=== PATIENT | male | born 1930 | race Caucasian/White ===

== ENCOUNTER 2016-06-19 15:55 | Inpatient (IN) | payer OTHER ==
[~2016-06-19] VITALS: Ht 188 cm; Wt 79.7 kg
[~2016-06-19 15:55] MED LIST: ADVIN25/60 INH; ALBUAER19 INH; AMB5 PO; ASPI81TA25 PO; CHOL100027 PO; CLOP1TAB54 PO; CRG125 PO; CRG625 PO; ELQ25 PO; FURO20TA PO; GABA1CAP5 PO; LEVO125T72 PO; LNX125 PO; NTRGSL/4 SL; OMEP20CA9 PO
[2016-06-19] MEDS ORDERED: SODIUM CHLORIDE 0.9% 1000ML 1,000 ML IV STA (16:07)
--- NOTE | 2016-06-19 16:29 | EMERGENCY ROOM VISIT NOTE ---
History Report prepared by Marija: Marcio Mata Under the Supervision of: Dr. Jayden Jimenez M.D. First contact with patient: 16:06 Chief Complaint: SHORTNESS OF BREATH Stated Complaint: SOB History of Present Illness The patient is an 85 year old male who presents to the Emergency Room via ambulance with complaints of constant fatigue beginning a few days prior to arrival. As per daughter, the patient associates shortness of breath, a persistent headache, nausea, and slurred speech with today's symptoms. She notes she checked the patient's oxygen saturation this morning and it was 92%, and then she checked it later in the day which revealed an oxygen saturation of 80. The daughter states the patient was seen in the ED last week for chest pain. She notes the patient is not on oxygen at home. The patient received a Duoneb treatment in the ambulance en route to the ED. The daughter notes the patient experienced a fall several weeks ago. She states the patient has not seen his PCP in the past week, but is scheduled to see his doctor in a few days. The patient has a history of CHF and rapid atrial fibrillation. The daughter denies the patient experiencing one sided weakness. Pt denies LOC, fevers, chills, diaphoresis, visual changes, neck pain, chest pain, breathing difficulties, vomiting, abdominal pain, back pain, melena, hematochezia, urinary symptoms, numbness, weakness, lymphadenopathy, rash, or other complaints. 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 Review of Systems See HPI for pertinent positives and negatives. A total of ten systems were reviewed and were otherwise negative. Past Medical & Surgical Medical Problems: (1) Acute systolic heart failure (2) Anemia (3) CAD (coronary artery disease) (4) CHF exacerbation (5) Chronic kidney disease (6) COPD (chronic obstructive pulmonary disease) (7) Depressive disorder (8) Diabetes mellitus (9) History of atrial fibrillation (10) History of stomach ulcers (11) HTN (hypertension) (12) Hypercholesteremia (13) Hypothyroidism (14) Sleep apnea Surgical Problems: (1) H/O total knee replacement (2) History of lumbar surgery (3) History of permanent cardiac pacemaker placement (4) Hx of CABG Family History Patient reports no known family medical history. Social History Smoking Status: Former Smoker Drug Use: none Marital Status: Housing Status: lives with family Occupation Status: retired Current/Historical Medications Scheduled Apixaban (Eliquis), 2.5 MG PO BID Aspirin (Aspir-Low), 81 MG PO QAM Carvedilol (Carvedilol), 6.25 MG PO QAM Carvedilol (Carvedilol), 12.5 MG PO HS Cholecalciferol (Vitamin D 1000 Unit), 2,000 INTER.UNIT PO QAM Clopidogrel Bisulfate (Plavix), 75 MG PO QAM Digoxin (Digoxin), 0.125 MG PO DAILY@16 Fluticasone Prop/Salmeterol (Advair Diskus 250/50 60 Dose), 1 PUFF INH Q12 Furosemide (Lasix), 1 TAB PO QAM Gabapentin (Neurontin), 400 MG PO TID Omeprazole (Prilosec), 1 CAP PO QAM Zolpidem Tartrate (Zolpidem Tartrate), 5 MG PO HS Scheduled PRN Albuterol Inhaler (Ventolin Inhaler), 2 PUFFS INH Q4H PRN Nitroglycerin (Nitrostat), 0.4 MG SL UD PRN Allergies Coded Allergies: Warfarin (Verified Allergy, Intermediate, PT CAN TAKE BRAND COUMADIN, ) GOT HIVES AND SWELLING WITH WARFARIN (GENERIC BRAND) Simvastatin (Verified Adverse Reaction, Mild, GI UPSET, 06/12/16) Physical Exam Vital Signs Date Time Temp Pulse Resp B/P Pulse Ox O2 Delivery O2 Flow Rate FiO2 06/19/16 19:05 78 94 6.0 06/19/16 18:58 88 22 143/87 94 Nasal Cannula 5.0 06/19/16 17:49 70 26 140/81 96 Nasal Cannula 4.0 06/19/16 16:43 72 28 147/87 96 Nasal Cannula 5.0 06/19/16 16:13 104 06/19/16 16:09 82 Room Air 06/19/16 16:09 95 Nasal Cannula 5.0 06/19/16 16:09 36.5 70 24 143/89 82 Room Air 06/19/16 16:09 82 Room Air Physical Exam GENERAL: Awake, lethargic, uncomfortable-appearing, in no distress HENT: Normocephalic, atraumatic. Oropharynx unremarkable. EYES: Normal conjunctiva. Sclera non-icteric. NECK: Supple. No nuchal rigidity. FROM. No JVD. RESPIRATORY: Clear to auscultation. CARDIAC: Irregularly irregular, normal rate. Extremities warm and well perfused. Pulses equal. ABDOMEN: Soft, non-distended. No tenderness to palpation. No rebound or guarding. No masses. RECTAL: Deferred. MUSCULOSKELETAL: Chest examination reveals no tenderness. No joint edema. LOWER EXTREMITIES: Calves are equal size bilaterally and non-tender. No edema. No discoloration. NEURO: Altered sensorium. Not following commands. SKIN: No rash or jaundice noted. Medical Decision & Procedures ER Provider Diagnostic Interpretation: X ray results as stated below per my interpretation and radiologist interpretation. Other radiology results as stated below per my review and radiologist interpretation CHEST ONE VIEW PORTABLE CLINICAL HISTORY: Weakness, shortness of breath COMPARISON STUDY: 06/12/2016 FINDINGS: There are postsurgical changes of a midline sternotomy. There is a left subclavian pacer defibrillator present. The heart is enlarged. There is diffuse elevation of the interstitium, likely secondary to congestive failure/pulmonary edema. While a bilateral interstitial inflammatory process could appear similar, this is felt to be statistically less likely. IMPRESSION: Persistent pulmonary edema pattern. Clinical and radiographic follow-up is recommended. Electronically signed by: Cosmo Diaz M.D. 06/19/2016 4:[address] HEAD WITHOUT CONTRAST (CT) CLINICAL HISTORY: confusion COMPARISON STUDY: No previous studies for comparison. TECHNIQUE: Axial CT of the brain is performed from the vertex to the skull base. IV contrast was not administered for this examination. CT DOSE: 786.26 mGy.cm FINDINGS: No intra or extra-axial mass lesions are visualized. There is no CT evidence of acute cortical infarction. There is no evidence of midline shift. There is no acute hemorrhage. No calvarial fractures are visualized. There are patchy white matter hypodensities likely on a small vessel basis. 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 There is mild mucosal thickening within the right maxillary sinus. There is moderate mucosal thickening within the sphenoid. There is opacified right ethmoid air cell. IMPRESSION: No acute intracranial findings Electronically signed by: Cosmo Diaz M.D. 06/19/2016 5:34 PM Laboratory Results 06/19/16 17:04 Red Blood Count 4.19, Mean Corpuscular Volume 104.1, Mean Corpuscular Hemoglobin 32.9, Mean Corpuscular Hemoglobin Concent 31.7, Mean Platelet Volume 10.6, Neutrophils (%) (Auto) 76.5, Lymphocytes (%) (Auto) 13.6, Monocytes (%) ( Auto) 9.4, Eosinophils (%) (Auto) 0.1, Basophils (%) (Auto) 0.1, Neutrophils # ( Auto) 5.69, Lymphocytes # (Auto) 1.01, Monocytes # (Auto) 0.70, Eosinophils # ( Auto) 0.01, Basophils # (Auto) 0.01 06/19/16 17:04 Test 06/19/16 17:04 06/19/16 17:09 White Blood Count 7.44 K/uL (4.8-10.8) Red Blood Count 4.19 M/uL (4.7-6.1) Hemoglobin 13.8 g/dL (14.0-18.0) Hematocrit 43.6 % (42-52) Mean Corpuscular Volume 104.1 fL (80-100) Mean Corpuscular Hemoglobin 32.9 pg (25-34) Mean Corpuscular Hemoglobin Concent 31.7 g/dl (32-36) Platelet Count 273 K/uL (130-400) Mean Platelet Volume 10.6 fL (7.4-10.4) Neutrophils (%) (Auto) 76.5 % Lymphocytes (%) (Auto) 13.6 % Monocytes (%) (Auto) 9.4 % Eosinophils (%) (Auto) 0.1 % Basophils (%) (Auto) 0.1 % Neutrophils # (Auto) 5.69 K/uL (1.4-6.5) Lymphocytes # (Auto) 1.01 K/uL (1.2-3.4) Monocytes # (Auto) 0.70 K/uL (0.11-0.59) Eosinophils # (Auto) 0.01 K/uL (0-0.5) Basophils # (Auto) 0.01 K/uL (0-0.2) RDW Standard Deviation 54.8 fL (36.4-46.3) RDW Coefficient of Variation 14.4 % (11.5-14.5) Immature Granulocyte % (Auto) 0.3 % Immature Granulocyte # (Auto) 0.02 K/uL (0.00-0.02) Prothrombin Time 12.2 SECONDS (9.0-12.0) Prothromb Time International Ratio 1.1 (0.9-1.1) Activated Partial Thromboplast Time 30.3 SECONDS (21.0-31.0) Partial Thromboplastin Ratio 1.2 Anion Gap 8.0 mmol/L (3-11) Est Creatinine Clear Calc Drug Dose 32.3 ml/min Estimated GFR () 37.0 Estimated GFR (Non- 31.9 BUN/Creatinine Ratio 18.6 (10-20) Calcium Level 8.7 mg/dl (8.5-10.1) Magnesium Level 2.4 mg/dl (1.8-2.4) Total Bilirubin 0.7 mg/dl (0.2-1) Direct Bilirubin 0.3 mg/dl (0-0.2) Aspartate Amino Transf (AST/SGOT) 13 U/L (15-37) Alanine Aminotransferase (ALT/SGPT) 28 U/L (12-78) Alkaline Phosphatase 75 U/L (45-117) Total Creatine Kinase 27 U/L (39-308) Creatine Kinase MB 1.0 ng/ml (0.5-3.6) Creatine Kinase MB Ratio 3.7 (0-3.0) Troponin I 0.038 ng/ml (0-0.045) Total Protein 6.9 gm/dl (6.4-8.2) Albumin 3.3 gm/dl (3.4-5.0) Thyroid Stimulating Hormone (TSH) 1.490 uIu/ml (0.300-4.500) Digoxin Level 1.7 ng/ml (0.8-2.0) Arterial Blood pH 7.35 (7.35-7.45) Arterial Blood Partial Pressure CO2 58 mmHg (35-46) Arterial Blood Partial Pressure O2 90 mm/Hg (80-95) Arterial Blood HCO3 31 mmol/L (19-24) Arterial Blood Oxygen Saturation 96.5 % (90-95) Arterial Blood Base Excess 4.1 mEq/L (-9-1.8) Arterial Blood Gas Delivery 5 LITERS O2 Rosas Test POS (POS) Laboratory results reviewed by me Medications Administered Medications (Trade) Dose Ordered Sig/Kojo Route Start Time Stop Time Status Last Admin Dose Admin Sodium Chloride (Nss 1000ml) 1,000 ml @ 125 mls/hr Q8H STAT IV 06/19/16 16:07 06/19/16 18:57 DC 06/19/16 17:49 125 MLS/HR Furosemide (Lasix Inj) 40 mg NOW STAT IV 06/19/16 18:55 06/19/16 18:57 DC 06/19/16 19:11 40 MG ECG Indication: SOB/dyspnea Rate (beats per minute): 125 Rhythm: atrial fibrillation Findings: T-wave inversion (Inferolateral), other (RVR) ED Course 1607: Ordered Sodium Chloride 1,000 ml @ 125 mls/hr IV. 1614: The patient was evaluated in room C1B. A complete history and physical exam was performed. 1833: Reevaluated the patient at this time, and he is stable and getting BiPAP. 1855: Ordered Lasix Inj 40 mg IV. 185: I [facility] about the patient's case, and he will follow the patient for further evaluation. Medical Decision Triage Nursing notes reviewed. The patient's presentation and history were concerning for altered mental status and breathing issues. Etiologies such as pneumonia, COPD, reactive airway disease, CHF, cardiac ischemia, pulmonary embolism, pneumothorax, musculoskeletal, infections, gastrointestinal, as well as others were entertained. The patient was evaluated. He had some confusion. He has had poor oral intake. He was started on low-dose normal saline. Patient's family notes that this is been an increasing issue since discharge. He was hypoxic prior to arrival. He is doing better with supplemental oxygen. He has a significant history of CHF. The patient's chest x-ray was concerning for congestive failure. His fluid was stopped. His ABG revealed hypercarbia. The patient's CBC, INR, chemistry, and LFTs along with his digoxin were unremarkable. Troponin was negative. The patient was started on BiPAP. He was given a dose of IV Lasix. Further evaluation and management will be necessary in the hospital. Consultation was made with internal medicine. The patient was evaluated for further treatment. The chart was completed utilizing [employer] voice recognition software. Grammatical errors, random word insertions, pronoun errors, and incomplete sentences are an occasional consequence of this system due to software limitations, ambient noise, and hardware issues. Any formal questions or concerns about the content, text, or information contained within the body of this dictation should be directly addressed to the physician for clarification. Consults Time Called: 1852 Consulting Physician: VANESSA Awan (Internal Medicine) Returned Call: 1855 I spoke to VANESSA Awan (Internal Medicine) about the patient's case, and he will follow the patient for further evaluation. Impression Primary Impression: Hypoxia Additional Impressions: Hypercarbia, CHF (congestive heart failure) Critical Care I have personally spent greater than 30 minutes of critical care time in the direct management of this patient. This includes bedside care, interpretation of diagnostic studies, and testing, discussion with consultants, patient, and family members, and other required patient management activities. This 30 minutes is in excess of all separately billable procedures. Scribe Attestation The scribe's documentation has been prepared under my direction and personally reviewed by me in its entirety. I confirm that the note above accurately reflects all work, treatment, procedures, and medical decision making performed by me. Departure Information Dispostion Being Evaluated By Hospitalist (VANESSA Awan (Internal Medicine)) Dillan Antunez M.D. (PCP)
--- NOTE | 2016-06-19 16:37 | DIAGNOSTIC IMAGING REPORT ---
CHEST ONE VIEW PORTABLE CLINICAL HISTORY: Weakness, shortness of breath COMPARISON STUDY: 06/12/2016 FINDINGS: There are postsurgical changes of a midline sternotomy. There is a left subclavian pacer defibrillator present. The heart is enlarged. There is diffuse elevation of the interstitium, likely secondary to congestive failure/pulmonary edema. While a bilateral interstitial inflammatory process could appear similar, this is felt to be statistically less likely. IMPRESSION: Persistent pulmonary edema pattern. Clinical and radiographic follow-up is recommended. Electronically signed by: Cosmo Diaz M.D. 06/19/2016 4:35 PM
[2016-06-19 17:26] LABS: BASO % 0.1 %; BASO ABS # 0.01 K/uL (0-0.2); COMPLETE YES; EOS % 0.1 %; HEMATOCRIT 43.6 % (42-52); IG% 0.3 %; LYMPH % 13.6 %; LYMPH ABS # 1.01 K/uL (1.2-3.4); MEAN CELL VOLUME 104.1 fL (80-100); MEAN CORPUSCULAR HEMOGLOBIN 32.9 pg (25-34); MEAN CORPUSCULAR HGB CONC 31.7 g/dl (32-36); MEAN PLATELET VOLUME 10.6 fL (7.4-10.4); MONO % 9.4 %; NEUT % 76.5 %; PLATELET COUNT 273 K/uL (130-400); RED BLOOD COUNT 4.19 M/uL (4.7-6.1); WHITE BLOOD COUNT 7.44 K/uL (4.8-10.8)
[2016-06-19 17:28] LABS: ALLEN TEST POS (POS); ARTERIAL BLD GAS O2 SATURATION 96.5 % (90-95); ARTERIAL BLOOD GAS BASE EXCESS 4.1 mEq/L (-9-1.8); ARTERIAL BLOOD GAS HCO3 31 mmol/L (19-24); ARTERIAL BLOOD GAS PO2 90 mm/Hg (80-95); ARTERIAL BLOOD GAS pH 7.35 (7.35-7.45); O2 ADMINISTRATION 5 LITERS O2
[2016-06-19 17:35] LABS: INR 1.1 (0.9-1.1); PARTIAL THROMBOPLASTIN RATIO 1.2; PROTHROMBIN TIME (PATIENT) 12.2 SECONDS (9.0-12.0)
--- NOTE | 2016-06-19 17:36 | DIAGNOSTIC IMAGING REPORT ---
CT HEAD WITHOUT CONTRAST (CT) CLINICAL HISTORY: confusion COMPARISON STUDY: No previous studies for comparison. TECHNIQUE: Axial CT of the brain is performed from the vertex to the skull base. IV contrast was not administered for this examination. CT DOSE: 786.26 mGy.cm FINDINGS: No intra or extra-axial mass lesions are visualized. There is no CT evidence of acute cortical infarction. There is no evidence of midline shift. There is no acute hemorrhage. No calvarial fractures are visualized. There are patchy white matter hypodensities likely on a small vessel basis. 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 There is mild mucosal thickening within the right maxillary sinus. There is moderate mucosal thickening within the sphenoid. There is opacified right ethmoid air cell. IMPRESSION: No acute intracranial findings Electronically signed by: Cosmo Diaz M.D. 06/19/2016 5:34 PM
[2016-06-19 17:44] LABS: BUN/CREATININE RATIO 18.6 (10-20); CALCIUM 8.7 mg/dl (8.5-10.1); CREATININE 1.9 mg/dl (0.60-1.40); MAGNESIUM 2.4 mg/dl (1.8-2.4); POTASSIUM 4.8 mmol/L (3.5-5.1)
[2016-06-19 17:58] LABS: CKMB/CK RATIO 3.7 (0-3.0); THYROID STIMULATING HORMONE 1.49 uIu/ml (0.300-4.500)
[2016-06-19] MEDS ORDERED: FUROSEMIDE 40 MG/4 ML VIAL IV STA (18:55)
[2016-06-19 19:05] VITALS: PULSE 78; O2SAT 94
[2016-06-19] MEDS ORDERED: MoRPHine SULFATE 2 MG/ML CARP IV PRN (19:15)
[2016-06-19] MEDS ORDERED: ALUMINUM/MAGNESIUM/SIMETH (MAALOX MAX) 30 ML UDC PO PRN (19:15)
[2016-06-19] MEDS ORDERED: NITROGLYCERIN 0.4 MG SL PER TAB CHARGE SL PRN ×2 (19:15)
[2016-06-19] MEDS ORDERED: POLYETHYLENE (MIRALAX) 17 GM PACK PO PRN (19:15)
[2016-06-19] MEDS ORDERED: MAGNESIUM HYDROXIDE SUSP 30 ML UDC PO PRN (19:15)
[2016-06-19] MEDS ORDERED: ACETAMINOPHEN 325 MG TAB PO PRN (19:15)
[2016-06-19] MEDS ORDERED: ALBUT/IPRATROP 3MG/0.5MG NEB 3 ML VIAL INH PRN (19:15)
[2016-06-19] MEDS ORDERED: ONDANSETRON INJ 2 MG/ML 2 ML VIAL IV PRN (19:15)
[2016-06-19] MEDS ORDERED: ALBUTEROL HFA 8 GM INHALER INH PRN (19:15)
[2016-06-19] MEDS ORDERED: GLUCOSE 40% GEL 15 GM TUBE PO PRN (19:45)
[2016-06-19] MEDS ORDERED: GLUCOSE 10 TABS/TUBE PO PRN (19:45)
[2016-06-19] MEDS ORDERED: DEXTROSE 50% 50 ML SYR IV PRN (19:45)
[2016-06-19] MEDS ORDERED: GLUCAGON FOR INJ 1 MG VIAL SQ PRN (19:45)
[2016-06-19 20:31] LABS: REVIEW REQ? YES; URINE APPEARANCE CLEAR (CLEAR); URINE BILIRUBIN NEG (NEG); URINE COLOR YELLOW; URINE NITRITE NEG (NEG); UROBILINOGEN NEG (NEG)
[2016-06-19 20:32] LABS: MANUAL MICROSCOPIC REQUIRED? NO
[2016-06-19 20:40] LABS: URINE PATH CASTS 0-3 GRANULAR CASTS /lpf (0)
[2016-06-19 20:41] VITALS: BP 149/91; PULSE 104; TEMP 36.2; O2SAT 90; Ht 188 cm; Wt 79.7 kg
[2016-06-19] MEDS: INSULIN ASPART 100 UNITS/ML 3 ML PEN SC SCH (21:00)
[2016-06-19] MEDS: ZOLPIDEM TARTRATE 5 MG TAB PO SCH (21:00)
[2016-06-19] MEDS ORDERED: CARVEDILOL 12.5 MG TAB PO SCH (21:00)
[2016-06-19 21:23] VITALS: PULSE 77; O2SAT 96
[2016-06-19 21:30] VITALS: PULSE 77; O2SAT 96
[2016-06-19 22:16] VITALS: BP 184/99; PULSE 84
[2016-06-19] MEDS: FLUTICASONE/SALMETEROL 250/50 (ADVAIR) 14 PUFF/1 INHALER INH SCH (22:17)
[2016-06-19] MEDS: GABAPENTIN 400 MG CAP PO SCH (22:18)
[2016-06-19] MEDS: APIXABAN 2.5 MG TAB PO SCH (22:20)
--- NOTE | 2016-06-19 22:33 | HISTORY & PHYSICAL EXAMINATION ---
DATE OF ADMISSION: 06/19/2016 REASON FOR ADMISSION: Acute on chronic systolic heart failure with hypoxia. CHIEF COMPLAINT: Shortness of breath. HISTORY OF PRESENT ILLNESS: Mr. Carr is an 85-year-old male who was discharged from our facility in June 15 after a bout of acute systolic heart failure. After that admission, he was restarted on Eliquis because of atrial fibrillation and his Coreg adjusted upwards and digoxin maintained. The family says that after he went home, he did reasonably well but had a couple of nights where he had paroxysmal nocturnal dyspnea. The family has been weighing him religiously and he did lose almost 4-5 pounds. He is out of below his discharge weight currently. The patient looking like he was struggling to breathe, the family checked his pulse oximetry at home, it was in the 70s. The patient was confused at times. EMS brought the patient in after confirming oxygen saturation in the 80s, he received DuoNeb en route. In the Emergency Department, he was having difficulty breathing, BiPAP was placed and the patient was given a dose of intravenous Lasix. The patient is resting much comfortably with his CPAP. The family denies medications or dietary indiscretion. The patient denies any chest pain. In the Emergency Department, it was recorded that he initially had a run of atrial fibrillation, this now converted back looks to be a sinus-paced rhythm. The patient is much more comfortably on BiPAP. The patient himself denies any increased sputum production, any chest pain. He did admit to paroxysmal nocturnal dyspnea. PAST MEDICAL HISTORY: For aFib, ischemic cardiomyopathy, last ejection fraction was 40-45%. He has had a CABG; he has a pacemaker. He has had moderate mitral regurgitation, chronic systolic heart failure. He has chronic renal failure stage III, COPD. There is a listing of diabetes on his profile, although he is not on any diabetic medications; hypertension, depression, peptic ulcer disease. He has been tested for sleep apnea in the past but has not been revealing, total knee arthroplasty, lumbar spinal surgery. MEDICATIONS: Eliquis 2.5 b.i.d., aspirin 81 a day. In the chart, Dr. Chaparro says stop Plavix and use aspirin; the patient's family believes is the opposite to stop aspirin use Plavix. To this end, will bow to the family's wishes but will have to have this confirmed with Dr. Chaparro. Coreg 6.25 in the morning and 12.5 at night, digoxin 0.125 a day, albuterol as needed, Advair 250 inhaled b.i.d., Lasix 20 a day, Neurontin 400 t.i.d., Synthroid 150 mcg a day, Prilosec 20 daily, Ambien 5 at bedtime p.r.n. SOCIAL HISTORY: The patient quit smoking, does not drink alcohol, lives with his family. FAMILY HISTORY: Significant for heart disease, hypertension and diabetes. REVIEW OF SYSTEMS: Challenging the patient was wearing a BiPAP mask. His family, however, recounts no recent illnesses or etc since his discharge from our facility. A 10 systems were reviewed with the family and all appear to be negative, although this is a secondhand information. PHYSICAL EXAMINATION: GENERAL: Pleasant gentleman, fatigued, falls asleep easily. VITAL SIGNS: Temp 36.5, pulse is now 78, respirations rate 22, BP 143/87, O2 sat 94% on BiPAP 6 liters. HEENT: PERRL, EOMI. NECK: Trachea midline. It is difficult to assess JVD at this time; I do believe he has 2 cm JVD. HEART: Regular. There is a systolic murmur at the left upper sternal border, but there is coarse breath sounds, it is honestly hard to hear. LUNGS: Have bilateral coarse breath sounds throughout without focal air losses. ABDOMEN: Normoactive bowel sounds, soft, nontender, no organomegaly or abdominal bruits. EXTREMITIES: Actually with trace edema only, pretibially. No cyanosis or clubbing. NEUROLOGIC: He is awake. He can answer questions appropriately. He falls asleep easily. He can spontaneously move his upper and lower extremities. LABORATORY DATA: He has a white count of 7, H\T\H 13 and 43, platelet count 273, BUN and creatinine 35 and 1.9, glucose 125. Digoxin level was therapeutic at 1.7. IMAGING DATA: CT scan of his head is negative, this was done for confusion. EKG shows sinus rhythm with nonspecific lateral ST depressions in 5-6. ABG shows an intact pH with slightly elevated CO2, this may be because of his COPD, his baseline bicarbonate is elevated on his peripheral PRP. His chest x-ray only shows heart failure and cardiomegaly. ASSESSMENT: An 85-year-old male here with acute on chronic systolic heart failure with hypoxia, atrial fibrillation, now spontaneously resolved. PLAN: For the heart failure, the patient will be given Lasix 40 b.i.d., a low sodium diet and a Peña catheter to detect I's and O's. We will maintain his digoxin. He had been on KEITH inhibitors in the past likely these were discontinued because of his rising creatinine. We will need to discuss his medical management with Dr. Chaparro. Will interrogate his pacemaker to determine if he is having paroxysmal atrial fibrillation at home, which could explain a more diastolic component of his heart failure. For his atrial fibrillation, will maintain his Eliquis, Plavix, Coreg and digoxin. For chronic obstructive pulmonary disease, although this may have some play into the event that he did receive a DuoNeb enroute, we will give him DuoNebs, Advair. He appears to be euthyroid, will continue his Synthroid dose. His TSH checked on admission was 1.4. Deep vein thrombosis prevention will be based on apixaban. The patient is a full code. Addendum: The patient's family was interested in home oxygen, will need to some testing whether nocturnal oximetry or 2-step oxygen MTDD
[2016-06-19 23:29] VITALS: BP 184/82; PULSE 74; TEMP 36.2; O2SAT 98
[2016-06-20] VITALS (13 sets, daily range): BP systolic 118–167; BP diastolic 57–99; PULSE 60–86; TEMP 36–36.4; O2SAT 83–99
[2016-06-20] MEDS ORDERED: METOPROLOL TARTRATE 1 MG/ML VIAL IV PRN
[2016-06-20] MEDS: INSULIN ASPART 100 UNITS/ML 3 ML PEN SC SCH ×4 (07:00→21:00)
[2016-06-20 07:11] LABS: HEMATOCRIT 41.4 % (42-52); MEAN CELL VOLUME 101.2 fL (80-100); MEAN CORPUSCULAR HEMOGLOBIN 32.3 pg (25-34); MEAN CORPUSCULAR HGB CONC 31.9 g/dl (32-36); MEAN PLATELET VOLUME 10.4 fL (7.4-10.4); PLATELET COUNT 230 K/uL (130-400); RED BLOOD COUNT 4.09 M/uL (4.7-6.1); WHITE BLOOD COUNT 8.08 K/uL (4.8-10.8)
[2016-06-20] MEDS: ALBUT/IPRATROP 3MG/0.5MG NEB 3 ML VIAL INH SCH ×4 (07:21→19:22)
[2016-06-20 07:36] LABS: BUN/CREATININE RATIO 20.8 (10-20); CALCIUM 8.8 mg/dl (8.5-10.1); CREATININE 1.7 mg/dl (0.60-1.40); POTASSIUM 4.4 mmol/L (3.5-5.1)
[2016-06-20] MEDS: FLUTICASONE/SALMETEROL 250/50 (ADVAIR) 14 PUFF/1 INHALER INH SCH ×2 (08:11→21:24)
[2016-06-20] MEDS: FUROSEMIDE INJ 40 MG in SYRINGE 0 ML IV SCH ×2 (08:11→17:00)
[2016-06-20] MEDS: GABAPENTIN 400 MG CAP PO SCH ×3 (08:12→21:24)
[2016-06-20] MEDS: APIXABAN 2.5 MG TAB PO SCH ×2 (08:12→21:24)
[2016-06-20] MEDS: CLOPIDOGREL BISULFATE 75 MG TAB PO SCH (08:12)
[2016-06-20] MEDS: POTASSIUM CHLORIDE 20 MEQ TABCR PO SCH (08:12)
[2016-06-20] MEDS: MAGNESIUM OXIDE 400 MG TAB PO SCH (08:12)
[2016-06-20] MEDS: PANTOprazole SOD 40 MG TAB PO SCH (08:12)
[2016-06-20] MEDS: CHOLECALCIFEROL 1000 INTER.UNIT TAB PO SCH (08:13)
[2016-06-20] MEDS ORDERED: CLOPIDOGREL BISULFATE 75 MG TAB PO SCH (09:00)
[2016-06-20] MEDS ORDERED: ASPIRIN 81 MG ECTAB PO SCH (09:00)
[2016-06-20] MEDS ORDERED: CARVEDILOL 6.25 MG TAB PO SCH (09:00)
[2016-06-20] MEDS ORDERED: CARVEDILOL 6.25 MG TAB PO ONE (09:15)
--- NOTE | 2016-06-20 10:13 | CARDIOLOGY CONSULTATION ---
DATE OF CONSULTATION: 06/20/2016 TIME: 9:05 a.m. CONSULTING PHYSICIAN: Dr. Lunsford. REASON FOR CONSULTATION: Management for afib and heart failure. PRIMARY NEUROSCIENCE SPECIALIST: Dr. Ramsey Chaparro. HISTORY OF PRESENT ILLNESS: Mr. Carr is a pleasant 85-year-old gentleman with a history significant for multivessel CAD status post CABG x4, September 2012 at [facility] [place], mild cardiomyopathy, chronic kidney disease, atrial fibrillation with rapid ventricular response, ICD, type 2 diabetes, COPD, systolic CHF, hypertension, and sleep apnea. He was hospitalized earlier this week, being discharged on 06/15/2016 where he was hospitalized with chest discomfort and heart failure. Earlier that week he was diagnosed with atrial fibrillation as an outpatient and started on Eliquis and digoxin. There was discussion in the outpatient setting for possible cardioversion in the future after being on anticoagulation therapy for a sufficient amount of time. He was discharged on 06/15/2016 and he states that when discharged he did not yet feel back to baseline from a breathing standpoint. This reportedly worsened over the past 2 days according to his report. He had orthopnea and worsening shortness of breath overall. He was found to be hypoxic at home by his family and also by EMS, who reportedly demonstrated oxygen saturation in the 80s at home. They gave him a DuoNeb and brought him to the hospital. He was placed on BiPAP and given IV Lasix. He states that it is too early to tell if he is feeling any better from a breathing standpoint. He is no longer on BiPAP, but rather supplemental oxygen via nasal cannula, currently on 5 liters and satting 91%. He denies chest pain, but states that he does feel palpitations from time to time. None in the past couple of days, however. He denies melena, hematochezia, hematuria, or other bleeding. He denies abdominal pain, nausea, vomiting, fevers, chills, stroke or stroke-like symptom. He states that he does have chronic left lower extremity edema and this is the site of his prior vein harvest for his CABG. He denies any recent cough. He denies eating foods high in sodium content. He states that he has not been weighing himself at home. He does believe he was taking Lasix as prescribed. He was discharged on Lasix 20 mg p.o. daily. REVIEW OF SYSTEMS: As above, and otherwise review of systems were negative. PAST MEDICAL HISTORY: 1. Ischemic cardiomyopathy. 2. Multivessel coronary artery disease status post CABG x4 at [facility] [place]. 3. Biventricular ICD, [facility], managed by Dr. Chaparro. 4. Mitral regurgitation. 5. Hypertension. 6. Dyslipidemia. 7. Type 2 diabetes. 8. Carotid artery disease. 9. Combined systolic and diastolic CHF. 10. Hypothyroidism. 11. COPD. 12. Chronic kidney disease. 13. Cervical radiculopathy. 14. Atrial fibrillation. 15. Anemia. 16. Lumbar radiculopathy. 17. Peripheral neuropathy. 18. Secondary hyperparathyroidism. 19. Sleep apnea. 20. TIA. 21. Vitamin D deficiency. HOME MEDICATIONS: Include: 1. Eliquis 2.5 mg twice daily. 2. Aspirin 81 mg daily. 3. Carvedilol 6.25 mg in the morning, and 12.5 mg at night. 4. Digoxin 0.125 mg daily. 5. Lasix 20 mg p.o. daily. 6. Neurontin 400 mg t.i.d. 7. Synthroid 150 mcg daily 8. Prilosec 20 mg daily. INPATIENT MEDICATIONS: Include: 1. Eliquis 2.5 mg p.o. daily. 2. Carvedilol 6.25 mg in the morning, and 12.5 mg at night. 3. Plavix 75 mg daily. 4. Digoxin 0.125 mg daily. 5. Lasix 40 mg IV twice daily. 6. Metoprolol tartrate 5 mg IV q. 4 p.r.n., and a dose was given at 0015 a.m. 7. Protonix 40 mg daily. 8. Potassium chloride 20 mEq daily. ALLERGIES: REPORTED SIMVASTATIN AND WARFARIN. SOCIAL HISTORY: Quit smoking 23 years ago. No alcohol. No drugs. and lives at home with his and 1 son. Three children total. He also has grandchildren. FAMILY HISTORY: Father had CAD. PHYSICAL EXAMINATION: VITAL SIGNS: Temperature 36.3 degrees, heart rate 73 beats per minute, respiration rate 16, blood pressure 167/99 mmHg, oxygen saturation 91% on 5 liters per nasal cannula. I's and O's are incomplete. Weight 79.6 kg. GENERAL: No acute distress. He is alert and oriented x3. HEENT: Anicteric sclerae. NECK: Elevated JVD. No bruits. Normal carotid upstrokes bilaterally. CARDIAC EXAMINATION: PMI was nonpalpable. There was no ventricular heave. Regular, normal S1, S2. A 1/6 holosystolic murmur best heard at the apex. No rubs or gallops. LUNGS: Rales at the left base. ABDOMEN: Soft, nontender, nondistended, normoactive bowel sounds, no bruits noted. EXTREMITIES: Trace left lower extremity edema. 2+ radial pulses bilaterally. 1+ dorsalis pedis pulses bilaterally. No palpable cords. No cyanosis. PSYCHIATRIC: Affect appears appropriate. Telemetry personally reviewed. Intermittently paced rhythm, otherwise atrial fibrillation. Echocardiogram report from 06/14/2016 personally was reviewed. Report notes LV systolic function mildly reduced with an EF of 40-45%. There was abnormal septal motion consistent with conduction abnormality, as well as moderate hypokinesis of the inferior wall and akinesis of the apical segments. RV possibly mildly dilated. Biatrial dilation. Mild to moderate MR. Mild to moderate TR. Estimated RVSP 35-40. LABORATORIES: White blood cell count 8.1, hemoglobin 13.2, platelets 230. Sodium 146, potassium 4.4, BUN 35, creatinine 1.7, glucose 105. Troponin 0.038 and 0.028. These are not elevated. Chest x-ray, image personally reviewed. Findings suggestive of CHF. Cardiomegaly noted. ICD noted. Head CT, no acute intracranial findings per radiology. ECGs personally reviewed. ECG done on 06/19/2016 at 1604 demonstrated atrial fibrillation with rapid ventricular response. Heart rate 125 beats per minute. Inferolateral ST/T wave abnormality. Cannot rule out anterior infarct. ECG 06/19/2016 at 1604 demonstrates afib with frequent ventricular paced complexes. Inferolateral ST/T wave abnormality. The ST/T wave abnormalities are similar to 06/14/2016 ECG. ASSESSMENT AND PLAN: 1. Acute on chronic combined systolic and diastolic congestive heart failure: He does appear hypervolemic with some jugular venous distention, chest x-ray findings consistent with congestive heart failure, and history consistent with congestive heart failure. Agree with diuretic therapy. Monitor renal function closely. Lasix was not changed at this time. Would try to diurese at goal of 500-1000 mL net negative in the next 24 hours. Monitor electrolytes closely. We discussed the importance of a low sodium diet, and checking daily weights at home. Wean oxygen as able. 2. Atrial fibrillation with rapid ventricular response: He is receiving some intermittent dosing of IV metoprolol. Will increase carvedilol to a total dose of 12.5 mg twice daily. Would increase this as tolerated and indicated. He is also on digoxin. There was discussion as an outpatient for potential cardioversion in the future after he is on anticoagulation therapy for a sufficient amount of time. Continue anticoagulation for stroke risk reduction. He does appear to be on appropriate doses of Eliquis. 3. Multivessel coronary artery disease status post coronary artery bypass graft: No angina. Continue antiplatelet therapy. There apparently has been some concern whether he should be on aspirin or Plavix. This apparently has been discussed in the past with Dr. Chaparro. He can address this going forward; however, he is currently on Plavix. Continue some form of antiplatelet therapy. He does have a listed allergy to simvastatin. Consider high intensity statin therapy in the form of Crestor or atorvastatin. Continue beta alyx therapy. No angina. 4. Hypertension: Blood pressure not well controlled. Carvedilol increased as above. Hopefully with diuresis his blood pressure also improved. 5. Ischemic cardiomyopathy: Continue carvedilol. Not on angiotensin-converting enzyme inhibitor, likely secondary to renal function. Diuresing as above. 6. Disposition: Dr. Chaparro will resume his cardiology care tomorrow. Continue with plan as above. Atrial fibrillation may be exacerbating his congestive heart failure. Heart rate control hopefully will help and there is also once again potential plans for outpatient elective cardioversion in the future after sufficiently anticoagulated. If for some reason heart rate cannot be sufficiently controlled, could also first do a transesophageal echo if cardioversion needs to be done sooner. Currently, at this time, will attempt heart rate control. 7. Highly complex medical issues. Thank you for allowing me to participate in the care of Mr. Carr.
--- NOTE | 2016-06-20 14:49 | Progress Note ---
Subjective Date of Service: Jun 20, 2016. Subjective Pt evaluation today including: conversation w/ patient, conversation w/ family , physical exam, lab review, review of studies, conversation w/ staff consultant, review of inpatient medication list Pain: no pain PO Intake: adequate Voiding: no voiding problems patient still feels short of breath, maybe slightly better, family reports that his color is improved diuresed 900cc thus far, weight down 1.5kg appreciate cardiology consultation Problem List Medical Problems: (1) CHF (congestive heart failure) Status: Acute (2) CHF (congestive heart failure) Status: Acute (3) COPD (chronic obstructive pulmonary disease) Status: Chronic (4) Hypercarbia Status: Acute (5) Hypoxia Status: Acute (6) Left sided chest pain Status: Acute (7) Rapid atrial fibrillation Status: Acute Review of Systems Constitutional: + fatigue, + weakness Respiratory: + dyspnea at rest, + dyspnea on exertion, + shortness of breath Neurologic: + balance problems, + weakness All Other Systems: Reviewed and Negative Medications Current Inpatient Medications Medications (Trade) Dose Ordered Sig/Kojo Route Start Time Stop Time Status Last Admin Dose Admin Albuterol (Ventolin Hfa Inhaler) 2 puffs Q4H PRN INH 06/19/16 19:15 07/19/16 19:14 Apixaban (Eliquis Tab) 2.5 mg BID PO 06/19/16 21:00 07/19/16 20:59 06/20/16 08:12 2.5 MG Cholecalciferol (Vitamin D Tab) 2,000 inter.unit QAM PO 06/20/16 09:00 07/20/16 08:59 06/20/16 08:13 2,000 INTER.UNIT Digoxin (Lanoxin Tab) 0.125 mg DAILY@16 PO 06/20/16 16:00 07/20/16 15:59 Salmeterol Xinafoate/ Fluticasone (Advair Diskus 250/50 Inh) 1 puff Q12 INH 06/19/16 21:00 07/19/16 20:59 06/20/16 08:11 1 PUFF Gabapentin (Neurontin Cap) 400 mg TID PO 06/19/16 21:00 07/19/16 20:59 06/20/16 13:42 400 MG Zolpidem Tartrate (Ambien Tab) 5 mg HS PO 06/19/16 21:00 07/19/16 20:59 Pantoprazole Sodium 40 mg 40 mg QAM PO 06/20/16 09:00 07/20/16 08:59 06/20/16 08:12 40 MG Furosemide/Syringe (Lasix Inj/ Syringe) 4 ml @ 4 mls/min BID17 IV 06/20/16 09:00 07/20/16 08:59 06/20/16 08:11 4 MLS/MIN Potassium Chloride (Klor-Con Tab) 20 meq QAM PO 06/20/16 09:00 07/20/16 08:59 06/20/16 08:12 20 MEQ Magnesium Oxide (Mag-Ox Tab) 400 mg QAM PO 06/20/16 09:00 07/20/16 08:59 06/20/16 08:12 400 MG Acetaminophen (Tylenol Tab) 650 mg Q4H PRN PO 06/19/16 19:15 07/19/16 19:14 Al Hydrox/Mg Hydrox/Simethicone (Maalox Max Susp) 15 ml Q4H PRN PO 06/19/16 19:15 07/19/16 19:14 Magnesium Hydroxide (Milk Of Magnesia Susp) 30 ml Q12H PRN PO 06/19/16 19:15 07/19/16 19:14 Ondansetron HCl (Zofran Inj) 4 mg Q6H PRN IV 06/19/16 19:15 07/19/16 19:14 Nitroglycerin (Nitrostat Tab) 0.4 mg UD PRN SL 06/19/16 19:15 07/19/16 19:14 Morphine Sulfate (MoRPHine SULFATE INJ) 2 mg Q30M PRN IV 06/19/16 19:15 07/03/16 19:14 Polyethylene (Miralax Powder Packet) 17 gm DAILY PRN PO 06/19/16 19:15 07/19/16 19:14 Albuterol/ Ipratropium (Duoneb) 3 ml QIDR INH 06/19/16 20:00 07/19/16 19:59 06/20/16 11:47 3 ML Albuterol/ Ipratropium (Duoneb) 3 ml Q2H PRN INH 06/19/16 19:15 07/19/16 19:14 Clopidogrel Bisulfate (plAVix TAB) 75 mg QAM PO 06/20/16 09:00 07/20/16 08:59 06/20/16 08:12 75 MG Insulin Aspart (novoLOG ASPART) SLIDING SCALE PARAMETER ACHS SC 06/19/16 21:00 07/19/16 20:59 Glucose (Glucose 40% Gel) 15-30 GRAMS 15 GRAMS... UD PRN PO 06/19/16 19:45 07/19/16 19:44 Glucose (Glucose Chew Tab) 4-8 Tablets 4 Tabl... UD PRN PO 06/19/16 19:45 07/19/16 19:44 Dextrose (Dextrose 50% 50ML Syringe) 25-50ML OF 50% DW IV FOR... UD PRN IV 06/19/16 19:45 07/19/16 19:44 Glucagon (Glucagon Inj) 1 mg UD PRN SQ 06/19/16 19:45 07/19/16 19:44 Metoprolol Tartrate (Lopressor Iv) 5 mg Q4 PRN IV 06/20/16 00:00 07/20/16 00:00 06/20/16 00:15 5 MG Carvedilol (Coreg Tab) 12.5 mg BID PO 06/20/16 21:00 07/20/16 20:59 Objective Vital Signs Date Time Temp Pulse Resp B/P Pulse Ox O2 Delivery O2 Flow Rate FiO2 06/20/16 13:00 73 141/67 06/20/16 12:35 Nasal Cannula 5.0 Humidified Oxygen 06/20/16 11:48 60 18 96 Nasal Cannula 5.0 06/20/16 11:35 36.3 70 21 151/71 99 Nasal Cannula 06/20/16 09:15 83 150/87 06/20/16 07:55 Nasal Cannula 5.0 Humidified Oxygen 06/20/16 07:24 73 16 167/99 91 Nasal Cannula 06/20/16 07:21 70 18 83 Room Air 06/20/16 04:06 36.3 84 18 143/86 99 Nasal Cannula 06/20/16 04:00 Nasal Cannula 5.0 06/20/16 00:15 70 154/82 06/19/16 23:29 36.2 74 14 184/82 98 BiPAP 5.0 06/19/16 23:26 BiPAP 06/19/16 22:16 84 184/99 06/19/16 20:41 36.2 104 16 149/91 90 Nasal Cannula 5.0 06/19/16 19:48 98 20 168/95 97 06/19/16 19:05 78 94 6.0 06/19/16 18:58 88 22 143/87 94 Nasal Cannula 5.0 06/19/16 17:49 70 26 140/81 96 Nasal Cannula 4.0 06/19/16 16:43 72 28 147/87 96 Nasal Cannula 5.0 06/19/16 16:13 104 06/19/16 16:09 82 Room Air 06/19/16 16:09 95 Nasal Cannula 5.0 06/19/16 16:09 36.5 70 24 143/89 82 Room Air 06/19/16 16:09 82 Room Air Physical Exam General Appearance: WD/WN, no apparent distress Eyes: normal inspection, EOMI, sclerae normal ENT: normal ENT inspection, hearing grossly normal, pharynx normal Neck: supple, no adenopathy, trachea midline, + JVD Respiratory/Chest: chest non-tender, normal breath sounds, no respiratory distress, no accessory muscle use, + crackles Cardiovascular: no edema, no gallop, no JVD, no murmur, + irregularly irregular Abdomen: normal bowel sounds, non tender, soft, no organomegaly Extremities: normal range of motion, non-tender, normal inspection, no pedal edema, no calf tenderness Neurologic/Psychiatric: 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, no motor/sensory deficits, alert, normal mood/affect, oriented x 3 Skin: normal color, warm/dry, no rash Lymphatic: no adenopathy Laboratory Results Last 24 Hours Test 06/19/16 17:04 06/19/16 17:09 06/19/16 20:12 06/19/16 20:15 White Blood Count 7.44 K/uL Red Blood Count 4.19 M/uL Hemoglobin 13.8 g/dL Hematocrit 43.6 % Mean Corpuscular Volume 104.1 fL Mean Corpuscular Hemoglobin 32.9 pg Mean Corpuscular Hemoglobin Concent 31.7 g/dl Platelet Count 273 K/uL Mean Platelet Volume 10.6 fL Neutrophils (%) (Auto) 76.5 % Lymphocytes (%) (Auto) 13.6 % Monocytes (%) (Auto) 9.4 % Eosinophils (%) (Auto) 0.1 % Basophils (%) (Auto) 0.1 % Neutrophils # (Auto) 5.69 K/uL Lymphocytes # (Auto) 1.01 K/uL Monocytes # (Auto) 0.70 K/uL Eosinophils # (Auto) 0.01 K/uL Basophils # (Auto) 0.01 K/uL RDW Standard Deviation 54.8 fL RDW Coefficient of Variation 14.4 % Immature Granulocyte % (Auto) 0.3 % Immature Granulocyte # (Auto) 0.02 K/uL Prothrombin Time 12.2 SECONDS Prothromb Time International Ratio 1.1 Activated Partial Thromboplast Time 30.3 SECONDS Partial Thromboplastin Ratio 1.2 Sodium Level 146 mmol/L Potassium Level 4.8 mmol/L Chloride Level 107 mmol/L Carbon Dioxide Level 31 mmol/L Anion Gap 8.0 mmol/L Blood Urea Nitrogen 35 mg/dl Creatinine 1.90 mg/dl Est Creatinine Clear Calc Drug Dose 32.3 ml/min Estimated GFR () 37.0 Estimated GFR (Non- 31.9 BUN/Creatinine Ratio 18.6 Random Glucose 125 mg/dl Calcium Level 8.7 mg/dl Magnesium Level 2.4 mg/dl Total Bilirubin 0.7 mg/dl Direct Bilirubin 0.3 mg/dl Aspartate Amino Transf (AST/SGOT) 13 U/L Alanine Aminotransferase (ALT/SGPT) 28 U/L Alkaline Phosphatase 75 U/L Total Creatine Kinase 27 U/L Creatine Kinase MB 1.0 ng/ml Creatine Kinase MB Ratio 3.7 Troponin I 0.038 ng/ml Total Protein 6.9 gm/dl Albumin 3.3 gm/dl Thyroid Stimulating Hormone (TSH) 1.490 uIu/ml Digoxin Level 1.7 ng/ml Arterial Blood pH 7.35 Arterial Blood Partial Pressure CO2 58 mmHg Arterial Blood Partial Pressure O2 90 mm/Hg Arterial Blood HCO3 31 mmol/L Arterial Blood Oxygen Saturation 96.5 % Arterial Blood Base Excess 4.1 mEq/L Arterial Blood Gas Delivery 5 LITERS O2 Rosas Test POS Bedside Glucose 97 mg/dl Urine Color YELLOW Urine Appearance CLEAR Urine pH 5.0 Urine Specific Taylor 1.010 Urine Protein 3+ Urine Glucose (UA) NEG Urine Ketones NEG Urine Occult Blood NEG Urine Nitrite NEG Urine Bilirubin NEG Urine Urobilinogen NEG Urine Leukocyte Esterase NEG Urine WBC (Auto) 1-5 /hpf Urine RBC (Auto) 0-4 /hpf Urine Hyaline Casts (Auto) 10-30 /lpf Urine Epithelial Cells (Auto) 10-20 /lpf Urine Bacteria (Auto) NEG Urine Pathogenic Casts 0-3 GRANULAR CASTS /lpf Test 06/20/16 00:50 06/20/16 06:40 06/20/16 06:47 06/20/16 09:10 Troponin I 0.028 ng/ml 0.032 ng/ml White Blood Count 8.08 K/uL Red Blood Count 4.09 M/uL Hemoglobin 13.2 g/dL Hematocrit 41.4 % Mean Corpuscular Volume 101.2 fL Mean Corpuscular Hemoglobin 32.3 pg Mean Corpuscular Hemoglobin Concent 31.9 g/dl RDW Standard Deviation 52.1 fL RDW Coefficient of Variation 14.2 % Platelet Count 230 K/uL Mean Platelet Volume 10.4 fL Sodium Level 146 mmol/L Potassium Level 4.4 mmol/L Chloride Level 106 mmol/L Carbon Dioxide Level 31 mmol/L Anion Gap 9.0 mmol/L Blood Urea Nitrogen 35 mg/dl Creatinine 1.70 mg/dl Est Creatinine Clear Calc Drug Dose 37.1 ml/min Estimated GFR () 42.3 Estimated GFR (Non- 36.5 BUN/Creatinine Ratio 20.8 Random Glucose 105 mg/dl Calcium Level 8.8 mg/dl Bedside Glucose 95 mg/dl Test 06/20/16 10:58 Bedside Glucose 102 mg/dl Assessment and Plan 85 yo male who was readmitted for acute on chronic diastolic and systolic HF despite compliance with fluid restriction and diuretics, also with atrial fibrillation - Acute on chronic diastolic and systolic HF: mild improvement, diuresed 900cc, weight down 1.5kg still requiring 5L NC for oxygen sats in low 90's appreciate cardiology consultation continue lasix 40mg IV q12, Coreg, Digoxin - Paroxysmal atrial fibrillation: no RVR currently, rates controlled on Coreg and Digoxin there has been discussion about cardioversion, cardiology will discuss further anticoagulation on Eliquis, continue - Acute hypoxic respiratory failure: due to pulmonary edema, continue to diurese , try to wean oxygen - CAD s/p CABG: continue Coreg, Plavix - COPD: no wheezing, appears stable, continue Advair - Hypothyroidism: continue Synthroid, TSH normal - DVT prophylaxis: Eliquis Plan: continue current regimen, daily weights, follow I/O's, Lasix, should look into home oxygen prior to d/c consult PT/OT CM for d/c planning The patient is a full code.
[2016-06-20] MEDS: DIGOXIN 0.125 MG TAB PO SCH (16:22)
[2016-06-20] MEDS: ZOLPIDEM TARTRATE 5 MG TAB PO SCH (21:24)
[2016-06-20] MEDS: CARVEDILOL 12.5 MG TAB PO SCH (21:25)
[2016-06-21] VITALS (11 sets, daily range): BP systolic 108–149; BP diastolic 60–89; PULSE 51–94; TEMP 36.4–36.9; O2SAT 91–100
[2016-06-21] MEDS: INSULIN ASPART 100 UNITS/ML 3 ML PEN SC SCH ×4 (07:00→20:35)
[2016-06-21 07:01] LABS: BUN/CREATININE RATIO 21.3 (10-20); CALCIUM 8.7 mg/dl (8.5-10.1); POTASSIUM 4.5 mmol/L (3.5-5.1)
[2016-06-21] MEDS: ALBUT/IPRATROP 3MG/0.5MG NEB 3 ML VIAL INH SCH ×4 (07:21→20:33)
[2016-06-21] MEDS: CARVEDILOL 12.5 MG TAB PO SCH ×2 (08:24→21:15)
[2016-06-21] MEDS: FLUTICASONE/SALMETEROL 250/50 (ADVAIR) 14 PUFF/1 INHALER INH SCH ×2 (08:24→21:15)
[2016-06-21] MEDS: GABAPENTIN 400 MG CAP PO SCH ×3 (08:25→21:16)
[2016-06-21] MEDS: MAGNESIUM OXIDE 400 MG TAB PO SCH (08:25)
[2016-06-21] MEDS: CHOLECALCIFEROL 1000 INTER.UNIT TAB PO SCH (08:25)
[2016-06-21] MEDS: PANTOprazole SOD 40 MG TAB PO SCH (08:25)
[2016-06-21] MEDS: APIXABAN 2.5 MG TAB PO SCH ×2 (08:25→21:16)
[2016-06-21] MEDS: CLOPIDOGREL BISULFATE 75 MG TAB PO SCH (08:25)
[2016-06-21] MEDS: POTASSIUM CHLORIDE 20 MEQ TABCR PO SCH (08:25)
[2016-06-21] MEDS: ISOSORBIDE MONONITRATE 30 MG TABCR PO SCH (08:37)
--- NOTE | 2016-06-21 09:38 | Progress Note ---
Subjective Date of Service: Jun 21, 2016. Subjective Pt evaluation today including: conversation w/ patient, conversation w/ family , physical exam, chart review, lab review, review of studies, conversation w/ data power consultant, review of inpatient medication list Sitting up in bed, eating breakfast f, feeling better, no other complaint, Problem List Medical Problems: (1) CHF (congestive heart failure) Status: Acute (2) CHF (congestive heart failure) Status: Acute (3) COPD (chronic obstructive pulmonary disease) Status: Chronic (4) Hypercarbia Status: Acute (5) Hypoxia Status: Acute (6) Left sided chest pain Status: Acute (7) Rapid atrial fibrillation Status: Acute Review of Systems Constitutional: + fatigue, + weakness, No chills, No fever, No problem reported , No sweats, No weight loss Eyes: No diplopia, No discharge, No eye pain, No redness, No worsening of vision ENT: No dental problems, No hearing loss, No nasal symptoms, No sore throat, No tinnitus, No trouble swallowing, No unusual epistaxis Respiratory: + shortness of breath, No cough, No dyspnea at rest, No dyspnea on exertion, No hemoptysis, No sputum, No wheezing Cardiac: No PND, No chest pain, No claudication, No edema, No orthopnea, No palpitations Abdomen: No constipation, No diarrhea, No nausea, No pain, No vomiting Musculoskeletal: No calf pain, No joint pain, No muscle pain, No swelling Male : No dysuria, No hematuria, No incontinence, No nocturia more than once/ night, No slowing stream, No urinary frequency Neurologic: No balance problems, No memory loss, No numbness/tingling, No paralysis, No vertigo, No weakness Psychiatric: No anhedonism, No anxiety, No depression symptoms, No insomnia, No substance abuse Heme: No abnormal bleeding/bruising, No clotting problems, No night sweats, No swollen lymph nodes Endo: No excessive thirst, No excessive urination, No fatigue Skin: No bleeding, No color change, No itch, No new/changing skin lesions, No rash Objective Vital Signs Date Time Temp Pulse Resp B/P Pulse Ox O2 Delivery O2 Flow Rate FiO2 06/21/16 07:57 36.5 20 145/89 100 Nasal Cannula 2.0 06/21/16 07:21 77 14 95 Nasal Cannula 5.0 06/21/16 04:02 Nasal Cannula 5.0 06/21/16 03:14 36.4 81 20 149/71 95 Nasal Cannula 5.0 06/21/16 00:02 Nasal Cannula 5.0 06/20/16 23:24 36.4 80 18 118/57 91 Nasal Cannula 5.0 06/20/16 21:23 86 143/79 06/20/16 20:00 Room Air 5.0 06/20/16 19:34 36.3 73 16 154/74 93 Room Air 06/20/16 16:22 80 06/20/16 16:20 80 06/20/16 15:45 Nasal Cannula 5.0 06/20/16 15:25 66 14 95 Nasal Cannula 5.0 06/20/16 15:09 36.0 75 16 133/77 92 Nasal Cannula 5.0 06/20/16 13:00 73 141/67 06/20/16 12:35 Nasal Cannula 5.0 Humidified Oxygen 06/20/16 11:48 60 18 96 Nasal Cannula 5.0 06/20/16 11:35 36.3 70 21 151/71 99 Nasal Cannula Physical Exam General Appearance: WD/WN, no apparent distress, + thin Eyes: normal inspection, PERRL, EOMI, sclerae normal ENT: normal ENT inspection, hearing grossly normal, pharynx normal Neck: supple, no adenopathy, thyroid normal, no JVD, no carotid bruits, trachea midline Respiratory/Chest: chest non-tender, normal breath sounds, no respiratory distress, no accessory muscle use, + decreased breath sounds Cardiovascular: regular rate, rhythm, no edema, no gallop, no JVD, no murmur Abdomen: normal bowel sounds, non tender, soft, no organomegaly, no pulsatile mass Extremities: normal range of motion, non-tender, normal inspection, no pedal edema, no calf tenderness, normal capillary refill, pelvis stable Neurologic/Psychiatric: 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 II-XII nml as tested, no motor/sensory deficits, alert, normal mood/affect, oriented x 3 Skin: normal color, warm/dry, no rash Lymphatic: no adenopathy Laboratory Results Last 24 Hours Test 06/20/16 10:58 06/20/16 16:13 06/20/16 20:14 06/21/16 05:55 Bedside Glucose 102 mg/dl 87 mg/dl 99 mg/dl Sodium Level 146 mmol/L Potassium Level 4.5 mmol/L Chloride Level 103 mmol/L Carbon Dioxide Level 36 mmol/L Anion Gap 7.0 mmol/L Blood Urea Nitrogen 43 mg/dl Creatinine 2.00 mg/dl Est Creatinine Clear Calc Drug Dose 30.8 ml/min Estimated GFR () 34.7 Estimated GFR (Non- 30.0 BUN/Creatinine Ratio 21.3 Random Glucose 82 mg/dl Calcium Level 8.7 mg/dl Test 06/21/16 06:36 Bedside Glucose 89 mg/dl Assessment and Plan 85 yo male who was readmitted for on 06/19/2016 acute on chronic diastolic and systolic HF despite compliance with fluid restriction and diuretics, also with atrial fibrillation - Acute on chronic diastolic and systolic HF: mild improvement, diuresed 1300cc , weight down 4 kg still requiring 2 L NC for oxygen sats in 95 appreciate cardiology consultation has been on continue lasix 40mg IV q12 since admission, Coreg, Digoxin, I'm holding Lasix today because of some worsening of the renal function, I adding in Imdur 30 mg by mouth daily - Paroxysmal atrial fibrillation: no RVR currently, rates controlled on Coreg and Digoxin there has been discussion about cardioversion, cardiology will discuss further anticoagulation on Eliquis, continue, which is currently is on renal dose - 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, is getting worse today, will follow -up - Acute hypoxic respiratory failure: due to pulmonary edema, continue to diurese , try to wean oxygen - CAD s/p CABG history of ischemic cardiomyopathy: continue Coreg, Plavix - Mild accelerated hypertension, hopefully will improved after adding Imdur - COPD with history of remote smoking: no wheezing, appears stable, continue Advair, at the duo neb as needed - Hypothyroidism: continue Synthroid, TSH normal - DVT prophylaxis: Eliquis Plan: continue current regimen, daily weights, follow I/O's, Follow-up renal function Possible can resume home dose of oral Lasix should look into home oxygen prior to d/c consult PT/OT CM for d/c planning The patient is a full code. Continued [facility] stay due to: home environment unsafe for pt Discharge planning: uncertain
--- NOTE | 2016-06-21 10:24 | CARDIOLOGY PROGRESS NOTE ---
DATE: 06/21/2016 SUBJECTIVE: Mr. Carr is resting comfortably in the bedside chair without complaints of chest pain, dyspnea or palpitations. OBJECTIVE: VITAL SIGNS: Blood pressure is 145/80 with regular pulse of 77. Respiratory rate is 20. The patient is afebrile at 36.5 degrees Celsius. Saturation is 100% on 2 liters nasal cannula. NECK: Supple with full carotid upstrokes. No obvious bruits. Jugular venous pressure is flat at 90 degrees. There is no thyromegaly. CARDIOVASCULAR: Reveals a regular rhythm with distant heart sounds. No obvious murmurs. No S3. LUNGS: Clear without rales, rhonchi or wheezes. ABDOMEN: Soft without bruits. EXTREMITIES: Reveal trace pretibial edema bilaterally. DATA: CBC notes hemoglobin of 13.2, hematocrit 41.4, white count 8.0, platelet count 230,000. Electrolytes note a sodium of 146, potassium 4.5, chloride 103, bicarbonate 36, BUN 43, creatinine 2.0, glucose 82. IMPRESSION AND PLAN: 1. Acute on chronic combined systolic and diastolic congestive heart failure -- patient improving with intravenous diuresis. 2. Atrial fibrillation -- rapid ventricular response at time of presentation. Rate now well controlled on increased dose of carvedilol. 3. Coronary artery disease, status post coronary artery bypass graft x4. 4. Ischemic cardiomyopathy -- carvedilol uptitrated. Renal insufficiency limits the use of KEITH inhibitors and ARBs. Could consider addition of hydralazine and nitrates. Ejection fraction in the 40-45% range. 5. Hypertension -- controlled.
--- NOTE | 2016-06-21 11:01 | Clinical Documentation Query ---
ABBEY Faith : CLINICAL DOCUMENTATION QUERY Documentation includes "acute on chronic kidney disease stage 3-4". This does not equate with SHOAIB or acute renal failure on CKD stage 3-4". It necessarily is interpreted literally to mean acute kidney disease, which assigns a code for an unspecified disorder of the kidney. Please clarify as below as clinically appropriate. Thank you. In your clinical opinion is this patient being managed for: ( x ) Acute kidney failure on CKD stage 3-4 ( ) Other explanation of clinical findings (Please Explain) ( ) Unable to determine (Please Define) ( ) Need to Discuss ( ) Not Agree The medical record reflects the following clinical findings, treatment, and risk factors. Clinical Indicators: As above Treatment: Serial chemistries. Risk Factors: Acute on chronic combined systolic and diastolic CHF, age, COPD, DM, HTN Please clarify and document your clinical opinion in the progress notes and discharge summary. Terms such as "probable", "suspected", "likely", "questionable", "possible", or "still to be ruled out" are acceptable. IF IN AGREEMENT, YOU MUST DOCUMENT ABOVE DIAGNOSTIC STATEMENT IN DAILY PROGRESS NOTES AND DISCHARGE SUMMARY. This document is not part of the patient's record. Thank You, Vazquez Oneal, RN [phone]
[2016-06-21] MEDS: DIGOXIN 0.125 MG TAB PO SCH (16:53)
[2016-06-21] MEDS: ZOLPIDEM TARTRATE 5 MG TAB PO SCH (20:33)
[2016-06-22] VITALS (9 sets, daily range): BP systolic 113–130; BP diastolic 55–67; PULSE 62–95; TEMP 36.2–36.8; O2SAT 90–94
[2016-06-22 06:10] LABS: HEMATOCRIT 39.5 % (42-52); MEAN CELL VOLUME 104.2 fL (80-100); MEAN CORPUSCULAR HEMOGLOBIN 31.9 pg (25-34); MEAN CORPUSCULAR HGB CONC 30.6 g/dl (32-36); MEAN PLATELET VOLUME 10.6 fL (7.4-10.4); PLATELET COUNT 202 K/uL (130-400); RED BLOOD COUNT 3.79 M/uL (4.7-6.1); WHITE BLOOD COUNT 7.68 K/uL (4.8-10.8)
[2016-06-22 06:30] LABS: BUN/CREATININE RATIO 22.7 (10-20); CALCIUM 8.3 mg/dl (8.5-10.1); CREATININE 2.1 mg/dl (0.60-1.40); MAGNESIUM 2.5 mg/dl (1.8-2.4); POTASSIUM 4.6 mmol/L (3.5-5.1)
[2016-06-22] MEDS: INSULIN ASPART 100 UNITS/ML 3 ML PEN SC SCH ×4 (07:00→20:28)
[2016-06-22] MEDS: ALBUT/IPRATROP 3MG/0.5MG NEB 3 ML VIAL INH SCH ×4 (07:58→19:00)
[2016-06-22] MEDS: FLUTICASONE/SALMETEROL 250/50 (ADVAIR) 14 PUFF/1 INHALER INH SCH ×2 (09:00→20:56)
[2016-06-22] MEDS: CLOPIDOGREL BISULFATE 75 MG TAB PO SCH (09:14)
[2016-06-22] MEDS: CARVEDILOL 12.5 MG TAB PO SCH ×2 (09:14→20:57)
[2016-06-22] MEDS: PANTOprazole SOD 40 MG TAB PO SCH (09:14)
[2016-06-22] MEDS: MAGNESIUM OXIDE 400 MG TAB PO SCH (09:14)
[2016-06-22] MEDS: APIXABAN 2.5 MG TAB PO SCH ×2 (09:14→20:57)
[2016-06-22] MEDS: POTASSIUM CHLORIDE 20 MEQ TABCR PO SCH (09:14)
[2016-06-22] MEDS: GABAPENTIN 400 MG CAP PO SCH ×3 (09:14→20:57)
[2016-06-22] MEDS: CHOLECALCIFEROL 1000 INTER.UNIT TAB PO SCH (09:15)
[2016-06-22] MEDS: ISOSORBIDE MONONITRATE 30 MG TABCR PO SCH (09:15)
--- NOTE | 2016-06-22 10:06 | Progress Note ---
Subjective Date of Service: Jun 22, 2016. Subjective Pt evaluation today including: conversation w/ patient, conversation w/ family , physical exam, chart review, lab review, review of studies, conversation w/ fashion consultant, review of inpatient medication list Nurse reported, pt was confused overnight, was found has hypoxic, however he ripped of NC O2, and BiPAP This morning osat was 70s because he ripped of his NC O2 Osat improved to 93-95% after put on NC O2 2 L/m When I interview with him he has no complaint, awake and alert and orientated, recognized 2 sons in the best size, conversational, reported some cough but no other complaint Mild bilateral cough tender when I pressed it which is not new Problem List Medical Problems: (1) CHF (congestive heart failure) Status: Acute (2) CHF (congestive heart failure) Status: Acute (3) COPD (chronic obstructive pulmonary disease) Status: Chronic (4) Hypercarbia Status: Acute (5) Hypoxia Status: Acute (6) Left sided chest pain Status: Acute (7) Rapid atrial fibrillation Status: Acute Review of Systems Constitutional: + fatigue, + weakness, No chills, No fever, No problem reported , No sweats Eyes: No diplopia, No discharge, No eye pain, No redness, No worsening of vision ENT: No dental problems, No hearing loss, No nasal symptoms, No sore throat, No tinnitus, No trouble swallowing, No unusual epistaxis Respiratory: + shortness of breath, No cough, No dyspnea at rest, No dyspnea on exertion, No hemoptysis, No sputum, No wheezing Cardiac: No PND, No chest pain, No claudication, No edema, No orthopnea, No palpitations Abdomen: No constipation, No diarrhea, No nausea, No pain, No vomiting Musculoskeletal: No calf pain, No joint pain, No muscle pain, No swelling Male : No dysuria, No hematuria, No incontinence, No nocturia more than once/ night, No slowing stream, No urinary frequency Neurologic: No balance problems, No memory loss, No numbness/tingling, No paralysis, No vertigo, No weakness Psychiatric: No anhedonism, No anxiety, No depression symptoms, No insomnia, No substance abuse Heme: No abnormal bleeding/bruising, No clotting problems, No night sweats, No swollen lymph nodes Endo: No excessive thirst, No excessive urination, No fatigue Skin: No bleeding, No color change, No itch, No new/changing skin lesions, No rash Objective Vital Signs Date Time Temp Pulse Resp B/P Pulse Ox O2 Delivery O2 Flow Rate FiO2 06/22/16 08:19 62 14 90 Nasal Cannula 6.0 06/22/16 08:00 36.7 80 16 119/63 90 Room Air 06/22/16 04:02 Nasal Cannula 4.0 06/22/16 03:53 36.7 75 17 119/55 91 Nasal Cannula 5.5 06/22/16 00:02 Nasal Cannula 3.0 06/21/16 23:49 36.9 70 16 127/64 93 Nasal Cannula 4.0 06/21/16 22:01 89 95 10.0 06/21/16 20:33 51 14 91 Nasal Cannula 3.0 06/21/16 20:04 Nasal Cannula 3.0 06/21/16 19:30 36.6 77 18 123/60 91 Nasal Cannula 3.0 06/21/16 16:53 75 06/21/16 16:39 36.5 94 16 111/61 93 Nasal Cannula 2.0 06/21/16 16:00 Nasal Cannula 3.0 06/21/16 15:55 87 14 92 Nasal Cannula 3.0 06/21/16 12:00 Nasal Cannula 3.0 06/21/16 11:55 36.7 80 20 108/66 96 Room Air 06/21/16 11:07 77 14 95 Nasal Cannula 5.0 Physical Exam General Appearance: WD/WN, no apparent distress, + thin Eyes: normal inspection, PERRL, EOMI, sclerae normal ENT: normal ENT inspection, hearing grossly normal, pharynx normal Neck: supple, no adenopathy, thyroid normal, no JVD, no carotid bruits, trachea midline Respiratory/Chest: chest non-tender, normal breath sounds, no respiratory distress, no accessory muscle use, + decreased breath sounds Cardiovascular: regular rate, rhythm, no edema, no gallop, no JVD, no murmur Abdomen: normal bowel sounds, non tender, soft, no organomegaly, no pulsatile mass Extremities: normal range of motion, non-tender, normal inspection, no pedal edema, no calf tenderness, normal capillary refill, pelvis stable, + calf tenderness (minimal bilateral) Neurologic/Psychiatric: 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 tested, no motor/sensory deficits, alert, normal mood/affect, oriented x 3 Skin: normal color, warm/dry, no rash Lymphatic: no adenopathy Laboratory Results Last 24 Hours Test 06/21/16 10:50 06/21/16 16:28 06/21/16 20:16 06/22/16 05:05 Bedside Glucose 126 mg/dl 116 mg/dl 101 mg/dl White Blood Count 7.68 K/uL Red Blood Count 3.79 M/uL Hemoglobin 12.1 g/dL Hematocrit 39.5 % Mean Corpuscular Volume 104.2 fL Mean Corpuscular Hemoglobin 31.9 pg Mean Corpuscular Hemoglobin Concent 30.6 g/dl RDW Standard Deviation 52.4 fL RDW Coefficient of Variation 13.9 % Platelet Count 202 K/uL Mean Platelet Volume 10.6 fL Sodium Level 144 mmol/L Potassium Level 4.6 mmol/L Chloride Level 103 mmol/L Carbon Dioxide Level 34 mmol/L Anion Gap 7.0 mmol/L Blood Urea Nitrogen 48 mg/dl Creatinine 2.10 mg/dl Est Creatinine Clear Calc Drug Dose 29.3 ml/min Estimated GFR () 32.7 Estimated GFR (Non- 28.3 BUN/Creatinine Ratio 22.7 Random Glucose 80 mg/dl Calcium Level 8.3 mg/dl Magnesium Level 2.5 mg/dl Test 06/22/16 06:42 Bedside Glucose 79 mg/dl Assessment and Plan 85 yo male who was readmitted for on 06/19/2016 acute on chronic diastolic and systolic HF despite compliance with fluid restriction and diuretics, also with atrial fibrillation - Acute on chronic diastolic and systolic HF upon admission, mild, improvement, diuresed 1300cc, weight down 4 kg until yesterday Continue requiring 2 L NC for oxygen sats in 95 appreciate cardiology consultation has been on continue lasix 40mg IV q12 since admission, got only one dose of Lasix Continue Coreg, Digoxin, Lasix was hold yesterday on 06/21/2016 because of some worsening of the renal function, and started Imdur 30 mg by mouth daily - Paroxysmal atrial fibrillation upon admission: Resolved no RVR currently, rates controlled on Coreg and Digoxin there has been discussion about cardioversion, cardiology on the case anticoagulation on Eliquis, continue, which is currently is on renal dose - 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, is continue getting worse today, will check renal ultrasound and nephrology consultation - Acute hypoxic respiratory failure: due to pulmonary edema upon admission, Now still need to liter per minute oxygen, patient has coarse no lower extremity edema was I don't believe has fluid overload now, we'll order incentive spirometry encouraged deep breathing and out of bed - CAD s/p CABG history of ischemic cardiomyopathy: continue Coreg, Plavix - Mild accelerated hypertension, is improved after adding Imdur - COPD with history of remote smoking: no wheezing, appears stable, continue Advair, at the [facility] as needed - Hypothyroidism: continue Synthroid, TSH normal - DVT prophylaxis: Eliquis Plan: continue current regimen, daily weights, follow I/O's, Follow-up renal function and nephrology input Possible can resume home dose of oral Lasix should look into home oxygen prior to d/c consult PT/OT CM for d/c planning, possible need to rehabilitation PT OT ordered The patient is a full code. Continued [facility] stay due to: home environment unsafe for pt Discharge planning: nursing home facility
--- NOTE | 2016-06-22 10:12 | DIAGNOSTIC IMAGING REPORT ---
RENAL ULTRASOUND HISTORY: Renal insufficiency acute on chronic renal failure COMPARISON: 02/22/2013 FINDINGS: Right kidney: Maximum linear dimension 13 cm. Several right renal cysts. The largest measures 8 cm. Moderate cortical scarring and cortical thinning. No evidence for hydronephrosis Left kidney: Maximum dimension 11 cm. Several cysts unchanged from the prior study. Moderate to significant cortical scarring and cortical thinning. This shows no change from the prior study. Bladder: No bladder wall thickening. The bilateral ureteral jets were identified. IMPRESSION: 1. Bilateral renal cysts. 2. Signal significant cortical scarring and thinning unchanged 3. No evidence for hydronephrosis. 4. No change from the prior study. Electronically signed by: Miles Lowe M.D. 06/22/2016 10:10 AM
--- NOTE | 2016-06-22 10:17 | CARDIOLOGY PROGRESS NOTE ---
DATE: 06/22/2016 SUBJECTIVE: Mr. Carr is resting comfortably in bed eating his breakfast. His sons are at the bedside. The patient is confused this morning thinking that he is at "[employer] [facility]." OBJECTIVE: VITAL SIGNS: Blood pressure is 120/60 with an irregular pulse of 60-70. Respiratory rate is 18. The patient is afebrile at 36.7 degrees Celsius. Saturations 90% on 6 liters nasal cannula. NECK: Supple with full carotid upstrokes. There are no obvious bruits. Jugular venous pressure is flat at 90 degrees. There is no thyromegaly. CARDIOVASCULAR: Reveals an irregular rhythm with distant heart sounds. No obvious murmurs. LUNGS: Clear without rales, rhonchi, or wheezes. ABDOMEN: Soft and nontender without bruits. EXTREMITIES: Reveal intact radial artery pulses bilaterally. Trace pretibial edema is noted. DATA: CBC notes a hemoglobin of 12.1, hematocrit 39.5, white count 7.6, platelet count 202,000. Electrolytes note a sodium of 144, potassium 4.6, chloride 103, bicarbonate 34, BUN 48, creatinine 2.1, glucose 80. nuclear monitoring technician notes atrial fibrillation with a controlled ventricular response. IMPRESSION AND PLAN: 1. Acute on chronic combined systolic and diastolic congestive heart failure -- improving with intravenous diuresis. Hopefully, oxygen saturation will improve. 2. Atrial fibrillation -- ventricular response now well controlled on increased dose of carvedilol. 3. Coronary artery disease status post coronary artery bypass graft x4. 4. Ischemic cardiomyopathy -- ejection fraction of 40-45%. Tolerating carvedilol. Renal insufficiency limits use of angiotensin-converting enzyme inhibitors and angiotensin receptor blockers. Could consider addition of hydralazine and nitrates. 5. Hypertension -- controlled.
--- NOTE | 2016-06-22 14:51 | Nephrology Consultation ---
Nephrology Consultation Date & Providers Date of Consultation: Jun 22, 2016. Primary Care Provider: Dillan Acevedo M.D. Referring Provider: Reason for Consultation Evaluation of CKD in this patient admitted with recurrent CHF. History of Present Illness Mr. Carr is an 85 year old white male who is seen at the request of Dr. Chong for evaluation of CKD. Medical records in the hospital EMR were reviewed today and are summarized as follows: The patient has stable stage III CKD. His baseline creatinine has been 2.0 w/ EGFR 34 cc/min. Previous evaluation has revealed a benign urine sediment. Urinary protein excretion has been < 1 g / day. Patient's renal impairment is on the basis of diabetic nephropathy. Mr. Carr has long standing AODM and HTN. He is a former smoker and has COPD and RUTH. The patient has chronic atrial fibrillation and ASCVD. He underwent CABG x 4 at [facility] 2012. He has a pacemaker/AICD in place. Echocardiogram 06/04 revealed LVEF 45%, mild to moderate MR and TR. RVSP was 35-40 mmHg. Mr. Carr was hospitalized over the hol for management of CHF. He was discharged to home on oral furosemide 20 mg daily. He denies any dietary or medical indiscretion. He was readmitted to the hospital 2 days later with progressive dyspnea and radiographic changes c/w CHF. Mr. Carr initially required BiPAP therapy. He was given IV furosemide. He diuresed 1500 cc and weight has dropped ~ 2 kg. His breathing is now subjectively improved. Carvedilol dose has been increased. Patient is on Eliquis and digoxin therapy. Past Medical/Surgical History Medical: # CKD stage III w/ baseline creatinine 2.0 # Diabetic nephropathy # AODM # HTN # Hypothyroidism # Chronic atrial fibrillation # Multivessel ASCVD s/p CABG x 4 2012 [facility] # ICM w/ LVEF 45% # Pacemaker / AICD # COPD # RUTH # h/o duodenal ulcer Surgical: # CABG x 4 [facility] 2012 # Pacemaker / AICD Allergies Coded Allergies: Warfarin (Verified Allergy, Intermediate, PT CAN TAKE BRAND COUMADIN, ) GOT HIVES AND SWELLING WITH WARFARIN (GENERIC BRAND) Simvastatin (Verified Adverse Reaction, Mild, GI UPSET, 06/12/16) Inpatient Medications Current Inpatient Medications Medications (Trade) Dose Ordered Sig/Kojo Route Start Time Stop Time Status Last Admin Dose Admin Albuterol (Ventolin Hfa Inhaler) 2 puffs Q4H PRN INH 06/19/16 19:15 07/19/16 19:14 Apixaban (Eliquis Tab) 2.5 mg BID PO 06/19/16 21:00 07/19/16 20:59 06/22/16 09:14 2.5 MG Cholecalciferol (Vitamin D Tab) 2,000 inter.unit QAM PO 06/20/16 09:00 07/20/16 08:59 06/22/16 09:15 2,000 INTER.UNIT Digoxin (Lanoxin Tab) 0.125 mg DAILY@16 PO 06/20/16 16:00 07/20/16 15:59 06/21/16 16:53 0.125 MG Salmeterol Xinafoate/ Fluticasone (Advair Diskus 250/50 Inh) 1 puff Q12 INH 06/19/16 21:00 07/19/16 20:59 06/22/16 09:00 1 PUFF Gabapentin (Neurontin Cap) 400 mg TID PO 06/19/16 21:00 07/19/16 20:59 06/22/16 09:14 400 MG Zolpidem Tartrate (Ambien Tab) 5 mg HS PO 06/19/16 21:00 07/19/16 20:59 06/21/16 20:33 5 MG Pantoprazole Sodium 40 mg 40 mg QAM PO 06/20/16 09:00 07/20/16 08:59 06/22/16 09:14 40 MG Furosemide/Syringe (Lasix Inj/ Syringe) 4 ml @ 4 mls/min BID17 IV 06/20/16 09:00 07/20/16 08:59 Future Hold 06/20/16 17:00 4 MLS/MIN Potassium Chloride (Klor-Con Tab) 20 meq QAM PO 06/20/16 09:00 07/20/16 08:59 06/22/16 09:14 20 MEQ Magnesium Oxide (Mag-Ox Tab) 400 mg QAM PO 06/20/16 09:00 07/20/16 08:59 06/22/16 09:14 400 MG Acetaminophen (Tylenol Tab) 650 mg Q4H PRN PO 06/19/16 19:15 07/19/16 19:14 Al Hydrox/Mg Hydrox/Simethicone (Maalox Max Susp) 15 ml Q4H PRN PO 06/19/16 19:15 07/19/16 19:14 Magnesium Hydroxide (Milk Of Magnesia Susp) 30 ml Q12H PRN PO 06/19/16 19:15 07/19/16 19:14 Ondansetron HCl (Zofran Inj) 4 mg Q6H PRN IV 06/19/16 19:15 07/19/16 19:14 06/20/16 20:29 4 MG Nitroglycerin (Nitrostat Tab) 0.4 mg UD PRN SL 06/19/16 19:15 07/19/16 19:14 Morphine Sulfate (MoRPHine SULFATE INJ) 2 mg Q30M PRN IV 06/19/16 19:15 07/03/16 19:14 Polyethylene (Miralax Powder Packet) 17 gm DAILY PRN PO 06/19/16 19:15 07/19/16 19:14 Albuterol/ Ipratropium (Duoneb) 3 ml QIDR INH 06/19/16 20:00 07/19/16 19:59 06/22/16 11:48 3 ML Albuterol/ Ipratropium (Duoneb) 3 ml Q2H PRN INH 06/19/16 19:15 07/19/16 19:14 Clopidogrel Bisulfate (plAVix TAB) 75 mg QAM PO 06/20/16 09:00 07/20/16 08:59 06/22/16 09:14 75 MG Insulin Aspart (novoLOG ASPART) SLIDING SCALE PARAMETER ACHS SC 06/19/16 21:00 07/19/16 20:59 Glucose (Glucose 40% Gel) 15-30 GRAMS 15 GRAMS... UD PRN PO 06/19/16 19:45 07/19/16 19:44 Glucose (Glucose Chew Tab) 4-8 Tablets 4 Tabl... UD PRN PO 06/19/16 19:45 07/19/16 19:44 Dextrose (Dextrose 50% 50ML Syringe) 25-50ML OF 50% DW IV FOR... UD PRN IV 06/19/16 19:45 07/19/16 19:44 Glucagon (Glucagon Inj) 1 mg UD PRN SQ 06/19/16 19:45 07/19/16 19:44 Metoprolol Tartrate (Lopressor Iv) 5 mg Q4 PRN IV 06/20/16 00:00 07/20/16 00:00 06/20/16 00:15 5 MG Carvedilol (Coreg Tab) 12.5 mg BID PO 06/20/16 21:00 07/20/16 20:59 06/22/16 09:14 12.5 MG Isosorbide Mononitrate (Imdur Ext Rel Tab) 30 mg QAM PO 06/21/16 09:00 07/21/16 08:59 06/22/16 09:15 30 MG Family History Patient reports no known family medical history. Negative for CKD/ESRD Social History Smoking Status: Former Smoker Drug Use: none Marital Status: Housing Status: lives with family Occupation: retired , retired. Remote h/o tobacco use. Review of Systems Constitutional: No fever Respiratory: No dyspnea at rest Cardiovascular: No chest pain Abdomen: No pain Genitourinary - Male: No hematuria, No urinary hesitancy A complete review of systems was performed. Pertinent positives are noted above. All other systems are negative. Physical Exam Date Time Temp Pulse Resp B/P Pulse Ox O2 Delivery O2 Flow Rate FiO2 06/22/16 12:00 Nasal Cannula 2.0 06/22/16 11:48 82 14 94 Nasal Cannula 2.0 06/22/16 11:32 36.8 92 22 113/58 94 Nasal Cannula 2.0 06/22/16 08:19 62 14 90 Nasal Cannula 6.0 06/22/16 08:00 Nasal Cannula 2.0 06/22/16 08:00 36.7 80 16 119/63 90 Room Air 06/22/16 04:02 Nasal Cannula 4.0 06/22/16 03:53 36.7 75 17 119/55 91 Nasal Cannula 5.5 06/22/16 00:02 Nasal Cannula 3.0 06/21/16 23:49 36.9 70 16 127/64 93 Nasal Cannula 4.0 06/21/16 22:01 89 95 10.0 06/21/16 20:33 51 14 91 Nasal Cannula 3.0 06/21/16 20:04 Nasal Cannula 3.0 06/21/16 19:30 36.6 77 18 123/60 91 Nasal Cannula 3.0 06/21/16 16:53 75 06/21/16 16:39 36.5 94 16 111/61 93 Nasal Cannula 2.0 06/21/16 16:00 Nasal Cannula 3.0 06/21/16 15:55 87 14 92 Nasal Cannula 3.0 General Appearance: no apparent distress Head: normocephalic, atraumatic Eyes: PERRL, EOMI Neck: no adenopathy Respiratory/Chest: lungs clear Cardiovascular: + tachycardia, + irregularly irregular Abdomen/GI: normal bowel sounds, non tender, soft Extremities/Musculoskelatal: no calf tenderness, no pedal edema Neurologic/Psych: alert, oriented x 3 Laboratory Results Last 24 Hours Test 06/21/16 16:28 06/21/16 20:16 06/22/16 05:05 06/22/16 06:42 Bedside Glucose 116 mg/dl 101 mg/dl 79 mg/dl White Blood Count 7.68 K/uL Red Blood Count 3.79 M/uL Hemoglobin 12.1 g/dL Hematocrit 39.5 % Mean Corpuscular Volume 104.2 fL Mean Corpuscular Hemoglobin 31.9 pg Mean Corpuscular Hemoglobin Concent 30.6 g/dl RDW Standard Deviation 52.4 fL RDW Coefficient of Variation 13.9 % Platelet Count 202 K/uL Mean Platelet Volume 10.6 fL Sodium Level 144 mmol/L Potassium Level 4.6 mmol/L Chloride Level 103 mmol/L Carbon Dioxide Level 34 mmol/L Anion Gap 7.0 mmol/L Blood Urea Nitrogen 48 mg/dl Creatinine 2.10 mg/dl Est Creatinine Clear Calc Drug Dose 29.3 ml/min Estimated GFR () 32.7 Estimated GFR (Non- 28.3 BUN/Creatinine Ratio 22.7 Random Glucose 80 mg/dl Calcium Level 8.3 mg/dl Magnesium Level 2.5 mg/dl Test 06/22/16 11:08 Bedside Glucose 125 mg/dl Impression (1) Chronic kidney disease, stage 3 (moderate) (2) Atrial fibrillation (3) CHF (congestive heart failure) (4) Diabetes mellitus (5) COPD (chronic obstructive pulmonary disease) Patient admitted to the hospital with recurrent CHF. ECG revealed atrial fibrillation w/ RVF. Cardiac enzymes have been within normal limits. Patient has stable stage III CKD w/ baseline creatinine 2.0 due to diabetic nephropathy. He responded well to IV furosemide and is now symptomatically improved. Carvedilol dose has been adjusted by cardiology. PMH - CKD stage III w/ baseline creatinine 2.0, diabetic nephropathy, AODM, HTN , hypothyroidism, chronic atrial fibrillation, multivessel ASCVD s/p CABG x 4 2012 [facility], ICM w/ LVEF 45%, s/p pacemaker / AICD, COPD, RUTH, h/o duodenal ulcer Recommendations CHRONIC KIDNEY DISEASE: -- Kidney function remains stable at this time. Baseline creatinine as outpatient has been 2.0 w/ EGFR 34 cc/min -- Monitor serial PRP -- Renal US films reviewed today. Patient has normal size kidneys with cortical thinning and large simple cysts c/w CKD. No mass, stone or obstruction reported. HYPERTENSION: -- Carvedilol dose has been adjusted by cardiology -- KEITH was held as outpatient due to relative hypotension ANEMIA: -- Patient has mild asymptomatic anemia. No acute indication for BOUBACAR at this time. Will continue to monitor CHF: -- Patient is symptomatically improved -- Office records 04/04 show patient on furosemide 40 mg daily. Will order furosemide 40 mg po BID and monitor volume status -- Will obtain f/u CXR in am -- Await further input from cardiology
[2016-06-22] MEDS: DIGOXIN 0.125 MG TAB PO SCH (17:07)
[2016-06-22] MEDS: FUROSEMIDE 40 MG TAB PO SCH (17:07)
[2016-06-22] MEDS: ZOLPIDEM TARTRATE 5 MG TAB PO SCH (20:29)
[2016-06-23] VITALS (10 sets, daily range): BP systolic 118–150; BP diastolic 61–77; PULSE 72–87; TEMP 36.3–36.8; O2SAT 91–99
[2016-06-23 01:44] LABS: URINE APPEARANCE CLEAR (CLEAR); URINE BILIRUBIN NEG (NEG); URINE COLOR YELLOW; URINE NITRITE NEG (NEG); URINE SPECIFIC GRAVITY 1.007 (1.000-1.030); UROBILINOGEN NEG (NEG)
[2016-06-23 01:46] LABS: MANUAL MICROSCOPIC REQUIRED? NO; REVIEW REQ? NO
[2016-06-23 02:01] LABS: URINE PROTIEN/CREAT RATIO 0.6 (0-0.2)
[2016-06-23 05:58] LABS: ALKALINE PHOSPHATASE 70 U/L (45-117); ALT/SGPT 21 U/L (12-78); BLOOD UREA NITROGEN 44 mg/dl (7-18); BUN/CREATININE RATIO 23.3 (10-20); CALCIUM 8.5 mg/dl (8.5-10.1); CARBON DIOXIDE 35 mmol/L (21-32); CHLORIDE 102 mmol/L (98-107); GLUCOSE 95 mg/dl (70-99); PHOSPHORUS 2.3 mg/dl (2.5-4.9); SODIUM 144 mmol/L (136-145)
[2016-06-23] MEDS: INSULIN ASPART 100 UNITS/ML 3 ML PEN SC SCH ×2 (07:00→11:00)
[2016-06-23 07:03] LABS: POTASSIUM 4.4 mmol/L (3.5-5.1)
[2016-06-23 07:08] LABS: MAGNESIUM 2.4 mg/dl (1.8-2.4)
[2016-06-23] MEDS: ALBUT/IPRATROP 3MG/0.5MG NEB 3 ML VIAL INH SCH ×3 (07:11→15:47)
--- NOTE | 2016-06-23 07:43 | DIAGNOSTIC IMAGING REPORT ---
CHEST ONE VIEW PORTABLE CLINICAL HISTORY: CHF COMPARISON STUDY: 06/19/2016 FINDINGS: The heart is enlarged. There are postsurgical changes of midline sternotomy. There is a left subclavian defibrillator present. There are small bilateral pleural effusions. There is persistent but improving interstitial pulmonary edema.[ IMPRESSION: Persistent but improving pulmonary edema pattern. Cardiomegaly. Small bilateral pleural effusions. Electronically signed by: Cosmo Diaz M.D. 06/23/2016 7:41 AM
[2016-06-23] MEDS: CHOLECALCIFEROL 1000 INTER.UNIT TAB PO SCH (08:33)
[2016-06-23] MEDS: APIXABAN 2.5 MG TAB PO SCH (08:33)
[2016-06-23] MEDS: POTASSIUM CHLORIDE 20 MEQ TABCR PO SCH (08:33)
[2016-06-23] MEDS: MAGNESIUM OXIDE 400 MG TAB PO SCH (08:33)
[2016-06-23] MEDS: FLUTICASONE/SALMETEROL 250/50 (ADVAIR) 14 PUFF/1 INHALER INH SCH (08:33)
[2016-06-23] MEDS: CLOPIDOGREL BISULFATE 75 MG TAB PO SCH (08:34)
[2016-06-23] MEDS: GABAPENTIN 400 MG CAP PO SCH ×2 (08:34→14:00)
[2016-06-23] MEDS: ISOSORBIDE MONONITRATE 30 MG TABCR PO SCH (08:34)
[2016-06-23] MEDS: FUROSEMIDE 40 MG TAB PO SCH ×2 (08:35→15:40)
[2016-06-23] MEDS: CARVEDILOL 12.5 MG TAB PO SCH (08:35)
--- NOTE | 2016-06-23 09:35 | CARDIOLOGY PROGRESS NOTE ---
DATE: 06/23/2016 SUBJECTIVE: Mr. Carr is resting comfortably in the bedside chair without complaints of chest pain, dyspnea, or palpitations. He is alert and oriented this morning. No further Ambien has been administered. OBJECTIVE: VITAL SIGNS: Blood pressure 140/74 with an irregular pulse of 80. Respiratory rate is 20 and the patient is afebrile at 36.5 degrees Celsius. Saturation 99% on 2 liters nasal cannula. NECK: Supple with full carotid upstrokes. There are no carotid bruits. Jugular venous pressure is flat at 90 degrees. There is no thyromegaly. CARDIOVASCULAR: Reveals an irregularly regular rhythm with distant heart sounds. No obvious murmurs. LUNGS: Clear without rales, rhonchi, or wheezes. ABDOMEN: Soft and nontender without bruits. EXTREMITIES: Reveal intact radial artery pulses bilaterally. Trace pretibial edema is noted. DATA: CBC notes hemoglobin of 12.1, hematocrit 39.5, white count 7.6, platelet count 202,000. Electrolytes note a sodium of 144, potassium 102, bicarbonate 35, BUN 44, creatinine 1.9, glucose 95. nuclear monitoring technician notes atrial fibrillation with a controlled ventricular response. IMPRESSION AND PLAN: 1. Acute on chronic combined systolic and diastolic congestive heart failure -- patient appears compensated at this time. Oxygen saturation has dramatically improved. 2. Atrial fibrillation -- ventricular response adequately controlled on increased dose of carvedilol. 3. Coronary artery disease, status post coronary artery bypass graft x4. 4. Ischemic cardiomyopathy -- ejection fraction of 40%-45%. Tolerating carvedilol. Renal insufficiency limits the use of KEITH inhibitors and angiotensin receptor blockers. Could consider use of hydralazine and nitrites. 5. Hypertension -- controlled.
--- NOTE | 2016-06-23 09:57 | Progress Note ---
Subjective Date of Service: Jun 23, 2016. Subjective Pt evaluation today including: conversation w/ patient, physical exam, chart review, lab review, review of studies, conversation w/ financial services education consultant, review of inpatient medication list Sitting up to the chair, feeling good, no more confused, did not use Ambien last night, eating and voiding good. Problem List Medical Problems: (1) CHF (congestive heart failure) Status: Acute (2) CHF (congestive heart failure) Status: Acute (3) COPD (chronic obstructive pulmonary disease) Status: Chronic (4) Hypercarbia Status: Acute (5) Hypoxia Status: Acute (6) Left sided chest pain Status: Acute (7) Rapid atrial fibrillation Status: Acute Review of Systems Constitutional: + weakness, No chills, No fatigue, No fever, No problem reported, No sweats, No weight loss Eyes: No diplopia, No discharge, No eye pain, No redness, No worsening of vision ENT: No dental problems, No hearing loss, No nasal symptoms, No sore throat, No tinnitus, No trouble swallowing, No unusual epistaxis Respiratory: + cough, No dyspnea at rest, No dyspnea on exertion, No hemoptysis , No shortness of breath, No sputum, No wheezing Cardiac: No PND, No chest pain, No claudication, No edema, No orthopnea, No palpitations Abdomen: No constipation, No diarrhea, No nausea, No pain, No vomiting Musculoskeletal: No calf pain, No joint pain, No muscle pain, No swelling Male : No dysuria, No hematuria, No incontinence, No nocturia more than once/ night, No slowing stream, No urinary frequency Neurologic: No balance problems, No memory loss, No numbness/tingling, No paralysis, No vertigo, No weakness Psychiatric: No anhedonism, No anxiety, No depression symptoms, No insomnia, No substance abuse Heme: No abnormal bleeding/bruising, No clotting problems, No night sweats, No swollen lymph nodes Endo: No excessive thirst, No excessive urination, No fatigue Skin: No bleeding, No color change, No itch, No new/changing skin lesions, No rash Objective Vital Signs Date Time Temp Pulse Resp B/P Pulse Ox O2 Delivery O2 Flow Rate FiO2 06/23/16 08:00 Room Air 06/23/16 07:50 36.5 85 22 141/74 99 Nasal Cannula 2.0 06/23/16 07:11 87 16 91 Nasal Cannula 2.0 06/23/16 04:02 Nasal Cannula 2.0 06/23/16 04:02 36.6 87 19 150/77 94 Nasal Cannula 2.0 06/23/16 00:03 36.8 75 17 120/75 94 Nasal Cannula 2.0 06/23/16 00:02 Nasal Cannula 2.0 06/22/16 20:21 36.2 88 18 130/67 92 2.0 06/22/16 20:04 Nasal Cannula 2.0 06/22/16 19:00 87 16 91 Nasal Cannula 2.0 06/22/16 17:07 68 06/22/16 16:00 Nasal Cannula 3.0 06/22/16 15:48 36.6 95 18 114/66 94 Nasal Cannula 2.0 06/22/16 15:33 78 16 93 Nasal Cannula 2.0 06/22/16 12:00 Nasal Cannula 2.0 06/22/16 11:48 82 14 94 Nasal Cannula 2.0 06/22/16 11:32 36.8 92 22 113/58 94 Nasal Cannula 2.0 Physical Exam General Appearance: WD/WN, no apparent distress Eyes: normal inspection, PERRL, EOMI, sclerae normal ENT: normal ENT inspection, hearing grossly normal, pharynx normal Neck: supple, no adenopathy, thyroid normal, no JVD, no carotid bruits, trachea midline Respiratory/Chest: chest non-tender, normal breath sounds, no respiratory distress, no accessory muscle use, + decreased breath sounds Cardiovascular: regular rate, rhythm, no edema, no gallop, no JVD, no murmur Abdomen: normal bowel sounds, non tender, soft, no organomegaly, no pulsatile mass Extremities: normal range of motion, non-tender, normal inspection, no pedal edema, no calf tenderness, normal capillary refill, pelvis stable Neurologic/Psychiatric: customer operations associate II-XII nml as tested, no motor/sensory deficits, alert, normal mood/affect, oriented x 3 Skin: normal color, warm/dry, no rash Lymphatic: no adenopathy Laboratory Results Last 24 Hours Test 06/22/16 11:08 06/22/16 15:59 06/22/16 20:27 06/23/16 00:00 Bedside Glucose 125 mg/dl 107 mg/dl 105 mg/dl Urine Color YELLOW Urine Appearance CLEAR Urine pH 5.0 Urine Specific [place] 1.007 Urine Protein 1+ Urine Glucose (UA) NEG Urine Ketones NEG Urine Occult Blood NEG Urine Nitrite NEG Urine Bilirubin NEG Urine Urobilinogen NEG Urine Leukocyte Esterase NEG Urine WBC (Auto) 0 /hpf Urine RBC (Auto) 0-4 /hpf Urine Hyaline Casts (Auto) 1-5 /lpf Urine Epithelial Cells (Auto) 5-10 /lpf Urine Bacteria (Auto) NEG Urine Random Creatinine 59.0 mg/dl Urine Random Total Protein 37.0 mg/dl Urine Protein/Creatinine Ratio 0.6 Test 06/23/16 05:05 06/23/16 06:20 06/23/16 07:06 Sodium Level 144 mmol/L Potassium Level mmol/L 4.4 mmol/L Chloride Level 102 mmol/L Carbon Dioxide Level 35 mmol/L Anion Gap 7.0 mmol/L Blood Urea Nitrogen 44 mg/dl Creatinine 1.90 mg/dl Est Creatinine Clear Calc Drug Dose 32.7 ml/min Estimated GFR () 37.0 Estimated GFR (Non- 31.9 BUN/Creatinine Ratio 23.3 Random Glucose 95 mg/dl Calcium Level 8.5 mg/dl Phosphorus Level 2.3 mg/dl Magnesium Level mg/dl 2.4 mg/dl Total Bilirubin 1.0 mg/dl Direct Bilirubin mg/dl 0.2 mg/dl Aspartate Amino Transf (AST/SGOT) U/L 9 U/L Alanine Aminotransferase (ALT/SGPT) 21 U/L Alkaline Phosphatase 70 U/L Total Protein 6.4 gm/dl Albumin 3.1 gm/dl Bedside Glucose 86 mg/dl Assessment and Plan 85 yo male who was readmitted for on 06/19/2016 acute on chronic diastolic and systolic HF despite compliance with fluid restriction and diuretics, also with atrial fibrillation: Continue stable and improving - Acute on chronic diastolic and systolic HF upon admission, mild, improvement, diuresed 1300cc, weight down 4 kg in the first day after admission Continue requiring 2 L NC for oxygen sats in 95, will planning to taper off oxygen today appreciate cardiology consultation has been on continue lasix 40mg IV q12 since admission, got only one dose of Lasix Continue Coreg, Digoxin, Lasix was hold yesterday on 06/21/2016 because of some worsening of the renal function, and started Imdur 30 mg by mouth daily - Paroxysmal atrial fibrillation upon admission: Resolved no RVR currently, rates controlled on Coreg and Digoxin there has been discussion about cardioversion, cardiology on the case anticoagulation on Eliquis, continue, which is currently is on renal dose - 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, is continue getting worse today, has checked renal ultrasound, which was unremarkable, and nephrology consultation, renal function improve, - Acute hypoxic respiratory failure: due to pulmonary edema upon admission, Was need 2 liter per minute oxygen, patient has no lower extremity edema, patient has no crackles, I don't believe has fluid overload , continue incentive spirometry encouraged deep breathing and out of bed - CAD s/p CABG history of ischemic cardiomyopathy: continue Coreg, Plavix - Mild accelerated hypertension, is improved after adding Imdur - COPD with history of remote smoking: no wheezing, appears stable, continue Advair, at the duo neb as needed - Hypothyroidism: continue Synthroid, TSH normal - DVT prophylaxis: Eliquis Plan: continue current regimen, daily weights, follow I/O's, Possible able to taper off oxygen because of condition improving, pillowcase sewer has discussed with the family and patient regarding to the rehabilitation,, medically ready to discharge to rehabilitation facility The patient is a full code. Continued [facility] stay due to: home environment unsafe for pt Discharge planning: rehab hospital
[2016-06-23] MEDS: PANTOprazole SOD 40 MG TAB PO SCH (10:04)
--- NOTE | 2016-06-23 11:02 | Nephrology Progress Note ---
Nephrology Progress Note Date of Service Jun 23, 2016. Chief Complaint Evaluation of CKD in this patient admitted with recurrent CHF. Subjective Mr. Carr was seen & examined in the PCU this morning. He was admitted for management of CHF. He is seated upright in hospital chair this am breathing comfortably on O2 at 2 L / min NC. He reports that his breathing is subjectively improved. He denies angina. The patient has CKD due to diabetic nephropathy. His baseline creatinine has been 2.0 w/ EGFR 34 cc/min. Urine sediment remains benign. Urinary protein excretion remains low grade. Patient denies difficulty voiding. Mr. Carr has AODM, HTN, CKD, COPD, RUTH, chronic atrial fibrillation and ASCVD. He underwent CABG x 4 at [facility] [place] 2012. He has a pacemaker/AICD in place. Review of Systems Constitutional: No fever Cardiovascular: No chest pain Respiratory: No dyspnea at rest Abdomen: No nausea, No pain, No vomiting Extremities: + leg edema A complete review of systems was performed. Pertinent positives are noted above. All other systems are negative. Vital Signs Last 8 Hrs Date Time Temp Pulse Resp B/P Pulse Ox O2 Delivery O2 Flow Rate FiO2 06/23/16 08:00 Room Air 06/23/16 07:50 36.5 85 22 141/74 99 Nasal Cannula 2.0 06/23/16 07:11 87 16 91 Nasal Cannula 2.0 06/23/16 04:02 Nasal Cannula 2.0 06/23/16 04:02 36.6 87 19 150/77 94 Nasal Cannula 2.0 I & O 24-Hour Column 06/23/16 08:00 Intake Total 590 ml Output Total 750 ml Balance -160 ml Last Recorded Weight Weight (Kilograms): 79.700 Physical Exam General Appearance: no apparent distress Head: normocephalic, atraumatic Eyes: PERRL Neck: supple, no JVD Respiratory/Chest: lungs clear, no respiratory distress Cardiovascular: regular rate, rhythm Abdomen/GI: normal bowel sounds, non tender, soft Extremities/Musculoskelatal: + pedal edema (trace pretibial edema) Neurologic/Psych: alert, oriented x 3 Family History Patient reports no known family medical history. Negative for CKD/ESRD Social History Smoking Status: Former smoker Drug Use: none Marital Status: Housing Status: lives with family Occupation: retired , retired. Remote h/o tobacco use. Laboratory Results Past 24 Hours 06/23/16 05:05 06/23/16 06:20 Test 06/22/16 11:08 06/22/16 15:59 06/22/16 20:27 06/23/16 00:00 Bedside Glucose 125 mg/dl (70-99) 107 mg/dl (70-99) 105 mg/dl (70-99) Urine Color YELLOW Urine Appearance CLEAR (CLEAR) Urine pH 5.0 (4.5-7.5) Urine Specific Unity 1.007 (1.000-1.030) Urine Protein 1+ (NEG) Urine Glucose (UA) NEG (NEG) Urine Ketones NEG (NEG) Urine Occult Blood NEG (NEG) Urine Nitrite NEG (NEG) Urine Bilirubin NEG (NEG) Urine Urobilinogen NEG (NEG) Urine Leukocyte Esterase NEG (NEG) Urine WBC (Auto) 0 /hpf (0-5) Urine RBC (Auto) 0-4 /hpf (0-4) Urine Hyaline Casts (Auto) 1-5 /lpf (0-5) Urine Epithelial Cells (Auto) 5-10 /lpf (0-5) Urine Bacteria (Auto) NEG (NEG) Urine Random Creatinine 59.0 mg/dl Urine Random Total Protein 37.0 mg/dl (0-11.9) Urine Protein/Creatinine Ratio 0.6 (0-0.2) Test 06/23/16 05:05 06/23/16 06:20 06/23/16 07:06 Anion Gap 7.0 mmol/L (3-11) Est Creatinine Clear Calc Drug Dose 32.7 ml/min Estimated GFR () 37.0 Estimated GFR (Non- 31.9 BUN/Creatinine Ratio 23.3 (10-20) Calcium Level 8.5 mg/dl (8.5-10.1) Phosphorus Level 2.3 mg/dl (2.5-4.9) Magnesium Level mg/dl (1.8-2.4) 2.4 mg/dl (1.8-2.4) Total Bilirubin 1.0 mg/dl (0.2-1) Direct Bilirubin mg/dl (0-0.2) 0.2 mg/dl (0-0.2) Aspartate Amino Transf (AST/SGOT) U/L (15-37) 9 U/L (15-37) Alanine Aminotransferase (ALT/SGPT) 21 U/L (12-78) Alkaline Phosphatase 70 U/L (45-117) Total Protein 6.4 gm/dl (6.4-8.2) Albumin 3.1 gm/dl (3.4-5.0) Bedside Glucose 86 mg/dl (70-99) Allergies Coded Allergies: Warfarin (Verified Allergy, Intermediate, PT CAN TAKE BRAND COUMADIN, ) GOT HIVES AND SWELLING WITH WARFARIN (GENERIC BRAND) Simvastatin (Verified Adverse Reaction, Mild, GI UPSET, 06/12/16) Medications Current Inpatient Medications Medications (Trade) Dose Ordered Sig/Kojo Route Start Time Stop Time Status Last Admin Dose Admin Albuterol (Ventolin Hfa Inhaler) 2 puffs Q4H PRN INH 06/19/16 19:15 07/19/16 19:14 Apixaban (Eliquis Tab) 2.5 mg BID PO 06/19/16 21:00 07/19/16 20:59 06/23/16 08:33 2.5 MG Cholecalciferol (Vitamin D Tab) 2,000 inter.unit QAM PO 06/20/16 09:00 07/20/16 08:59 06/23/16 08:33 2,000 INTER.UNIT Digoxin (Lanoxin Tab) 0.125 mg DAILY@16 PO 06/20/16 16:00 07/20/16 15:59 06/22/16 17:07 0.125 MG Salmeterol Xinafoate/ Fluticasone (Advair Diskus 250/50 Inh) 1 puff Q12 INH 06/19/16 21:00 07/19/16 20:59 06/23/16 08:33 1 PUFF Gabapentin (Neurontin Cap) 400 mg TID PO 06/19/16 21:00 07/19/16 20:59 06/23/16 08:34 400 MG Zolpidem Tartrate (Ambien Tab) 5 mg HS PO 06/19/16 21:00 07/19/16 20:59 06/21/16 20:33 5 MG Pantoprazole Sodium (Protonix Tab) 40 mg QAM PO 06/20/16 09:00 07/20/16 08:59 06/23/16 10:04 40 MG Potassium Chloride (Klor-Con Tab) 20 meq QAM PO 06/20/16 09:00 07/20/16 08:59 06/23/16 08:33 20 MEQ Magnesium Oxide (Mag-Ox Tab) 400 mg QAM PO 06/20/16 09:00 07/20/16 08:59 06/23/16 08:33 400 MG Acetaminophen (Tylenol Tab) 650 mg Q4H PRN PO 06/19/16 19:15 07/19/16 19:14 Al Hydrox/Mg Hydrox/Simethicone (Maalox Max Susp) 15 ml Q4H PRN PO 06/19/16 19:15 07/19/16 19:14 Magnesium Hydroxide (Milk Of Magnesia Susp) 30 ml Q12H PRN PO 06/19/16 19:15 07/19/16 19:14 Ondansetron HCl (Zofran Inj) 4 mg Q6H PRN IV 06/19/16 19:15 07/19/16 19:14 06/20/16 20:29 4 MG Nitroglycerin (Nitrostat Tab) 0.4 mg UD PRN SL 06/19/16 19:15 07/19/16 19:14 Morphine Sulfate (MoRPHine SULFATE INJ) 2 mg Q30M PRN IV 06/19/16 19:15 07/03/16 19:14 Polyethylene (Miralax Powder Packet) 17 gm DAILY PRN PO 06/19/16 19:15 07/19/16 19:14 Albuterol/ Ipratropium (Duoneb) 3 ml QIDR INH 06/19/16 20:00 07/19/16 19:59 06/23/16 07:11 3 ML Albuterol/ Ipratropium (Duoneb) 3 ml Q2H PRN INH 06/19/16 19:15 07/19/16 19:14 Clopidogrel Bisulfate (plAVix TAB) 75 mg QAM PO 06/20/16 09:00 07/20/16 08:59 06/23/16 08:34 75 MG Insulin Aspart (novoLOG ASPART) SLIDING SCALE PARAMETER ACHS SC 06/19/16 21:00 07/19/16 20:59 Glucose (Glucose 40% Gel) 15-30 GRAMS 15 GRAMS... UD PRN PO 06/19/16 19:45 07/19/16 19:44 Glucose (Glucose Chew Tab) 4-8 Tablets 4 Tabl... UD PRN PO 06/19/16 19:45 07/19/16 19:44 Dextrose (Dextrose 50% 50ML Syringe) 25-50ML OF 50% DW IV FOR... UD PRN IV 06/19/16 19:45 07/19/16 19:44 Glucagon (Glucagon Inj) 1 mg UD PRN SQ 06/19/16 19:45 07/19/16 19:44 Metoprolol Tartrate (Lopressor Iv) 5 mg Q4 PRN IV 06/20/16 00:00 07/20/16 00:00 06/20/16 00:15 5 MG Carvedilol (Coreg Tab) 12.5 mg BID PO 06/20/16 21:00 07/20/16 20:59 06/23/16 08:35 12.5 MG Isosorbide Mononitrate (Imdur Ext Rel Tab) 30 mg QAM PO 06/21/16 09:00 07/21/16 08:59 06/23/16 08:34 30 MG Furosemide (Lasix tab) 40 mg BID17 PO 06/22/16 17:00 07/22/16 16:59 06/23/16 08:35 40 MG Impression (1) Chronic kidney disease, stage 3 (moderate) (2) Atrial fibrillation (3) CHF (congestive heart failure) (4) Diabetes mellitus (5) COPD (chronic obstructive pulmonary disease) Patient admitted to the hospital with recurrent CHF. ECG revealed atrial fibrillation w/ RVF. Cardiac enzymes have been within normal limits. Patient has stable stage III CKD w/ baseline creatinine 2.0 due to diabetic nephropathy. He responded well to IV furosemide and is now symptomatically improved. Carvedilol dose has been adjusted by cardiology. PMH - CKD stage III w/ baseline creatinine 2.0, diabetic nephropathy, AODM, HTN , hypothyroidism, chronic atrial fibrillation, multivessel ASCVD s/p CABG x 4 2012 [facility], ICM w/ LVEF 45%, s/p pacemaker / AICD, COPD, RUTH, h/o duodenal ulcer Recommendations CHRONIC KIDNEY DISEASE: -- Kidney function remains stable at this time. Baseline creatinine as outpatient has been 2.0 w/ EGFR 34 cc/min -- Monitor serial PRP -- Renal US films show normal size kidneys with cortical thinning and large simple cysts c/w CKD. No mass, stone or obstruction reported. HYPERTENSION: -- Carvedilol dose has been adjusted by cardiology -- KEITH was held as outpatient due to relative hypotension ANEMIA: -- Patient has mild asymptomatic anemia. No acute indication for BOUBACAR at this time. Will continue to monitor CHF: -- Patient is symptomatically improved -- Continue furosemide 40 mg po BID. Monitor UO, renal function and volume status closely -- CXR film reviewed today. Mild pulmonary vascular congestion. Improved from admission film. -- Await further input from cardiology
[2016-06-23] MEDS ORDERED: IMDSR30 PO (13:01)
--- NOTE | 2016-06-23 13:06 | Discharge Instructions ---
Discharge Instructions Admission Reason for Admission: Acute Systolic Heart Failure Discharge Discharge Diagnosis / Problem: Acute on chronic diastolic and systolic HF upon admission, Discharge Goals Goal(s): Decrease discomfort, Improve function, Increase independence, Improve disease control, Improve nutritional status, Learn about illness, Diagnostic testing, Therapeutic intervention, Prevent Disease Progression, Specific goals Activity Recommendations Activity Level: Up Ad [place] Therapies: Physical Therapy, Occupational Therapy Lifting Limitations: none Exercise/Sports Limitations: none Shower/Bathe: no limitations . Additional Information Patient informed of condition: Yes Advance Directives: Yes DNR: No Level of Care: Acute Rehab Communicable Disease: No Prognosis: Other (guarded) Peña Catheter: No Instructions / Follow-Up Instructions / Follow-Up you have Acute on chronic diastolic and systolic HF upon admission you need to follow up with Dr. 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 - call your primary care physician OR go to local emergency room if has any fever/chill, chest pain, shortness of breathing, nausea/vomiting/abdominal pain , facial droop/slurry speech/local weakness, or if has any questions. - fall precaution - diet as instructed - you need to follow up with your subspecialist - you should understand that it is important to follow up the above instruction , and "not following the above instruction" may cause delayed or missed care of your medical conditions which may cause permanent organ damage and even . Current Hospital Diet Patient's current hospital diet: Low Sodium Diet (2gm Na), Diabetes Type 2 Diet Discharge Diet Recommended Diet: AHA Diet (Heart Healthy), Diabetes Type 2 Diet Procedures Procedures Performed: no Pending Studies Studies pending at discharge: no Physician Orders On Transfer POLST Discussion: without POLST completion Medical Emergencies . Who to Call and When: Medical Emergencies: If at any time you feel your situation is an emergency, please call 911 immediately. . Non-Emergent Contact Non-Emergency issues call your: Primary Care Provider, Dressmaking Teacher . . "Provider Documentation" section prepared by Micah Chong. Core Measure Problem Core Measures: None
--- NOTE | 2016-06-23 13:08 | Discharge Summary ---
Discharge Summary Admission Date: Jun 19, 2016 at 19:10 Discharge Date: Jun 23, 2016 Principal Diagnosis: chf exac Problems/Secondary Diagnoses: (1) COPD (chronic obstructive pulmonary disease) Status: Chronic Immunizations: Have You Had Influenza Vaccine: Yes Influenza Vaccine Date: May 06, 2005 History of Tetanus Vaccine?: Yes Tetanus Immunization Date: Nov 30, 2005 History of Pneumococcal: Yes History of Hepatitis B Vaccine: No Procedures: no Consultations: cardio, renal Medication Reconciliation New Medications: Isosorbide Mononitrate (Isosorbide Mononitrate ER) 30 Mg Tabcr 30 MG PO QAM for 30 Days Continued Medications: Albuterol Inhaler (Ventolin Inhaler) Aers 2 PUFFS INH Q4H PRN, #1 Apixaban (Eliquis) 2.5 Mg Tab 2.5 MG PO BID, #90 TAB 3 Refills Aspirin (Aspir-Low) 81 Mg Tab 81 MG PO QAM, #30 Carvedilol (Carvedilol) 12.5 Mg Tab 12.5 MG PO HS, #30 TAB 4 Refills Cholecalciferol (Vitamin D 1000 Unit) 1,000 Unit Cap 2000 INTER.UNIT PO QAM, CAP Clopidogrel Bisulfate (Plavix) 75 Mg Tab 75 MG PO QAM, TAB Digoxin (Digoxin) 0.125 Mg Tab 0.125 MG PO DAILY@16, #90 TAB 3 Refills Fluticasone Prop/Salmeterol (Advair Diskus 250/50 60 Dose) 1 Ea Aerp 1 PUFF INH Q12, INHALER Furosemide (Lasix) 20 Mg Tab 1 TAB PO QAM for 90 Days, #90 TAB 1 Refill Gabapentin (Neurontin) 400 Mg Cap 400 MG PO TID, #90 Nitroglycerin (Nitrostat) 0.4 Mg Tab 0.4 MG SL UD PRN, #30 Omeprazole (Prilosec) 20 Mg Cap 1 CAP PO QAM for 30 Days, #30 CAP 5 Refills Zolpidem Tartrate (Zolpidem Tartrate) 5 Mg Tab 5 MG PO HS Discontinued Medications: Carvedilol (Carvedilol) 6.25 Mg Tab 6.25 MG PO QAM, #30 TAB 4 Refills Discharge Exam See today's note Review of Systems: Constitutional: + problem reported (see today's note) Physical Exam: General Appearance: + pertinent finding (today's note) Hospital Course 85 yo male who was readmitted for on 06/19/2016 acute on chronic diastolic and systolic HF despite compliance with fluid restriction and diuretics, also with atrial fibrillation: Continue stable and improving - Acute on chronic diastolic and systolic HF upon admission, mild, improvement, diuresed 1300cc, weight down 4 kg in the first day after admission Continue requiring 2 L NC for oxygen sats in 95, will planning to taper off oxygen today appreciate cardiology consultation has been on continue lasix 40mg IV q12 since admission, got only one dose of Lasix Continue Coreg, Digoxin, Lasix was hold yesterday on 06/21/2016 because of some worsening of the renal function, and started Imdur 30 mg by mouth daily - Paroxysmal atrial fibrillation upon admission: Resolved no RVR currently, rates controlled on Coreg and Digoxin there has been discussion about cardioversion, cardiology on the case anticoagulation on Eliquis, continue, which is currently is on renal dose - 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, has checked renal ultrasound, which was unremarkable, and nephrology consultation, renal function improve, - Acute hypoxic respiratory failure: due to pulmonary edema upon admission, Was need 2 liter per minute oxygen, patient has no lower extremity edema, patient has no crackles, I don't believe has fluid overload , continue incentive spirometry encouraged deep breathing and out of bed - CAD s/p CABG history of ischemic cardiomyopathy: continue Coreg, Plavix - Mild accelerated hypertension, is improved after adding Imdur - COPD with history of remote smoking: no wheezing, appears stable, continue Advair, at the duo neb as needed - Hypothyroidism: continue Synthroid, TSH normal - DVT prophylaxis: Eliquis Plan: continue current regimen, daily weights, follow I/O's, Possible able to taper off oxygen because of condition improving, home health care case manager has discussed with the family and patient regarding to the rehabilitation,, medically ready to discharge to rehabilitation facility The patient is a full code. Instructions / Follow-Up you have Acute on chronic diastolic and systolic HF upon admission you need to follow up with Dr. 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 - call your primary care physician OR go to local emergency room if has any fever/chill, chest pain, shortness of breathing, nausea/vomiting/abdominal pain , facial droop/slurry speech/local weakness, or if has any questions. - fall precaution - diet as instructed - you need to follow up with your subspecialist - you should understand that it is important to follow up the above instruction , and "not following the above instruction" may cause delayed or missed care of your medical conditions which may cause permanent organ damage and even . Total Time Spent: Greater than 30 minutes This includes examination of the patient, discharge planning, medication reconciliation, and communication with other providers. Discharge Instructions Please refer to the electronic Patient Visit Report (Discharge Instructions) for additional information. Additional Copies To Ramsey Chaparro M.D.; Dillan Acevedo M.D.
[2016-06-23] MEDS ORDERED: LSX40 PO (15:02)
[2016-06-23] MEDS: DIGOXIN 0.125 MG TAB PO SCH (15:40)
[2016-12-16] MEDS ORDERED: DILT120T8 PO (15:40)
[2016-12-17] MEDS ORDERED: ZLF50 PO (14:26)
[2017-05-11] MEDS ORDERED: PRT40 PO (09:39)
== END 2016-06-23 16:19 | DRG 291 ==
LOC: ENRESERVTM → ENRESERVDT → EDBD 15:55 → C.EDC 15:56 → C.2T 19:10
PROVIDERS: ADMIT Internal Medicine; ATTEND Hospitalist
DX: I50.43 Acute on chronic combined systolic (congestive) and diastolic (congestive) heart failure (principal); J96.01 Acute respiratory failure with hypoxia; N18.4 Chronic kidney disease, stage 4 (severe); I13.0 Hypertensive heart and chronic kidney disease with heart failure and stage 1 through stage 4 chronic kidney disease, or unspecified chronic kidney disease; I25.5 Ischemic cardiomyopathy; I48.2 Chronic atrial fibrillation; J44.9 Chronic obstructive pulmonary disease, unspecified; I25.10 Atherosclerotic heart disease of native coronary artery without angina pectoris; Z95.1 Presence of aortocoronary bypass graft; I48.0 Paroxysmal atrial fibrillation; E11.21 Type 2 diabetes mellitus with diabetic nephropathy; E03.9 Hypothyroidism, unspecified; Z87.891 Personal history of nicotine dependence; G47.33 Obstructive sleep apnea (adult) (pediatric); E78.5 Hyperlipidemia, unspecified; D64.9 Anemia, unspecified; Z95.810 Presence of automatic (implantable) cardiac defibrillator; Z86.73 Personal history of transient ischemic attack (TIA), and cerebral infarction without residual deficits; E55.9 Vitamin D deficiency, unspecified; Z79.82 Long term (current) use of aspirin

== ENCOUNTER → 2016-07-12 | Outpatient (CLI) | payer OTHER ==
[~2016-07-12] MED LIST changes: +CARV25TA2 PO; +COEN1CAP7 PO; -CRG625 PO; +DILT120T8 PEG; +FURO-85 PO; -FURO20TA PO; +IMDSR30 PO; +LEVO-17 PO; -LEVO125T72 PO; +LEVO150T9 PO; +LSX40 PO; +MULT-190 PO; +OXYC-57 PO; +VNTHFA/IN INH; +ZLF50 PO
[2016-07-12 17:29] LABS: BASO % 0.3 %; BASO ABS # 0.02 K/uL (0-0.2); COMPLETE YES; EOS % 3.1 %; IG% 0.3 %; LYMPH % 19.7 %; LYMPH ABS # 1.25 K/uL (1.2-3.4); MEAN CELL VOLUME 99.1 fL (80-100); MEAN CORPUSCULAR HEMOGLOBIN 31.1 pg (25-34); MEAN CORPUSCULAR HGB CONC 31.4 g/dl (32-36); MONO % 9.8 %; NEUT % 66.8 %; PLATELET COUNT 278 K/uL (130-400); RED BLOOD COUNT 4.44 M/uL (4.7-6.1); WHITE BLOOD COUNT 6.35 K/uL (4.8-10.8)
[2016-07-12 17:37] LABS: ALT/SGPT 22 U/L (12-78); BLOOD UREA NITROGEN 27 mg/dl (7-18); CALCIUM 9.5 mg/dl (8.5-10.1); CARBON DIOXIDE 28 mmol/L (21-32); CHLORIDE 104 mmol/L (98-107); GLUCOSE 114 mg/dl (70-99); POTASSIUM 4.3 mmol/L (3.5-5.1); SODIUM 143 mmol/L (136-145)
[2016-07-12 17:40] LABS: ALB/GLOB RATIO 0.9 (0.9-2); ALKALINE PHOSPHATASE 67 U/L (45-117); AST/SGOT 14 U/L (15-37)
== END | disposition home or self-care (01) ==
LOC: C.LABBFT 14:43
PROVIDERS: ATTEND Internal Medicine
DX: R11.0 Nausea (principal)

== ENCOUNTER → 2016-07-22 | Outpatient (CLI) | payer OTHER | END | disposition home or self-care (01) | LOC: C.LABBFT 12:38 | PROVIDERS: ATTEND Internal Medicine | DX: I48.91 Unspecified atrial fibrillation (principal) ==

== ENCOUNTER → 2016-08-30 | Outpatient (CLI) | payer OTHER ==
[2016-08-30 12:50] LABS: HEMATOCRIT 34.4 % (42-52); MEAN CELL VOLUME 99.1 fL (80-100); MEAN CORPUSCULAR HEMOGLOBIN 30.8 pg (25-34); MEAN CORPUSCULAR HGB CONC 31.1 g/dl (32-36); MEAN PLATELET VOLUME 10.7 fL (7.4-10.4); PLATELET COUNT 208 K/uL (130-400); RED BLOOD COUNT 3.47 M/uL (4.7-6.1); WHITE BLOOD COUNT 5.37 K/uL (4.8-10.8)
[2016-08-30 13:00] LABS: URINE APPEARANCE CLEAR (CLEAR); URINE BILIRUBIN NEG (NEG); URINE COLOR YELLOW; URINE NITRITE NEG (NEG); URINE SPECIFIC GRAVITY 1.021 (1.000-1.030); UROBILINOGEN NEG (NEG)
[2016-08-30 13:01] LABS: MANUAL MICROSCOPIC REQUIRED? NO; REVIEW REQ? NO
[2016-08-30 13:08] LABS: BLOOD UREA NITROGEN 28 mg/dl (7-18); BUN/CREATININE RATIO 17.7 (10-20); CALCIUM 8.7 mg/dl (8.5-10.1); CARBON DIOXIDE 25 mmol/L (21-32); CHLORIDE 109 mmol/L (98-107); GLUCOSE 105 mg/dl (70-99); POTASSIUM 4.3 mmol/L (3.5-5.1); SODIUM 143 mmol/L (136-145)
[2016-08-30 13:19] LABS: PHOSPHORUS 2.8 mg/dl (2.5-4.9)
[2016-08-30 13:28] LABS: ESTIMATED AVERAGE GLUCOSE 140 mg/dl; HA1C FLAG Normal (Normal)
[2016-08-30 14:02] LABS: URINE PROTIEN/CREAT RATIO 0.4 (0-0.2); URINE TOTAL PROTEIN 78.2 mg/dl (0-11.9)
== END | disposition home or self-care (01) ==
LOC: C.LABBFT 08:25
PROVIDERS: ATTEND Internal Medicine
DX: E11.9 Type 2 diabetes mellitus without complications (principal); E03.9 Hypothyroidism, unspecified; I25.10 Atherosclerotic heart disease of native coronary artery without angina pectoris; N18.3 Chronic kidney disease, stage 3 (moderate); D64.9 Anemia, unspecified

== ENCOUNTER 2016-10-09 20:50 | Emergency (ER) | payer OTHER ==
[~2016-10-09] VITALS: Ht 188 cm; Wt 71.2 kg
[~2016-10-09 20:50] MED LIST changes: -CARV25TA2 PO; -COEN1CAP7 PO; -DILT120T8 PEG; -FURO-85 PO; -LEVO-17 PO; -LEVO150T9 PO; -MULT-190 PO; -OXYC-57 PO; -VNTHFA/IN INH; -ZLF50 PO
[2016-10-09 20:56] VITALS: Ht 188 cm; Wt 71.2 kg
[2016-10-09] MEDS ORDERED: SODIUM CHLORIDE 0.9% 500ML 500 ML IV STA (22:19)
[2016-10-09 22:38] LABS: BASO % 0.5 %; BASO ABS # 0.02 K/uL (0-0.2); COMPLETE YES; EOS % 1.4 %; HEMATOCRIT 37.6 % (42-52); IG% 0.2 %; LYMPH % 22.9 %; LYMPH ABS # 0.96 K/uL (1.2-3.4); MEAN CELL VOLUME 99.7 fL (80-100); MEAN CORPUSCULAR HEMOGLOBIN 31.8 pg (25-34); MEAN CORPUSCULAR HGB CONC 31.9 g/dl (32-36); MEAN PLATELET VOLUME 10.4 fL (7.4-10.4); MONO % 9.5 %; NEUT % 65.5 %; PLATELET COUNT 185 K/uL (130-400); RED BLOOD COUNT 3.77 M/uL (4.7-6.1)
--- NOTE | 2016-10-09 22:43 | DIAGNOSTIC IMAGING REPORT ---
CHEST ONE VIEW PORTABLE CLINICAL HISTORY: Atypical chest pain COMPARISON STUDY: 06/23/2016 FINDINGS: The heart is enlarged. There are postsurgical changes of midline sternotomy. There is a left subclavian pacer/defibrillator present. There is enlargement central pulmonary arteries suggesting potential hypertension. There are small pleural effusions present. There is been interval improvement in the previously identified interstitial pulmonary edema.[ IMPRESSION: Cardiomegaly. Marked improvement in the previous described congestive failure. Small bilateral pleural effusions. No lobar consolidation. Electronically signed by: Cosmo Diaz M.D. 10/09/2016 10:41 PM Dictated Date/Time: 10/09/2016 10:40 PM
[2016-10-09 22:54] LABS: BLOOD UREA NITROGEN 27 mg/dl (7-18); BUN/CREATININE RATIO 14.8 (10-20); CARBON DIOXIDE 29 mmol/L (21-32); CHLORIDE 109 mmol/L (98-107); GLUCOSE 101 mg/dl (70-99); POTASSIUM 4.2 mmol/L (3.5-5.1); SODIUM 145 mmol/L (136-145)
[2016-10-09 22:57] LABS: INR 1.2 (0.9-1.1); PARTIAL THROMBOPLASTIN RATIO 1.3; PROTHROMBIN TIME (PATIENT) 12.5 SECONDS (9.0-12.0)
[2016-10-09 22:58] LABS: CALCIUM 9.2 mg/dl (8.5-10.1)
[2016-10-10] MEDS ORDERED: LEVOFLOXACIN 250 MG TAB PO ONE (00:45)
[2016-10-10] MEDS ORDERED: LEVO-17 PO (00:46)
[2016-10-10 01:01] VITALS: BP 151/76; PULSE 81; O2SAT 98
--- NOTE | 2016-10-10 03:21 | EMERGENCY ROOM VISIT NOTE ---
History Report prepared by Marija: Flex Rivero Under the Supervision of: Dr. Sridhar Baez D.O. First contact with patient: 21:50 Chief Complaint: COUGH Stated Complaint: COUGH, SOB, WEAKNESS- [facility] REFERRED Nursing Triage Summary: c/o a cough for several days seen at [facility] [employer] and sent here. History of Present Illness The patient is a 85 year old male who presents to the Emergency Room with complaints of a constant cough and shortness of breath which has been present for the past 1.5 weeks. He additionally states that he was having some dizziness , a headache, diarrhea, and weakness. Dizziness is no longer present. He denies any weakness or numbness in his arms or legs. Dizziness was worse with positional changes when present. The patient states that he went to [facility] , and they told him to come to the ED for evaluation. He states that he has been having this shortness of breath for the past week and a half, and he has been having a cough that is becoming more productive, and he is a clear sputum. The patient states that when he walks he is more short of breath since the coughing started. Per the patient's family, the patient had a quadruple bypass, and he was given a pacemaker because his heart was having difficulty being regulated after the surgery. Additionally they state that the patient has a history of A fib and CHF. The patient's family states that he is on eliquis, aspirin, and Plavix. Pt denies change in vision, fevers, chest pain, nausea, vomiting, pain with urination, and melena. Source of History: patient, family Onset: earlier today Position: other (global) Quality: other (shortness of breath) Timing: constant Associated Symptoms: + cough, + diarrhea, + headache Review of Systems See HPI for pertinent positives & negatives. A total of 10 systems reviewed and were otherwise negative. Past Medical & Surgical Medical Problems: (1) Acute systolic heart failure (2) Anemia (3) Atrial fibrillation (4) CAD (coronary artery disease) (5) CHF exacerbation (6) Chronic kidney disease (7) Chronic kidney disease, stage 3 (moderate) (8) COPD (chronic obstructive pulmonary disease) (9) COPD (chronic obstructive pulmonary disease) (10) Depressive disorder (11) Diabetes mellitus (12) History of atrial fibrillation (13) History of stomach ulcers (14) HTN (hypertension) (15) Hypercholesteremia (16) Hypothyroidism (17) Sleep apnea Surgical Problems: (1) H/O total knee replacement (2) History of lumbar surgery (3) History of permanent cardiac pacemaker placement (4) Hx of CABG Family History Patient reports no known family medical history. Social History Smoking Status: Former Smoker Drug Use: none Marital Status: Housing Status: lives with family Occupation Status: retired Current/Historical Medications Scheduled Apixaban (Eliquis), 2.5 MG PO BID Aspirin (Aspir-Low), 81 MG PO QAM Carvedilol (Carvedilol), 12.5 MG PO HS Cholecalciferol (Vitamin D 1000 Unit), 2,000 INTER.UNIT PO QAM Clopidogrel Bisulfate (Plavix), 75 MG PO QAM Digoxin (Digoxin), 0.125 MG PO DAILY@16 Fluticasone Prop/Salmeterol (Advair Diskus 250/50 60 Dose), 1 PUFF INH Q12 Furosemide (Furosemide), 40 MG PO BID17 Gabapentin (Neurontin), 400 MG PO TID Isosorbide Mononitrate (Isosorbide Mononitrate ER), 30 MG PO QAM Levofloxacin (Levaquin), 250 MG PO DAILY Omeprazole (Prilosec), 1 CAP PO QAM Zolpidem Tartrate (Zolpidem Tartrate), 5 MG PO HS Scheduled PRN Albuterol Inhaler (Ventolin Inhaler), 2 PUFFS INH Q4H PRN Nitroglycerin (Nitrostat), 0.4 MG SL UD PRN Allergies Coded Allergies: Warfarin (Verified Allergy, Intermediate, PT CAN TAKE BRAND COUMADIN, ) GOT HIVES AND SWELLING WITH WARFARIN (GENERIC BRAND) Simvastatin (Verified Adverse Reaction, Mild, GI UPSET, 06/12/16) Physical Exam Vital Signs Date Time Temp Pulse Resp B/P Pulse Ox O2 Delivery O2 Flow Rate FiO2 10/10/16 01:01 81 18 151/76 98 10/10/16 00:27 79 18 151/76 98 Room Air 10/09/16 23:34 91 18 140/70 98 Room Air 10/09/16 22:01 70 10/09/16 20:56 83 22 138/65 94 Room Air Physical Exam GENERAL: Sitting up in bed, chronically appearing, disheveled. EYE EXAM: normal conjunctiva, PERRL and EOM's grossly intact OROPHARYNX: no exudate, no erythema, lips, buccal mucosa, and tongue normal and mucous membranes are moist NECK: supple, no nuchal rigidity, no adenopathy, non-tender LUNGS: Clear to auscultation. Normal chest wall mechanics HEART: Pacemaker on the left chest wall. No murmurs, S1 normal and S2 normal ABDOMEN: abdomen soft, non-tender, normo-active bowel sounds, no masses, no rebound or guarding. BACK: Back is symmetrical on inspection and there is no deformity, no midline tenderness, no CVA tenderness. SKIN: no rashes and no bruising UPPER EXTREMITIES: upper extremities are grossly normal. LOWER EXTREMITIES: No pitting edema. NEURO EXAM: Normal sensorium, cranial nerves II-XII intact, normal speech, no weakness of arms, no weakness of legs. No drift. Finger to nose intact. Gross sensation intact. Medical Decision & Procedures ER Provider Diagnostic Interpretation: Radiology results as stated below per my review and the radiologist's interpretation: CHEST ONE VIEW PORTABLE CLINICAL HISTORY: Atypical chest pain COMPARISON STUDY: 06/23/2016 FINDINGS: The heart is enlarged. There are postsurgical changes of midline sternotomy. There is a left subclavian pacer/defibrillator present. There is enlargement central pulmonary arteries suggesting potential hypertension. There are small pleural effusions present. There is been interval improvement in the previously identified interstitial pulmonary edema.[ IMPRESSION: Cardiomegaly. Marked improvement in the previous described congestive failure. Small bilateral pleural effusions. No lobar consolidation. Electronically signed by: Cosmo Diaz M.D. 10/09/2016 10:41 PM Dictated Date/Time: 10/09/2016 10:[address] HEAD: Comparison . No ICH, mass effect or edema. No evidence of acute cortical stroke. Periventricular small vessel ischemic change. Rigth sphenoid and maxillary sinus disease. Laboratory Results 10/09/16 22:15 Red Blood Count 3.77, Mean Corpuscular Volume 99.7, Mean Corpuscular Hemoglobin 31.8, Mean Corpuscular Hemoglobin Concent 31.9, Mean Platelet Volume 10.4, Neutrophils (%) (Auto) 65.5, Lymphocytes (%) (Auto) 22.9, Monocytes (%) (Auto) 9.5, Eosinophils (%) (Auto) 1.4, Basophils (%) (Auto) 0.5, Neutrophils # (Auto) 2.75, Lymphocytes # (Auto) 0.96, Monocytes # (Auto) 0.40, Eosinophils # (Auto) 0.06, Basophils # (Auto) 0.02 10/09/16 22:15 Test 10/09/16 22:15 White Blood Count 4.20 K/uL (4.8-10.8) Red Blood Count 3.77 M/uL (4.7-6.1) Hemoglobin 12.0 g/dL (14.0-18.0) Hematocrit 37.6 % (42-52) Mean Corpuscular Volume 99.7 fL (80-100) Mean Corpuscular Hemoglobin 31.8 pg (25-34) Mean Corpuscular Hemoglobin Concent 31.9 g/dl (32-36) Platelet Count 185 K/uL (130-400) Mean Platelet Volume 10.4 fL (7.4-10.4) Neutrophils (%) (Auto) 65.5 % Lymphocytes (%) (Auto) 22.9 % Monocytes (%) (Auto) 9.5 % Eosinophils (%) (Auto) 1.4 % Basophils (%) (Auto) 0.5 % Neutrophils # (Auto) 2.75 K/uL (1.4-6.5) Lymphocytes # (Auto) 0.96 K/uL (1.2-3.4) Monocytes # (Auto) 0.40 K/uL (0.11-0.59) Eosinophils # (Auto) 0.06 K/uL (0-0.5) Basophils # (Auto) 0.02 K/uL (0-0.2) RDW Standard Deviation 55.4 fL (36.4-46.3) RDW Coefficient of Variation 15.1 % (11.5-14.5) Immature Granulocyte % (Auto) 0.2 % Immature Granulocyte # (Auto) 0.01 K/uL (0.00-0.02) Prothrombin Time 12.5 SECONDS (9.0-12.0) Prothromb Time International Ratio 1.2 (0.9-1.1) Activated Partial Thromboplast Time 32.6 SECONDS (21.0-31.0) Partial Thromboplastin Ratio 1.3 Anion Gap 7.0 mmol/L (3-11) Est Creatinine Clear Calc Drug Dose 31.3 ml/min Estimated GFR () 39.5 Estimated GFR (Non- 34.0 BUN/Creatinine Ratio 14.8 (10-20) Calcium Level 9.2 mg/dl (8.5-10.1) Total Creatine Kinase 24 U/L (39-308) Creatine Kinase MB < 0.5 ng/ml (0.5-3.6) Creatine Kinase MB Ratio (0-3.0) Troponin I < 0.015 ng/ml (0-0.045) Laboratory results per my review. Medications Administered Medications (Trade) Dose Ordered Sig/Kojo Route Start Time Stop Time Status Last Admin Dose Admin Sodium Chloride (Nss 500ml) 500 ml @ 999 mls/hr Q31M STAT IV 10/09/16 22:19 10/09/16 22:49 DC 10/09/16 22:40 999 MLS/HR Levofloxacin (Levaquin Tab) 500 mg NOW ONCE PO 10/10/16 00:45 10/10/16 00:46 DC 10/10/16 00:56 500 MG ECG Indication: SOB/dyspnea Rate (beats per minute): 75 Rhythm: atrial fibrillation Findings: PVC, T-wave inversion (Inferior), other (Frequent ventricularlly paced) Comparison ECG Date: 06/14/16 Change: Flipped T waves and A Fib is not new. There are a few paced beats. ED Course ED COURSE: Vital signs were reviewed and showed normal vitals The patients medical record was reviewed The above diagnostic studies were performed and reviewed. ED treatments and interventions as stated above. 0: The patient was evaluated in room B7. A complete history and physical examination was performed. 2219: Sodium Chloride 500 ml @ 999 mls/hr IV 0033: I reviewed the patient's history, and his pacemaker was interrogated by [facility], and it was unremarkable. 0045: Levofloxacin 500mg PO 0046: Upon reevaluation, the patient is feeling better.I discussed my findings with the patient and he understands and agrees with the treatment plan. Based on the patients age, coexisting illnesses, exam and lab findings the decision to treat as an outpatient was made. The patient remained stable while under my care. The patient appeared well at the time of discharge. Medical Decision Differential diagnosis includes etiologies such as benign positional vertigo, dehydration, hypovolemia, anemia, tumor, infection, hypoglycemia, electrolyte abnormalities, cardiac sources, intracerebral event, toxicologic, neurologic, as well as others were entertained. Patient is an 85-year-old male who presents the ER for a persistent cough which is productive and has been present for the past 1.5 weeks. Associated with the cough is a slight worsening of his shortness of breath. Patient denies any fevers. No chest pain. He is slightly dizzy but that resolved prior to presentation. He is nonfocal on exam. CT head was normal. Pacemaker was interrogated and was normal. EKG was unchanged from previous. He has not missed any doses of his blood thinner and consequently PE was not explored. Based on his symptoms I do believe that this is likely infectious. He was not hypoxic. Chest x-ray was unremarkable. He was given a dose of Levaquin and discharged with a negative troponin and a unchanged EKG to follow-up with his PCP. Discussed with Pt concerning signs and symptoms to watch out for. Pt was instructed to follow up with their PCP and discussed with the patient their option to return to the ED at anytime for persistent or worsening symptoms. The appropriate anticipatory guidance and out-patient management, including indications for return to the emergency department, were explained at length to the patient and understood. Impression Primary Impression: Bronchitis Scribe Attestation The scribe's documentation has been prepared under my direction and personally reviewed by me in its entirety. I confirm that the note above accurately reflects all work, treatment, procedures, and medical decision making performed by me. Departure Information Dispostion Home / Self-Care Prescriptions Levofloxacin (Levaquin) 250 Mg Tab 250 MG PO DAILY for 10 Days, TAB Prov: Sridhar Baez DO 10/10/16 Referrals Dillan Acevedo M.D. (PCP) Forms HOME CARE DOCUMENTATION FORM, IMPORTANT VISIT INFORMATION Patient Instructions ED Bronchitis [place], My [facility] Additional Instructions Please follow up with your primary care doctor with in the next 24 hours. Any worsening of your symptoms, please return to the ED immediately. This includes persistent fevers greater than 100.4, nausea vomiting, persistent dizziness, weakness of the arms or legs, change in vision, or any other concerning signs or symptoms from your standpoint. Please take antibiotics as prescribed.
--- NOTE | 2016-10-10 07:01 | DIAGNOSTIC IMAGING REPORT ---
HEAD CT NONCONTRAST CT DOSE: 614.27 mGy.cm HISTORY: dizzy TECHNIQUE: Multiaxial CT images of the head were performed without the use of intravenous contrast. Automated exposure control was utilized for this study. Comparison: Head CT 06/19/2016. Findings: Opacified right sphenoid sinus and trace fluid within the right maxillary sinus. This is similar to the prior study. The calvarium and skull base are intact. There is no mass, hematoma, midline shift, acute infarct. White matter hypodensity is nonspecific but suggestive of microvascular ischemic change. The ventricles and sulci demonstrate mild age-related involutional changes. Impression: No significant change compared to the prior study. No acute intracranial abnormality. Electronically signed by: Manish Crump M.D. 10/10/2016 6:59 AM Dictated Date/Time: 10/10/2016 6:57 AM
[2016-12-16] MEDS ORDERED: DILT120T8 PO (15:40)
[2016-12-17] MEDS ORDERED: ZLF50 PO (14:26)
[2017-05-11] MEDS ORDERED: PRT40 PO (09:39)
== END 2016-10-10 01:02 | disposition home or self-care (01) ==
LOC: C.EDB 20:52
DX: J40 Bronchitis, not specified as acute or chronic (principal); I48.91 Unspecified atrial fibrillation; I50.9 Heart failure, unspecified; I25.10 Atherosclerotic heart disease of native coronary artery without angina pectoris; N18.3 Chronic kidney disease, stage 3 (moderate); J44.9 Chronic obstructive pulmonary disease, unspecified; I12.9 Hypertensive chronic kidney disease with stage 1 through stage 4 chronic kidney disease, or unspecified chronic kidney disease; E11.9 Type 2 diabetes mellitus without complications; E03.9 Hypothyroidism, unspecified; E78.00 Pure hypercholesterolemia, unspecified; G47.30 Sleep apnea, unspecified; Z79.02 Long term (current) use of antithrombotics/antiplatelets; Z79.82 Long term (current) use of aspirin; Z79.899 Other long term (current) drug therapy; Z95.0 Presence of cardiac pacemaker; Z95.1 Presence of aortocoronary bypass graft; Z87.19 Personal history of other diseases of the digestive system

== ENCOUNTER → 2016-11-26 | Outpatient (CLI) | payer OTHER ==
[~2016-11-26] MED LIST changes: +CARV25TA2 PO; +COEN1CAP7 PO; +DILT120T8 PO; +FURO-85 PO; +LEVO150T9 PO; +MULT-190 PO; +OXYC-57 PO; +PRT40 PO; +VNTHFA/IN INH; +ZLF50 PO
--- NOTE | 2016-11-26 11:14 | DIAGNOSTIC IMAGING REPORT ---
L-SPINE MIN 4 VIEWS ROUTINE CLINICAL HISTORY: LUMBAGO,PAIN CENTERED @ L2-3 COMPARISON: Lumbar spine CT May 12, 2015. FINDINGS: Pacer/AICD leads and median sternotomy wires are noted as well as calcified granulomas within the spleen. Vertebral body heights are maintained. There is no acute fracture or suspicious lesion. Moderate multilevel disc space narrowing, osteophytosis and facet arthrosis is present. There is extensive atherosclerotic plaque of the abdominal aorta. IMPRESSION: 1. No acute lumbar spine fracture or subluxation. 2. Moderate multilevel degenerative disc disease and facet arthrosis. Electronically signed by: Osvaldo Sánchez M.D. 11/26/2016 11:13 AM Dictated Date/Time: 11/26/2016 11:11 AM
== END | disposition home or self-care (01) ==
LOC: C.RADBC 10:31
PROVIDERS: ATTEND Anesthesiology
DX: M51.36 Other intervertebral disc degeneration, lumbar region (principal)

== ENCOUNTER 2016-12-16 14:50 | Inpatient (IN) | payer OTHER ==
[~2016-12-16] VITALS: Ht 188 cm; Wt 73.0 kg
[~2016-12-16 14:50] MED LIST changes: -ASPI81TA25 PO; -CARV25TA2 PO; -COEN1CAP7 PO; -DILT120T8 PO; -FURO-85 PO; -LEVO150T9 PO; -MULT-190 PO; -OXYC-57 PO; -PRT40 PO; -VNTHFA/IN INH; -ZLF50 PO
[2016-12-16] MEDS ORDERED: VNTHFA/IN INH (15:04)
[2016-12-16] MEDS ORDERED: ALBUT/IPRATROP 3MG/0.5MG NEB 3 ML VIAL INH STA (15:25)
[2016-12-16] MEDS ORDERED: CARV25TA2 PO (15:28)
[2016-12-16] MEDS ORDERED: LNX125 PO (15:32)
[2016-12-16] MEDS ORDERED: FURO-85 PO (15:35)
[2016-12-16] MEDS ORDERED: LEVO150T9 PO (15:36)
[2016-12-16] MEDS ORDERED: MULT-190 PO (15:37)
[2016-12-16] MEDS ORDERED: COEN1CAP7 PO (15:39)
[2016-12-16] MEDS ORDERED: DILT120T8 PEG (15:40)
[2016-12-16] MEDS ORDERED: OXYC-57 PO (15:44)
[2016-12-16 15:49] LABS: BASO % 0.4 %; BASO ABS # 0.02 K/uL (0-0.2); COMPLETE YES; EOS % 2.7 %; IG% 0.4 %; LYMPH % 24.5 %; LYMPH ABS # 1.29 K/uL (1.2-3.4); MEAN CELL VOLUME 99.2 fL (80-100); MEAN CORPUSCULAR HEMOGLOBIN 30.6 pg (25-34); MEAN CORPUSCULAR HGB CONC 30.9 g/dl (32-36); MEAN PLATELET VOLUME 10.1 fL (7.4-10.4); MONO % 10.3 %; NEUT % 61.7 %; PLATELET COUNT 191 K/uL (130-400); RED BLOOD COUNT 3.53 M/uL (4.7-6.1); WHITE BLOOD COUNT 5.26 K/uL (4.8-10.8)
--- NOTE | 2016-12-16 15:54 | EMERGENCY ROOM VISIT NOTE ---
History First contact with patient: 15:07 Chief Complaint: SHORTNESS OF BREATH Stated Complaint: SOB, HX OF COPD AND CONGESTIVE HEART FAILURE History of Present Illness The patient is a 86 year old male who presents to the Emergency Room accompanied by his son complaining of shortness of breath. The patient's son reports that the patient called him this morning and could not complete a full sentence due to shortness of breath. His oxygen saturation was in the 70s at home according to their pulse oximeter. The patient used his albuterol inhaler and Advair inhaler with some improvement. The patient has been having worsening shortness of breath over the past 1 week. He did miss his morning medications for the past few days, but took them today. The patient states he has had shortness of breath with minimal exertion. He denies any cough, chest pain, abdominal pain, nausea/vomiting. He does report some associated dizziness. The patient has a history of COPD and congestive heart failure. He also has a history of a four-vessel CABG. Review of Systems A complete 10 point review of systems was reviewed with the patient with pertinent positives and negatives as per history of present illness. All else were negative. Past Medical/Surgical History Medical Problems: (1) Acute on chronic combined systolic and diastolic CHF (congestive heart failure) (2) Acute systolic heart failure (3) Anemia (4) Atrial fibrillation (5) CAD (coronary artery disease) (6) CHF exacerbation (7) Chronic kidney disease (8) Chronic kidney disease, stage 3 (moderate) (9) COPD (chronic obstructive pulmonary disease) (10) COPD (chronic obstructive pulmonary disease) (11) Depressive disorder (12) Diabetes mellitus (13) History of atrial fibrillation (14) History of stomach ulcers (15) HTN (hypertension) (16) Hypercholesteremia (17) Hypothyroidism (18) Sleep apnea Surgical Problems: (1) H/O total knee replacement (2) History of lumbar surgery (3) History of permanent cardiac pacemaker placement (4) Hx of CABG Family History Patient reports no known family medical history. Social History Smoking Status: Former Smoker Drug Use: none Marital Status: Housing Status: lives with family Occupation Status: retired Current/Historical Medications Scheduled Apixaban (Eliquis), 2.5 MG PO BID Carvedilol (Coreg), 25 MG PO BID Cholecalciferol (Vitamin D 1000 Unit), 2,000 INTER.UNIT PO QAM Clopidogrel Bisulfate (Plavix), 75 MG PO QAM Coenzyme Q10 (Ubidecarenone) (Coq10), 200 MG PO DAILY Digoxin (Digoxin), 125 MCG PO Q2D Diltiazem Hcl (Cardizem), 120 MG PEG DAILY Fluticasone Prop/Salmeterol (Advair Diskus 250/50 60 Dose), 1 PUFF INH Q12 Furosemide (Lasix), 20 MG PO DAILY Levothyroxine Sodium (Levothyroxine Sodium), 1 TAB PO DAILY Ocuvite Preservision (Ocuvite Preservision), 1 TAB PO BID Omeprazole (Prilosec), 20 MG PO Q2D Sertraline HCl (Sertraline HCl), 1 TAB PO DAILY Scheduled PRN Albuterol Hfa (Ventolin Hfa), 2 PUFFS INH Q4 PRN for Shortness of Breath Nitroglycerin (Nitrostat), 0.4 MG SL UD PRN Oxycodone/Acetaminophen 5MG/325MG (Percocet 5MG/325MG), 1 TABLET PO Q4 PRN for Moderate Pain Allergies Coded Allergies: Warfarin (Verified Allergy, Intermediate, PT CAN TAKE BRAND COUMADIN, 12/16) GOT HIVES AND SWELLING WITH WARFARIN (GENERIC BRAND) Simvastatin (Verified Adverse Reaction, Mild, GI UPSET, 12/16/16) Statins (Verified Adverse Reaction, Unknown, FALLS, 12/16/16) Physical Exam Vital Signs Date Time Temp Pulse Resp B/P (MAP) Pulse Ox O2 Delivery O2 Flow Rate FiO2 12/16/16 18:33 72 20 119/72 94 Room Air 12/16/16 18:15 70 22 119/80 94 Room Air 12/16/16 18:00 106 26 88 Room Air 12/16/16 17:01 78 20 117/78 96 Room Air 12/16/16 16:48 72 24 140/80 92 Room Air 12/16/16 16:12 81 12/16/16 16:05 73 16 123/76 100 Room Air 12/16/16 15:52 36.6 12/16/16 15:31 70 12/16/16 15:22 94 Room Air 12/16/16 15:16 93 Room Air 12/16/16 14:57 76 20 134/78 96 Room Air Physical Exam VITALS: Vitals are noted on the nurse's note and reviewed by myself. Vital signs stable. GENERAL: This is an 86-year-old male, in no acute distress, nondiaphoretic, well -developed well-nourished. SKIN: Bruising noted to bilateral upper extremities. EARS: External auditory canals clear, tympanic membranes pearly rosen without erythema or effusion bilaterally. EYES: Pupils equal round and reactive to light and accommodation. MOUTH: Mucous membranes moist. Tonsils are not enlarged. Pharynx without erythema or exudate. NECK: Supple without nuchal rigidity. No lymphadenopathy. HEART: Regular rate and rhythm without murmurs gallops or rubs. LUNGS: Slightly decreased breath sounds throughout both lung fink. No retractions or accessory muscle use. NEURO: Patient was alert and oriented to person place and time. 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 Bipolar cardiac pacer. Diaphragms smooth. Potential developing components of congestive failure IMPRESSION: Developing components of congestive failure. Mild cardiomegaly. Laboratory Results Test 12/16/16 15:38 Total Bilirubin 0.8 mg/dl (0.2-1) Aspartate Amino Transf (AST/SGOT) 5 U/L (15-37) Alanine Aminotransferase (ALT/SGPT) 13 U/L (12-78) Alkaline Phosphatase 74 U/L (45-117) Pro-B-Type Natriuretic Peptide 06770 pg/ml (0-1800) Total Protein 6.5 gm/dl (6.4-8.2) Albumin 3.4 gm/dl (3.4-5.0) Globulin 3.1 gm/dl (2.5-4.0) Albumin/Globulin Ratio 1.1 (0.9-2) Medications Administered Medications (Trade) Dose Ordered Sig/Kojo Route Start Time Stop Time Status Last Admin Dose Admin Albuterol/ Ipratropium (Duoneb) 3 ml NOW STAT INH 12/16/16 15:25 12/16/16 15:27 DC 12/16/16 15:55 3 ML Acetaminophen (Tylenol Tab) 1,000 mg NOW STAT PO 12/16/16 17:07 12/16/16 17:08 DC 12/16/16 17:13 1,000 MG Furosemide (Lasix Inj) 40 mg NOW STAT IV 12/16/16 18:14 12/16/16 18:15 DC 12/16/16 18:32 40 MG ECG Rate (beats per minute): 80 Rhythm: atrial fibrillation Change: no significant change ED Course The patient was evaluated as above. Labs were drawn and IV access was obtained. Patient was medicated with a DuoNeb treatment. Patient was reevaluated and felt no better. Findings were discussed with the patient. He was ordered 40 mg Lasix. Case was discussed with the [facility] hospitalist, Dr. Lunsford. They agreed to evaluate the patient for admission. Medical Decision Differential diagnosis includes CHF, COPD exacerbation, ACS, pneumonia, among others. The patient is a 86-year-old male who presents today complaining of significant shortness of breath at home. Labs revealed a BNP of greater than 30,000. Chest x-ray showed evidence of develop failure. Labs were otherwise unremarkable. Patient does admit to missing some doses of Lasix at home which is likely what brought on the symptoms. Nursing staff performed an ambulatory pulse ox trial and the patient's pulse ox dropped to 88% with very little activity. The patient reports significant shortness of breath at home with little activity today. For this reason, I do feel he should be admitted until symptoms improve. The patient and son are agreeable to this. The patient was independently evaluated by Dr. Baez, ED attending physician, who agreed with my assessment and treatment plan. Medication reconciliation: I attest that I have personally reviewed the patient 's current medication list. Blood pressure screening: Patient was found to have normal blood pressure on screening and does not require follow-up. Impression Primary Impression: Congestive heart failure Departure Information Prescriptions Sertraline HCl (Sertraline HCl) 50 Mg Tab 1 TAB PO DAILY for 30 Days, #30 TAB 1 Refill half tablet for one week then one tablet daily Prov: Jeni Newton M.D. 12/17/16 Referrals Dillan Acevedo M.D. (PCP) Patient Instructions My [facility]
--- NOTE | 2016-12-16 16:03 | DIAGNOSTIC IMAGING REPORT ---
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 Bipolar cardiac pacer. Diaphragms smooth. Potential developing components of congestive failure IMPRESSION: Developing components of congestive failure. Mild cardiomegaly. Electronically signed by: Miles Lowe M.D. 12/16/2016 4:02 PM Dictated Date/Time: 12/16/2016 4:01 PM
[2016-12-16 16:37] LABS: CHLORIDE 113 mmol/L (98-107); POTASSIUM 4.1 mmol/L (3.5-5.1); SODIUM 147 mmol/L (136-145)
[2016-12-16 16:57] LABS: AST/SGOT 5 U/L (15-37); GLUCOSE 92 mg/dl (70-99)
[2016-12-16 16:59] LABS: ALKALINE PHOSPHATASE 74 U/L (45-117)
[2016-12-16] MEDS ORDERED: ACETAMINOPHEN 500 MG TAB PO STA (17:07)
[2016-12-16 17:31] LABS: ALB/GLOB RATIO 1.1 (0.9-2); BLOOD UREA NITROGEN 21 mg/dl (7-18); BUN/CREATININE RATIO 15.1 (10-20); CALCIUM 9.2 mg/dl (8.5-10.1); CARBON DIOXIDE 26 mmol/L (21-32)
[2016-12-16 17:39] LABS: ALT/SGPT 13 U/L (12-78)
[2016-12-16] MEDS ORDERED: FUROSEMIDE 40 MG/4 ML VIAL IV STA (18:14)
--- NOTE | 2016-12-16 18:16 | EMERGENCY ROOM VISIT NOTE ---
ED Visit Note First contact with patient: 15:07 Staff note: I have reviewed the Patients chart and have discussed this case with my PA. I generally agree with the ED note and findings.
--- NOTE | 2016-12-16 18:24 | History and Physical ---
History & Physical Date & Time of Service: Dec 16, 2016 at 18:17 Chief Complaint: Sob, Hx Of Copd And Congestive Heart Failure Primary Care Physician: Dillan Acevedo M.D. History of Present Illness Source: patient This is a 86-year-old male with past medical history of hypertension, CAD s/p CABG 4 in 2012, A. fib on eliquis, hyperlipidemia, CKD stage III, COPD, who presents today with worsening shortness of breath which started at noon today. Patient noticed he was acutely short of breath when he was getting out of the shower and toweling off. He reports that after this he went to lie down in bed , and his symptoms resolved shortly after this. He denies any chest pain or palpitations at this time. He denies orthopnea. Of note the patient's in July this year and since that time he has had a very decreased appetite, motivation, and admits to feeling a little depressed. He has lost 40 pounds since then, and has not weighed himself recently to know if he has acutely gained or lost any weight. The patient notes he has forgotten to take his medications for the last 3 days just because. Here in the ER a chest x-ray was obtained showing developing pulmonary congestion, BNP is elevated at 32,036, his initial troponin is negative. 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 His echo at that time showed a little LVEF of 40-45%. Past Medical/Surgical History Medical Problems: (1) Anemia Status: Chronic (2) CAD (coronary artery disease) Status: Chronic (3) Chronic kidney disease Status: Chronic (4) COPD (chronic obstructive pulmonary disease) Status: Chronic (5) Depressive disorder Status: Chronic (6) Diabetes mellitus Status: Chronic (7) History of atrial fibrillation Status: Resolved (8) History of stomach ulcers Status: Resolved (9) HTN (hypertension) Status: Chronic (10) Hypercholesteremia Status: Chronic (11) Hypothyroidism Status: Chronic (12) Sleep apnea Status: Chronic Surgical Problems: (1) H/O total knee replacement Status: Resolved (2) History of lumbar surgery Status: Resolved (3) History of permanent cardiac pacemaker placement Status: Resolved (4) Hx of CABG Status: Resolved Family History Patient reports no known family medical history. Social History Smoking Status: Former Smoker Smokeless Tobacco Use: No Alcohol Use: none Drug Use: none Marital Status: Housing status: lives with family Occupational Status: retired Immunizations History of Influenza Vaccine: Yes Influenza Vaccine Date: May 06, 2005 History of Tetanus Vaccine?: Yes Tetanus Immunization Date: Nov 30, 2005 History of Pneumococcal: Yes History of Hepatitis B Vaccine: No Multi-Drug Resistant Organisms History of MDRO: No Allergies Coded Allergies: Warfarin (Verified Allergy, Intermediate, PT CAN TAKE BRAND COUMADIN, 12/16) GOT HIVES AND SWELLING WITH WARFARIN (GENERIC BRAND) Simvastatin (Verified Adverse Reaction, Mild, GI UPSET, 12/16/16) Statins (Verified Adverse Reaction, Unknown, FALLS, 12/16/16) Home Medications Scheduled Apixaban (Eliquis), 2.5 MG PO BID Carvedilol (Coreg), 25 MG PO BID Cholecalciferol (Vitamin D 1000 Unit), 2,000 INTER.UNIT PO QAM Clopidogrel Bisulfate (Plavix), 75 MG PO QAM Coenzyme Q10 (Ubidecarenone) (Coq10), 200 MG PO DAILY Digoxin (Digoxin), 125 MCG PO Q2D Diltiazem Hcl (Cardizem), 120 MG PEG DAILY Fluticasone Prop/Salmeterol (Advair Diskus 250/50 60 Dose), 1 PUFF INH Q12 Furosemide (Lasix), 20 MG PO DAILY Levothyroxine Sodium (Levothyroxine Sodium), 1 TAB PO DAILY Ocuvite Preservision (Ocuvite Preservision), 1 TAB PO BID Omeprazole (Prilosec), 20 MG PO Q2D Scheduled PRN Albuterol Hfa (Ventolin Hfa), 2 PUFFS INH Q4 PRN for Shortness of Breath Nitroglycerin (Nitrostat), 0.4 MG SL UD PRN Oxycodone/Acetaminophen 5MG/325MG (Percocet 5MG/325MG), 1 TABLET PO Q4 PRN for Moderate Pain Review of Systems Constitutional: No fever, sweats or chills Eyes: No diplopia, no worsening or blurred vision ENT: normal hearing, no trouble swallowing Respiratory: See history of present illness, no cough no sputum no shortness of breath at rest, no orthopnea Cardiovascular: No chest pain, tightness or palpitations Abdomen: No pain, nausea, vomiting, diarrhea or constipation Musculoskeletal: No joint pain, calf pain, swelling Neurologic: No weakness, numbness/tingling, or balance problems Psychiatric: No anxiety or depression Skin: No rash or itch Physical Exam Vital Signs Date Time Temp Pulse Resp B/P (MAP) Pulse Ox O2 Delivery O2 Flow Rate FiO2 12/16/16 18:15 70 22 119/80 94 Room Air 12/16/16 18:00 106 26 88 Room Air 12/16/16 17:01 78 20 117/78 96 Room Air 12/16/16 16:48 72 24 140/80 92 Room Air 12/16/16 16:12 81 12/16/16 16:05 73 16 123/76 100 Room Air 12/16/16 15:52 36.6 12/16/16 15:31 70 12/16/16 15:22 94 Room Air 12/16/16 15:16 93 Room Air 12/16/16 14:57 76 20 134/78 96 Room Air General: awake, alert, no apparent distress, sitting comfortably Head: Normocephalic, atraumatic ENT: PERRL, EOMI, no pharyngeal exudate, mucous membranes moist Chest: On room air, crackles throughout bilaterally, no adventitious breath sounds, no accessory muscle use, chest wall irregularly shaped in the back over the ecchymotic region. Cardiac: irregular with few occasional extra beats, +systolic murmur grade III/ , no JVD, normal peripheral pulses, good capillary refill Abdominal: NABS x 4 quadrants, soft, nontender to palpation, no rebound, guarding or tenderness Extremities: 2+ pitting edema BLE, worse in the left compared to the right. + calf Tenderness on the left, not on the right. Psych: Normal mood and affect Patient has an ecchymotic lesion overlying region ~T9 through T11 about 3 cm in diameter, nontender to palpation. Neuro: AAO x 3, strength intact bilaterally and related 5/5, no motor deficits, speech is clear, no peripheral sensory deficits Diagnostics Laboratory Results Results Past 24 Hours Test 12/16/16 15:38 Range/Units White Blood Count 5.26 4.8-10.8 K/uL Red Blood Count 3.53 4.7-6.1 M/uL Hemoglobin 10.8 14.0-18.0 g/dL Hematocrit 35.0 42-52 % Mean Corpuscular Volume 99.2 80-100 fL Mean Corpuscular Hemoglobin 30.6 25-34 pg Mean Corpuscular Hemoglobin Concent 30.9 32-36 g/dl Platelet Count 191 130-400 K/uL Mean Platelet Volume 10.1 7.4-10.4 fL Neutrophils (%) (Auto) 61.7 % Lymphocytes (%) (Auto) 24.5 % Monocytes (%) (Auto) 10.3 % Eosinophils (%) (Auto) 2.7 % Basophils (%) (Auto) 0.4 % Neutrophils # (Auto) 3.25 1.4-6.5 K/uL Lymphocytes # (Auto) 1.29 1.2-3.4 K/uL Monocytes # (Auto) 0.54 0.11-0.59 K/uL Eosinophils # (Auto) 0.14 0-0.5 K/uL Basophils # (Auto) 0.02 0-0.2 K/uL RDW Standard Deviation 55.9 36.4-46.3 fL RDW Coefficient of Variation 15.4 11.5-14.5 % Immature Granulocyte % (Auto) 0.4 % Immature Granulocyte # (Auto) 0.02 0.00-0.02 K/uL Sodium Level 147 136-145 mmol/L Potassium Level 4.1 3.5-5.1 mmol/L Chloride Level 113 98-107 mmol/L Carbon Dioxide Level 26 21-32 mmol/L Anion Gap 8.0 3-11 mmol/L Blood Urea Nitrogen 21 7-18 mg/dl Creatinine 1.40 0.60-1.40 mg/dl Est Creatinine Clear Calc Drug Dose 41.7 ml/min Estimated GFR () 53.1 Estimated GFR (Non- 45.8 BUN/Creatinine Ratio 15.1 10-20 Random Glucose 92 70-99 mg/dl Calcium Level 9.2 8.5-10.1 mg/dl Total Bilirubin 0.8 0.2-1 mg/dl Aspartate Amino Transf (AST/SGOT) 5 15-37 U/L Alanine Aminotransferase (ALT/SGPT) 13 12-78 U/L Alkaline Phosphatase 74 45-117 U/L Troponin I < 0.015 0-0.045 ng/ml Pro-B-Type Natriuretic Peptide 62658 0-1800 pg/ml Total Protein 6.5 6.4-8.2 gm/dl Albumin 3.4 3.4-5.0 gm/dl Globulin 3.1 2.5-4.0 gm/dl Albumin/Globulin Ratio 1.1 0.9-2 Diagnostic Radiology CHEST ONE VIEW PORTABLE CLINICAL HISTORY: 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 Bipolar cardiac pacer. Diaphragms smooth. Potential developing components of congestive failure IMPRESSION: Developing components of congestive failure. Mild cardiomegaly. Electronically signed by: Miles oLwe M.D. 12/16/2016 4:02 PM Dictated Date/Time: 12/16/2016 4:01 PM The status of this report is Signed. EKG Vent. rate 80 BPM NE interval * ms QRS duration 122 ms QT/QTc 404/465 ms P-R-T axes * 44 241 Atrial fibrillation with occasional ventricular-paced complexes Cannot rule out Anterior infarct , age undetermined T wave abnormality, consider inferior ischemia Abnormal ECG When compared with ECG of 09-OCT-2016 21:57, Fusion complexes are no longer Present Vent. rate has increased BY 5 BPM Impression Assessment and Plan 86-year-old male with past medical history of hypertension, CAD s/p CABG 4 in 2012, A. fib on eliquis, hyperlipidemia, CKD stage III, COPD, who presents today with worsening shortness of breath which started at noon today Acute respiratory failure secondary to Acute on chronic systolic and diastolic CHF - Admit to tele - Patient noncompliance with medications including Lasix 20 mg daily is likely the cause of his acute CHF exacerbation[place] [address] - CXR reviewed showing developing pulmonary congestion - EKG reviewed showing afib with occasional ventricular paced complexes - Last Echocardiogram May 2016 showing: Mildly dilated LV with borderline concentric LVH, LVEF 40-45%, Biatrial enlargement. - We'll recheck a 2-D echo - Trend troponins2 more sets, initial was negative - We will check EKG 2 daily in the morning - We will obtain x-ray of the back to rule out rib fracture status post fall - PT/OT valves Left lower extremity swelling - More swelling on the left than the right, patient also with Tenderness on the side. Thank you - Check Doppler ultrasound to rule out a DVT even the patient is on Eliquis for anticoagulation. Major depressive episode, single episode - Patient with decreased appetite, weight loss of 40 pounds, impaired cognition , and loss of interest in things he used to enjoy since his in July this year. - Would recommend starting Zoloft 25 mg daily, and titrate up as patient requires and as tolerated. Risks and benefits of the medication were reviewed with the patient and he is agreeable to this. Patient should have his PCP follow. Atrial fibrillation s/p pacemaker insertion CAD s/p CABG history of ischemic cardiomyopathy Paroxysmal atrial fibrillation - Anticoagulation with Eliquis 2.5 mg BID - Coreg 25 mg twice a day, Digoxin 0.125 g daily - Hgb is 10K. trend cbc in am, will monitor since on anticoagulation. 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 Discussed with Leigh Woodruff PAC and agree with findings and plan as documented in the note. Any exceptions or clarifications are listed here: None This patient presents with increasing shortness of breath and hypoxia at home, he admits to missing his medicines for 3 days, he states he has not been eating as good as he should. The patient's in July and he still is very depressed. The patient lives with his son however his son works quite a bit. This patient has a baseline chronic systolic heart failure and is on daily Lasix therapy (which she is scheduled for 3 days) Vital signs are stable although he does have some hypoxia with talking and movement Cardiac exam is irregularly irregular with his history of atrial fibrillation Lungs decreased breath sounds at the bases and rales almost all the way up He is 1+ pedal edema to the midshin 86-year-old male to acute on chronic systolic heart failure Patient given intravenous Lasix and then reinstitute his daily Lasix dosing maintaining his cardiac meds, diltiazem and Coreg including eliquis for prevention of thromboembolism associated with A. fib Given his recent situational depression is agreeable to starting Zoloft With a recent fall he'll have rib x-rays performed Documented By: Eimgdio Lunsford Level of Care Telemetry Advanced Directives Existing Advance Directive: Yes Existing Living Will: Yes Existing Power of Skidway Man: Yes Existing Health Care Proxy: Yes Resuscitation Status DO NOT RESUSCITATE VTE Prophylaxis VTE Risk Assessment Done? Y/N: Yes Risk Level: Very Low Given or contraindicated: Other Anticoagulation, T.E.D. Stockings, SCD's
[2016-12-16] MEDS ORDERED: ACETAMINOPHEN 325 MG TAB PO PRN (19:00)
[2016-12-16] MEDS ORDERED: ALBUT/IPRATROP 3MG/0.5MG NEB 3 ML VIAL INH PRN (19:00)
[2016-12-16] MEDS ORDERED: OXYCODONE/ACETAMINOPHEN 5-325 TAB PO PRN (19:00)
[2016-12-16] MEDS ORDERED: ONDANSETRON INJ 2 MG/ML 2 ML VIAL IV PRN (19:00)
--- NOTE | 2016-12-16 20:12 | DIAGNOSTIC IMAGING REPORT ---
LEFT LOWER EXTREMITY VENOUS DOPPLER CLINICAL HISTORY: Shortness of breath. COMPARISON STUDY: No previous studies for comparison. TECHNIQUE: Sonography of the deep venous system of the left lower extremity was performed. Compression and augmentation were evaluated. FINDINGS: The left common femoral, superficial femoral and popliteal veins were compressible. Augmentation was normal. Flow was shown within the deep calf vessels. IMPRESSION: No evidence of deep venous thrombus within the left lower extremity. Electronically signed by: Osvaldo Sánchez M.D. 12/16/2016 8:11 PM Dictated Date/Time: 12/16/2016 8:10 PM
[2016-12-16] MEDS: APIXABAN 2.5 MG TAB PO SCH (21:36)
[2016-12-16] MEDS: FLUTICASONE/SALMETEROL 250/50 (ADVAIR) 14 PUFF/1 INHALER INH SCH (21:36)
[2016-12-16] MEDS: CEROVITE ADV FORMULA TAB PO SCH (21:37)
[2016-12-16] MEDS: CARVEDILOL 25 MG TAB PO SCH (21:37)
[2016-12-16 22:43] VITALS: BP 135/78; PULSE 88; TEMP 36.5; O2SAT 95; Ht 188 cm; Wt 73.0 kg
--- NOTE | 2016-12-16 22:46 | DIAGNOSTIC IMAGING REPORT ---
RIGHT RIBS UNILATERAL MIN 2 VIEWS CLINICAL HISTORY: Shortness of breath. Evaluate for rib fracture. COMPARISON STUDY: Chest radiograph performed earlier today. FINDINGS: No acute right rib fractures are identified. No right pneumothorax identified. Interstitial thickening within the right lung is noted. IMPRESSION: 1. No pneumothorax. No acute right rib fractures identified. 2. Interstitial thickening and mild opacities within the right lung which favor pulmonary edema. Electronically signed by: Osvaldo Sánchez M.D. 12/16/2016 10:44 PM Dictated Date/Time: 12/16/2016 10:42 PM
[2016-12-16 23:10] VITALS: BP 120/76; PULSE 71; TEMP 36.3; O2SAT 92
[2016-12-17 04:23] VITALS: BP 125/68; PULSE 52; TEMP 36.6; O2SAT 97
[2016-12-17 05:37] LABS: BASO % 0.4 %; BASO ABS # 0.02 K/uL (0-0.2); COMPLETE YES; EOS % 3.4 %; HEMATOCRIT 34.3 % (42-52); IG% 0.2 %; LYMPH % 29.8 %; MEAN CELL VOLUME 98.8 fL (80-100); MEAN CORPUSCULAR HEMOGLOBIN 30.8 pg (25-34); MEAN CORPUSCULAR HGB CONC 31.2 g/dl (32-36); MEAN PLATELET VOLUME 10.1 fL (7.4-10.4); MONO % 10.9 %; NEUT % 55.3 %; PLATELET COUNT 174 K/uL (130-400); RED BLOOD COUNT 3.47 M/uL (4.7-6.1); WHITE BLOOD COUNT 5.03 K/uL (4.8-10.8)
[2016-12-17 06:02] LABS: ESTIMATED AVERAGE GLUCOSE 126 mg/dl; HA1C FLAG Normal (Normal)
[2016-12-17] MEDS ORDERED: LEVOTHYROXINE 150 MCG TAB PO SCH (06:30)
[2016-12-17 06:40] LABS: BLOOD UREA NITROGEN 24 mg/dl (7-18); BUN/CREATININE RATIO 16.2 (10-20); CALCIUM 9.4 mg/dl (8.5-10.1); CARBON DIOXIDE 27 mmol/L (21-32); CHLORIDE 109 mmol/L (98-107); CHOLESTEROL 141 mg/dl (0-200); CHOLESTEROL/HDL RATIO 4.1; GLUCOSE 66 mg/dl (70-99); HDL CHOLESTEROL 34 mg/dl; LDL CHOLESTEROL CALCULATED 87 mg/dl; POTASSIUM 3.4 mmol/L (3.5-5.1); SODIUM 145 mmol/L (136-145); TRIGLYCERIDES 101 mg/dl (0-150); VERY LOW DENSITY LIPOPROT CALC 20 mg/dl
[2016-12-17 07:22] VITALS: BP 145/76; PULSE 73; TEMP 36.5; O2SAT 92
[2016-12-17] MEDS: FLUTICASONE/SALMETEROL 250/50 (ADVAIR) 14 PUFF/1 INHALER INH SCH (07:45)
[2016-12-17] MEDS: CEROVITE ADV FORMULA TAB PO SCH (07:46)
[2016-12-17] MEDS: CARVEDILOL 25 MG TAB PO SCH (07:46)
[2016-12-17] MEDS: APIXABAN 2.5 MG TAB PO SCH (07:47)
[2016-12-17] MEDS ORDERED: PERFLUTREN LIPID MICROSPHERE (DEFINITY) IV ONE (08:59)
[2016-12-17] MEDS ORDERED: FUROSEMIDE INJ 40 MG in SYRINGE 0 ML IV SCH (09:00)
[2016-12-17] MEDS ORDERED: CLOPIDOGREL BISULFATE 75 MG TAB PO SCH (09:00)
[2016-12-17] MEDS ORDERED: DILTIAZEM HCL 120 MG EXT REL CAP PO SCH (09:00)
[2016-12-17] MEDS ORDERED: CHOLECALCIFEROL 1000 INTER.UNIT TAB PO SCH (09:00)
[2016-12-17] MEDS ORDERED: PANTOprazole SOD 40 MG TAB PO SCH (09:00)
[2016-12-17] MEDS ORDERED: SERTRALINE HCL 50 MG TAB PO SCH (09:00)
[2016-12-17 11:40] VITALS: BP 106/63; PULSE 68; TEMP 36.5; O2SAT 93
[2016-12-17] MEDS ORDERED: POTASSIUM CHLORIDE 20 MEQ TABCR PO ONE (11:45)
--- NOTE | 2016-12-17 14:25 | Discharge Instructions ---
Discharge Instructions Date of Service Dec 17, 2016. Admission Reason for Admission: Acute On Chronic Combined And Diastolic Chf Discharge Discharge Diagnosis / Problem: Acute on chronic combined and diastolic chf Discharge Goals Goal(s): Improve disease control Activity Recommendations Activity Limitations: resume your previous activity . Instructions / Follow-Up Instructions / Follow-Up Follow up with family physician in one week Call your Primary Care doctor if any of the following symptoms or problems start or get worse: * Shortness of breath or difficulty breathing * Wake up at night short of breath * Chest pain * Cough * Swelling of your hands, feet, or legs * More fatigued or tired with your normal activity * Palpitations - sudden fast heart beats WEIGHT * Weigh yourself every morning after using the bathroom. * Use the same scale. * Wear the same amount of clothing. * Write your weight down on a chart. * Call your Primary Care doctor if you gain more than 2-3 pounds in 1-2 days. MEDICATIONS * Use this discharge instruction sheet for medication instructions. * Take your medications at the time your doctor ordered. * Do not skip a dose of your medicines. * If you miss a dose of medicine, take it as soon as possible, but DO NOT DOUBLE A DOSE. * Read your medicine information when you get home. * Know all of the side effects of your medicine. If in doubt, ask your pharmacist * Call your Primary Care doctor's office if you have any side effects. * Be sure all of your doctors know what medicine and herbs you take (including cold, flu, and herbal medicine). Take the following with you to your follow-up doctor appointments: * Weight Chart * Medication List * List of questions Do not drink excessive alcohol, beer or wine. Current Hospital Diet Patient's current hospital diet: AHA Diet (Heart Healthy) Discharge Diet Recommended Diet: Low Sodium Diet (2gm Na) Pending Studies Studies pending at discharge: no Laboratory Results Hemoglobin A1c Test 12/17/16 05:05 Range/Units Estimated Average Glucose 126 mg/dl Hemoglobin A1c 6.0 H 4.5-5.6 % Lipid Panel Test 12/17/16 05:05 Range/Units Triglycerides Level 101 0-150 mg/dl Cholesterol Level 141 0-200 mg/dl HDL Cholesterol 34 mg/dl Cholesterol/HDL Ratio 4.1 LDL Cholesterol, Calculated 87 mg/dl Medical Emergencies . Who to Call and When: Call 911 or go to the Emergency Room if: * If at any time you feel your situation is an emergency * You have tightness or pain in your chest that does not go away with rest or Nitroglycerin * You are very short of breath even with rest . Non-Emergent Contact Non-Emergency issues call your: Primary Care Provider . . "Provider Documentation" section prepared by Jeni Newton. . VTE Core Measure Inpt VTE Proph given/why not?: Other Anticoagulation, T.E.D. Stockings, SCD's
[2016-12-17] MEDS ORDERED: ZLF50 PO (14:26)
[2016-12-17 14:40] VITALS: BP 108/58; PULSE 70; O2SAT 93
[2016-12-17 15:31] VITALS: TEMP 36.5
--- NOTE | 2016-12-17 15:32 | ECHOCARDIOGRAM REPORT ---
*NOTICE TO RECEIVING LIBERTARIAN AGENCY This information is strictly Confidential and protected under [place] law. [place] law prohibits you from making any further disclosure of this information unless further disclosure is expressly permitted by the written consent of the person to whom it pertains or is authorized by law. A general authorization for the release of medical or other information is not sufficient for this purpose. Hospital accepts no responsibility if the information is made available to any other person, INCLUDING THE PATIENT. Interpretation Summary * Name: ELI GARCIA JR Study Date: 12/17/2016 08:21 AM BP: 145/76 mmHg * Patient Location: [facility]\S\[id number]\S\1 HR: 73 * : 1930 (M/d/yyyy) Gender: Male Height: 74 in * Age: 86 yrs Ethnicity: [place] Weight: 165 lb * Ordering Physician: Leigh Woodruff * Referring Physician: Self, Referred * Performed By: Dolores Rasmussen RDCS * * Reason For Study: Congestive heart failure * BSA: 2.0 m2 * -- Conclusions -- * Left ventricular systolic function is moderately reduced. * Akinesis of the distal inferior wall and inferoapex. * There is moderate global hypokinesis of the left ventricle. * Ejection Fraction = 35-40%. * There is mild to moderate mitral regurgitation. * There is moderate tricuspid regurgitation. Procedure Details * A complete two-dimensional transthoracic echocardiogram was performed (2D, M-mode, Doppler and color flow Doppler). * A contrast injection of Definity was performed to improve assessment for apical thrombus. * Contrast was injected into an intravenous site in the right arm. * One vial of Definity ultrasound contrast was diluted in normal saline to a total volume of 10 ml. A total of '4' ml of solution was administered during imaging. * Lot # [id number] of Definity utilized for procedure. * Expiration date 1 JAN 04. * The attending nurse who injected the contrast agent was Tracey Harper RN. Left Ventricle * The left ventricle is grossly normal size. * There is borderline concentric left ventricular hypertrophy. * Ejection Fraction = 35-40%. * Left ventricular systolic function is moderately reduced. * Akinesis of the distal inferior wall and inferoapex. * There is moderate global hypokinesis of the left ventricle. Right Ventricle * The right ventricle is grossly normal size. * There is a pacemaker lead in the right ventricle. * The right ventricular systolic function is reduced as assessed by tricuspid annular plane systolic excursion (TAPSE) (TAPSE <1.6 cm). Atria * The left atrium is moderately dilated. * The right atrium is mildly dilated. * There is no evidence of atrial septal defect, but resolution does not allow assessment for a patent foramen ovale. Mitral Valve * The mitral valve is grossly normal. * There is no mitral valve stenosis. * There is mild to moderate mitral regurgitation. Tricuspid Valve * The tricuspid valve is not well visualized, but is grossly normal. * There is no tricuspid stenosis. * There is moderate tricuspid regurgitation. Aortic Valve * The aortic valve is tricuspid. The leaflet thickness if normal. There is no aortic stenosis, and no significant insufficiency. * The aortic valve opens well. * Aortic valve sclerosis mild, without significant aortic valvular stenosis. * Trace aortic regurgitation. Pulmonic Valve * The pulmonary valve is not well seen, but the Doppler examination is normal without significant regurgitation or stenosis. Great Vessels * Mild aortic root dilatation. Pericardium/Pleural * There is no pericardial effusion. * Small left pleural effusion. Great Vessels * Normal inferior vena cava size and collapsability with sniff indicates a normal right atrial pressure of 3 mmHg MMode 2D Measurements and Calculations IVSd 1.0 cm LVIDd 5.6 cm LVIDs 4.6 cm LVPWd 1.2 cm IVS/LVPW 0.87 FS 18.9 % EDV(Teich) 154.9 ml ESV(Teich) 95.4 ml EF(Teich) 38.4 % EDV(cubed) 177.5 ml ESV(cubed) 94.8 ml EF(cubed) 46.6 % LV mass(C)d 256.7 grams LV mass(C)dI 128.2 grams/m\S\2 SV(Teich) 59.6 ml SI(Teich) 29.7 ml/m\S\2 SV(cubed) 82.7 ml SI(cubed) 41.3 ml/m\S\2 Ao root diam 3.4 cm Ao root area 8.9 cm\S\2 ACS 2.1 cm LA dimension 4.5 cm asc Aorta Diam 3.8 cm LA/Ao 1.4 LVOT diam 2.0 cm LVOT area 3.1 cm\S\2 LVAd ap4 42.0 cm\S\2 LVLd ap4 8.5 cm EDV(MOD-sp4) 174.1 ml EDV(sp4-el) 177.1 ml LVAs ap4 33.0 cm\S\2 LVLs ap4 8.1 cm ESV(MOD-sp4) 108.6 ml ESV(sp4-el) 114.3 ml EF(MOD-sp4) 37.6 % EF(sp4-el) 35.5 % LVAd ap2 45.4 cm\S\2 LVLd ap2 9.4 cm EDV(MOD-sp2) 184.5 ml EDV(sp2-el) 186.0 ml LVAs ap2 33.3 cm\S\2 LVLs ap2 8.3 cm ESV(MOD-sp2) 110.5 ml ESV(sp2-el) 112.8 ml EF(MOD-sp2) 40.1 % EF(sp2-el) 39.4 % LVLd %diff 9.8 % EDV(MOD-bp) 188.0 ml LVLs %diff 2.8 % ESV(MOD-bp) 111.3 ml EF(MOD-bp) 40.8 % SV(MOD-sp4) 65.5 ml SI(MOD-sp4) 32.7 ml/m\S\2 SV(MOD-sp2) 74.0 ml SI(MOD-sp2) 37.0 ml/m\S\2 SV(MOD-bp) 76.7 ml SI(MOD-bp) 38.3 ml/m\S\2 SV(sp4-el) 62.8 ml SI(sp4-el) 31.4 ml/m\S\2 SV(sp2-el) 73.2 ml SI(sp2-el) 36.6 ml/m\S\2 Doppler Measurements and Calculations MV E max bashir 82.4 cm/sec MV A max bashir 29.1 cm/sec MV E/A 2.8 MV dec time 0.24 sec Ao V2 max 89.9 cm/sec Ao max PG 3.2 mmHg Ao max PG (full) 0.55 mmHg CE(V,A) 2.8 cm\S\2 CE(V,D) 2.8 cm\S\2 LV V1 max PG 2.7 mmHg LV V1 max 81.9 cm/sec MR max bashir 422.3 cm/sec MR max PG 71.3 mmHg MR mean bashir 305.0 cm/sec MR mean PG 43.1 mmHg MR VTI 129.9 cm PA V2 max 70.6 cm/sec PA max PG 2.0 mmHg PA acc slope 436.6 cm/sec\S\2 PA acc time 0.12 sec PI max bashir 213.1 cm/sec PI max PG 18.2 mmHg PI dec slope 156.0 cm/sec\S\2 PI P1/2t 400.0 msec TR max bashir 256.0 cm/sec PA pr(Accel) 23.5 mmHg
--- NOTE | 2016-12-17 15:34 | Discharge Summary ---
Discharge Summary Date of Service Dec 17, 2016. 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 Problems/Secondary Diagnoses: (1) COPD (chronic obstructive pulmonary disease) Status: Chronic Immunizations: Have You Had Influenza Vaccine: Yes Influenza Vaccine Date: May 06, 2005 History of Tetanus Vaccine?: Yes Tetanus Immunization Date: Nov 30, 2005 History of Pneumococcal: Yes History of Hepatitis B Vaccine: No Medication Reconciliation New Medications: Sertraline HCl (Sertraline HCl) 50 Mg Tab 1 TAB PO DAILY for 30 Days, #30 TAB 1 Refill half tablet for one week then one tablet daily Continued Medications: Albuterol Hfa (Ventolin Hfa) 200 Puffs/55685 Mcg Aers 2 PUFFS INH Q4 PRN for Shortness of Breath, #1 INHALER Apixaban (Eliquis) 2.5 Mg Tab 2.5 MG PO BID, #90 TAB 3 Refills Carvedilol (Coreg) 25 Mg Tab 25 MG PO BID, TAB Cholecalciferol (Vitamin D 1000 Unit) 1,000 Unit Cap 2000 INTER.UNIT PO QAM, CAP Clopidogrel Bisulfate (Plavix) 75 Mg Tab 75 MG PO QAM, TAB Coenzyme Q10 (Ubidecarenone) (Coq10) 200 Mg Cap 200 MG PO DAILY Digoxin (Digoxin) 0.125 Mg Tab 125 MCG PO Q2D Diltiazem Hcl (Cardizem) 120 Mg Tab 120 MG PEG DAILY Fluticasone Prop/Salmeterol (Advair Diskus 250/50 60 Dose) 1 Ea Aerp 1 PUFF INH Q12, INHALER Furosemide (Lasix) 20 Mg Tab 20 MG PO DAILY, TAB Levothyroxine Sodium (Levothyroxine Sodium) 150 Mcg Tab 1 TAB PO DAILY for 90 Days, #90 TAB 3 Refills Nitroglycerin (Nitrostat) 0.4 Mg Tab 0.4 MG SL UD PRN, #30 Ocuvite Preservision (Ocuvite Preservision) 1 Tab Tab 1 TAB PO BID, TAB Omeprazole (Prilosec) 20 Mg Cap 20 MG PO Q2D for 30 Days, CAP 5 Refills Oxycodone/Acetaminophen 5MG/325MG (Percocet 5MG/325MG) Tab 1 TABLET PO Q4 PRN for Moderate Pain, TAB PAIN Discharge Exam urinated well after receiving lasix. leg swelling has gone down Review of Systems: Constitutional: No fever Respiratory: No shortness of breath Cardiovascular: No chest pain Physical Exam: General Appearance: no apparent distress Respiratory/Chest: lungs clear, no respiratory distress Cardiovascular: regular rate, rhythm Abdomen / GI: normal bowel sounds, non tender, soft Neurologic/Psychiatric: alert, oriented x 3 Skin: warm/dry Hospital Course 86 y/o M with PMHx of HTN, CAD s/p CABG 4 in 2012, A. fib on eliquis, hyperlipidemia, CKD stage III, COPD, who presents today with worsening shortness of breath which started at noon today[place] [id number], CXR reviewed showing developing pulmonary congestion Patient has been missing his medication for few days and didn't take the lasix. Acute respiratory failure secondary to Acute on chronic systolic and diastolic CHF secondary to missing his lasix doses - Kept on Tele. Received IV lasix. Diuresed well. Left lower extremity swelling sec to fluid overload - Doppler ultrasound negative for DVT. Continued Eliquis Major depressive episode, single episode - Patient with decreased appetite, weight loss of 40 pounds, impaired cognition , and loss of interest in things he used to enjoy since his in July this year. - Started Zoloft 25 mg daily, increase to 50mgs after one week and follow up with PCP. Atrial fibrillation s/p pacemaker insertion CAD s/p CABG history of ischemic cardiomyopathy Paroxysmal atrial fibrillation - Anticoagulation with Eliquis 2.5 mg BID - Coreg 25 mg twice a day, Digoxin 0.125 g daily - Hgb is 10K. CKD stage 3-4 - Cr. 1.4 on admission. 1.5 on discharge. COPD Remote smoking hx: - continue Advair, duonebs prn - was sent home on oxygen in past but since didn't use it - oxygen was returned. Hypothyroidism: continue Synthroid, TSH normal Discharged home with home health Total Time Spent: Greater than 30 minutes (40) This includes examination of the patient, discharge planning, medication reconciliation, and communication with other providers. Discharge Instructions Please refer to the electronic Patient Visit Report (Discharge Instructions) for additional information. Additional Copies To Dillan Acevedo M.D.
[2016-12-17 16:07] VITALS: BP 118/68; PULSE 72; O2SAT 89
[2016-12-18] MEDS ORDERED: DIGOXIN 0.125 MG TAB PO SCH (16:00)
== END 2016-12-17 16:05 | disposition home health service (06) | DRG 291 ==
LOC: C.EDB 14:51 → C.MED 18:55 → ENRESERV 19:56
PROVIDERS: ADMIT Internal Medicine; ATTEND Family Medicine
DX: I13.0 Hypertensive heart and chronic kidney disease with heart failure and stage 1 through stage 4 chronic kidney disease, or unspecified chronic kidney disease (principal); I50.43 Acute on chronic combined systolic (congestive) and diastolic (congestive) heart failure; J96.00 Acute respiratory failure, unspecified whether with hypoxia or hypercapnia; N18.4 Chronic kidney disease, stage 4 (severe); J44.9 Chronic obstructive pulmonary disease, unspecified; I48.91 Unspecified atrial fibrillation; F32.9 Major depressive disorder, single episode, unspecified; E78.5 Hyperlipidemia, unspecified; E03.9 Hypothyroidism, unspecified; Z96.659 Presence of unspecified artificial knee joint; Z87.891 Personal history of nicotine dependence; Z95.1 Presence of aortocoronary bypass graft; Z91.14 Patient's other noncompliance with medication regimen; Z95.0 Presence of cardiac pacemaker

== ENCOUNTER → 2017-04-07 | Outpatient (CLI) | payer OTHER ==
[~2017-04-07] MED LIST changes: -ALBUAER19 INH; -AMB5 PO; +CARV25TA2 PO; +COEN1CAP7 PO; -CRG125 PO; +DILT120T8 PO; +FURO-85 PO; -GABA1CAP5 PO; -IMDSR30 PO; +LEVO150T9 PO; -LSX40 PO; +MULT-190 PO; +PRT40 PO; +VNTHFA/IN INH; +ZLF50 PO
[2017-04-07 12:30] LABS: MEAN CELL VOLUME 100.6 fL (80-100); MEAN CORPUSCULAR HEMOGLOBIN 30.8 pg (25-34); MEAN CORPUSCULAR HGB CONC 30.6 g/dl (32-36); MEAN PLATELET VOLUME 10.2 fL (7.4-10.4); PLATELET COUNT 249 K/uL (130-400); RED BLOOD COUNT 3.38 M/uL (4.7-6.1); WHITE BLOOD COUNT 6.34 K/uL (4.8-10.8)
[2017-04-07 12:33] LABS: URINE APPEARANCE CLEAR (CLEAR); URINE BILIRUBIN NEG (NEG); URINE COLOR YELLOW; URINE EPITHELIAL CELL AUTO 0-5 /lpf (0-5); URINE NITRITE NEG (NEG); URINE SPECIFIC GRAVITY 1.017 (1.000-1.030); UROBILINOGEN NEG (NEG)
[2017-04-07 12:36] LABS: MANUAL MICROSCOPIC REQUIRED? NO; REVIEW REQ? NO
[2017-04-07 12:54] LABS: ESTIMATED AVERAGE GLUCOSE 126 mg/dl; HA1C FLAG Normal (Normal)
[2017-04-07 12:56] LABS: BLOOD UREA NITROGEN 39 mg/dl (7-18); BUN/CREATININE RATIO 23.4 (10-20); CALCIUM 8.5 mg/dl (8.5-10.1); CARBON DIOXIDE 23 mmol/L (21-32); CHLORIDE 113 mmol/L (98-107); CREATININE 1.66 mg/dl (0.60-1.40); GLUCOSE 98 mg/dl (70-99); PHOSPHORUS 3.4 mg/dl (2.5-4.9); POTASSIUM 3.9 mmol/L (3.5-5.1); SODIUM 144 mmol/L (136-145)
[2017-04-07 13:05] LABS: CREATININE, URINE 86.1 mg/dl; URINE PROTIEN/CREAT RATIO 0.3 (0-0.2); URINE TOTAL PROTEIN 25.4 mg/dl (0-11.9)
== END | disposition home or self-care (01) ==
LOC: C.LABBFT 09:37
PROVIDERS: ATTEND Internal Medicine Nephrology
DX: R80.9 Proteinuria, unspecified (principal); N18.3 Chronic kidney disease, stage 3 (moderate); E55.9 Vitamin D deficiency, unspecified; D64.9 Anemia, unspecified; R60.9 Edema, unspecified; E11.21 Type 2 diabetes mellitus with diabetic nephropathy

== ENCOUNTER 2017-05-08 15:44 | Inpatient (IN) | payer OTHER ==
[~2017-05-08] VITALS: Ht 185.4 cm; Wt 70.1 kg
[~2017-05-08 15:44] MED LIST changes: -PRT40 PO
[2017-05-08 16:44] LABS: BASO % 0.4 %; BASO ABS # 0.02 K/uL (0-0.2); COMPLETE YES; EOS % 1.3 %; HEMATOCRIT 36.9 % (42-52); IG% 0.2 %; LYMPH % 14.4 %; MEAN CELL VOLUME 106.6 fL (80-100); MEAN CORPUSCULAR HEMOGLOBIN 32.4 pg (25-34); MEAN CORPUSCULAR HGB CONC 30.4 g/dl (32-36); MEAN PLATELET VOLUME 10.5 fL (7.4-10.4); MONO % 10.4 %; NEUT % 73.3 %; PLATELET COUNT 243 K/uL (130-400); RED BLOOD COUNT 3.46 M/uL (4.7-6.1); WHITE BLOOD COUNT 5.57 K/uL (4.8-10.8)
[2017-05-08 16:52] LABS: INR 1.2 (0.9-1.1); PARTIAL THROMBOPLASTIN RATIO 1.2; PROTHROMBIN TIME (PATIENT) 13.2 SECONDS (9.0-12.0)
--- NOTE | 2017-05-08 17:03 | EMERGENCY ROOM VISIT NOTE ---
History Report prepared by Marija: Abdiaziz Frazier Under the Supervision of: Dr. Vazquez Michaels M.D. First contact with patient: 16:02 Chief Complaint: SHORTNESS OF BREATH Stated Complaint: DIFFICULTY BREATHING/SOB History of Present Illness The patient is a 86 year old male who presents to the Emergency Room with complaints of worsening shortness of breath that started a week ago. He reports that his symptoms are worsened with exertion and talking. He is accompanied by his son who states that his oxygen level is typically 92-94 on room air. His son reports that throughout the week his oxygen level has been worse. He reports that today his oxygen saturation level was 88 and then 84 before coming to the ED. His son reports that during this time, the patient was confused. The patient admits that his shortness of breath has been causing him to fall, with his last fall two weeks ago. He states that since his fall, his left leg became discolored and swollen, which caused him to visit [facility] a week ago. The patient states that he had an ultrasound for a clot, which was negative. His son reports that the patient has been experiencing bright red stool in the last week. He also states that the patient has been congestion in his throat that has been making him vomit and cough. The patient's son states that the patient takes Eloquis and Plavix for his history of atrial fibrillation and leaky valves. He states that the patient also has a pacemaker and defibrillator, but denies the defibrillator going off recently. The patient states that he also has a history pedal edema that he takes 40 mg Lasix. He reports that he has a history or CHF and COPD, which he takes Advair and emergency Albuterol for. The patient states that he has had heart surgery with his last surgery on his right carotid. He denies any fever, chest pain, chest injury, falling on his head. Source of History: patient, family Onset: a week ago Position: other (global) Timing: worsening Modifying Factors (Worsening): exertion, other (talking) Associated Symptoms: + cough, + vomiting, + hematochezia, No fevers, No chest pain Review of Systems See HPI for pertinent positives & negatives. A total of 10 systems reviewed and were otherwise negative. Past Medical & Surgical Medical Problems: (1) Acute on chronic combined systolic and diastolic CHF (congestive heart failure) (2) Acute systolic heart failure (3) Anemia (4) Atrial fibrillation (5) CAD (coronary artery disease) (6) CHF exacerbation (7) Chronic kidney disease (8) Chronic kidney disease, stage 3 (moderate) (9) COPD (chronic obstructive pulmonary disease) (10) COPD (chronic obstructive pulmonary disease) (11) Depressive disorder (12) Diabetes mellitus (13) History of atrial fibrillation (14) History of stomach ulcers (15) HTN (hypertension) (16) Hypercholesteremia (17) Hypothyroidism (18) Sleep apnea Surgical Problems: (1) H/O total knee replacement (2) History of lumbar surgery (3) History of permanent cardiac pacemaker placement (4) Hx of CABG Old medical records were reviewed. Nurse's notes were reviewed and I agree with. Family History Patient reports no known family medical history. Social History Smoking Status: Former Smoker Drug Use: none Marital Status: Housing Status: lives with family Occupation Status: retired Current/Historical Medications Scheduled Apixaban (Eliquis), 2.5 MG PO BID Carvedilol (Coreg), 25 MG PO BID Cholecalciferol (Vitamin D 1000 Unit), 2,000 INTER.UNIT PO QAM Clopidogrel Bisulfate (Plavix), 75 MG PO QAM Coenzyme Q10 (Ubidecarenone) (Coq10), 200 MG PO DAILY Digoxin (Digoxin), 125 MCG PO Q2D Diltiazem Hcl (Cardizem), 120 MG PO DAILY Fluticasone Prop/Salmeterol (Advair Diskus 250/50 60 Dose), 1 PUFF INH Q12 Furosemide (Lasix), 20 MG PO DAILY Levothyroxine Sodium (Levothyroxine Sodium), 1 TAB PO DAILY Ocuvite Preservision (Ocuvite Preservision), 1 TAB PO BID Omeprazole (Prilosec), 20 MG PO Q2D Sertraline HCl (Sertraline HCl), 1 TAB PO DAILY Scheduled PRN Albuterol Hfa (Ventolin Hfa), 2 PUFFS INH Q4 PRN for Shortness of Breath Nitroglycerin (Nitrostat), 0.4 MG SL UD PRN Allergies Coded Allergies: Warfarin (Verified Allergy, Intermediate, PT CAN TAKE BRAND COUMADIN, ) GOT HIVES AND SWELLING WITH WARFARIN (GENERIC BRAND) Simvastatin (Verified Adverse Reaction, Mild, GI UPSET, 05/08/17) Statins (Verified Adverse Reaction, Unknown, FALLS, 05/08/17) Physical Exam Vital Signs Date Time Temp Pulse Resp B/P (MAP) Pulse Ox O2 Delivery O2 Flow Rate FiO2 05/08/17 17:55 70 95 Nasal Cannula 3.0 05/08/17 16:35 96 Nasal Cannula 3.0 05/08/17 16:33 Nasal Cannula 3.0 98 05/08/17 16:28 72 05/08/17 15:48 36.3 69 20 117/59 94 Room Air Physical Exam General: chronically-ill appearing older male in no acute distress on supplemental 2 L oxygen NC. HEENT: Normal cephalic atraumatic. Pupils are equal round and reactive to light. Extraocular movements are intact. Oropharynx is pink with moist mucous membranes. No swelling of the mouth lips or tongue. Neck: Supple with a midline trachea. No meningeal signs or stiffness, no JVD or bruits. No Stridor. Chest: Clear to auscultation bilaterally. No wheezes or rhonchi. No increased work of breathing. Coarse breath sounds on the bases. Heart: regular rate and rhythm. Abdomen: Soft nontender, nondistended without rebound guarding or rigidity. Extremities: No cyanosis or clubbing, 1+ bilateral lower extremity edema, left greater than right. No calf tenderness or assymetry Spine/Back. Non tender to palpation. No CVA tenderness Skin: Good turgor without rashes. Neurologic exam: Cranial nerves two through 12 are intact. Motor and sensation are intact and symmetrical throughout. Medical Decision & Procedures ER Provider Diagnostic Interpretation: X-ray results as stated below per interpretation by me and the radiologist: CHEST ONE VIEW PORTABLE HISTORY: Atypical CHEST PAIN COMPARISON: Chest 12/16/2016. FINDINGS: No pneumothorax. Trace left pleural effusion persists. The heart remains enlarged. Poststernotomy changes. Left-sided pacemaker. Mild central pulmonary vascular congestion without overt edema. IMPRESSION: No change in the mild central pulmonary vascular congestion without overt edema. Trace left pleural effusion or cyst. Electronically signed by: Manish Crump M.D. 05/08/2017 5:01 PM Dictated Date/Time: 05/08/2017 4:56 PM Laboratory Results 05/08/17 16:30 Red Blood Count 3.46, Mean Corpuscular Volume 106.6, Mean Corpuscular Hemoglobin 32.4, Mean Corpuscular Hemoglobin Concent 30.4, Mean Platelet Volume 10.5, Neutrophils (%) (Auto) 73.3, Lymphocytes (%) (Auto) 14.4, Monocytes (%) ( Auto) 10.4, Eosinophils (%) (Auto) 1.3, Basophils (%) (Auto) 0.4, Neutrophils # (Auto) 4.09, Lymphocytes # (Auto) 0.80, Monocytes # (Auto) 0.58, Eosinophils # ( Auto) 0.07, Basophils # (Auto) 0.02 05/08/17 16:30 Test 05/08/17 16:30 05/08/17 16:32 05/08/17 18:06 White Blood Count 5.57 K/uL (4.8-10.8) Red Blood Count 3.46 M/uL (4.7-6.1) Hemoglobin 11.2 g/dL (14.0-18.0) Hematocrit 36.9 % (42-52) Mean Corpuscular Volume 106.6 fL (80-100) Mean Corpuscular Hemoglobin 32.4 pg (25-34) Mean Corpuscular Hemoglobin Concent 30.4 g/dl (32-36) Platelet Count 243 K/uL (130-400) Mean Platelet Volume 10.5 fL (7.4-10.4) Neutrophils (%) (Auto) 73.3 % Lymphocytes (%) (Auto) 14.4 % Monocytes (%) (Auto) 10.4 % Eosinophils (%) (Auto) 1.3 % Basophils (%) (Auto) 0.4 % Neutrophils # (Auto) 4.09 K/uL (1.4-6.5) Lymphocytes # (Auto) 0.80 K/uL (1.2-3.4) Monocytes # (Auto) 0.58 K/uL (0.11-0.59) Eosinophils # (Auto) 0.07 K/uL (0-0.5) Basophils # (Auto) 0.02 K/uL (0-0.2) RDW Standard Deviation 64.9 fL (36.4-46.3) RDW Coefficient of Variation 16.8 % (11.5-14.5) Immature Granulocyte % (Auto) 0.2 % Immature Granulocyte # (Auto) 0.01 K/uL (0.00-0.02) Prothrombin Time 13.2 SECONDS (9.0-12.0) Prothromb Time International Ratio 1.2 (0.9-1.1) Activated Partial Thromboplast Time 31.1 SECONDS (21.0-31.0) Partial Thromboplastin Ratio 1.2 Anion Gap 7.0 mmol/L (3-11) Estimated GFR () 34.9 Estimated GFR (Non- 30.1 BUN/Creatinine Ratio 16.6 (10-20) Calcium Level 8.5 mg/dl (8.5-10.1) Total Bilirubin 0.8 mg/dl (0.2-1) Direct Bilirubin 0.3 mg/dl (0-0.2) Aspartate Amino Transf (AST/SGOT) 8 U/L (15-37) Alanine Aminotransferase (ALT/SGPT) 10 U/L (12-78) Alkaline Phosphatase 107 U/L (45-117) Total Creatine Kinase 47 U/L (39-308) Creatine Kinase MB 1.1 ng/ml (0.5-3.6) Creatine Kinase MB Ratio 2.3 (0-3.0) Total Protein 7.2 gm/dl (6.4-8.2) Albumin 3.4 gm/dl (3.4-5.0) Lipase 150 U/L (73-393) Chemistry Specimen Hemolysis Digoxin Level 1.0 ng/ml (0.8-2.0) Bedside Troponin I < 0.030 ng/ml (0-0.045) Pro-B-Type Natriuretic Peptide > 15903 pg/ml (0-1800) Laboratory studies as stated above per my review. Medications Administered Medications (Trade) Dose Ordered Sig/Kojo Route Start Time Stop Time Status Last Admin Dose Admin Albuterol/ Ipratropium (Duoneb) 3 ml NOW STAT INH 05/08/17 18:00 05/08/17 18:02 DC 05/08/17 18:12 3 ML ECG Indication: SOB/dyspnea Rate (beats per minute): 70 Rhythm: other (Ventricular paced rhythm) Findings: no acute ischemic change, no ectopy Comparison ECG Date: 12/17/16 Change: Paced rhythm replaced A Fib. ED Course 1604: Past medical records reviewed. The patient was evaluated in room B04B, and a complete history and physical examination were performed. 1800: Ordered Duoneb 3 ml INH. 1801: I reevaluated the patient and he is resting comfortably. 1808: I discussed the patient's case with Dr. Lunsford [facility] Hospitalist. He understands the patient's condition and agrees to accept the patient. The patient will be further evaluated. Medical Decision Differentials include, but are not limited to; CHF, COPD, pneumonia, arrhythmia , acute coronary syndrome, pneumothorax, electrolyte or metabolic abnormality. This patient comes in as described above. He was placed in room B4, he's had increasing shortness of breath and hypoxemia. This is mostly exertional. He has a history of COPD and CHF. He's been afebrile and had no significant cough. IV access established EKG was obtained as well as multiple blood testing and chest x-ray. EKG shows a paced rhythm without any definite ischemic changes. He was reassessed frequently. Care was discussed with the patient and his family who are at the bedside. His troponin is not elevated. Chest x-ray shows some cardiomegaly and central thickening I do think he may have a mild congestive heart failure component. He was given albuterol Atrovent and have. He's been hypoxemic at home in the 80s. At rest he does dip into the 80s at times as well without oxygen he seems much more comfortable with 2 L nasal cannula. I have reviewed his recent records he data ultrasound of his left leg with showed no DVT this was done about a week ago. He has no acute electrolyte or metabolic abnormality with exception of a creatinine that seems to be rising at 1.9, there may be a prerenal component. I think his shortness of breath is likely multifocal. I do think he likely has a CHF component as well as COPD. I do think given his hypoxemia and worsening symptoms at home. He should be admitted for further treatment and evaluation and likely pulmonary consultation as well. I have discussed the case with Dr. Lunsford saw the patient ER and will admit him for these measures. Medication Reconcilliation Current Medication List: was personally reviewed by me Blood Pressure Screening Patient's blood pressure: Normal blood pressure Consults Time Called: 1802 Consulting Physician: Dr. Lunsford [facility] Hospitalist Returned Call: 1808 I discussed the patient's case with Dr. Lunsford, [facility] Hospitalist. He understands the patient's condition and agrees to accept the patient. The patient will be further evaluated. Impression Primary Impression: Hypoxemia Additional Impressions: CHF (congestive heart failure) COPD exacerbation Renal insufficiency Scribe Attestation The scribe's documentation has been prepared under my direction and personally reviewed by me in its entirety. I confirm that the note above accurately reflects all work, treatment, procedures, and medical decision making performed by me. Departure Information Dispostion Being Evaluated By Hospitalist Referrals Dillan Acevedo M.D. (PCP) Patient Instructions My [facility] Problem Qualifiers
[2017-05-08 17:10] LABS: BLOOD UREA NITROGEN 33 mg/dl (7-18); CREATININE 1.98 mg/dl (0.60-1.40); GLUCOSE 163 mg/dl (70-99)
[2017-05-08 17:11] LABS: BUN/CREATININE RATIO 16.6 (10-20); CALCIUM 8.5 mg/dl (8.5-10.1); CARBON DIOXIDE 29 mmol/L (21-32); CHLORIDE 110 mmol/L (98-107); POTASSIUM 4.2 mmol/L (3.5-5.1); SODIUM 146 mmol/L (136-145)
[2017-05-08 17:35] LABS: CKMB/CK RATIO 2.3 (0-3.0)
[2017-05-08] MEDS ORDERED: ALBUT/IPRATROP 3MG/0.5MG NEB 3 ML VIAL INH STA (18:00)
--- NOTE | 2017-05-08 18:23 | History and Physical ---
History & Physical Date & Time of Service: May 08, 2017 at 18:15 Chief Complaint: Difficulty Breathing/Sob Primary Care Physician: Dillan Acevedo M.D. History of Present Illness Patient presents with generally escalating fatigue falling and hypoxia at home. Patient's son is an EMT checks oxygen sat at home and it's been in the mid to high 80s at times. Patient has significant history of chronic systolic and diastolic heart failure with an EF of 35 and mild to moderate mitral regurgitation on echocardiogram from November of this year. The patient in the past has been admitted with similar stories however at that time there was some concern for medical noncompliance due to depression for the recent loss of his . However at this time if there is any medical noncompliance it's mostly geared towards him not taking his inhaled medications. The patient has never seen a client care consultant but takes medications as would be diagnosed with COPD and he does have a past smoking history he has not been taking these inhalers. The patient also has very recurrent left lower extremity swelling reportedly had an outpatient Doppler study on April 30 which was negative this is very similar to his previous admission a year ago. Currently the patient is without distress he is wearing oxygen we discontinue the oxygen during my evaluation and he did drop to 86% on room air and was augmented easily with 2 L Past Medical/Surgical History Medical Problems: (1) Anemia Status: Chronic (2) CAD (coronary artery disease) Status: Chronic (3) Chronic kidney disease Status: Chronic (4) COPD (chronic obstructive pulmonary disease) Status: Chronic (5) Depressive disorder Status: Chronic (6) Diabetes mellitus Status: Chronic (7) History of atrial fibrillation Status: Resolved (8) History of stomach ulcers Status: Resolved (9) HTN (hypertension) Status: Chronic (10) Hypercholesteremia Status: Chronic (11) Hypothyroidism Status: Chronic (12) Sleep apnea Status: Chronic Surgical Problems: (1) H/O total knee replacement Status: Resolved (2) History of lumbar surgery Status: Resolved (3) History of permanent cardiac pacemaker placement Status: Resolved (4) Hx of CABG Status: Resolved Family History Patient reports no known family medical history. Social History Smoking Status: Former Smoker Smokeless Tobacco Use: No Alcohol Use: none Drug Use: none Marital Status: Housing status: lives with family Occupational Status: retired Immunizations History of Influenza Vaccine: Yes Influenza Vaccine Date: May 06, 2005 History of Tetanus Vaccine?: Yes Tetanus Immunization Date: Nov 30, 2005 History of Pneumococcal: Yes History of Hepatitis B Vaccine: No Multi-Drug Resistant Organisms History of MDRO: No Allergies Coded Allergies: Warfarin (Verified Allergy, Intermediate, PT CAN TAKE BRAND COUMADIN, ) GOT HIVES AND SWELLING WITH WARFARIN (GENERIC BRAND) Simvastatin (Verified Adverse Reaction, Mild, GI UPSET, 05/08/17) Statins (Verified Adverse Reaction, Unknown, FALLS, 05/08/17) Home Medications Scheduled Apixaban (Eliquis), 2.5 MG PO BID Carvedilol (Coreg), 25 MG PO BID Cholecalciferol (Vitamin D 1000 Unit), 2,000 INTER.UNIT PO QAM Clopidogrel Bisulfate (Plavix), 75 MG PO QAM Coenzyme Q10 (Ubidecarenone) (Coq10), 200 MG PO DAILY Digoxin (Digoxin), 125 MCG PO Q2D Diltiazem Hcl (Cardizem), 120 MG PO DAILY Fluticasone Prop/Salmeterol (Advair Diskus 250/50 60 Dose), 1 PUFF INH Q12 Furosemide (Lasix), 20 MG PO DAILY Levothyroxine Sodium (Levothyroxine Sodium), 1 TAB PO DAILY Ocuvite Preservision (Ocuvite Preservision), 1 TAB PO BID Omeprazole (Prilosec), 20 MG PO Q2D Sertraline HCl (Sertraline HCl), 1 TAB PO DAILY Scheduled PRN Albuterol Hfa (Ventolin Hfa), 2 PUFFS INH Q4 PRN for Shortness of Breath Nitroglycerin (Nitrostat), 0.4 MG SL UD PRN Review of Systems ROS: Thin gentleman with recent weight loss weakness and falling No double vision blurry vision No problems with speech or swallowing No palpitations, chest pain or pressure No Wheezing prolonged expiratory phase by basilar crackles No abdominal pain nausea vomiting patient has been having diarrhea and loss of weight. Diarrhea is brown and soft 4 times a day not bloody only turn black after he took Pepto-Bismol No burning urine urine frequency or changes in color No focal joint pain or muscle pain has bilateral leg swelling left greater than right No skin rashes or oral lesions No unusual bruising or bleeding No focused back pain or numbness or globally weak No changes in memory has been confused at times Physical Exam Vital Signs Date Time Temp Pulse Resp B/P (MAP) Pulse Ox O2 Delivery O2 Flow Rate FiO2 05/08/17 17:55 70 95 Nasal Cannula 3.0 05/08/17 16:35 96 Nasal Cannula 3.0 05/08/17 16:33 Nasal Cannula 3.0 98 05/08/17 16:28 72 05/08/17 15:48 36.3 69 20 117/59 94 Room Air General Appearance: + mild distress, + thin Head: normocephalic, atraumatic Eyes: PERRL, EOMI Neck: supple, + JVD Respiratory/Chest: chest non-tender, + decreased breath sounds, + accessory muscle use, + rales Cardiovascular: regular rate, rhythm, + systolic murmur Abdomen/GI: normal bowel sounds, non tender, soft Back: no CVA tenderness, no muscle spasm Extremities/Musculoskelatal: + pedal edema, + pertinent finding Neurologic/Psych: 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 nml as tested, no motor/sensory deficits, alert, oriented x 3 Skin: normal color, warm/dry, no rash Diagnostics Laboratory Results Results Past 24 Hours Test 05/08/17 16:30 05/08/17 16:32 05/08/17 17:52 Range/Units White Blood Count 5.57 4.8-10.8 K/uL Red Blood Count 3.46 4.7-6.1 M/uL Hemoglobin 11.2 14.0-18.0 g/dL Hematocrit 36.9 42-52 % Mean Corpuscular Volume 106.6 80-100 fL Mean Corpuscular Hemoglobin 32.4 25-34 pg Mean Corpuscular Hemoglobin Concent 30.4 32-36 g/dl Platelet Count 243 130-400 K/uL Mean Platelet Volume 10.5 7.4-10.4 fL Neutrophils (%) (Auto) 73.3 % Lymphocytes (%) (Auto) 14.4 % Monocytes (%) (Auto) 10.4 % Eosinophils (%) (Auto) 1.3 % Basophils (%) (Auto) 0.4 % Neutrophils # (Auto) 4.09 1.4-6.5 K/uL Lymphocytes # (Auto) 0.80 1.2-3.4 K/uL Monocytes # (Auto) 0.58 0.11-0.59 K/uL Eosinophils # (Auto) 0.07 0-0.5 K/uL Basophils # (Auto) 0.02 0-0.2 K/uL RDW Standard Deviation 64.9 36.4-46.3 fL RDW Coefficient of Variation 16.8 11.5-14.5 % Immature Granulocyte % (Auto) 0.2 % Immature Granulocyte # (Auto) 0.01 0.00-0.02 K/uL Prothrombin Time 13.2 9.0-12.0 SECONDS Prothromb Time International Ratio 1.2 0.9-1.1 Activated Partial Thromboplast Time 31.1 21.0-31.0 SECONDS Partial Thromboplastin Ratio 1.2 Sodium Level 146 136-145 mmol/L Potassium Level 4.2 3.5-5.1 mmol/L Chloride Level 110 98-107 mmol/L Carbon Dioxide Level 29 21-32 mmol/L Anion Gap 7.0 3-11 mmol/L Blood Urea Nitrogen 33 7-18 mg/dl Creatinine 1.98 0.60-1.40 mg/dl Estimated GFR () 34.9 Estimated GFR (Non- 30.1 BUN/Creatinine Ratio 16.6 10-20 Random Glucose 163 70-99 mg/dl Calcium Level 8.5 8.5-10.1 mg/dl Total Bilirubin 0.8 0.2-1 mg/dl Direct Bilirubin 0.3 0-0.2 mg/dl Aspartate Amino Transf (AST/SGOT) 8 15-37 U/L Alanine Aminotransferase (ALT/SGPT) 10 12-78 U/L Alkaline Phosphatase 107 45-117 U/L Total Creatine Kinase 47 39-308 U/L Creatine Kinase MB 1.1 0.5-3.6 ng/ml Creatine Kinase MB Ratio 2.3 0-3.0 Total Protein 7.2 6.4-8.2 gm/dl Albumin 3.4 3.4-5.0 gm/dl Lipase 150 73-393 U/L Chemistry Specimen Hemolysis Digoxin Level 1.0 0.8-2.0 ng/ml Bedside Troponin I < 0.030 0-0.045 ng/ml Diagnostic Radiology Acute on chronic renal failure with creatinine 1.9 digoxin level therapeutic at 1.0 other (chest x-ray shows marked cardiomegaly pacemaker and mild pulmonary congestive change but this is very similar every other chest x-ray was seen) other (ventricularly paced rhythm) Impression Assessment and Plan 86 y/o M presents with progressive hypoxia with PMHx of chronic systolic and diastolic heart failure, A. fib on eliquis,, CKD stage III, COPD who may have not been taking his inhaled medications Acute on chronic systolic and diastolic CHF -Despite his acute on chronic renal failure we'll give 1 dose of IV Lasix 20 follow daily weights electrolytes continuing Coreg. Likely due to his renal failure in the past he has not tolerated ACEs or ARBS Atrial fibrillation s/p pacemaker insertion will interrogate pacemaker CAD s/p CABG history of ischemic cardiomyopathy Plavix - Anticoagulation with Eliquis 2.5 mg BID - Coreg 25 mg twice a day, diltiazem ,Digoxin 0.125 g daily therapeutic level on presentation Acute on chronic kidney disease stage III CKD stage 3-4 -Creatinine baseline is usually 1.6 is now 1.[address] john and help with oversight COPD questionable responsible for the hypoxia Remote smoking hx: Had been on home oxygen in the past will use prednisone by mouth, DuoNeb's, and formoterol consider pulmonary evaluation inpatient versus outpatient PFTs Hypothyroidism: Appears clinically euthyroid continue Synthroid, TSH normal Left lower extremity swelling sec to fluid overload - Prehospital Doppler ultrasound negative for DVT. Continued Eliquis Major depressive episode, Zoloft 50mgs Patient is a DO NOT RESUSCITATE per son and patient
[2017-05-08] MEDS ORDERED: ACETAMINOPHEN 325 MG TAB PO PRN (18:30)
[2017-05-08] MEDS ORDERED: NITROGLYCERIN 0.4 MG SL PER TAB CHARGE SL PRN (18:30)
[2017-05-08] MEDS ORDERED: INFLUENZA VIRUS QUAD VACCINE 0.5 ML SYR IM. ONE (18:30)
[2017-05-08] MEDS ORDERED: ONDANSETRON INJ 2 MG/ML 2 ML VIAL IV PRN (18:30)
[2017-05-08] MEDS ORDERED: MoRPHine SULFATE 2 MG/ML CARP IV PRN (18:30)
[2017-05-08] MEDS ORDERED: ALUMINUM/MAGNESIUM/SIMETH (MAALOX MAX) 30 ML UDC PO PRN (18:30)
[2017-05-08] MEDS ORDERED: PNEUMOCOCCAL POLYSACCHARIDES 25 MCG/0.5 ML VIAL/SYR IM. ONE (18:30)
[2017-05-08] MEDS ORDERED: ALBUT/IPRATROP 3MG/0.5MG NEB 3 ML VIAL INH PRN (18:30)
[2017-05-08] MEDS ORDERED: FUROSEMIDE INJ 20 MG in SYRINGE 0 ML IV SCH (20:00)
[2017-05-08] MEDS: ALBUT/IPRATROP 3MG/0.5MG NEB 3 ML VIAL INH SCH (20:00)
[2017-05-08] MEDS: FORMOTEROL FUMA NEBULIZER SOLN 20 MCG/2 ML VIAL INH SCH (20:00)
[2017-05-08 20:50] VITALS: BP 109/60; PULSE 70; TEMP 36.5; O2SAT 94; Ht 185.4 cm; Wt 70.1 kg
[2017-05-08] MEDS: CARVEDILOL 25 MG TAB PO SCH (21:19)
[2017-05-08] MEDS: APIXABAN 2.5 MG TAB PO SCH (21:19)
[2017-05-08] MEDS ORDERED: INFLUENZA ADMINISTRATION CHARGE ONE (21:30)
[2017-05-08] MEDS ORDERED: INFLUENZA VACCINE HIGH DOSE 65+ 0.5 ML SYR IM. ONE (21:30)
[2017-05-08 23:37] VITALS: BP 110/61; PULSE 70; TEMP 36.4; O2SAT 97
[2017-05-09] VITALS (12 sets, daily range): BP systolic 119–137; BP diastolic 55–66; PULSE 69–78; TEMP 36.3–36.5; O2SAT 94–97
[2017-05-09] MEDS: LEVOTHYROXINE 150 MCG TAB PO SCH (05:52)
[2017-05-09 06:58] LABS: HEMATOCRIT 37.2 % (42-52); MEAN CELL VOLUME 106.3 fL (80-100); MEAN CORPUSCULAR HEMOGLOBIN 33.1 pg (25-34); MEAN CORPUSCULAR HGB CONC 31.2 g/dl (32-36); MEAN PLATELET VOLUME 10.4 fL (7.4-10.4); PLATELET COUNT 229 K/uL (130-400); WHITE BLOOD COUNT 3.49 K/uL (4.8-10.8)
[2017-05-09] MEDS: FORMOTEROL FUMA NEBULIZER SOLN 20 MCG/2 ML VIAL INH SCH ×2 (07:17→19:33)
[2017-05-09] MEDS: ALBUT/IPRATROP 3MG/0.5MG NEB 3 ML VIAL INH SCH ×3 (07:17→19:30)
[2017-05-09 07:30] LABS: BUN/CREATININE RATIO 17.6 (10-20); CALCIUM 8.9 mg/dl (8.5-10.1); CREATININE 1.91 mg/dl (0.60-1.40); POTASSIUM 3.9 mmol/L (3.5-5.1)
[2017-05-09] MEDS: PANTOprazole SOD 40 MG TAB PO SCH (08:12)
[2017-05-09] MEDS: CARVEDILOL 25 MG TAB PO SCH ×2 (08:12→19:54)
[2017-05-09] MEDS: CLOPIDOGREL BISULFATE 75 MG TAB PO SCH (08:12)
[2017-05-09] MEDS: APIXABAN 2.5 MG TAB PO SCH ×2 (08:12→19:54)
[2017-05-09] MEDS: DILTIAZEM HCL 120 MG CAPCR PO SCH (08:13)
[2017-05-09] MEDS: SERTRALINE HCL 50 MG TAB PO SCH (08:13)
[2017-05-09] MEDS ORDERED: FUROSEMIDE INJ 60 MG in SYRINGE 0 ML IV ONE (10:00)
--- NOTE | 2017-05-09 10:35 | Hospitalist Progress Note ---
Hospitalist Progress Note Date of Service May 09, 2017. Subjective Pt evaluation today including: conversation w/ patient, physical exam, chart review, lab review, review of studies Pain: none PO Intake: Fair Voiding: no voiding problems The patient was seen and examined this morning. Pt reports he feels good at this point. He was having a little trouble with wheezing earlier this morning and was given a dose of lasix 60 mg IV per cardiology. He also had a breahting treatment but that currently denies any shortness of breath, chest pain, tightness, palpitations or flutter. Pts notes his appetite is quite poor, although his son lives with him and does most of the cooking. He reports losing about 50 lbs since July when his . He also has had 2 big falls recently. He does use a walker and cane to help him ambulate about the house. He denies episodes of lightheadedness or dizziness. Constitutional: No fever, No chills, No sweats, No fatigue Eyes: No diplopia, No problem reported ENT: No nasal symptoms, No sore throat Respiratory: + cough (occasional), + wheezing (improved now), + dyspnea on exertion, No sputum, No dyspnea at rest Cardiovascular: No chest pain, No edema, No palpitations Abdomen: No pain, No nausea, No vomiting, No diarrhea Musculoskeletal: + swelling (worse in the R leg), No joint pain, No muscle pain Neurologic: No weakness, No numbness/tingling Endo: No fatigue Skin: No rash, No itch Objective Vital Signs Date Time Temp Pulse Resp B/P (MAP) Pulse Ox O2 Delivery O2 Flow Rate FiO2 05/09/17 08:00 96 Nasal Cannula 1.0 05/09/17 07:35 36.3 69 16 137/62 (87) 95 1.0 05/09/17 07:17 74 16 96 Nasal Cannula 1.0 05/09/17 04:50 36.5 70 16 127/55 (79) 97 Room Air 05/09/17 04:00 94 Nasal Cannula 1.0 98 05/09/17 00:00 94 Nasal Cannula 1.0 98 05/09/17 00:00 94 Nasal Cannula 1.0 05/08/17 23:37 36.4 70 18 110/61 (77) 97 Nasal Cannula 2.0 05/08/17 20:50 36.5 70 18 109/60 94 Nasal Cannula 2.0 05/08/17 20:01 70 22 112/63 96 05/08/17 17:55 70 95 Nasal Cannula 3.0 05/08/17 16:35 96 Nasal Cannula 3.0 05/08/17 16:33 Nasal Cannula 3.0 98 05/08/17 16:28 72 05/08/17 15:48 36.3 69 20 117/59 94 Room Air Physical Exam General Appearance: WD/WN, no apparent distress, + thin Eyes: PERRL, EOMI ENT: hearing grossly normal, pharynx normal Neck: supple, no JVD Respiratory/Chest: lungs clear, no respiratory distress, no accessory muscle use, + pertinent finding (on 1 L via NC) Cardiovascular: regular rate, rhythm (paced), + systolic murmur Abdomen: normal bowel sounds, non tender, soft Extremities: non-tender, + pedal edema (1+ minimal pitting in the LLE, no edema in the RLE.) Neurologic/Psychiatric: alert, normal mood/affect, oriented x 3 Skin: normal color, warm/dry Laboratory Results Last 24 Hours Test 05/08/17 16:30 05/08/17 16:32 05/08/17 18:06 05/09/17 06:28 White Blood Count 5.57 K/uL 3.49 K/uL Red Blood Count 3.46 M/uL 3.50 M/uL Hemoglobin 11.2 g/dL 11.6 g/dL Hematocrit 36.9 % 37.2 % Mean Corpuscular Volume 106.6 fL 106.3 fL Mean Corpuscular Hemoglobin 32.4 pg 33.1 pg Mean Corpuscular Hemoglobin Concent 30.4 g/dl 31.2 g/dl Platelet Count 243 K/uL 229 K/uL Mean Platelet Volume 10.5 fL 10.4 fL Neutrophils (%) (Auto) 73.3 % Lymphocytes (%) (Auto) 14.4 % Monocytes (%) (Auto) 10.4 % Eosinophils (%) (Auto) 1.3 % Basophils (%) (Auto) 0.4 % Neutrophils # (Auto) 4.09 K/uL Lymphocytes # (Auto) 0.80 K/uL Monocytes # (Auto) 0.58 K/uL Eosinophils # (Auto) 0.07 K/uL Basophils # (Auto) 0.02 K/uL RDW Standard Deviation 64.9 fL 64.0 fL RDW Coefficient of Variation 16.8 % 16.4 % Immature Granulocyte % (Auto) 0.2 % Immature Granulocyte # (Auto) 0.01 K/uL Prothrombin Time 13.2 SECONDS Prothromb Time International Ratio 1.2 Activated Partial Thromboplast Time 31.1 SECONDS Partial Thromboplastin Ratio 1.2 Sodium Level 146 mmol/L 145 mmol/L Potassium Level 4.2 mmol/L 3.9 mmol/L Chloride Level 110 mmol/L 106 mmol/L Carbon Dioxide Level 29 mmol/L 28 mmol/L Anion Gap 7.0 mmol/L 10.0 mmol/L Blood Urea Nitrogen 33 mg/dl 34 mg/dl Creatinine 1.98 mg/dl 1.91 mg/dl Estimated GFR () 34.9 36.5 Estimated GFR (Non- 30.1 31.5 BUN/Creatinine Ratio 16.6 17.6 Random Glucose 163 mg/dl 141 mg/dl Calcium Level 8.5 mg/dl 8.9 mg/dl Total Bilirubin 0.8 mg/dl Direct Bilirubin 0.3 mg/dl Aspartate Amino Transf (AST/SGOT) 8 U/L Alanine Aminotransferase (ALT/SGPT) 10 U/L Alkaline Phosphatase 107 U/L Total Creatine Kinase 47 U/L Creatine Kinase MB 1.1 ng/ml Creatine Kinase MB Ratio 2.3 Total Protein 7.2 gm/dl Albumin 3.4 gm/dl Lipase 150 U/L Chemistry Specimen Hemolysis Digoxin Level 1.0 ng/ml Bedside Troponin I < 0.030 ng/ml Pro-B-Type Natriuretic Peptide > 79184 pg/ml Est Creatinine Clear Calc Drug Dose 27.9 ml/min Assessment and Plan 86 y/o M presents with progressive hypoxia with PMHx of chronic systolic and diastolic heart failure, A. fib on eliquis, CKD stage III, COPD who may have not been taking his inhaled medications Acute on chronic systolic and diastolic CHF - Given 1 dose of IV Lasix 20 at time of admission - pt was administered another dose of Lasix 60 mg this morning. - follow daily weights, trend electrolytes with BMP - continuing Coreg - Likely due to his renal failure in the past he has not tolerated ACEs or ARBS - Cardiology consulted - appreciate recs - PT/OT on board - Last Echo completed in 12/16/16: * Left ventricular systolic function is moderately reduced. * Akinesis of the distal inferior wall and inferoapex. * There is moderate global hypokinesis of the left ventricle. * Ejection Fraction = 35-40%. * There is mild to moderate mitral regurgitation. * There is moderate tricuspid regurgitation. Atrial fibrillation s/p dual chamber pacemaker insertion - will interrogate pacemaker - report available in chart - from [facility] - appears no cardioversion has been recorded. Also primarily ventricularly paced. Available for cardiology review. - Pt had pacemaker placed in 2012. CAD s/p CABG history of ischemic cardiomyopathy - Plavix - Anticoagulation with Eliquis 2.5 mg BID - Coreg 25 mg twice a day, diltiazem 120 mg daily, Digoxin 0.125 g daily - dig therapeutic level on presentation Acute on chronic kidney disease stage III CKD stage 3-4 - Creatinine baseline is usually 1.6 is now 1.9- consult nephro and help with oversight COPD questionably responsible for the hypoxia - Remote smoking hx - Had been on home oxygen in the past for about 3 months last winter but since then has been off it. - will use prednisone by mouth, DuoNeb's, and formoterol consider pulmonary evaluation inpatient versus outpatient PFTs - Pt wearing 1 L O2 via NC currently Hypothyroidism: - Appears clinically euthyroid - continue Synthroid, TSH normal Left lower extremity swelling sec to fluid overload - Prehospital Doppler ultrasound negative for DVT. Continued Eliquis Major depressive episode - Zoloft 50mgs Patient is a DO NOT RESUSCITATE per son and patient DVT ppx: Eliquis Disposition: From home, lives with son, likely needs home health services with PT/OT at time of discharge.
--- NOTE | 2017-05-09 10:53 | CARDIOLOGY CONSULTATION REPORT ---
DATE OF CONSULTATION: 05/09/2017 HISTORY OF PRESENT ILLNESS: Mr. Carr is a very pleasant 86-year-old white male with a history of longstanding CAD s/p CABG x 4 vessels September 2012, chronic combined systolic and diastolic CHF, Cardiomyopathy s/p [employer] dual-chamber AICD, moderate MR, hypertension, dyslipidemia, carotid artery disease, paroxysmal atrial fibrillation and COPD who presented acutely to [facility] Room last evening complaining of progressive shortness of breath, worsening leg edema, and periods of hypoxia with oxygen levels as low as the mid 80s. Over the last couple of weeks he has had a few falls as well which he attributes to a shortness of breath. The patient denies any angina pectoris, chest pain, heaviness, tightness or pressure. He denies any neck, jaw, back, arm pain. He denies any orthopnea or PND. No palpitations or recurrent atrial fibrillation to his knowledge. No syncope or near syncope. He has not had any discharges from his defibrillator. The patient had an extremely difficult time with depression since his . He really has no appetite, and has lost his significant amount of weight since she . MEDICATIONS: 1. Digoxin 125 mcg every other day. 2. Plavix 75 mg daily. 3. Zoloft 50 mg daily. 4. Diltiazem CD 120 mg daily. 5. Protonix 40 mg every other day. 6. Prednisone 40 mg daily. 7. Synthroid 150 mcg daily. 8. Eliquis 2.5 mg b.i.d. 9. Coreg 25 mg b.i.d. 10. Perforomist 20 mcg per 2 mL nebulizer b.i.d. 11. DuoNeb nebulizers q.i.d. 12. Tylenol p.r.n. 13. Maalox max p.r.n. 14. Zofran 4 mg IV q.6 hours p.r.n. for nausea. 15. Sublingual nitroglycerin as needed. 16. Morphine sulfate 2 mg IV q. 30 minutes p.r.n. for chest pain. 17. DuoNeb nebulizers q. 12 hours p.r.n. for shortness of breath or wheezing. 18. Patient did receive single dose of IV furosemide last evening. PAST MEDICAL HISTORY: 1. CAD s/p CABG x 4 vessels in September 2012. 2. Chronic Systolic and Diastolic CHF. 3. Cardiomyopathy with an LVEF of approximately 35% s/p [employer] dual-chamber AICD. 4. History of mild to moderate mitral regurgitation. 5. Hypertension. 6. Dyslipidemia. 7. Peripheral vascular disease. 8. Carotid artery stenosis s/p carotid endarterectomy. 9. Paroxysmal atrial fibrillation. 10. History of type 2 diabetes mellitus. 11. COPD. 12. History of peptic ulcer disease remotely. 13. History of chronic kidney disease with secondary hyperparathyroidism. 14. History of TIA. 15. Sleep apnea. SOCIAL HISTORY: Patient is and lives in [place], [place]. Former smoker. He has a very supportive family who lives around him. He does not drink alcohol. FAMILY HISTORY: Noncontributory. PHYSICAL EXAMINATION: VITAL SIGNS: Temperature is 36.3 degree Celsius, pulse is 69 and regular, respiratory rate is 16 and unlabored, blood pressure is 137/62, SpO2 is 96% on 1 liter of oxygen via nasal cannula. I and Os negative 100 mL total. Body weight today is 68.4 kg, according to the report this is 2.8 grams higher than it was on admission. GENERAL: Chronically ill appearing white male in no acute distress. HEENT: Head is atraumatic, normocephalic. EOMs intact. Sclerae anicteric. Facies symmetric. No perioral cyanosis. Mucous membranes are moist. NECK: With obvious JVD. Jugular venous pressure is approximately 1/3 to 2/[address] to the angle of the jaw with wide respiratory variation. CHEST AND LUNGS: Mildly diminished breath sounds throughout, scattered crackles. No obvious wheezes. CARDIOVASCULAR: S1 and S2 are regular with grade 1-2/6 apical holosystolic murmur which radiates to the axilla. PMI laterally displaced. No lifts, heaves, or thrills. No abdominal aortic or renal bruits. ABDOMEN: Bowel sounds present. No masses, organomegaly, or tenderness. EXTREMITIES: With +2 pitting edema of the left lower extremity, +1 pitting edema of the right lower extremity. NEUROLOGIC: The patient is awake, alert, and oriented. Pleasant and cooperative. He answers questions appropriately. Speech is clear. Normal movement in bilateral upper and lower extremities. LABORATORY DATA: White blood cell count is 3.49. Hemoglobin is 11.6 g/dL, hematocrit 37.2%, and platelet count is 229,000. Sodium is 145 mmol/L, potassium 3.9 mmol/L, BUN 34 mg/dL, creatinine 1.91 mg/dL. Random glucose 141 mg/dL. Troponin I is less than 0.030 ng/mL. CK and CK-MB are within normal limits. Pro-BNP markedly elevated at greater than 35,000 mcg/mL. Digoxin level is 1.0 ng/mL which is in the therapeutic range. Chest x-ray shows mild central pulmonary vascular congestion without overt edema and a trace left pleural effusion. Telemetry monitoring reveals predominantly normal sinus rhythm with occasional ventricular pacing. EKG on admission shows a ventricular pacing rhythm at a rate of 70 beats per minute with a wide QRS complex 176 msec in duration. ASSESSMENT: 1. Acute on Chronic Combined Systolic and Diastolic CHF with evidence of hypervolemia. 2. Cardiomyopathy, LVEF approximately 35% with a mild to moderate mitral regurgitation. 3. S/P Dual Chamber AICD, no recent discharges. 4. History of Paroxysmal Atrial Fibrillation currently normal sinus rhythm. 5. CAD s/p CABG x 4 Vessels 2012. 6. Hypertension, controlled. 7. Dyslipidemia. 8. Carotid artery disease. 9. Diagnoses mentioned above. PLAN: 1. The patient feels slightly better than he did upon admission. 2. Still has evidence of hypervolemia. Recommend doing day to day dosing with IV Lasix. Lasix 60 mg IV was ordered today. 3. Continue to monitor daily laboratories including daily basic metabolic panel and serum magnesium level. 4. Continue Coreg 25 mg b.i.d. 5. Continue Diltiazem CD 120 mg daily. 6. Continue Digoxin 0.125 mg every other day. 7. Continue Plavix. 8. Continue Eliquis 2.5 mg b.i.d. 9. Continue inhalers and nebulizers as directed. 10. We will continue to follow along while hospitalized. 11. Monitor daily weights, I&O's. 12. Interrogate AICD to determine how much patient is pacing and to assess A-Fib burden. MTDD
--- NOTE | 2017-05-09 11:47 | Nephrology Consultation ---
Nephrology Consultation Date & Providers Date of Consultation: May 09, 2017. Primary Care Provider: Dillan Acevedo M.D. Referring Provider: Reason for Consultation Evaluation management for chronic kidney disease and management of volume status. History of Present Illness Mr. Carr is a 86-year-old gentlemen with past medical history significant for stage 3 chronic kidney disease, proteinuria, hypertension and coronary artery disease admitted to the hospital with CHF exacerbation. Nephrologic consult was requested to manage chronic kidney disease and volume status. Electronic medical records were reviewed in detail during patient's visit. Adal presented to the hospital as he was getting short of breath with minimum exertion over last few weeks. On admission was found to have pulmonary condition, elevated BNP and admitted with CHF exacerbation. Started on Lasix them 20 milligram IV, has been having decent urine output has been net negative. Electrolyte remain acceptable. Previously he was on home oxygen therapy for 3 months which he discontinued as he did not find that helpful. Last few months he has not been using home oxygen. Currently he feels like the oxygen therapy during hospital admission is helping him.. He has coronary artery disease status post CABG and PTCA with multiple stent before. Last EF was 35-40%. He has stage 3 chronic kidney disease secondary to diabetic nephropathy, baseline creatinine has been around 1.8-2.0, eGFR around 35. Has proteinuria less than 1 gram. Prior renal ultrasound was otherwise unremarkable. Blood pressure seems to be well controlled. No history of hyperkalemia. Previously was not on ACEI/ARB due to relatively low BP Allergies Coded Allergies: Warfarin (Verified Allergy, Intermediate, PT CAN TAKE BRAND COUMADIN, ) GOT HIVES AND SWELLING WITH WARFARIN (GENERIC BRAND) Simvastatin (Verified Adverse Reaction, Mild, GI UPSET, 05/08/17) Statins (Verified Adverse Reaction, Unknown, FALLS, 05/08/17) Inpatient Medications Current Inpatient Medications Medications (Trade) Dose Ordered Sig/Kojo Route Start Time Stop Time Status Last Admin Dose Admin Apixaban (Eliquis Tab) 2.5 mg BID PO 05/08/17 21:00 06/07/17 20:59 05/09/17 08:12 2.5 MG Carvedilol (Coreg Tab) 25 mg BID PO 05/08/17 21:00 06/07/17 20:59 05/09/17 08:12 25 MG Clopidogrel Bisulfate (plAVix TAB) 75 mg QAM PO 05/09/17 09:00 06/08/17 08:59 05/09/17 08:12 75 MG Digoxin (Lanoxin Tab) 0.125 mg Q2D@1600 PO 05/09/17 16:00 06/08/17 15:59 Levothyroxine Sodium (Synthroid Tab) 150 mcg DAILYBB PO 05/09/17 06:30 06/08/17 06:59 05/09/17 05:52 150 MCG Sertraline HCl (Zoloft Tab) 50 mg DAILY PO 05/09/17 09:00 06/08/17 08:59 05/09/17 08:13 50 MG Diltiazem HCl (Cardizem Cd Cap) 120 mg DAILY PO 05/09/17 09:00 06/08/17 08:59 05/09/17 08:13 120 MG Pantoprazole Sodium (Protonix Tab) 40 mg Q2D@0900 PO 05/09/17 09:00 06/08/17 08:59 05/09/17 08:12 40 MG Acetaminophen (Tylenol Tab) 650 mg Q4H PRN PO 05/08/17 18:30 06/07/17 18:29 Al Hydrox/Mg Hydrox/Simethicone (Maalox Max Susp) 15 ml Q4H PRN PO 05/08/17 18:30 06/07/17 18:29 Ondansetron HCl (Zofran Inj) 4 mg Q6H PRN IV 05/08/17 18:30 06/07/17 18:29 Nitroglycerin (Nitrostat Tab) 0.4 mg UD PRN SL 05/08/17 18:30 06/07/17 18:29 Morphine Sulfate (MoRPHine SULFATE INJ) 2 mg Q30M PRN IV 05/08/17 18:30 05/22/17 18:29 Formoterol Fumarate (Perforomist 20MCG/2ML Neb Soln) 20 mcg BIDR INH 05/08/17 20:00 06/07/17 19:59 05/09/17 07:17 20 MCG Albuterol/ Ipratropium (Duoneb) 3 ml QIDR INH 05/08/17 20:00 06/07/17 19:59 05/09/17 11:18 3 ML Albuterol/ Ipratropium (Duoneb) 3 ml Q2H PRN INH 05/08/17 18:30 06/07/17 18:29 Prednisone (PredniSONE TAB) 40 mg DAILY PO 05/09/17 09:00 06/08/17 08:59 05/09/17 08:13 40 MG Family History Patient reports no known family medical history. Social History Smoking Status: Former Smoker Smokeless Tobacco Use: No Alcohol Use: none Drug Use: none Marital Status: Housing Status: lives with family Occupation: retired Review of Systems A complete review of systems was performed. Pertinent positives are noted above. All other systems are negative. Physical Exam Date Time Temp Pulse Resp B/P (MAP) Pulse Ox O2 Delivery O2 Flow Rate FiO2 05/09/17 11:23 71 16 97 Nasal Cannula 1.0 05/09/17 08:00 96 Nasal Cannula 1.0 05/09/17 07:35 36.3 69 16 137/62 (87) 95 1.0 05/09/17 07:17 74 16 96 Nasal Cannula 1.0 05/09/17 04:50 36.5 70 16 127/55 (79) 97 Room Air 05/09/17 04:00 94 Nasal Cannula 1.0 98 05/09/17 00:00 94 Nasal Cannula 1.0 98 05/09/17 00:00 94 Nasal Cannula 1.0 05/08/17 23:37 36.4 70 18 110/61 (77) 97 Nasal Cannula 2.0 05/08/17 20:50 36.5 70 18 109/60 94 Nasal Cannula 2.0 05/08/17 20:01 70 22 112/63 96 05/08/17 17:55 70 95 Nasal Cannula 3.0 05/08/17 16:35 96 Nasal Cannula 3.0 05/08/17 16:33 Nasal Cannula 3.0 98 05/08/17 16:28 72 05/08/17 15:48 36.3 69 20 117/59 94 Room Air GENERAL: Elderly male,AAA x 3, pleasant, healthy-appearing, not in any distress. HEENT: Atraumatic, normocephalic. NECK: Supple, elevated JVD, no carotid bruit appreciated. ENT: No sinus tenderness MOUTH and THROAT: Moist oral mucosa, no oral ulcer or pharyngeal erythema RESPIRATORY: Normal breathing efforts, no accessory muscle use, clear to auscultation bilaterally, no wheezes or rales. CARDIOVASCULAR: S1, S2 normal, rate rhythm regular. ABDOMEN: Soft, nontender, positive bowel sound. MUSCULOSKELETAL: No CVA tenderness. No joint swelling, erythema or tenderness. Normal range of motion. SKIN: No skin rash EXTREMITY: trace b/l lower extremity edema NEURO: No gross focal neurological deficit, speech fluent. PSYCHIATRY: Normal mood and judgment Laboratory Results Last 24 Hours Test 05/08/17 16:30 05/08/17 16:32 05/08/17 18:06 05/09/17 06:28 White Blood Count 5.57 K/uL 3.49 K/uL Red Blood Count 3.46 M/uL 3.50 M/uL Hemoglobin 11.2 g/dL 11.6 g/dL Hematocrit 36.9 % 37.2 % Mean Corpuscular Volume 106.6 fL 106.3 fL Mean Corpuscular Hemoglobin 32.4 pg 33.1 pg Mean Corpuscular Hemoglobin Concent 30.4 g/dl 31.2 g/dl Platelet Count 243 K/uL 229 K/uL Mean Platelet Volume 10.5 fL 10.4 fL Neutrophils (%) (Auto) 73.3 % Lymphocytes (%) (Auto) 14.4 % Monocytes (%) (Auto) 10.4 % Eosinophils (%) (Auto) 1.3 % Basophils (%) (Auto) 0.4 % Neutrophils # (Auto) 4.09 K/uL Lymphocytes # (Auto) 0.80 K/uL Monocytes # (Auto) 0.58 K/uL Eosinophils # (Auto) 0.07 K/uL Basophils # (Auto) 0.02 K/uL RDW Standard Deviation 64.9 fL 64.0 fL RDW Coefficient of Variation 16.8 % 16.4 % Immature Granulocyte % (Auto) 0.2 % Immature Granulocyte # (Auto) 0.01 K/uL Prothrombin Time 13.2 SECONDS Prothromb Time International Ratio 1.2 Activated Partial Thromboplast Time 31.1 SECONDS Partial Thromboplastin Ratio 1.2 Sodium Level 146 mmol/L 145 mmol/L Potassium Level 4.2 mmol/L 3.9 mmol/L Chloride Level 110 mmol/L 106 mmol/L Carbon Dioxide Level 29 mmol/L 28 mmol/L Anion Gap 7.0 mmol/L 10.0 mmol/L Blood Urea Nitrogen 33 mg/dl 34 mg/dl Creatinine 1.98 mg/dl 1.91 mg/dl Estimated GFR () 34.9 36.5 Estimated GFR (Non- 30.1 31.5 BUN/Creatinine Ratio 16.6 17.6 Random Glucose 163 mg/dl 141 mg/dl Calcium Level 8.5 mg/dl 8.9 mg/dl Total Bilirubin 0.8 mg/dl Direct Bilirubin 0.3 mg/dl Aspartate Amino Transf (AST/SGOT) 8 U/L Alanine Aminotransferase (ALT/SGPT) 10 U/L Alkaline Phosphatase 107 U/L Total Creatine Kinase 47 U/L Creatine Kinase MB 1.1 ng/ml Creatine Kinase MB Ratio 2.3 Total Protein 7.2 gm/dl Albumin 3.4 gm/dl Lipase 150 U/L Chemistry Specimen Hemolysis Digoxin Level 1.0 ng/ml Bedside Troponin I < 0.030 ng/ml Pro-B-Type Natriuretic Peptide > 20842 pg/ml Est Creatinine Clear Calc Drug Dose 27.9 ml/min Impression 86-year-old gentlemen with stage 3 chronic kidney disease secondary to diabetic nephropathy, baseline creatinine around 1.8-2.0, e GFR 35. Has moderate degree proteinuria less than 1 gram. Prior renal imaging was otherwise unremarkable. Previously had paraproteinemia workup which was negative. Admit to the hospital with CHF exacerbation, started on IV Lasix at home dose. Renal function remained stable close to his baseline, electrolyte acceptable. Recommendations --suggest starting on Lasix 40 milligram orally twice a day --start on losartan 25 milligram p.o. daily --avoid hypotension, avoid nephrotoxic medications, follow low-salt diet. --monitor renal function closely Thank you for allowing me to participate in your patient's care. It was a pleasure to see Adal
[2017-05-09] MEDS ORDERED: DIGOXIN 0.125 MG TAB PO SCH (16:00)
[2017-05-10] VITALS (13 sets, daily range): BP systolic 111–129; BP diastolic 51–69; PULSE 68–86; TEMP 36.2–36.5; O2SAT 90–98
[2017-05-10] MEDS: LEVOTHYROXINE 150 MCG TAB PO SCH (06:22)
[2017-05-10] MEDS: ALBUT/IPRATROP 3MG/0.5MG NEB 3 ML VIAL INH SCH ×4 (07:07→20:00)
[2017-05-10] MEDS: FORMOTEROL FUMA NEBULIZER SOLN 20 MCG/2 ML VIAL INH SCH ×2 (07:08→19:20)
--- NOTE | 2017-05-10 07:17 | Hospitalist Progress Note ---
Hospitalist Progress Note Date of Service May 10, 2017. Subjective Pt evaluation today including: conversation w/ patient, physical exam, chart review, lab review, review of studies Pain: None PO Intake: Good Voiding: no voiding problems The patient was seen and examined this morning. Pt reports doing well today and was hoping that he would be going home. He denies any shortness of breath and states breathing is back to baseline on 2L via O2. He denies any cough or dyspnea on exertion. He has been doing well with ambulation with walker/cane. Nephrology would like to see improvement in Cr. prior to d/c. Cardiology states pt is likely euvolemic at this point. Pts son, Truong, was present at bedside and updated, all his questions and concerns were addressed. Anticipate discharge to home tomorrow. ROS: 6 point ROS reviewed and otherwise negative. Objective Vital Signs Date Time Temp Pulse Resp B/P (MAP) Pulse Ox O2 Delivery O2 Flow Rate FiO2 05/10/17 07:09 75 16 92 Room Air 05/10/17 05:01 36.2 70 18 114/66 (82) 90 Nasal Cannula 2.0 05/10/17 04:00 94 Room Air 98 05/10/17 00:35 36.4 69 18 129/51 (77) 94 Room Air 05/10/17 00:00 94 Room Air 98 05/10/17 00:00 94 Room Air 05/09/17 20:14 36.3 74 16 127/55 (79) 95 Room Air 05/09/17 20:00 Room Air 05/09/17 19:33 78 16 94 Room Air 05/09/17 16:00 Room Air 05/09/17 15:32 36.3 73 18 119/66 (83) 94 Room Air 05/09/17 15:30 70 05/09/17 12:00 95 Nasal Cannula 1.0 05/09/17 11:45 36.3 74 18 130/65 (86) 95 1.0 05/09/17 11:23 71 16 97 Nasal Cannula 1.0 05/09/17 08:00 96 Nasal Cannula 1.0 05/09/17 07:35 36.3 69 16 137/62 (87) 95 1.0 05/09/17 07:17 74 16 96 Nasal Cannula 1.0 Physical Exam Notes: General Appearance: WD/WN, no apparent distress, + thin Eyes: PERRL, EOMI ENT: hearing grossly normal, pharynx normal Neck: supple, no JVD Respiratory/Chest: lungs clear, no respiratory distress, no accessory muscle use, + pertinent finding (on 1 L via NC) Cardiovascular: regular rate, rhythm (paced), + systolic murmur, grade II/ Abdomen: normal bowel sounds, non tender, soft Extremities: non-tender, + pedal edema (1+ minimal pitting in the LLE up to knee, trace edema in the RLE.) Neurologic/Psychiatric: alert, normal mood/affect, oriented x 3 Skin: normal color, warm/dry Assessment and Plan 86 y/o M presents with progressive hypoxia with PMHx of chronic systolic and diastolic heart failure, A. fib on eliquis, CKD stage III, COPD who may have not been taking his inhaled medications Acute on chronic systolic and diastolic CHF - Given 1 dose of IV Lasix 20 at time of admission - pt was administered another dose of Lasix 60 on 05/09 - Cr. is stable at 1.9 so pt likely would stand a little more diuresis today. - Urine outs 05/09 = 1125 mL - follow daily weights, trend electrolytes with BMP - continuing Coreg - Likely due to his renal failure in the past he has not tolerated ACEs or ARBS - Cardiology consulted - appreciate recs - PT/OT on board - Last Echo completed in 12/16/16: * Left ventricular systolic function is moderately reduced. * Akinesis of the distal inferior wall and inferoapex. * There is moderate global hypokinesis of the left ventricle. * Ejection Fraction = 35-40%. * There is mild to moderate mitral regurgitation. * There is moderate tricuspid regurgitation. Atrial fibrillation s/p dual chamber pacemaker insertion - will interrogate pacemaker - report available in chart - from [facility] - appears no cardioversion has been recorded. Also primarily ventricularly paced. Available for cardiology review. - Pt had pacemaker placed in 2012. CAD s/p CABG history of ischemic cardiomyopathy - Plavix - Anticoagulation with Eliquis 2.5 mg BID - Coreg 25 mg twice a day, diltiazem 120 mg daily, Digoxin 0.125 g daily - dig therapeutic level on presentation Acute on chronic kidney disease stage III CKD stage 3-4 - Creatinine baseline is usually 1.6 is now 2.1- nephro would like to see improvement in Cr. prior to discharge - agree and appreciate recs. COPD questionably responsible for the hypoxia - Remote smoking hx - Had been on home oxygen in the past for about 3 months last winter but since then has been off it. - will use prednisone by mouth, DuoNeb's, and formoterol consider pulmonary evaluation inpatient versus outpatient PFTs - Pt wearing 1 L O2 via NC currently- will order a 2 step for home O2 needs. Hypothyroidism: - Appears clinically euthyroid - continue Synthroid, TSH normal Left lower extremity swelling sec to fluid overload - Prehospital Doppler ultrasound negative for DVT. Continued Eliquis Major depressive episode - Zoloft 50mgs CODE STATUS: DNR DVT ppx: Eliquis Disposition: From home, lives with son, likely needs home health services with PT/OT at time of discharge.
[2017-05-10] MEDS: CARVEDILOL 25 MG TAB PO SCH ×2 (07:59→20:29)
[2017-05-10] MEDS: LOSARTAN POTASSIUM 25 MG TAB PO SCH (07:59)
[2017-05-10] MEDS: DILTIAZEM HCL 120 MG CAPCR PO SCH (07:59)
[2017-05-10] MEDS: APIXABAN 2.5 MG TAB PO SCH ×2 (08:00→20:28)
[2017-05-10] MEDS: CLOPIDOGREL BISULFATE 75 MG TAB PO SCH (08:00)
[2017-05-10] MEDS: SERTRALINE HCL 50 MG TAB PO SCH (08:00)
[2017-05-10 08:49] LABS: BUN/CREATININE RATIO 23.6 (10-20); CALCIUM 8.8 mg/dl (8.5-10.1); CREATININE 2.21 mg/dl (0.60-1.40); MAGNESIUM 2.1 mg/dl (1.8-2.4); POTASSIUM 3.4 mmol/L (3.5-5.1)
--- NOTE | 2017-05-10 09:15 | CARDIOLOGY PROGRESS NOTE ---
DATE: 05/10/2017 SUBJECTIVE: Mr. Carr is resting comfortably in bed without complaints of chest pain or dyspnea. Improved over the time of his presentation. OBJECTIVE: VITAL SIGNS: Blood pressure is 115/62 with a regular pulse of 72. Respiratory rate is 20. The patient is afebrile at 36.3 degrees Celsius. Saturations 98% on room air. NECK: Supple with full carotid upstrokes. No obvious bruits. Jugular venous pressure is approximately 10 cm of water at 90 degrees. CARDIOVASCULAR: Reveals a regular rhythm with a 2/6 apical holosystolic murmur. No S3. LUNGS: Clear without rales, rhonchi, or wheezes. ABDOMEN: Soft without bruits. EXTREMITIES: Reveal intact radial artery pulses bilaterally. 1+ pretibial edema is noted. DATA: Electrolytes note a sodium of 143, potassium 3.4, chloride 106, bicarb 27, BUN 34, creatinine 2.2, glucose 115. BNP was greater than 35,000. IMPRESSION AND PLAN: 1. Acute on chronic combined systolic and diastolic congestive heart failure -- patient has improved with intravenous diuresis. Is likely approaching euvolemic state as he is now demonstrated increased BUN and creatinine. 2. Coronary artery disease -- status post coronary artery bypass graft x4 in September 2012. 3. Ischemic cardiomyopathy -- ejection fraction of 35%. 4. Mild to moderate mitral regurgitation. 5. Hypertension -- controlled. 6. Hypercholesterolemia. 7. Paroxysmal atrial fibrillation. 8. Status post carotid endarterectomy.
--- NOTE | 2017-05-10 10:20 | Nephrology Progress Note ---
Nephrology Progress Note Date of Service May 10, 2017. Chief Complaint Follow-up for acute kidney injury with h/o chronic kidney disease and management of volume status. Brittney Galeas Was seen and examined in his room this morning. Overall he feels well, denies any shortness of breath or chest pain. Blood pressure stable. Renal function worsened to creatinine 2.2, electrolyte relatively stable. Voiding normally. Review of Systems A complete review of systems was performed. Pertinent positives are noted above. All other systems are negative. Vital Signs Last 8 Hrs Date Time Temp Pulse Resp B/P (MAP) Pulse Ox O2 Delivery O2 Flow Rate FiO2 05/10/17 08:08 Room Air 05/10/17 07:45 36.3 72 20 115/62 (79) 98 05/10/17 07:09 75 16 92 Room Air 05/10/17 05:01 36.2 70 18 114/66 (82) 90 Nasal Cannula 2.0 05/10/17 04:00 94 Room Air 98 Last Recorded Weight Weight (Kilograms): 70.200 Physical Exam GENERAL: Elderly male, AAA x 3, pleasant, healthy-appearing, not in any distress. NECK: Supple, no JVD. RESPIRATORY: Normal breathing efforts, no accessory muscle use, clear to auscultation bilaterally, no wheezes or rales. CARDIOVASCULAR: S1, S2 normal, rate rhythm regular. EXTREMITY: No lower extremity edema NEURO: speech fluent. PSYCHIATRY: Normal mood and judgment Family History Patient reports no known family medical history. Social History Smoking Status: Former smoker Smokeless Tobacco Use: No Alcohol Use: none Drug Use: none Marital Status: Housing Status: lives with family Occupation: retired Laboratory Results Past 24 Hours 05/10/17 07:26 Test 05/10/17 07:26 Anion Gap 9.0 mmol/L (3-11) Est Creatinine Clear Calc Drug Dose 24.7 ml/min Estimated GFR () 30.6 Estimated GFR (Non- 26.4 BUN/Creatinine Ratio 23.6 (10-20) Calcium Level 8.8 mg/dl (8.5-10.1) Magnesium Level 2.1 mg/dl (1.8-2.4) Allergies Coded Allergies: Warfarin (Verified Allergy, Intermediate, PT CAN TAKE BRAND COUMADIN, ) GOT HIVES AND SWELLING WITH WARFARIN (GENERIC BRAND) Simvastatin (Verified Adverse Reaction, Mild, GI UPSET, 05/08/17) Statins (Verified Adverse Reaction, Unknown, FALLS, 05/08/17) Medications Current Inpatient Medications Medications (Trade) Dose Ordered Sig/Kojo Route Start Time Stop Time Status Last Admin Dose Admin Apixaban (Eliquis Tab) 2.5 mg BID PO 05/08/17 21:00 06/07/17 20:59 05/10/17 08:00 2.5 MG Carvedilol (Coreg Tab) 25 mg BID PO 05/08/17 21:00 06/07/17 20:59 05/10/17 07:59 25 MG Clopidogrel Bisulfate (plAVix TAB) 75 mg QAM PO 05/09/17 09:00 06/08/17 08:59 05/10/17 08:00 75 MG Digoxin (Lanoxin Tab) 0.125 mg Q2D@1600 PO 05/09/17 16:00 06/08/17 15:59 05/09/17 15:30 0.125 MG Levothyroxine Sodium (Synthroid Tab) 150 mcg DAILYBB PO 05/09/17 06:30 06/08/17 06:59 05/10/17 06:22 150 MCG Sertraline HCl (Zoloft Tab) 50 mg DAILY PO 05/09/17 09:00 06/08/17 08:59 05/10/17 08:00 50 MG Diltiazem HCl (Cardizem Cd Cap) 120 mg DAILY PO 05/09/17 09:00 06/08/17 08:59 05/10/17 07:59 120 MG Pantoprazole Sodium (Protonix Tab) 40 mg Q2D@0900 PO 05/09/17 09:00 06/08/17 08:59 05/09/17 08:12 40 MG Acetaminophen (Tylenol Tab) 650 mg Q4H PRN PO 05/08/17 18:30 06/07/17 18:29 Al Hydrox/Mg Hydrox/Simethicone (Maalox Max Susp) 15 ml Q4H PRN PO 05/08/17 18:30 06/07/17 18:29 Ondansetron HCl (Zofran Inj) 4 mg Q6H PRN IV 05/08/17 18:30 06/07/17 18:29 Nitroglycerin (Nitrostat Tab) 0.4 mg UD PRN SL 05/08/17 18:30 06/07/17 18:29 Morphine Sulfate (MoRPHine SULFATE INJ) 2 mg Q30M PRN IV 05/08/17 18:30 05/22/17 18:29 Formoterol Fumarate (Perforomist 20MCG/2ML Neb Soln) 20 mcg BIDR INH 05/08/17 20:00 06/07/17 19:59 05/10/17 07:08 20 MCG Albuterol/ Ipratropium (Duoneb) 3 ml QIDR INH 05/08/17 20:00 06/07/17 19:59 05/09/17 11:18 3 ML Albuterol/ Ipratropium (Duoneb) 3 ml Q2H PRN INH 05/08/17 18:30 06/07/17 18:29 Prednisone (PredniSONE TAB) 40 mg DAILY PO 05/09/17 09:00 06/08/17 08:59 05/10/17 08:00 40 MG Losartan Potassium (coZAAR TAB) 25 mg QAM PO 05/10/17 09:00 06/09/17 08:59 05/10/17 07:59 25 MG Impression 86-year-old gentlemen with stage 3 chronic kidney disease secondary to diabetic nephropathy, baseline creatinine around 1.8-2.0, e GFR 35. Has moderate degree proteinuria less than 1 gram. Prior renal imaging was otherwise unremarkable. Previously had paraproteinemia workup which was negative. Admit to the hospital with CHF exacerbation, started on IV Lasix at home dose. Renal function remained stable close to his baseline, electrolyte acceptable. Recommendations --slight change in creatinine could be hemodynamic effect from ARB as well as intravascular volume depletion --continue to hold diuretics, repeat renal panel tomorrow --continue on losartan 25 milligram p.o. daily for now --avoid hypotension, avoid nephrotoxic medications, follow low-salt diet. --monitor renal function closely --hold discharge until we see stabilization of renal function Will follow
[2017-05-10] MEDS ORDERED: POTASSIUM CHLORIDE 20 MEQ TABCR PO ONE (10:45)
[2017-05-11 04:16] VITALS: BP 107/61; PULSE 73; TEMP 36.5; O2SAT 91
[2017-05-11] MEDS: LEVOTHYROXINE 150 MCG TAB PO SCH (05:12)
[2017-05-11 06:50] LABS: HEMATOCRIT 33.9 % (42-52); MEAN CORPUSCULAR HEMOGLOBIN 31.9 pg (25-34); MEAN CORPUSCULAR HGB CONC 30.4 g/dl (32-36); MEAN PLATELET VOLUME 10.5 fL (7.4-10.4); PLATELET COUNT 206 K/uL (130-400); RED BLOOD COUNT 3.23 M/uL (4.7-6.1); WHITE BLOOD COUNT 7.43 K/uL (4.8-10.8)
[2017-05-11 07:18] VITALS: BP 117/69; PULSE 84; TEMP 36.4; O2SAT 91
[2017-05-11] MEDS: ALBUT/IPRATROP 3MG/0.5MG NEB 3 ML VIAL INH SCH (07:18)
[2017-05-11] MEDS: FORMOTEROL FUMA NEBULIZER SOLN 20 MCG/2 ML VIAL INH SCH (07:19)
[2017-05-11 07:21] VITALS: PULSE 61; O2SAT 94
[2017-05-11 07:29] LABS: BUN/CREATININE RATIO 28.3 (10-20); CALCIUM 8.3 mg/dl (8.5-10.1); CREATININE 2.15 mg/dl (0.60-1.40); POTASSIUM 4.1 mmol/L (3.5-5.1)
[2017-05-11 08:00] VITALS: O2SAT 94
--- NOTE | 2017-05-11 08:34 | Discharge Instructions ---
Discharge Instructions Date of Service May 11, 2017. Admission Reason for Admission: Acute On Chronic Combined Systolic And Diastolic Discharge Discharge Diagnosis / Problem: Acute on Chronic Combined systolic and diastolic heart failure Discharge Goals Goal(s): Decrease discomfort, Improve function, Increase independence, Improve disease control Activity Recommendations Activity Limitations: resume your previous activity Lifting Limitations: no more than 25 pounds, until after follow-up appointment Exercise/Sports Limitations: rest today, gradually increase as tolerated May Resume Sexual Activity: when tolerated Shower/Bathe: no limitations (with assistance) Driving or Machine Use: Do Not Drive . Instructions / Follow-Up Instructions / Follow-Up You were admitted to [facility] with Acute congestive heart failure exacerbation. During your stay here you were treated with intravenous diuretics, supplemental oxygen and other supportive care. Cardiology and nephrology were consulted during your stay in the hospital. Your symptoms improved and you were stable for discharge to home with physical therapy and occupational therapy home health. Medications: Hold your Lasix 20 mg x 1 day to allow kidneys to improve. Resume taking this on 05/13, Tuesday. Blood Work - You will need to have blood work checked by home health nursing on Tuesday in the morning. Results should be faxed to your Family physician and Nephrology. Appointments: Follow up with your Primary Care Provider within 1 week. Follow up with cardiology within 1-2 weeks. Specific CHF instructions: Call your Primary Care doctor if any of the following symptoms or problems start or get worse: * Shortness of breath or difficulty breathing * Wake up at night short of breath * Chest pain * Cough * Swelling of your hands, feet, or legs * More fatigued or tired with your normal activity * Palpitations - sudden fast heart beats WEIGHT * Weigh yourself every morning after using the bathroom. * Use the same scale. * Wear the same amount of clothing. * Write your weight down on a chart. * Call your Primary Care doctor if you gain more than 2-3 pounds in 1-2 days or if you gain more than 5 lbs in 1 week. MEDICATIONS * Use this discharge instruction sheet for medication instructions. * Take your medications at the time your doctor ordered. * Do not skip a dose of your medicines. * If you miss a dose of medicine, take it as soon as possible, but DO NOT DOUBLE A DOSE. * Read your medicine information when you get home. * Know all of the side effects of your medicine. If in doubt, ask your pharmacist * Call your Primary Care doctor's office if you have any side effects. * Be sure all of your doctors know what medicine and herbs you take (including cold, flu, and herbal medicine). Take the following with you to your follow-up doctor appointments: * Weight Chart * Medication List * List of questions Do not drink excessive alcohol, beer or wine. Current Hospital Diet Patient's current hospital diet: Low Sodium Diet (2gm Na) Discharge Diet Recommended Diet: Low Sodium Diet (2gm Na) Pending Studies Studies pending at discharge: no Laboratory Results Hemoglobin A1c Test 04/07/17 09:55 Range/Units Estimated Average Glucose 126 mg/dl Hemoglobin A1c 6.0 H 4.5-5.6 % Medical Emergencies . Who to Call and When: Call 911 or go to the Emergency Room if: * If at any time you feel your situation is an emergency * You have tightness or pain in your chest that does not go away with rest or Nitroglycerin * You are very short of breath even with rest . Non-Emergent Contact Non-Emergency issues call your: Primary Care Provider, [facility] Director Call Non-Emergent contact if: temperature is above 100.5, your pain is not controlled, your pain is worsening, your pain is unusual for you, your pain is concerning you, you have any medication questions . Past History Medical & Surgical History: (1) Acute on chronic combined systolic and diastolic CHF (congestive heart failure) (2) Chronic kidney disease, stage 3 (moderate) (3) HTN (hypertension) (4) CAD (coronary artery disease) (5) Hypercholesteremia (6) Hypothyroidism (7) Depressive disorder . "Provider Documentation" section prepared by Jailyn Woodruff. . VTE Core Measure Inpt VTE Proph given/why not?: Other Anticoagulation
[2017-05-11] MEDS: SERTRALINE HCL 50 MG TAB PO SCH (08:40)
[2017-05-11] MEDS: DILTIAZEM HCL 120 MG CAPCR PO SCH (08:40)
[2017-05-11] MEDS: CARVEDILOL 25 MG TAB PO SCH (08:40)
[2017-05-11] MEDS: APIXABAN 2.5 MG TAB PO SCH (08:40)
[2017-05-11] MEDS: CLOPIDOGREL BISULFATE 75 MG TAB PO SCH (08:40)
[2017-05-11] MEDS: LOSARTAN POTASSIUM 25 MG TAB PO SCH (08:40)
[2017-05-11] MEDS: PANTOprazole SOD 40 MG TAB PO SCH (08:40)
[2017-05-11] MEDS ORDERED: PRT40 PO ×2 (09:39)
--- NOTE | 2017-05-11 10:04 | Discharge Summary ---
Discharge Summary Date of Service May 11, 2017. 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 fib on eliquis CKD stage III COPD Hypothyroidism: Left lower extremity swelling sec to fluid overload Major depressive episode Immunizations: Have You Had Influenza Vaccine: Yes Influenza Vaccine Date: May 06, 2005 History of Tetanus Vaccine?: Yes Tetanus Immunization Date: Nov 30, 2005 History of Pneumococcal: Yes History of Hepatitis B Vaccine: No Procedures: CHEST ONE VIEW PORTABLE HISTORY: Atypical CHEST PAIN COMPARISON: Chest 12/16/2016. FINDINGS: No pneumothorax. Trace left pleural effusion persists. The heart remains enlarged. Poststernotomy changes. Left-sided pacemaker. Mild central pulmonary vascular congestion without overt edema. IMPRESSION: No change in the mild central pulmonary vascular congestion without overt edema. Trace left pleural effusion or cyst. Electronically signed by: Manish Crump M.D. 05/08/2017 5:01 PM Dictated Date/Time: 05/08/2017 4:56 PM The status of this report is Signed. Consultations: Cardiology Nephrology Medication Reconciliation New Medications: Pantoprazole (Pantoprazole Sodium) 40 Mg Tab 40 MG PO Q2D@0900 for 30 Days, #30 TAB Continued Medications: Albuterol Hfa (Ventolin Hfa) 200 Puffs/85094 Mcg Aers 2 PUFFS INH Q4 PRN for Shortness of Breath, #1 INHALER Apixaban (Eliquis) 2.5 Mg Tab 2.5 MG PO BID, #90 TAB 3 Refills Carvedilol (Coreg) 25 Mg Tab 25 MG PO BID, TAB Cholecalciferol (Vitamin D 1000 Unit) 1,000 Unit Cap 2000 INTER.UNIT PO QAM, CAP Clopidogrel Bisulfate (Plavix) 75 Mg Tab 75 MG PO QAM, TAB Coenzyme Q10 (Ubidecarenone) (Coq10) 200 Mg Cap 200 MG PO DAILY Digoxin (Digoxin) 0.125 Mg Tab 125 MCG PO Q2D Diltiazem Hcl (Cardizem) 120 Mg Tab 120 MG PO DAILY Fluticasone Prop/Salmeterol (Advair Diskus 250/50 60 Dose) 1 Ea Aerp 1 PUFF INH Q12, INHALER Furosemide (Lasix) 20 Mg Tab 20 MG PO DAILY, TAB Levothyroxine Sodium (Levothyroxine Sodium) 150 Mcg Tab 1 TAB PO DAILY for 90 Days, #90 TAB 3 Refills Nitroglycerin (Nitrostat) 0.4 Mg Tab 0.4 MG SL UD PRN, #30 Ocuvite Preservision (Ocuvite Preservision) 1 Tab Tab 1 TAB PO BID, TAB Sertraline HCl (Sertraline HCl) 50 Mg Tab 1 TAB PO DAILY for 30 Days, #30 TAB 1 Refill half tablet for one week then one tablet daily Discontinued Medications: Omeprazole (Prilosec) 20 Mg Cap 20 MG PO Q2D for 30 Days, CAP 5 Refills Discharge Exam The patient was seen and examined this morning. Pt reports doing well today. He is dressed in his street clothes with bags packed prior to 9 am. He reports no complaints with breathing, chest pain, abdominal pain, shortness of breath with exertion. He also notes his swelling is still improved. Discussion was held regarding holding his oral lasix today and tomorrow. He should get BMP drawn Tuesday morning and start Lasix 20 mg PO Tuesday morning as well. He expressed understanding of this. ROS: 6 point ROS reviewed and otherwise negative. PE: General Appearance: WD/WN, no apparent distress, + thin Eyes: PERRL, EOMI ENT: hearing grossly normal, pharynx normal Neck: supple, no JVD Respiratory/Chest: lungs clear, no respiratory distress, no accessory muscle use, + pertinent finding (on room air) Cardiovascular: regular rate, rhythm (paced), + systolic murmur, grade II/ Abdomen: normal bowel sounds, non tender, soft Extremities: non-tender, + pedal edema (1+ pitting in the LLE up to knee, trace edema in the RLE.) Neurologic/Psychiatric: alert, normal mood/affect, oriented x 3 Skin: normal color, warm/dry Hospital Course History of Present Illness per Dr. Jonn MD. Patient presents with generally escalating fatigue falling and hypoxia at home. Patient's son is an EMT checks oxygen sat at home and it's been in the mid to high 80s at times. Patient has significant history of chronic systolic and diastolic heart failure with an EF of 35 and mild to moderate mitral regurgitation on echocardiogram from November of this year. The patient in the past has been admitted with similar stories however at that time there was some concern for medical noncompliance due to depression for the recent loss of his . However at this time if there is any medical noncompliance it's mostly geared towards him not taking his inhaled medications. The patient has never seen a take away man but takes medications as would be diagnosed with COPD and he does have a past smoking history he has not been taking these inhalers. The patient also has very recurrent left lower extremity swelling reportedly had an outpatient Doppler study on April 30 which was negative this is very similar to his previous admission a year ago. Currently the patient is without distress he is wearing oxygen we discontinue the oxygen during my evaluation and he did drop to 86% on room air and was augmented easily with 2 L Physical Exam Vital Signs Date Time Temp Pulse Resp B/P (MAP) Pulse Ox O2 Delivery O2 Flow Rate FiO2 05/08/17 17:55 70 95 Nasal Cannula 3.0 05/08/17 16:35 96 Nasal Cannula 3.0 05/08/17 16:33 Nasal Cannula 3.0 98 05/08/17 16:28 72 05/08/17 15:48 36.3 69 20 117/59 94 Room Air General Appearance: + mild distress, + thin Head: normocephalic, atraumatic Eyes: PERRL, EOMI Neck: supple, + JVD Respiratory/Chest: chest non-tender, + decreased breath sounds, + accessory muscle use, + rales Cardiovascular: regular rate, rhythm, + systolic murmur Abdomen/GI: normal bowel sounds, non tender, soft Back: no CVA tenderness, no muscle spasm Extremities/Musculoskelatal: + pedal edema, + pertinent finding 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 fib on eliquis, CKD stage III, COPD who may have not been taking his inhaled medications. Pt presented with acute CHF exacerbation and was treated with IV diuretics. Pt did have a creatinine elevation likely due to diuretics. Follow up BMP has been ordered for on 05/13 to assess Cr. He was instructed to HOLD lasix until 05/13 to allow kidney function to normalize. Pt reached dry weight of 70 kg and symptoms of volume overload resolved. Acute on chronic systolic and diastolic CHF - Given 1 dose of IV Lasix 20 at time of admission - pt was administered IV lasix during admission to get him to dry weight. Cr. peaked at 2.21 and has improved today to 2.15 at time of discharge. - Dry weight ~ 70 kg. - continuing Coreg - Likely due to his renal failure in the past he has not tolerated ACEs or ARBS - Cardiology consulted - appreciate recs - PT/OT on board - Last Echo completed in 12/16/16: * Left ventricular systolic function is moderately reduced. * Akinesis of the distal inferior wall and inferoapex. * There is moderate global hypokinesis of the left ventricle. * Ejection Fraction = 35-40%. * There is mild to moderate mitral regurgitation. * There is moderate tricuspid regurgitation. Atrial fibrillation s/p dual chamber pacemaker insertion - Pacemaker was interrogated during admission - report available in chart - appears no cardioversion has been recorded. Also primarily ventricularly paced. Available for cardiology review. - Pt had pacemaker placed in 2012. CAD s/p CABG history of ischemic cardiomyopathy - Plavix - Anticoagulation with Eliquis 2.5 mg BID - Coreg 25 mg twice a day, diltiazem 120 mg daily, Digoxin 0.125 g daily - dig therapeutic level on presentation Acute on chronic kidney disease stage III CKD stage 3-4 - Creatinine baseline is usually 1.5-1.6 is now 2.15- nephro would like to see improvement in Cr. prior to discharge - will have the pt hold lasix tomorrow and resume on 05/13 along with morning BMP check by home health services. COPD questionably responsible for the hypoxia - Remote smoking hx - Had been on home oxygen in the past for about 3 months last winter but since then has been off it. - 2 Step O2 was completed and pt did not require o2 at this point. - will use prednisone by mouth, DuoNeb's, and formoterol consider pulmonary evaluation inpatient versus outpatient PFTs - Pt wearing 1 L O2 via NC currently- will order a 2 step for home O2 needs. Hypothyroidism: - Appears clinically euthyroid - continue Synthroid, TSH normal Left lower extremity swelling sec to fluid overload - Prehospital Doppler ultrasound negative for DVT. Continued Eliquis Major depressive episode - Zoloft 50mg daily - Would recommend counseling if the pt is agreeable to this in the outpatient setting for improvement in mood, diet, and other support. CODE STATUS: DNR DVT ppx: Eliquis Disposition: From home, lives with son, home health services, discharge today. Total Time Spent: Greater than 30 minutes This includes examination of the patient, discharge planning, medication reconciliation, and communication with other providers. Discharge Instructions Please refer to the electronic Patient Visit Report (Discharge Instructions) for additional information. Follow-Up Follow up with your Primary Care Provider within 1 week. Follow up with cardiology within 1-2 weeks. Follow up with nephrology within 1 week. BMP results to be faxed to PCP and nephrology. Additional Copies To Dillan Acevedo M.D.
[2017-05-11 10:12] VITALS: BP 117/69; PULSE 61; TEMP 36.4; O2SAT 94
--- NOTE | 2017-05-11 10:43 | Nephrology Progress Note ---
Nephrology Progress Note Date of Service May 11, 2017. Chief Complaint Follow-up for acute kidney injury with h/o chronic kidney disease and management of volume status. Brittney Galeas Was seen and examined in his room this morning. Was feeling fine, denies any shortness of breath or chest pain, he was totally ready to leave. Blood pressure stable, volume status seems acceptable. Creatinine somewhat stable at 2.2, BUN elevated but other electrolyte acceptable. Review of Systems A complete review of systems was performed. Pertinent positives are noted above. All other systems are negative. Vital Signs Last 8 Hrs Date Time Temp Pulse Resp B/P (MAP) Pulse Ox O2 Delivery O2 Flow Rate FiO2 05/11/17 10:12 36.4 61 18 94 Room Air 05/11/17 08:00 94 Room Air 05/11/17 07:21 61 18 94 Room Air 05/11/17 07:18 36.4 84 18 117/69 (85) 91 Room Air 05/11/17 04:16 36.5 73 18 107/61 (76) 91 Room Air 05/11/17 04:00 Room Air Last Recorded Weight Weight (Kilograms): 70.100 Physical Exam GENERAL: Elderly male, AAA x 3, pleasant, healthy-appearing, not in any distress. NECK: Supple, no JVD. RESPIRATORY: Normal breathing efforts, no accessory muscle use, clear to auscultation bilaterally, no wheezes or rales. CARDIOVASCULAR: S1, S2 normal, rate rhythm regular. EXTREMITY: No lower extremity edema NEURO: speech fluent. PSYCHIATRY: Normal mood and judgment Family History Patient reports no known family medical history. Social History Smoking Status: Former smoker Smokeless Tobacco Use: No Alcohol Use: none Drug Use: none Marital Status: Housing Status: lives with family Occupation: retired Laboratory Results Past 24 Hours 05/11/17 06:14 05/11/17 06:14 Test 05/11/17 06:14 Red Blood Count 3.23 M/uL (4.7-6.1) Mean Corpuscular Volume 105.0 fL (80-100) Mean Corpuscular Hemoglobin 31.9 pg (25-34) Mean Corpuscular Hemoglobin Concent 30.4 g/dl (32-36) RDW Standard Deviation 64.2 fL (36.4-46.3) RDW Coefficient of Variation 16.7 % (11.5-14.5) Mean Platelet Volume 10.5 fL (7.4-10.4) Anion Gap 9.0 mmol/L (3-11) Est Creatinine Clear Calc Drug Dose 25.4 ml/min Estimated GFR () 31.6 Estimated GFR (Non- 27.3 BUN/Creatinine Ratio 28.3 (10-20) Calcium Level 8.3 mg/dl (8.5-10.1) Allergies Coded Allergies: Warfarin (Verified Allergy, Intermediate, PT CAN TAKE BRAND COUMADIN, ) GOT HIVES AND SWELLING WITH WARFARIN (GENERIC BRAND) Simvastatin (Verified Adverse Reaction, Mild, GI UPSET, 05/08/17) Statins (Verified Adverse Reaction, Unknown, FALLS, 05/08/17) Medications Current Inpatient Medications Medications (Trade) Dose Ordered Sig/Kojo Route Start Time Stop Time Status Last Admin Dose Admin Apixaban (Eliquis Tab) 2.5 mg BID PO 05/08/17 21:00 06/07/17 20:59 05/11/17 08:40 2.5 MG Carvedilol (Coreg Tab) 25 mg BID PO 05/08/17 21:00 06/07/17 20:59 05/11/17 08:40 25 MG Clopidogrel Bisulfate (plAVix TAB) 75 mg QAM PO 05/09/17 09:00 06/08/17 08:59 05/11/17 08:40 75 MG Digoxin (Lanoxin Tab) 0.125 mg Q2D@1600 PO 05/09/17 16:00 06/08/17 15:59 05/09/17 15:30 0.125 MG Levothyroxine Sodium (Synthroid Tab) 150 mcg DAILYBB PO 05/09/17 06:30 06/08/17 06:59 05/11/17 05:12 150 MCG Sertraline HCl (Zoloft Tab) 50 mg DAILY PO 05/09/17 09:00 06/08/17 08:59 05/11/17 08:40 50 MG Diltiazem HCl (Cardizem Cd Cap) 120 mg DAILY PO 05/09/17 09:00 06/08/17 08:59 05/11/17 08:40 120 MG Pantoprazole Sodium (Protonix Tab) 40 mg Q2D@0900 PO 05/09/17 09:00 06/08/17 08:59 05/11/17 08:40 40 MG Acetaminophen (Tylenol Tab) 650 mg Q4H PRN PO 05/08/17 18:30 06/07/17 18:29 Al Hydrox/Mg Hydrox/Simethicone (Maalox Max Susp) 15 ml Q4H PRN PO 05/08/17 18:30 06/07/17 18:29 Ondansetron HCl (Zofran Inj) 4 mg Q6H PRN IV 05/08/17 18:30 06/07/17 18:29 Nitroglycerin (Nitrostat Tab) 0.4 mg UD PRN SL 05/08/17 18:30 06/07/17 18:29 Morphine Sulfate (MoRPHine SULFATE INJ) 2 mg Q30M PRN IV 05/08/17 18:30 05/22/17 18:29 Formoterol Fumarate (Perforomist 20MCG/2ML Neb Soln) 20 mcg BIDR INH 05/08/17 20:00 06/07/17 19:59 05/11/17 07:19 20 MCG Albuterol/ Ipratropium (Duoneb) 3 ml QIDR INH 05/08/17 20:00 06/07/17 19:59 05/10/17 15:28 3 ML Albuterol/ Ipratropium (Duoneb) 3 ml Q2H PRN INH 05/08/17 18:30 06/07/17 18:29 Prednisone (PredniSONE TAB) 40 mg DAILY PO 05/09/17 09:00 06/08/17 08:59 05/11/17 08:40 40 MG Losartan Potassium (coZAAR TAB) 25 mg QAM PO 05/10/17 09:00 06/09/17 08:59 05/11/17 08:40 25 MG Impression 86-year-old gentlemen with stage 3 chronic kidney disease secondary to diabetic nephropathy, baseline creatinine around 1.8-2.0, e GFR 35. Has moderate degree proteinuria less than 1 gram. Prior renal imaging was otherwise unremarkable. Previously had paraproteinemia workup which was negative. Admit to the hospital with CHF exacerbation, started on IV Lasix at home dose. Renal function remained stable close to his baseline, electrolyte acceptable. Recommendations --slight change in creatinine could be hemodynamic effect from ARB as well as intravascular volume depletion. --patient currently seems well compensated, volume status acceptable continue to hold diuretics on discharge. --continue on losartan 25 milligram p.o. daily for now --avoid hypotension, avoid nephrotoxic medications, follow low-salt diet. --as patient is eager to leave, he will be discharged today however should get follow-up renal panel on Tuesday. Discussed with the patient that from Fridays lab if we see any further worsening of renal function he may need to come back to the emergency room and get admitted otherwise he should have follow-up with [facility] and with Dr. Higgnibotham in next 2/3 weeks
--- NOTE | 2017-05-11 16:45 | CARDIOLOGY PROGRESS NOTE ---
DATE: 05/11/2017 SUBJECTIVE: Mr. Carr is resting comfortably at the bedside without complaints of chest or dyspnea. He is anxious for hospital discharge. OBJECTIVE: VITAL SIGNS: Blood pressure is 118/70 with a regular pulse of 60. Respiratory rate is 18. The patient is afebrile at 36.4 degrees Celsius. Saturation is 94% on room air. NECK: Supple with full carotid upstrokes. No carotid bruits. Jugular venous pressure is flat at 90 degrees. There is no thyromegaly. CARDIOVASCULAR: Reveals a regular rhythm with a 2/6 apical holosystolic murmur. No S3. LUNGS: Clear without rales, rhonchi, or wheezes. ABDOMEN: Soft without bruits. EXTREMITIES: Reveal intact radial artery pulses bilaterally. 1+ pretibial edema is noted. LABORATORY DATA: CBC notes hemoglobin of 10.3, hematocrit 33.9, white count 7.4, and platelet count 206,000. Electrolytes note a sodium of 142, potassium 4.1, chloride 108, bicarb 25, BUN 61, creatinine 2.1, and glucose 107. IMPRESSION AND PLAN: 1. Acute on chronic combined congestive heart failure - the patient is now euvolemic after intravenous diuretics. Diuretic management per Dr. Alfonso. 2. Coronary artery disease -- status post CABG x4 in September 2012. 3. Ischemic cardiomyopathy -- ejection fraction 35%. 4. Mild to moderate mitral regurgitation. 5. Hypertension -- controlled. 6. Hypercholesterolemia. 7. Paroxysmal atrial fibrillation. 8. Status post carotid endarterectomy.
== END 2017-05-11 11:02 | disposition home or self-care (01) | DRG 291 ==
LOC: C.EDB 15:45 → C.MED 19:00 → EDBEDREQ 19:09 → ENRESERV 19:18
PROVIDERS: ADMIT Internal Medicine; ATTEND Internal Medicine Sports Medicine
DX: I13.0 Hypertensive heart and chronic kidney disease with heart failure and stage 1 through stage 4 chronic kidney disease, or unspecified chronic kidney disease (principal); I50.43 Acute on chronic combined systolic (congestive) and diastolic (congestive) heart failure; N17.9 Acute kidney failure, unspecified; N18.3 Chronic kidney disease, stage 3 (moderate); J44.9 Chronic obstructive pulmonary disease, unspecified; I48.91 Unspecified atrial fibrillation; E03.9 Hypothyroidism, unspecified; F32.9 Major depressive disorder, single episode, unspecified; E11.22 Type 2 diabetes mellitus with diabetic chronic kidney disease; E11.21 Type 2 diabetes mellitus with diabetic nephropathy; I25.10 Atherosclerotic heart disease of native coronary artery without angina pectoris; Z79.899 Other long term (current) drug therapy; Z79.01 Long term (current) use of anticoagulants; Z79.02 Long term (current) use of antithrombotics/antiplatelets; Z91.81 History of falling; Z66 Do not resuscitate; Z95.1 Presence of aortocoronary bypass graft; Z95.0 Presence of cardiac pacemaker; Z87.891 Personal history of nicotine dependence

== ENCOUNTER → 2017-05-13 | Outpatient (CLI) | payer OTHER ==
[~2017-05-13] MED LIST changes: +PRT40 PO
[2017-05-13 10:54] LABS: BLOOD UREA NITROGEN 63 mg/dl (7-18); BUN/CREATININE RATIO 28.9 (10-20); CALCIUM 8.5 mg/dl (8.5-10.1); CARBON DIOXIDE 30 mmol/L (21-32); CHLORIDE 110 mmol/L (98-107); CREATININE 2.17 mg/dl (0.60-1.40); GLUCOSE 78 mg/dl (70-99); POTASSIUM 4.1 mmol/L (3.5-5.1); SODIUM 145 mmol/L (136-145)
== END | disposition home or self-care (01) ==
LOC: C.LAB 09:42
PROVIDERS: ATTEND Physician Assistant
DX: N18.3 Chronic kidney disease, stage 3 (moderate) (principal)

== ENCOUNTER → 2017-05-20 | Outpatient (CLI) | payer OTHER ==
[~2017-05-20] MED LIST changes: -OMEP20CA9 PO
[2017-05-20 15:12] LABS: BLOOD UREA NITROGEN 37 mg/dl (7-18); BUN/CREATININE RATIO 18.8 (10-20); CALCIUM 8.8 mg/dl (8.5-10.1); CARBON DIOXIDE 28 mmol/L (21-32); CHLORIDE 110 mmol/L (98-107); CREATININE 1.94 mg/dl (0.60-1.40); GLUCOSE 98 mg/dl (70-99); POTASSIUM 4.3 mmol/L (3.5-5.1); SODIUM 145 mmol/L (136-145)
== END | disposition home or self-care (01) ==
LOC: C.LAB1850 13:57
PROVIDERS: ATTEND Internal Medicine Cardiovascular Disease
DX: Z95.810 Presence of automatic (implantable) cardiac defibrillator (principal); I25.10 Atherosclerotic heart disease of native coronary artery without angina pectoris; I42.9 Cardiomyopathy, unspecified

== ENCOUNTER 2017-05-31 18:04 | Emergency (ER) | payer OTHER ==
[~2017-05-31] VITALS: Ht 185.4 cm; Wt 70.0 kg
[2017-05-31 18:15] VITALS: TEMP 36.2; Ht 185.4 cm; Wt 70.0 kg
[2017-05-31] MEDS ORDERED: SODIUM CHLORIDE 0.9% 1000ML 1,000 ML IV STA (18:32)
[2017-05-31] MEDS ORDERED: SODIUM CHLORIDE 0.9% 250ML 250 ML IV STA (18:32)
--- NOTE | 2017-05-31 18:39 | EMERGENCY ROOM VISIT NOTE ---
History Report prepared by Scribe: Cynthia Marcano Under the Supervision of: Dr. Santiago Lopez M.D. First contact with patient: 18:21 Chief Complaint: ARM PAIN Stated Complaint: FELL THIS MORNING, LEFT ARM PAIN AND BLEEDING History of Present Illness The patient is an 86 year old white male with a past medical history of HTN, CAD , CHF, CKD, COPD and atrial fibrillation on Plavix who presents to the ED with a cc of persistent left arm pain beginning at 0630 this morning. His family reports he fell this morning on a carpeted surface and sustained a skin tear to his left arm when he hit the edge of a desk during his fall. The patient rates his discomfort as an 8/10 in severity. His family bandaged the area this morning , but when they got home from work earlier this evening, he had bled through the bandage. Positive right sided back pain. Negative LOC, headache, pain with moving the arm or other extremities. The patient's family notes he has experienced a loss of balance and increased falls over the past 3 weeks. His family notes he has a DNR and DNI on file. Source of History: patient, family Onset: 0630 this morning Position: arm (left) Symptom Intensity: 8/10 Timing: other (persistent) Associated Symptoms: + back pain, No LOC, No headache Review of Systems See HPI for pertinent positives and negatives. A total of ten systems were reviewed and were otherwise negative. Past Medical & Surgical Medical Problems: (1) Acute on chronic combined systolic and diastolic CHF (congestive heart failure) (2) Acute systolic heart failure (3) Anemia (4) Atrial fibrillation (5) CAD (coronary artery disease) (6) CHF exacerbation (7) Chronic kidney disease (8) Chronic kidney disease, stage 3 (moderate) (9) COPD (chronic obstructive pulmonary disease) (10) COPD (chronic obstructive pulmonary disease) (11) Depressive disorder (12) Diabetes mellitus (13) History of atrial fibrillation (14) History of stomach ulcers (15) HTN (hypertension) (16) Hypercholesteremia (17) Hypothyroidism (18) Sleep apnea Surgical Problems: (1) H/O total knee replacement (2) History of lumbar surgery (3) History of permanent cardiac pacemaker placement (4) Hx of CABG Family History Patient reports no known family medical history. Social History Smoking Status: Former Smoker Drug Use: none Marital Status: Housing Status: lives with family Occupation Status: retired Current/Historical Medications Scheduled Apixaban (Eliquis), 2.5 MG PO BID Carvedilol (Coreg), 25 MG PO BID Cholecalciferol (Vitamin D 1000 Unit), 2,000 INTER.UNIT PO QAM Clopidogrel Bisulfate (Plavix), 75 MG PO QAM Coenzyme Q10 (Ubidecarenone) (Coq10), 200 MG PO DAILY Digoxin (Digoxin), 125 MCG PO Q2D Diltiazem Hcl (Cardizem), 120 MG PO DAILY Fluticasone Prop/Salmeterol (Advair Diskus 250/50 60 Dose), 1 PUFF INH Q12 Furosemide (Lasix), 20 MG PO DAILY Levothyroxine Sodium (Levothyroxine Sodium), 1 TAB PO DAILY Ocuvite Preservision (Ocuvite Preservision), 1 TAB PO BID Pantoprazole (Pantoprazole Sodium), 40 MG PO Q2D@0900 Sertraline HCl (Sertraline HCl), 1 TAB PO DAILY Scheduled PRN Albuterol Hfa (Ventolin Hfa), 2 PUFFS INH Q4 PRN for Shortness of Breath Nitroglycerin (Nitrostat), 0.4 MG SL UD PRN Allergies Coded Allergies: Warfarin (Verified Allergy, Intermediate, PT CAN TAKE BRAND COUMADIN, ) GOT HIVES AND SWELLING WITH WARFARIN (GENERIC BRAND) Simvastatin (Verified Adverse Reaction, Mild, GI UPSET, 05/08/17) Statins (Verified Adverse Reaction, Unknown, FALLS, 05/08/17) Physical Exam Vital Signs Date Time Temp Pulse Resp B/P (MAP) Pulse Ox O2 Delivery O2 Flow Rate FiO2 05/31/17 21:19 70 18 120/68 94 Room Air 05/31/17 19:50 73 18 116/72 93 Room Air 05/31/17 19:48 80 05/31/17 19:11 93 Room Air 05/31/17 18:15 36.2 65 24 93/51 96 Room Air Physical Exam GENERAL: Awake, alert, well-appearing, NAD HENT: Normocephalic, atraumatic. EYES: Normal conjunctiva. Sclera non-icteric. NECK: Supple. No nuchal rigidity. FROM. No midline tenderness to cervical spine. RESPIRATORY: CTAB, no rhonchi, wheezing, crackles CARDIAC: RRR, no MRG ABDOMEN: Soft, NTND, BS+ MSK: Left posterior costal pain, bruising to the midline over lumbar spine. 1 to 2+ pretibial edema in bilateral LE. No chest wall TTP. NEURO: GCS 15, CN 2-12 intact, moves all 4s on command SKIN: 4 cm skin tear to left arm. 4 by 2 cm abrasion to midline of lumbar spine , hemostatic. Bleeding to left upper arm. No rash or jaundice noted. Medical Decision & Procedures ER Provider Diagnostic Interpretation: Radiology results as stated below per my review and radiologist interpretation: L HUMERUS MIN 2 VIEWS ROUTINE CLINICAL HISTORY: Left arm pain following fall. COMPARISON: None FINDINGS: No acute fracture of the left humerus is identified. Alignment of the left shoulder and left elbow is anatomic. IMPRESSION: No acute fracture of the left humerus. Electronically signed by: Osvaldo Sánchez M.D. 05/31/2017 7:[address] OF THE CERVICAL SPINE WITHOUT CONTRAST CLINICAL HISTORY: Fall. COMPARISON STUDY: CTA of the neck October 12, 2011. TECHNIQUE: Helical axial images of the cervical spine were obtained without IV contrast. Sagittal and coronal reconstructions were viewed. A dose lowering technique was utilized adhering to the principles of ALARA. FINDINGS: Craniocervical junction is intact. There is mild leftward curvature of the cervical spine which may be positional. There is no acute cervical spine fracture. Moderate multilevel degenerative disc disease and facet arthrosis is present within the cervical spine. There is no prevertebral edema. IMPRESSION: No acute cervical spine fracture or subluxation. Electronically signed by: Osvaldo Sánchez M.D. 05/31/2017 7:[address] OF THE CHEST WITHOUT IV CONTRAST CLINICAL HISTORY: Fall. COMPARISON STUDY: Chest radiographs May 08, 2017 and May 31, 2017. TECHNIQUE: Axial images of the chest were obtained without IV contrast. Images were reviewed in the axial, sagittal, and coronal planes. IV contrast was not administered for this examination. A dose lowering technique was utilized adhering to the principles of ALARA. FINDINGS: Lead left subclavian pacemaker is in place. The heart is moderately enlarged. There is no pericardial effusion. Moderate right and small left pleural effusions are present. Multifocal airspace opacities are noted, most evident within the left lung. These include a 3.3 cm left lower lobe airspace opacity. There is mild interlobular septal thickening. Lungs are suboptimally assessed due to respiratory motion. There is a calcified granuloma within the right upper lobe. No acute rib or thoracic spine fracture is identified. Old sternal fracture is noted. Old left-sided rib fractures are noted. There is biapical scarring. There is no thoracic lymphadenopathy. The abdomen and pelvis will be reported separately. No mediastinal hematoma is identified. IMPRESSION: 1. No acute traumatic findings within the chest on unenhanced exam. 2. Moderate right and small left pleural effusions. No pneumothorax. 3. Multifocal airspace opacities, most evident within the left lung. These could reflect pneumonia or alveolar edema. Pulmonary contusions are considered less likely. A follow-up chest CT in one month to ensure resolution is recommended. 4. Mild emphysema and suspected mild interstitial pulmonary edema. Electronically signed by: Osvaldo Sánchez M.D. 05/31/2017 7:49 PM CHEST ONE VIEW PORTABLE CLINICAL HISTORY: Evaluate for trauma. COMPARISON STUDY: Chest radiograph May 08, 2017. FINDINGS: A dual lead left pacemaker, median sternotomy wires and clips from bypass grafting are noted. Moderate cardiomegaly is unchanged. There may be trace bilateral pleural effusions. Pulmonary vascular congestion is unchanged. There is no pneumothorax. IMPRESSION: 1. No pneumothorax. 2. No change in pulmonary vascular congestion with possible trace bilateral pleural effusions. Electronically signed by: Osvaldo Sánchez M.D. 05/31/2017 7:[address] OF THE HEAD WITHOUT CONTRAST CLINICAL HISTORY: Fall. COMPARISON STUDY: Head CT October 09, 2016. TECHNIQUE: Helical axial images of the head were obtained without IV contrast. Automated exposure control was utilized for the study. A dose lowering technique was utilized adhering to the principles of ALARA. FINDINGS: No acute intracranial hemorrhage, midline shift or mass effect is present. Ventricular system is stable. Basilar cisterns are patent. There are no extra-axial collections. White matter hypodensities are unchanged and suggest small vessel disease. There is no calvarial fracture. Moderate mucosal thickening of the right sphenoid sinus is noted. This has improved since exam of October 09, 2016. Tiny right maxillary sinus air-fluid level is noted. IMPRESSION: 1. No acute intracranial findings. 2. No calvarial fracture. Electronically signed by: Osvaldo Sánchez M.D. 05/31/2017 7:[address] OF THE ABDOMEN AND PELVIS WITHOUT CONTRAST CLINICAL HISTORY: s/p fall, bruising to midline lumbar spine w/ pain. COMPARISON STUDY: CT of the abdomen September 29, 2005 and renal ultrasound June 22, 2016. TECHNIQUE: Axial images of the abdomen and pelvis were obtained without IV contrast. Images were reviewed in the axial, sagittal, and coronal planes. A dose lowering technique was utilized adhering to the principles of ALARA. FINDINGS: The chest will be reported separately. No pneumoperitoneum is present. There is trace low-attenuation fluid within the pelvis. Evaluation of the abdomen and pelvis is suboptimal on this unenhanced exam. There are calcified cannula was within the liver and spleen. There is no evidence for traumatic injury to the liver, spleen, adrenal glands, kidneys or pancreas. There are multiple water attenuation and hyperdense renal lesions. When correlating with prior CT and ultrasound these likely reflect s combination of simple and hyperdense cysts. There are gallstones within the gallbladder. The gallbladder is not distended. However, there may be gallbladder wall thickening with possible pericholecystic infiltration. There is sigmoid diverticulosis without evidence for acute diverticulitis. Right buttock subcutaneous infiltration is noted with a possible medial right buttock contusion. No acute lumbar spine or pelvic fracture is identified. IMPRESSION: 1. No acute traumatic findings within the abdomen or pelvis on unenhanced exam. 2. Possible right buttock subcutaneous contusion. No acute pelvic or lumbar spine fracture. 3. Cholelithiasis with apparent gallbladder wall thickening/pericholecystic infiltration. However, the gallbladder is not distended. If this patient has persistent right upper quadrant pain, a hepatobiliary scan could be obtained. 4. Bilateral renal lesions which are suboptimally assessed on this unenhanced exam but likely reflect a combination of simple and hyperdense cysts when correlating with prior studies. 5. Trace low-attenuation fluid within the pelvis. Moderate right and small left pleural effusions. Electronically signed by: Osvaldo Sánchez M.D. 05/31/2017 8:00 PM Laboratory Results 05/31/17 18:48 Red Blood Count 3.55, Mean Corpuscular Volume 107.0, Mean Corpuscular Hemoglobin 32.1, Mean Corpuscular Hemoglobin Concent 30.0, Mean Platelet Volume 10.6, Neutrophils (%) (Auto) 72.5, Lymphocytes (%) (Auto) 14.2, Monocytes (%) ( Auto) 10.1, Eosinophils (%) (Auto) 2.4, Basophils (%) (Auto) 0.6, Neutrophils # (Auto) 3.67, Lymphocytes # (Auto) 0.72, Monocytes # (Auto) 0.51, Eosinophils # ( Auto) 0.12, Basophils # (Auto) 0.03 05/31/17 18:48 Test 05/31/17 18:48 White Blood Count 5.06 K/uL (4.8-10.8) Red Blood Count 3.55 M/uL (4.7-6.1) Hemoglobin 11.4 g/dL (14.0-18.0) Hematocrit 38.0 % (42-52) Mean Corpuscular Volume 107.0 fL (80-100) Mean Corpuscular Hemoglobin 32.1 pg (25-34) Mean Corpuscular Hemoglobin Concent 30.0 g/dl (32-36) Platelet Count 225 K/uL (130-400) Mean Platelet Volume 10.6 fL (7.4-10.4) Neutrophils (%) (Auto) 72.5 % Lymphocytes (%) (Auto) 14.2 % Monocytes (%) (Auto) 10.1 % Eosinophils (%) (Auto) 2.4 % Basophils (%) (Auto) 0.6 % Neutrophils # (Auto) 3.67 K/uL (1.4-6.5) Lymphocytes # (Auto) 0.72 K/uL (1.2-3.4) Monocytes # (Auto) 0.51 K/uL (0.11-0.59) Eosinophils # (Auto) 0.12 K/uL (0-0.5) Basophils # (Auto) 0.03 K/uL (0-0.2) RDW Standard Deviation 60.9 fL (36.4-46.3) RDW Coefficient of Variation 15.7 % (11.5-14.5) Immature Granulocyte % (Auto) 0.2 % Immature Granulocyte # (Auto) 0.01 K/uL (0.00-0.02) Prothrombin Time 12.3 SECONDS (9.0-12.0) Prothromb Time International Ratio 1.2 (0.9-1.1) Activated Partial Thromboplast Time 30.3 SECONDS (21.0-31.0) Partial Thromboplastin Ratio 1.2 Anion Gap 5.0 mmol/L (3-11) Est Creatinine Clear Calc Drug Dose 30.6 ml/min Estimated GFR () 39.7 Estimated GFR (Non- 34.3 BUN/Creatinine Ratio 18.1 (10-20) Calcium Level 8.7 mg/dl (8.5-10.1) Total Bilirubin 0.8 mg/dl (0.2-1) Direct Bilirubin 0.3 mg/dl (0-0.2) Aspartate Amino Transf (AST/SGOT) 9 U/L (15-37) Alanine Aminotransferase (ALT/SGPT) 15 U/L (12-78) Alkaline Phosphatase 121 U/L (45-117) Troponin I < 0.015 ng/ml (0-0.045) Total Protein 6.8 gm/dl (6.4-8.2) Albumin 3.1 gm/dl (3.4-5.0) Laboratory results reviewed by me Medications Administered Medications (Trade) Dose Ordered Sig/Kojo Route Start Time Stop Time Status Last Admin Dose Admin Sodium Chloride 1,000 ml @ 999 mls/hr Q1H1M STAT IV 05/31/17 18:32 05/31/17 19:32 DC 05/31/17 18:57 999 MLS/HR Sodium Chloride 250 ml @ 999 mls/hr Q16M STAT IV 05/31/17 18:32 05/31/17 18:48 DC 05/31/17 20:00 999 MLS/HR ED Course 1823: The patient was evaluated in room C9. A complete history and physical exam was performed. 1950: I reevaluated the patient. He is feeling alright and resting. 2044: I had a long discussion with the family about the patients results. They verbalized complete understanding and agreement. 2144: I reevaluated the patient. He is resting comfortably. I discussed his discharge instructions and they verbalized complete understanding and agreement. Medical Decision The patient is an 86 year old white male with a past medical history of HTN, CAD on plavix, CHF, CKD, COPD and atrial fibrillation on elequis who presents to the ED with a cc of left arm pain beginning at 0630 this morning. Triage Nursing notes reviewed. The patient's presentation and history were concerning for traumatic injury. Differential diagnosis: Etiologies such as fracture, dislocation, intra-abdominal, pneumothorax, intrathoracic , intracranial, neurologic, as well as other traumatic pathologies were entertained. Patient was seen and evaluated the bedside. Patient purportedly had 2 falls this morning. Patient denies any LOC and believes that they were mechanical. The family states that he has had some trouble with some balance issues. Patient does take Elequis and is on Plavix. Patient is fairly well-appearing. Patient does have some pain to the left lateral back in addition to the midline lumbar spine with some ecchymosis. Patient also does have a 4 x 3 cm skin tear of the left lateral upper arm. A compression bandage was placed and this was fairly hemostatic. Patient otherwise fairly normal neurologic exam. Patient did have some lower extremity swelling. Patient did have blood work completed along with an EKG, troponin, BNP, chest x-ray, left humerus film, and CTs of the head, neck, chest abdomen and pelvis. Patient's CTs of the head neck chest abdomen pelvis did not show anything acutely wrong with regards to traumatic injury. Patient does have some trace fluid within the abdomen but this was not described as blood. Patient does not have any abdominal pain. Patient CT of the chest is show fluid consistent with pleural effusion and less likely blood. Patient is not tachypneic nor tachycardic nor hypoxic. Patient's plain films do show any acute fracture. Patient does have chronic pleural effusions seen on his chest x-ray. Patient's kidney function well he does have CK D is actually improved from priors. Patient does have chronic anemia but his hemoglobin is stable. MCV is high. He may benefit from B12 and folate. I did have long discussion with the patient 's family members as one of the family members is the power of claims attorney. We did discuss rehabilitation given his gait instability. The patient is not wanting to do this. Patient's blood pressure was a little low when he came in. However this resolved with just 250 mL of fluid. Given the patient's hemoglobin is fairly stable I do not believe that he has any acute hemorrhagic problem. We discussed that is the power of claims attorney she may have an go to rehabilitation. After further discussion with case management as well as with the family they decided to go home instead of pursuing further inpatient rehabilitation as I believe there was concern that the patient would not cooperate. We did discuss potentially increasing care either at home or discussing other personal care chcf. Patient was deemed suitable for outpatient follow-up and treatment as the patient does not have any acute traumatic injuries. Patient was given strict follow-up, discharge, and return precautions. All questions were answered. Patient was deemed suitable for outpatient follow-up at this time. Patient agreed with the plan of care and was safely discharged home. Medication Reconcilliation Current Medication List: was personally reviewed by me Blood Pressure Screening Patient's blood pressure: Normal blood pressure Blood pressure disposition: Did not require urgent referral Impression Primary Impression: Arm pain, right Additional Impressions: CKD (chronic kidney disease) CHF (congestive heart failure) Scribe Attestation The scribe's documentation has been prepared under my direction and personally reviewed by me in its entirety. I confirm that the note above accurately reflects all work, treatment, procedures, and medical decision making performed by me. Departure Information Dispostion Home / Self-Care Referrals Dillan Acevedo M.D. (PCP) Patient Instructions ED Prevention Fall, ED Wound Care, My [facility] Additional Instructions Please return to the emergency department if you have worsening or recurrent symptoms not amenable to at-home treatment. Please call for a follow-up appointment with her primary care physician. Please take your medications as prescribed. If you have other concerns and/or complaints please feel free to also call your primary care physician's office or return the ED for further evaluation, management, and treatment. Please discuss rehabilitation in addition to further in-home treatment. He may also consider a nursing her detention. Take your medications as prescribed. Please change the bandage once a day. Apply an antibiotic ointment. No soaks. You may use gentle soap and water. You have been examined and treated today on an emergency basis only. This is not a substitute for, or an effort to provide, complete comprehensive medical care. It is impossible to recognize and treat all injuries or illnesses in a single emergency department visit. It is therefore important that you follow up closely with [facility], your PCP, and/or your specialist(s). Call as soon as possible for an appointment. Thank you for your time and consideration. I look forward to speaking with you again soon. Please don't hesitate to call us if you have any questions. Problem Qualifiers Additional Impressions: CKD (chronic kidney disease) Chronic kidney disease stage: stage 3 (moderate) Qualified Codes: N18.3 - Chronic kidney disease, stage 3 (moderate) CHF (congestive heart failure) Congestive heart failure type: unspecified congestive heart failure type Congestive heart failure chronicity: chronic Qualified Codes: I50.9 - Heart failure, unspecified
[2017-05-31 19:09] LABS: BASO % 0.6 %; BASO ABS # 0.03 K/uL (0-0.2); COMPLETE YES; EOS % 2.4 %; IG% 0.2 %; LYMPH % 14.2 %; LYMPH ABS # 0.72 K/uL (1.2-3.4); MEAN CORPUSCULAR HEMOGLOBIN 32.1 pg (25-34); MEAN PLATELET VOLUME 10.6 fL (7.4-10.4); MONO % 10.1 %; NEUT % 72.5 %; PLATELET COUNT 225 K/uL (130-400); RED BLOOD COUNT 3.55 M/uL (4.7-6.1); WHITE BLOOD COUNT 5.06 K/uL (4.8-10.8)
[2017-05-31 19:11] VITALS: O2SAT 93
--- NOTE | 2017-05-31 19:21 | DIAGNOSTIC IMAGING REPORT ---
CHEST ONE VIEW PORTABLE CLINICAL HISTORY: Evaluate for trauma. COMPARISON STUDY: Chest radiograph May 08, 2017. FINDINGS: A dual lead left pacemaker, median sternotomy wires and clips from bypass grafting are noted. Moderate cardiomegaly is unchanged. There may be trace bilateral pleural effusions. Pulmonary vascular congestion is unchanged. There is no pneumothorax. IMPRESSION: 1. No pneumothorax. 2. No change in pulmonary vascular congestion with possible trace bilateral pleural effusions. Electronically signed by: Osvaldo Sánchez M.D. 05/31/2017 7:19 PM Dictated Date/Time: 05/31/2017 7:17 PM
[2017-05-31 19:28] LABS: ALT/SGPT 15 U/L (12-78); AST/SGOT 9 U/L (15-37); BLOOD UREA NITROGEN 32 mg/dl (7-18); BUN/CREATININE RATIO 18.1 (10-20); CALCIUM 8.7 mg/dl (8.5-10.1); CARBON DIOXIDE 29 mmol/L (21-32); CHLORIDE 110 mmol/L (98-107); CREATININE 1.78 mg/dl (0.60-1.40); GLUCOSE 121 mg/dl (70-99); POTASSIUM 4.7 mmol/L (3.5-5.1); SODIUM 144 mmol/L (136-145)
[2017-05-31 19:32] LABS: ALKALINE PHOSPHATASE 121 U/L (45-117)
[2017-05-31 19:35] LABS: INR 1.2 (0.9-1.1); PARTIAL THROMBOPLASTIN RATIO 1.2; PROTHROMBIN TIME (PATIENT) 12.3 SECONDS (9.0-12.0)
--- NOTE | 2017-05-31 19:36 | DIAGNOSTIC IMAGING REPORT ---
CT OF THE HEAD WITHOUT CONTRAST CLINICAL HISTORY: Fall. COMPARISON STUDY: Head CT October 09, 2016. TECHNIQUE: Helical axial images of the head were obtained without IV contrast. Automated exposure control was utilized for the study. A dose lowering technique was utilized adhering to the principles of ALARA. FINDINGS: No acute intracranial hemorrhage, midline shift or mass effect is present. Ventricular system is stable. Basilar cisterns are patent. There are no extra-axial collections. White matter hypodensities are unchanged and suggest small vessel disease. There is no calvarial fracture. Moderate mucosal thickening of the right sphenoid sinus is noted. This has improved since exam of October 09, 2016. Tiny right maxillary sinus air-fluid level is noted. IMPRESSION: 1. No acute intracranial findings. 2. No calvarial fracture. Electronically signed by: Osvaldo Sánchez M.D. 05/31/2017 7:35 PM Dictated Date/Time: 05/31/2017 7:32 PM
--- NOTE | 2017-05-31 19:39 | DIAGNOSTIC IMAGING REPORT ---
CT OF THE CERVICAL SPINE WITHOUT CONTRAST CLINICAL HISTORY: Fall. COMPARISON STUDY: CTA of the neck October 12, 2011. TECHNIQUE: Helical axial images of the cervical spine were obtained without IV contrast. Sagittal and coronal reconstructions were viewed. A dose lowering technique was utilized adhering to the principles of ALARA. FINDINGS: Craniocervical junction is intact. There is mild leftward curvature of the cervical spine which may be positional. There is no acute cervical spine fracture. Moderate multilevel degenerative disc disease and facet arthrosis is present within the cervical spine. There is no prevertebral edema. IMPRESSION: No acute cervical spine fracture or subluxation. Electronically signed by: Osvaldo Sánchez M.D. 05/31/2017 7:38 PM Dictated Date/Time: 05/31/2017 7:35 PM
--- NOTE | 2017-05-31 19:50 | DIAGNOSTIC IMAGING REPORT ---
CT OF THE CHEST WITHOUT IV CONTRAST CLINICAL HISTORY: Fall. COMPARISON STUDY: Chest radiographs May 08, 2017 and May 31, 2017. TECHNIQUE: Axial images of the chest were obtained without IV contrast. Images were reviewed in the axial, sagittal, and coronal planes. IV contrast was not administered for this examination. A dose lowering technique was utilized adhering to the principles of ALARA. FINDINGS: Lead left subclavian pacemaker is in place. The heart is moderately enlarged. There is no pericardial effusion. Moderate right and small left pleural effusions are present. Multifocal airspace opacities are noted, most evident within the left lung. These include a 3.3 cm left lower lobe airspace opacity. There is mild interlobular septal thickening. Lungs are suboptimally assessed due to respiratory motion. There is a calcified granuloma within the right upper lobe. No acute rib or thoracic spine fracture is identified. Old sternal fracture is noted. Old left-sided rib fractures are noted. There is biapical scarring. There is no thoracic lymphadenopathy. The abdomen and pelvis will be reported separately. No mediastinal hematoma is identified. IMPRESSION: 1. No acute traumatic findings within the chest on unenhanced exam. 2. Moderate right and small left pleural effusions. No pneumothorax. 3. Multifocal airspace opacities, most evident within the left lung. These could reflect pneumonia or alveolar edema. Pulmonary contusions are considered less likely. A follow-up chest CT in one month to ensure resolution is recommended. 4. Mild emphysema and suspected mild interstitial pulmonary edema. Electronically signed by: Osvaldo Sánchez M.D. 05/31/2017 7:49 PM Dictated Date/Time: 05/31/2017 7:38 PM
--- NOTE | 2017-05-31 19:53 | DIAGNOSTIC IMAGING REPORT ---
L HUMERUS MIN 2 VIEWS ROUTINE CLINICAL HISTORY: Left arm pain following fall. COMPARISON: None FINDINGS: No acute fracture of the left humerus is identified. Alignment of the left shoulder and left elbow is anatomic. IMPRESSION: No acute fracture of the left humerus. Electronically signed by: Osvaldo Sánchez M.D. 05/31/2017 7:52 PM Dictated Date/Time: 05/31/2017 7:50 PM
--- NOTE | 2017-05-31 20:02 | DIAGNOSTIC IMAGING REPORT ---
CT OF THE ABDOMEN AND PELVIS WITHOUT CONTRAST CLINICAL HISTORY: s/p fall, bruising to midline lumbar spine w/ pain. COMPARISON STUDY: CT of the abdomen September 29, 2005 and renal ultrasound June 22, 2016. TECHNIQUE: Axial images of the abdomen and pelvis were obtained without IV contrast. Images were reviewed in the axial, sagittal, and coronal planes. A dose lowering technique was utilized adhering to the principles of ALARA. FINDINGS: The chest will be reported separately. No pneumoperitoneum is present. There is trace low-attenuation fluid within the pelvis. Evaluation of the abdomen and pelvis is suboptimal on this unenhanced exam. There are calcified cannula was within the liver and spleen. There is no evidence for traumatic injury to the liver, spleen, adrenal glands, kidneys or pancreas. There are multiple water attenuation and hyperdense renal lesions. When correlating with prior CT and ultrasound these likely reflect s combination of simple and hyperdense cysts. There are gallstones within the gallbladder. The gallbladder is not distended. However, there may be gallbladder wall thickening with possible pericholecystic infiltration. There is sigmoid diverticulosis without evidence for acute diverticulitis. Right buttock subcutaneous infiltration is noted with a possible medial right buttock contusion. No acute lumbar spine or pelvic fracture is identified. IMPRESSION: 1. No acute traumatic findings within the abdomen or pelvis on unenhanced exam. 2. Possible right buttock subcutaneous contusion. No acute pelvic or lumbar spine fracture. 3. Cholelithiasis with apparent gallbladder wall thickening/pericholecystic infiltration. However, the gallbladder is not distended. If this patient has persistent right upper quadrant pain, a hepatobiliary scan could be obtained. 4. Bilateral renal lesions which are suboptimally assessed on this unenhanced exam but likely reflect a combination of simple and hyperdense cysts when correlating with prior studies. 5. Trace low-attenuation fluid within the pelvis. Moderate right and small left pleural effusions. Electronically signed by: Osvaldo Sánchez M.D. 05/31/2017 8:00 PM Dictated Date/Time: 05/31/2017 7:52 PM
[2017-05-31 22:12] VITALS: BP 119/72; PULSE 78; O2SAT 95
== END 2017-05-31 22:14 | disposition home or self-care (01) ==
LOC: C.EDB 18:06 → C.EDC 22:14
DX: S41.112A Laceration without foreign body of left upper arm, initial encounter (principal); S30.810A Abrasion of lower back and pelvis, initial encounter; S30.0XXA Contusion of lower back and pelvis, initial encounter; W01.198A Fall on same level from slipping, tripping and stumbling with subsequent striking against other object, initial encounter; R07.82 Intercostal pain; I11.0 Hypertensive heart disease with heart failure; I25.10 Atherosclerotic heart disease of native coronary artery without angina pectoris; I50.43 Acute on chronic combined systolic (congestive) and diastolic (congestive) heart failure; N18.3 Chronic kidney disease, stage 3 (moderate); J44.9 Chronic obstructive pulmonary disease, unspecified; E03.9 Hypothyroidism, unspecified; Z87.891 Personal history of nicotine dependence

== ENCOUNTER 2017-06-20 04:16 | Inpatient (IN) | payer OTHER ==
[~2017-06-20] VITALS: Ht 185.4 cm; Wt 69.2 kg
[2017-06-20] MEDS ORDERED: APIX1TAB PO (05:32)
[2017-06-20] MEDS ORDERED: CARV12.52 PO (05:32)
[2017-06-20] MEDS ORDERED: MULT-513 PO (05:32)
[2017-06-20] MEDS ORDERED: SENN-65 PO (05:34)
[2017-06-20] MEDS ORDERED: SERT-234 PO (05:34)
[2017-06-20] MEDS ORDERED: CHOL200010 PO (05:34)
[2017-06-20] MEDS ORDERED: SODIUM CHLORIDE 0.9% 1000ML 1,000 ML IV STA (05:46)
[2017-06-20 06:25] LABS: BASO % 0.3 %; BASO ABS # 0.02 K/uL (0-0.2); EOS ABS # 0.06 K/uL (0-0.5); HEMATOCRIT 35.7 % (42-52); HEMOGLOBIN 10.6 g/dL (14.0-18.0); IG# 0.02 K/uL (0.00-0.02); LYMPH % 10.8 %; LYMPH ABS # 0.67 K/uL (1.2-3.4); MEAN CELL VOLUME 105.9 fL (80-100); MEAN CORPUSCULAR HEMOGLOBIN 31.5 pg (25-34); MEAN CORPUSCULAR HGB CONC 29.7 g/dl (32-36); MEAN PLATELET VOLUME 10.4 fL (7.4-10.4); MONO % 11.9 %; MONO ABS # 0.74 K/uL (0.11-0.59); NEUT % 75.7 %; NEUT ABS # 4.72 K/uL (1.4-6.5); PLATELET COUNT 258 K/uL (130-400); RED CELL DISTRIBUTION WIDTH CV 16.2 % (11.5-14.5); RED CELL DISTRIBUTION WIDTH SD 62.6 fL (36.4-46.3); WHITE BLOOD COUNT 6.23 K/uL (4.8-10.8)
[2017-06-20 06:37] LABS: ALBUMIN 2.8 gm/dl (3.4-5.0); ALT/SGPT 16 U/L (12-78); BLOOD UREA NITROGEN 56 mg/dl (7-18); CALCIUM 8.5 mg/dl (8.5-10.1); CARBON DIOXIDE 30 mmol/L (21-32); CREATININE 2.19 mg/dl (0.60-1.40); GLUCOSE 67 mg/dl (70-99); LIPASE 117 U/L (73-393); POTASSIUM 4.6 mmol/L (3.5-5.1); SODIUM 144 mmol/L (136-145)
[2017-06-20 06:48] LABS: ALKALINE PHOSPHATASE 146 U/L (45-117); AST/SGOT 14 U/L (15-37); TOTAL PROTEIN 6.3 gm/dl (6.4-8.2)
[2017-06-20 06:56] LABS: INR 1.4 (0.9-1.1)
--- NOTE | 2017-06-20 06:57 | DIAGNOSTIC IMAGING REPORT ---
CT SCAN OF THE BRAIN WITHOUT IV CONTRAST CLINICAL HISTORY: Change in mental status. COMPARISON STUDY: CT of the brain dated 05/31/2017. TECHNIQUE: Unenhanced axial CT scan of the brain is performed from the vertex to the skull base. A dose lowering technique was utilized adhering to the principles of ALARA. CT DOSE: 959.17 mGy.cm FINDINGS: Brain parenchyma: There are age-related involutional changes noting moderate subcortical and periventricular microangiopathic change. There is no hemorrhage, mass effect, or evidence of acute territorial ischemia by CT criteria. Rodriguez-white matter is preserved. No extra-axial fluid collection is seen. Ventricles, sulci, cisterns: Prominent secondary to involutional change. Intracranial vasculature: There is atherosclerotic calcification of the cavernous carotid and vertebral arteries. Calvarium: Unremarkable. Sinuses and mastoids: Trace mucosal thickening is seen in the right maxillary antrum. Mild mucosal thickening is also identified in the right sphenoid sinus. The remaining visualized paranasal sinuses are clear. The mastoid air cells are well pneumatized. Orbits: The bony orbits are grossly intact. There are bilateral ocular lens implants. IMPRESSION: Senescent changes as above with no hemorrhage, mass effect, or evidence of acute territorial ischemia by CT criteria. Electronically signed by: Daniel Mitchell M.D. 06/20/2017 6:56 AM Dictated Date/Time: 06/20/2017 6:54 AM
--- NOTE | 2017-06-20 07:06 | DIAGNOSTIC IMAGING REPORT ---
CT SCAN OF THE ABDOMEN AND PELVIS WITHOUT IV CONTRAST CLINICAL HISTORY: Left lower quadrant abdominal pain. COMPARISON STUDY: Abdominal CT dated 05/31/2017. TECHNIQUE: CT scan of the abdomen and pelvis is performed from the lung bases to the proximal femora. Images are reviewed in the axial, sagittal, and coronal planes. IV contrast was not administered for this examination as per the referring clinician. Note that the examination was performed in significantly suboptimal fashion without oral and IV contrast. The examination is also degraded by motion artifact, as well as by streak artifact from the patient's arms which could not be elevated above the abdomen. A dose lowering technique was utilized adhering to the principles of ALARA. CT DOSE: Reported separately under the concurrently performed CT scan of the brain. FINDINGS: Lung bases: The patient is status post midline sternotomy. Pacemaker leads are noted. The heart is markedly enlarged and without pericardial effusion. There are small to moderate pleural effusions with associated atelectasis. Liver: The unenhanced liver is normal in size, contour, and attenuation. There is no intrahepatic biliary ductal dilatation. Numerous calcified granulomas are identified. Gallbladder: Calcified gallstones are identified. There is no CT evidence of acute cholecystitis. Spleen: Normal in size and attenuation. There are numerous calcified splenic granulomas. Pancreas: The unenhanced pancreas is atrophic and grossly unremarkable. Adrenal glands: Unremarkable. Kidneys: The unenhanced kidneys are atrophic and without hydronephrosis. There are no renal calculi identified. Large exophytic cyst arises from the lower pole of the right kidney. These measure up to 10 cm. Additional smaller cysts and indeterminant renal lesions also likely represent a combination of simple and complex cysts when correlated with prior examinations. Abdominal vasculature: The abdominal aorta is normal in course and caliber noting advanced atherosclerotic calcification. Bowel: There is advanced colonic diverticulosis without CT evidence of acute diverticulitis. No bowel obstruction is seen. The appendix is not identified and reported surgically absent. Peritoneum: There is a small volume of abdominopelvic ascites. No intraperitoneal free air is seen. Lymphadenopathy: None. Pelvic viscera: The prostate gland is mildly enlarged and heterogeneous. The bladder wall appears mildly thickened and trabeculated suggesting chronic outlet obstruction. There is a small fat-containing left inguinal hernia. Skeletal structures: The skeletal structures are osteopenic. No lytic or blastic lesions are seen. Soft tissues: There is body wall edema. IMPRESSION: 1. Suboptimal examination without oral and IV contrast. The examination is also significantly degraded by streak and motion artifact. 2. There are no acute infectious or inflammatory findings in the abdomen or pelvis. 3. There are small to moderate pleural effusions with associated atelectasis. These have increased in size from 05/31/2017. 4. There is body wall edema as well as a small volume of abdominopelvic ascites. This is new from previous. 5. Cholelithiasis without CT evidence of acute cholecystitis. If there is clinical concern for cholecystitis ultrasound should be considered. 6. Marked cardiomegaly. 7. Advanced colonic diverticulosis without CT evidence of acute diverticulosis. 8. Additional findings as above. Electronically signed by: Daniel Mitchell M.D. 06/20/2017 7:04 AM Dictated Date/Time: 06/20/2017 6:57 AM
--- NOTE | 2017-06-20 07:12 | EMERGENCY ROOM VISIT NOTE ---
History Report prepared by Marija: Jamie Paiz Under the Supervision of: Dr. Kadie Cooper D.O. First contact with patient: 05:13 Chief Complaint: BLEEDING Stated Complaint: BLEEDING Nursing Triage Summary: skin tears from days ago, altered mental status, dyspnea History of Present Illness The patient is a 86 year old male who presents to the Emergency Room with complaints of persistent generalized weakness beginning yesterday. The patient recently returned home from [facility] yesterday for which he was there for problems with his gait. Per nursing staff, the patient has a history of skin tears and is reported to have scratched open the skin tears recently. The patient's daughter states that there was a large amount of blood on the patient' s sheets due to his scratching. The patient's daughter noticed dark blood on the patient's toilet bowl as well. Per son, the patient was complaining of LLQ abdominal pain yesterday. He states that the patient appeared to be in significant distress at this time. He notes that the patient has not had much to eat recently. The patient denies any pain or complaints. He is on blood thinners. He has a history of previous GI ulcer. The patient is currently on Protonix. The patient's son feels that the Protonix is decreasing the patient's appetite. HPI limited secondary to mental state. Source of History: patient, family (daughter, son), nursing staff History Limited By: other (Mental state) Onset: Today Position: other (generalized) Quality: other (weakness) Timing: other (persistent) Associated Symptoms: + abdominal pain (LLQ), + melena Review of Systems ROS limited secondary to mental state. Past Medical & Surgical Medical Problems: (1) Acute on chronic combined systolic and diastolic CHF (congestive heart failure) (2) Acute systolic heart failure (3) Anemia (4) Atrial fibrillation (5) CAD (coronary artery disease) (6) CHF exacerbation (7) Chronic kidney disease (8) Chronic kidney disease, stage 3 (moderate) (9) COPD (chronic obstructive pulmonary disease) (10) COPD (chronic obstructive pulmonary disease) (11) Depressive disorder (12) Diabetes mellitus (13) History of atrial fibrillation (14) History of stomach ulcers (15) HTN (hypertension) (16) Hypercholesteremia (17) Hypothyroidism (18) Sleep apnea Surgical Problems: (1) H/O total knee replacement (2) History of lumbar surgery (3) History of permanent cardiac pacemaker placement (4) Hx of CABG Family History Patient reports no known family medical history. Social History Smoking Status: Former Smoker Drug Use: none Marital Status: Housing Status: lives with family Occupation Status: retired Current/Historical Medications Scheduled Apixaban (Eliquis), 2.5 MG PO BID Carvedilol (Coreg), 12.5 MG PO BID Cholecalciferol (Vitamin D), 2,000 UNIT PO DAILY Clopidogrel Bisulfate (Plavix), 75 MG PO QAM Digoxin (Digoxin), 125 MCG PO Q2D Fluticasone Prop/Salmeterol (Advair Diskus 250/50 60 Dose), 1 PUFF INH Q12 Furosemide (Lasix), 20 MG PO DAILY Levothyroxine Sodium (Levothyroxine Sodium), 1 TAB PO DAILY Multivitamins/Minerals (Mvi With Minerals), 1 TAB PO BID Pantoprazole (Pantoprazole Sodium), 40 MG PO Q2D@0900 Senna/Docusate Sod (Senokot S), 1 TAB PO DAILY Sertraline (Zoloft), 100 MG PO DAILY Scheduled PRN Albuterol Hfa (Ventolin Hfa), 2 PUFFS INH Q4 PRN for Shortness of Breath Nitroglycerin (Nitrostat), 0.4 MG SL UD PRN Allergies Coded Allergies: Zolpidem (Verified Allergy, Severe, altered mental status, 06/20/17) Warfarin (Verified Allergy, Intermediate, PT CAN TAKE BRAND COUMADIN, ) GOT HIVES AND SWELLING WITH WARFARIN (GENERIC BRAND) Simvastatin (Verified Adverse Reaction, Mild, GI UPSET, 06/20/17) Statins (Verified Adverse Reaction, Unknown, FALLS, 06/20/17) Physical Exam Vital Signs Date Time Temp Pulse Resp B/P (MAP) Pulse Ox O2 Delivery O2 Flow Rate FiO2 06/20/17 08:56 77 22 114/61 93 Nasal Cannula 2.0 06/20/17 08:17 75 06/20/17 07:25 78 22 99/64 95 Nasal Cannula 2.0 06/20/17 06:06 89 22 95 06/20/17 06:00 119/69 06/20/17 05:51 97 22 94 06/20/17 05:36 87 13 95 06/20/17 05:31 96 19 112/51 94 06/20/17 05:16 80 15 95 06/20/17 05:01 69 13 93 06/20/17 05:00 117/68 06/20/17 04:46 87 24 06/20/17 04:39 79 06/20/17 04:31 77 28 122/72 94 06/20/17 04:30 36.3 78 17 126/78 94 Room Air 06/20/17 04:22 97 Room Air 06/20/17 04:22 126/78 Physical Exam GENERAL: Patient cooperates poorly with exam, well appearing, well nourished, no distress, non-toxic EYE EXAM: normal conjunctiva, PERRL and EOM's grossly intact OROPHARYNX: no exudate, no erythema, lips, buccal mucosa, and tongue normal and mucous membranes are dry. NECK: supple, no nuchal rigidity, no adenopathy, non-tender LUNGS: Clear to auscultation. Normal chest wall mechanics HEART: no murmurs, S1 normal and S2 normal ABDOMEN: abdomen soft, non-tender, normo-active bowel sounds, no masses, no rebound or guarding. BACK: Back is symmetrical on inspection and there is no deformity, no midline tenderness, no CVA tenderness. SKIN: no rashes and no bruising UPPER EXTREMITIES: Left forearm with area of old wounds that are scabbed over. One wound reopened, though bleeding controlled. LOWER EXTREMITIES: Bilateral 2+ pedal edema. Legs in chelly wraps bilaterally. NEURO EXAM: Normal sensorium, cranial nerves II-XII grossly intact, normal speech, no gross weakness of arms, no gross weakness of legs. Medical Decision & Procedures ER Provider Diagnostic Interpretation: One View Chest X-ray interpreted by me: Cardiomegaly. Pacemaker noted. Sternotomy wires noted. No effusions. No focal infiltrate. No wide mediastinum. Patient rotated. Unchanged compared to prior. CT SCAN OF THE BRAIN WITHOUT IV CONTRAST CLINICAL HISTORY: Change in mental status. COMPARISON STUDY: CT of the brain dated 05/31/2017. TECHNIQUE: Unenhanced axial CT scan of the brain is performed from the vertex to the skull base. A dose lowering technique was utilized adhering to the principles of ALARA. CT DOSE: 959.17 mGy.cm FINDINGS: Brain parenchyma: There are age-related involutional changes noting moderate subcortical and periventricular microangiopathic change. There is no hemorrhage, mass effect, or evidence of acute territorial ischemia by CT criteria. Rodriguez-white matter is preserved. No extra-axial fluid collection is seen. Ventricles, sulci, cisterns: Prominent secondary to involutional change. Intracranial vasculature: There is atherosclerotic calcification of the cavernous carotid and vertebral arteries. Calvarium: Unremarkable. Sinuses and mastoids: Trace mucosal thickening is seen in the right maxillary antrum. Mild mucosal thickening is also identified in the right sphenoid sinus. The remaining visualized paranasal sinuses are clear. The mastoid air cells are well pneumatized. Orbits: The bony orbits are grossly intact. There are bilateral ocular lens implants. IMPRESSION: Senescent changes as above with no hemorrhage, mass effect, or evidence of acute territorial ischemia by CT criteria. Electronically signed by: Daniel Mitchell M.D. 06/20/2017 6:56 AM Dictated Date/Time: 06/20/2017 6:54 AM [~ rep ct add3]] CT SCAN OF THE ABDOMEN AND PELVIS WITHOUT IV CONTRAST CLINICAL HISTORY: Left lower quadrant abdominal pain. COMPARISON STUDY: Abdominal CT dated 05/31/2017. TECHNIQUE: CT scan of the abdomen and pelvis is performed from the lung bases to the proximal femora. Images are reviewed in the axial, sagittal, and coronal planes. IV contrast was not administered for this examination as per the referring clinician. Note that the examination was performed in significantly suboptimal fashion without oral and IV contrast. The examination is also degraded by motion artifact, as well as by streak artifact from the patient's arms which could not be elevated above the abdomen. A dose lowering technique was utilized adhering to the principles of ALARA. CT DOSE: Reported separately under the concurrently performed CT scan of the brain. FINDINGS: Lung bases: The patient is status post midline sternotomy. Pacemaker leads are noted. The heart is markedly enlarged and without pericardial effusion. There are small to moderate pleural effusions with associated atelectasis. Liver: The unenhanced liver is normal in size, contour, and attenuation. There is no intrahepatic biliary ductal dilatation. Numerous calcified granulomas are identified. Gallbladder: Calcified gallstones are identified. There is no CT evidence of acute cholecystitis. Spleen: Normal in size and attenuation. There are numerous calcified splenic granulomas. Pancreas: The unenhanced pancreas is atrophic and grossly unremarkable. Adrenal glands: Unremarkable. Kidneys: The unenhanced kidneys are atrophic and without hydronephrosis. There are no renal calculi identified. Large exophytic cyst arises from the lower pole of the right kidney. These measure up to 10 cm. Additional smaller cysts and indeterminant renal lesions also likely represent a combination of simple and complex cysts when correlated with prior examinations. Abdominal vasculature: The abdominal aorta is normal in course and caliber noting advanced atherosclerotic calcification. Bowel: There is advanced colonic diverticulosis without CT evidence of acute diverticulitis. No bowel obstruction is seen. The appendix is not identified and reported surgically absent. Peritoneum: There is a small volume of abdominopelvic ascites. No intraperitoneal free air is seen. Lymphadenopathy: None. Pelvic viscera: The prostate gland is mildly enlarged and heterogeneous. The bladder wall appears mildly thickened and trabeculated suggesting chronic outlet obstruction. There is a small fat-containing left inguinal hernia. Skeletal structures: The skeletal structures are osteopenic. No lytic or blastic lesions are seen. Soft tissues: There is body wall edema. IMPRESSION: 1. Suboptimal examination without oral and IV contrast. The examination is also significantly degraded by streak and motion artifact. 2. There are no acute infectious or inflammatory findings in the abdomen or pelvis. 3. There are small to moderate pleural effusions with associated atelectasis. These have increased in size from 05/31/2017. 4. There is body wall edema as well as a small volume of abdominopelvic ascites. This is new from previous. 5. Cholelithiasis without CT evidence of acute cholecystitis. If there is clinical concern for cholecystitis ultrasound should be considered. 6. Marked cardiomegaly. 7. Advanced colonic diverticulosis without CT evidence of acute diverticulosis. 8. Additional findings as above. Electronically signed by: Daniel Mitchell M.D. 06/20/2017 7:04 AM Dictated Date/Time: 06/20/2017 6:57 AM Laboratory Results 06/20/17 06:08 Red Blood Count 3.37, Mean Corpuscular Volume 105.9, Mean Corpuscular Hemoglobin 31.5, Mean Corpuscular Hemoglobin Concent 29.7, Mean Platelet Volume 10.4, Neutrophils (%) (Auto) 75.7, Lymphocytes (%) (Auto) 10.8, Monocytes (%) ( Auto) 11.9, Eosinophils (%) (Auto) 1.0, Basophils (%) (Auto) 0.3, Neutrophils # (Auto) 4.72, Lymphocytes # (Auto) 0.67, Monocytes # (Auto) 0.74, Eosinophils # ( Auto) 0.06, Basophils # (Auto) 0.02 06/20/17 06:08 Test 06/20/17 06:08 06/20/17 07:00 White Blood Count 6.23 K/uL (4.8-10.8) Red Blood Count 3.37 M/uL (4.7-6.1) Hemoglobin 10.6 g/dL (14.0-18.0) Hematocrit 35.7 % (42-52) Mean Corpuscular Volume 105.9 fL (80-100) Mean Corpuscular Hemoglobin 31.5 pg (25-34) Mean Corpuscular Hemoglobin Concent 29.7 g/dl (32-36) Platelet Count 258 K/uL (130-400) Mean Platelet Volume 10.4 fL (7.4-10.4) Neutrophils (%) (Auto) 75.7 % Lymphocytes (%) (Auto) 10.8 % Monocytes (%) (Auto) 11.9 % Eosinophils (%) (Auto) 1.0 % Basophils (%) (Auto) 0.3 % Neutrophils # (Auto) 4.72 K/uL (1.4-6.5) Lymphocytes # (Auto) 0.67 K/uL (1.2-3.4) Monocytes # (Auto) 0.74 K/uL (0.11-0.59) Eosinophils # (Auto) 0.06 K/uL (0-0.5) Basophils # (Auto) 0.02 K/uL (0-0.2) RDW Standard Deviation 62.6 fL (36.4-46.3) RDW Coefficient of Variation 16.2 % (11.5-14.5) Immature Granulocyte % (Auto) 0.3 % Immature Granulocyte # (Auto) 0.02 K/uL (0.00-0.02) Prothrombin Time 14.2 SECONDS (9.0-12.0) Prothromb Time International Ratio 1.4 (0.9-1.1) Anion Gap 7.0 mmol/L (3-11) Est Creatinine Clear Calc Drug Dose 25.1 ml/min Estimated GFR () 30.9 Estimated GFR (Non- 26.7 BUN/Creatinine Ratio 25.5 (10-20) Lactic Acid Level 1.6 mmol/L (0.4-2.0) Calcium Level 8.5 mg/dl (8.5-10.1) Magnesium Level 2.6 mg/dl (1.8-2.4) Total Bilirubin 1.1 mg/dl (0.2-1) Aspartate Amino Transf (AST/SGOT) 14 U/L (15-37) Alanine Aminotransferase (ALT/SGPT) 16 U/L (12-78) Alkaline Phosphatase 146 U/L (45-117) Troponin I < 0.015 ng/ml (0-0.045) Total Protein 6.3 gm/dl (6.4-8.2) Albumin 2.8 gm/dl (3.4-5.0) Globulin 3.5 gm/dl (2.5-4.0) Albumin/Globulin Ratio 0.8 (0.9-2) Lipase 117 U/L (73-393) Thyroid Stimulating Hormone (TSH) 1.920 uIu/ml (0.300-4.500) Urine Color DK YELLOW Urine Appearance CLEAR (CLEAR) Urine pH 5.0 (4.5-7.5) Urine Specific [place] 1.023 (1.000-1.030) Urine Protein TRACE (NEG) Urine Glucose (UA) NEG (NEG) Urine Ketones TRACE (NEG) Urine Occult Blood NEG (NEG) Urine Nitrite NEG (NEG) Urine Bilirubin NEG (NEG) Urine Urobilinogen NEG (NEG) Urine Leukocyte Esterase TRACE (NEG) Urine WBC (Auto) 1-5 /hpf (0-5) Urine RBC (Auto) 0-4 /hpf (0-4) Urine Hyaline Casts (Auto) 5-10 /lpf (0-5) Urine Epithelial Cells (Auto) 0-5 /lpf (0-5) Urine Bacteria (Auto) NEG (NEG) Laboratory results per my review. Medications Administered Medications (Trade) Dose Ordered Sig/Kojo Route Start Time Stop Time Status Last Admin Dose Admin Sodium Chloride 1,000 ml @ 125 mls/hr Q8H STAT IV 06/20/17 05:46 06/20/17 11:00 DC 1/1/18 07:22 125 MLS/HR Ondansetron HCl (Zofran Inj) 4 mg Q6H PRN IV 06/20/17 09:15 07/20/17 09:14 06/20/17 14:08 4 MG ECG Indication: weakness Rate (beats per minute): 96 Rhythm: atrial fibrillation Findings: T-wave inversion (2, 3, AVF, V6 and V6), other (Occasional pacing. Normal axis. ) ED Course 0518: The patient was evaluated in room B2. A complete history and physical exam was performed. 0546: Ordered Sodium Chloride 1000 ml @ 125 mls/hr IV. 0740: Significant bedside discussion with family regarding all of patient's results and assuring proper plan. While in their I tried to wean patient down off oxygen as he does not wear oxygen at home. Patient's oxygen saturations dropped to 87%. Patient still intermittently with episodes of what appear to be restlessness and agitation. No evidence of acute pathology seen. Family and comfortable with him returning home at this time. He was previously arranged for PT/OT/home nursing aides. Family does have paperwork that shows the daughter is the power of casing grader and that the patient is DO NOT RESUSCITATE and DO NOT INTUBATE. Medical Decision Differential diagnosis: Etiologies such as metabolic, infection, hypo/hyperglycemia, electrolyte abnormalities, cardiac sources, intracerebral event, toxicologic, neurologic, as well as others were entertained. Patient with complicated medical history and cognitive decline in recent months according to family. Discussed with son and daughter at bedside at length on several occasions patient's condition and possible congestive leading factors. They feel the patient has been declining over since the of his last July. Patient here appeared clinically dehydrated and was started on IV fluids, this seems most likely due to decreased oral intake is reported by patient's family. Patient with mildly worse renal function compared to prior baselines is chronic kidney disease, again most likely secondary to dehydration , no evidence of urinary tract infection or obstructive uropathy on CT. Doubt bacteremia/sepsis. Patient here intermittently with hypoxic episodes with sats noted to 87%. Patient kept on oxygen by nasal cannula as a precaution. No obvious increased work of breathing, doubt PE given patient's daily anticoagulation, no evidence of pneumonia, no fever changing coughed otherwise suggest COPD exacerbation. Possible related to worsening COPD given age, versus early infectious etiology. Patient was not requiring additional respiratory support in the emergency room. Concern given the patient lives at home with family for ability to continue helping patient with ADLs. I feel patient has a component of failure to thrive, likely due to combination of age, multiple comorbidities, as well as possible component of depression. No hx of etoh abuse. No hx of hypercapneic resp failure. Pt taking pantoprazole daily per family, I feel less likely PUD due to this, however at risk of GI bleed from several sources due to anticoagulation and age. Medication Reconcilliation Current Medication List: was personally reviewed by me Blood Pressure Screening Patient's blood pressure: Normal blood pressure Blood pressure disposition: Did not require urgent referral Consults Time Called: [phone] Consulting Physician: Dr. Reyna Returned Call: [phone] Discussed case for additional evaluation. Impression Primary Impression: Generalized weakness Additional Impressions: Change in mental status Ambulatory dysfunction Chronic kidney disease, stage 3 (moderate) Hypoxia COPD (chronic obstructive pulmonary disease) Scribe Attestation The scribe's documentation has been prepared under my direction and personally reviewed by me in its entirety. I confirm that the note above accurately reflects all work, treatment, procedures, and medical decision making performed by me. Departure Information Dispostion Being Evaluated By Hospitalist Referrals Dillan Acevedo M.D. (PCP) Patient Instructions [facility] Health Problem Qualifiers Additional Impressions: Change in mental status Altered mental status type: unspecified Qualified Codes: R41.82 - Altered mental status, unspecified COPD (chronic obstructive pulmonary disease) COPD type: unspecified COPD Qualified Codes: J44.9 - Chronic obstructive pulmonary disease, unspecified
[2017-06-20] MEDS ORDERED: ONDANSETRON INJ 2 MG/ML 2 ML VIAL IV PRN (09:15)
[2017-06-20] MEDS ORDERED: MAGNESIUM HYDROXIDE SUSP 30 ML UDC PO PRN (09:15)
[2017-06-20] MEDS ORDERED: SODIUM CHLORIDE 0.9% 500ML 500 ML IV SCH (09:15)
[2017-06-20] MEDS ORDERED: ALBUTEROL HFA 8 GM INHALER INH PRN (09:15)
[2017-06-20] MEDS ORDERED: ALUMINUM/MAGNESIUM/SIMETH (MAALOX MAX) 30 ML UDC PO PRN (09:15)
[2017-06-20] MEDS ORDERED: POLYETHYLENE (MIRALAX) 17 GM PACK PO PRN (09:15)
[2017-06-20] MEDS ORDERED: ACETAMINOPHEN 325 MG TAB PO PRN (09:15)
--- NOTE | 2017-06-20 10:02 | History and Physical ---
History & Physical Date & Time of Service: Jun 20, 2017 at 09:26 Chief Complaint: Bleeding Primary Care Physician: Dillan Acevedo M.D. History of Present Illness Source: patient, family (son and daughter at bedside), clinic records, hospital records This is an 86 y/o male with a history of CAD, h/o WI, CABG x 4 (2012), a-fib, s/ p pacemaker, HTN, HLD, mixed CHF, COPD, CKD stage IV, DM II, hypothyroidism, and depression who presented to the ED on 06/20 with generalized weakness, shortness of breath and altered mental status. The patient had recently been admitted to [facility] for rehab following several falls in the home and had been discharge just one day prior to arrival (06/19). Per son and daughter, the patient had more difficulty walking upon returning home than he had while at [facility]. He was very agitated and restless as well as confused. Last night, the patient had been complaining of shortness of breath, and he has had a wet but non-productive cough for the last few days. The patient admits to some intermittent wheezing. Last night he had also been complaining of abdominal pain and nausea, but state that these are now resolved. Per family he has been having loose stools. His daughter had found what looked like some very dark blood on his toilet seat last night. The patient had opened a skin tear on his LUE while agitated, leaving lots of blood on his bed. The patient is on Eliquis and Plavix. The patient denies fevers, chills, sweats, chest pain , palpitations, claudication, shortness of breath, nausea, vomiting, abdominal pain, dysuria, hematuria, urinary retention, paralysis, motor weakness, numbness and tingling. Past Medical/Surgical History Medical Problems: (1) Anemia Status: Chronic (2) CAD (coronary artery disease) Status: Chronic (3) Chronic kidney disease Status: Chronic (4) COPD (chronic obstructive pulmonary disease) Status: Chronic (5) Depressive disorder Status: Chronic (6) Diabetes mellitus Status: Chronic (7) History of atrial fibrillation Status: Resolved (8) History of stomach ulcers Status: Resolved (9) HTN (hypertension) Status: Chronic (10) Hypercholesteremia Status: Chronic (11) Hypothyroidism Status: Chronic (12) Sleep apnea Status: Chronic Mixed CHF S/p CABG x 4 in 2013 H/o [place] Surgical Problems: (1) H/O total knee replacement Status: Resolved (2) History of lumbar surgery Status: Resolved (3) History of permanent cardiac pacemaker placement Status: Resolved (4) Hx of CABG Status: Resolved Family History Patient reports no known family medical history. Non-contributory secondary to age Social History Smoking Status: Former Smoker Smokeless Tobacco Use: No Alcohol Use: occasionally (very rare, once a year) Drug Use: none Marital Status: Housing status: lives with family (with son) Occupational Status: retired Immunizations History of Influenza Vaccine: Yes Influenza Vaccine Date: May 06, 2005 History of Tetanus Vaccine?: Yes Tetanus Immunization Date: Nov 30, 2005 History of Pneumococcal: Yes History of Hepatitis B Vaccine: No Multi-Drug Resistant Organisms History of MDRO: No Allergies Coded Allergies: Zolpidem (Verified Allergy, Severe, altered mental status, 06/20/17) Warfarin (Verified Allergy, Intermediate, PT CAN TAKE BRAND COUMADIN, ) GOT HIVES AND SWELLING WITH WARFARIN (GENERIC BRAND) Simvastatin (Verified Adverse Reaction, Mild, GI UPSET, 06/20/17) Statins (Verified Adverse Reaction, Unknown, FALLS, 06/20/17) Home Medications Scheduled Apixaban (Eliquis), 2.5 MG PO BID Carvedilol (Coreg), 12.5 MG PO BID Cholecalciferol (Vitamin D), 2,000 UNIT PO DAILY Clopidogrel Bisulfate (Plavix), 75 MG PO QAM Digoxin (Digoxin), 125 MCG PO Q2D Fluticasone Prop/Salmeterol (Advair Diskus 250/50 60 Dose), 1 PUFF INH Q12 Furosemide (Lasix), 20 MG PO DAILY Levothyroxine Sodium (Levothyroxine Sodium), 1 TAB PO DAILY Multivitamins/Minerals (Mvi With Minerals), 1 TAB PO BID Pantoprazole (Pantoprazole Sodium), 40 MG PO Q2D@0900 Senna/Docusate Sod (Senokot S), 1 TAB PO DAILY Sertraline (Zoloft), 100 MG PO DAILY Scheduled PRN Albuterol Hfa (Ventolin Hfa), 2 PUFFS INH Q4 PRN for Shortness of Breath Nitroglycerin (Nitrostat), 0.4 MG SL UD PRN Review of Systems Constitutional: No fever, No chills, No sweats Eyes: No worsening of vision, No eye pain, No diplopia ENT: No hearing loss, No nasal symptoms, No trouble swallowing Respiratory: +Cough, wheezing. No shortness of breath Cardiovascular: No chest pain, No claudication, No palpitations Abdomen/GI: +Possible melena. No pain, No nausea, No vomiting Musculoskeletal: No joint pain, No muscle pain, No swelling Genitourinary - Male: No dysuria, No urinary retention, No hematuria Neurologic: No paralysis, No weakness, No numbness/tingling Integumentary: No rash, No itch, No color change Physical Exam Vital Signs Date Time Temp Pulse Resp B/P (MAP) Pulse Ox O2 Delivery O2 Flow Rate FiO2 06/20/17 08:56 77 22 114/61 93 Nasal Cannula 2.0 06/20/17 08:17 75 06/20/17 07:25 78 22 99/64 95 Nasal Cannula 2.0 06/20/17 06:06 89 22 95 06/20/17 06:00 119/69 06/20/17 05:51 97 22 94 06/20/17 05:36 87 13 95 06/20/17 05:31 96 19 112/51 94 06/20/17 05:16 80 15 95 06/20/17 05:01 69 13 93 06/20/17 05:00 117/68 06/20/17 04:46 87 24 06/20/17 04:39 79 06/20/17 04:31 77 28 122/72 94 06/20/17 04:30 36.3 78 17 126/78 94 Room Air 06/20/17 04:22 97 Room Air 06/20/17 04:22 126/78 General appearance: +Lethargic. Well-developed, well-nourished, no apparent distress Head: Normocephalic, atraumatic Eyes: Normal inspection, PERRL, EOMI ENT: Normal ENT inspection, hearing grossly normal, pharynx normal Neck: Supple, no JVD, trachea midline Respiratory/Chest: Lungs clear to auscultation, normal breath sounds, no respiratory distress Cardiovascular: +Irregularly irregular, rate controlled. No gallop, no murmur Abdomen/GI: Normal bowel sounds, non-tender, soft Extremities/Musculoskeletal: +1+ pitting pedal edema. Normal inspection, no calf tenderness Neurological/Psych: +Lethargic but easily roused. Disoriented to place and time. Normal mood/affect, oriented x 1 Skin: Normal color, warm/dry, no rash Diagnostics Laboratory Results Results Past 24 Hours Test 06/20/17 06:08 06/20/17 07:00 Range/Units White Blood Count 6.23 4.8-10.8 K/uL Red Blood Count 3.37 4.7-6.1 M/uL Hemoglobin 10.6 14.0-18.0 g/dL Hematocrit 35.7 42-52 % Mean Corpuscular Volume 105.9 80-100 fL Mean Corpuscular Hemoglobin 31.5 25-34 pg Mean Corpuscular Hemoglobin Concent 29.7 32-36 g/dl Platelet Count 258 130-400 K/uL Mean Platelet Volume 10.4 7.4-10.4 fL Neutrophils (%) (Auto) 75.7 % Lymphocytes (%) (Auto) 10.8 % Monocytes (%) (Auto) 11.9 % Eosinophils (%) (Auto) 1.0 % Basophils (%) (Auto) 0.3 % Neutrophils # (Auto) 4.72 1.4-6.5 K/uL Lymphocytes # (Auto) 0.67 1.2-3.4 K/uL Monocytes # (Auto) 0.74 0.11-0.59 K/uL Eosinophils # (Auto) 0.06 0-0.5 K/uL Basophils # (Auto) 0.02 0-0.2 K/uL RDW Standard Deviation 62.6 36.4-46.3 fL RDW Coefficient of Variation 16.2 11.5-14.5 % Immature Granulocyte % (Auto) 0.3 % Immature Granulocyte # (Auto) 0.02 0.00-0.02 K/uL Prothrombin Time 14.2 9.0-12.0 SECONDS Prothromb Time International Ratio 1.4 0.9-1.1 Sodium Level 144 136-145 mmol/L Potassium Level 4.6 3.5-5.1 mmol/L Chloride Level 107 98-107 mmol/L Carbon Dioxide Level 30 21-32 mmol/L Anion Gap 7.0 3-11 mmol/L Blood Urea Nitrogen 56 7-18 mg/dl Creatinine 2.19 0.60-1.40 mg/dl Est Creatinine Clear Calc Drug Dose 25.1 ml/min Estimated GFR () 30.9 Estimated GFR (Non- 26.7 BUN/Creatinine Ratio 25.5 10-20 Random Glucose 67 70-99 mg/dl Lactic Acid Level 1.6 0.4-2.0 mmol/L Calcium Level 8.5 8.5-10.1 mg/dl Magnesium Level 2.6 1.8-2.4 mg/dl Total Bilirubin 1.1 0.2-1 mg/dl Aspartate Amino Transf (AST/SGOT) 14 15-37 U/L Alanine Aminotransferase (ALT/SGPT) 16 12-78 U/L Alkaline Phosphatase 146 45-117 U/L Troponin I < 0.015 0-0.045 ng/ml Total Protein 6.3 6.4-8.2 gm/dl Albumin 2.8 3.4-5.0 gm/dl Globulin 3.5 2.5-4.0 gm/dl Albumin/Globulin Ratio 0.8 0.9-2 Lipase 117 73-393 U/L Thyroid Stimulating Hormone (TSH) 1.920 0.300-4.500 uIu/ml Urine Color DK YELLOW Urine Appearance CLEAR CLEAR Urine pH 5.0 4.5-7.5 Urine Specific [place] 1.023 1.000-1.030 Urine Protein TRACE NEG Urine Glucose (UA) NEG NEG Urine Ketones TRACE NEG Urine Occult Blood NEG NEG Urine Nitrite NEG NEG Urine Bilirubin NEG NEG Urine Urobilinogen NEG NEG Urine Leukocyte Esterase TRACE NEG Urine WBC (Auto) 1-5 0-5 /hpf Urine RBC (Auto) 0-4 0-4 /hpf Urine Hyaline Casts (Auto) 5-10 0-5 /lpf Urine Epithelial Cells (Auto) 0-5 0-5 /lpf Urine Bacteria (Auto) NEG NEG Diagnostic Radiology Reviewed the following studies and agree with interpretation as follows: CXR reviewed, upon my interpretation there is cardiomegaly, pacemaker in left chest noted CT SCAN OF THE BRAIN WITHOUT IV CONTRAST CLINICAL HISTORY: Change in mental status. COMPARISON STUDY: CT of the brain dated 05/31/2017. TECHNIQUE: Unenhanced axial CT scan of the brain is performed from the vertex to the skull base. A dose lowering technique was utilized adhering to the principles of ALARA. CT DOSE: 959.17 mGy.cm FINDINGS: Brain parenchyma: There are age-related involutional changes noting moderate subcortical and periventricular microangiopathic change. There is no hemorrhage, mass effect, or evidence of acute territorial ischemia by CT criteria. Rodriguez-white matter is preserved. No extra-axial fluid collection is seen. Ventricles, sulci, cisterns: Prominent secondary to involutional change. Intracranial vasculature: There is atherosclerotic calcification of the cavernous carotid and vertebral arteries. Calvarium: Unremarkable. Sinuses and mastoids: Trace mucosal thickening is seen in the right maxillary antrum. Mild mucosal thickening is also identified in the right sphenoid sinus. The remaining visualized paranasal sinuses are clear. The mastoid air cells are well pneumatized. Orbits: The bony orbits are grossly intact. There are bilateral ocular lens implants. IMPRESSION: Senescent changes as above with no hemorrhage, mass effect, or evidence of acute territorial ischemia by CT criteria. CT SCAN OF THE ABDOMEN AND PELVIS WITHOUT IV CONTRAST CLINICAL HISTORY: Left lower quadrant abdominal pain. COMPARISON STUDY: Abdominal CT dated 05/31/2017. TECHNIQUE: CT scan of the abdomen and pelvis is performed from the lung bases to the proximal femora. Images are reviewed in the axial, sagittal, and coronal planes. IV contrast was not administered for this examination as per the referring clinician. Note that the examination was performed in significantly suboptimal fashion without oral and IV contrast. The examination is also degraded by motion artifact, as well as by streak artifact from the patient's arms which could not be elevated above the abdomen. A dose lowering technique was utilized adhering to the principles of ALARA. CT DOSE: Reported separately under the concurrently performed CT scan of the brain. FINDINGS: Lung bases: The patient is status post midline sternotomy. Pacemaker leads are noted. The heart is markedly enlarged and without pericardial effusion. There are small to moderate pleural effusions with associated atelectasis. Liver: The unenhanced liver is normal in size, contour, and attenuation. There is no intrahepatic biliary ductal dilatation. Numerous calcified granulomas are identified. Gallbladder: Calcified gallstones are identified. There is no CT evidence of acute cholecystitis. Spleen: Normal in size and attenuation. There are numerous calcified splenic granulomas. Pancreas: The unenhanced pancreas is atrophic and grossly unremarkable. Adrenal glands: Unremarkable. Kidneys: The unenhanced kidneys are atrophic and without hydronephrosis. There are no renal calculi identified. Large exophytic cyst arises from the lower pole of the right kidney. These measure up to 10 cm. Additional smaller cysts and indeterminant renal lesions also likely represent a combination of simple and complex cysts when correlated with prior examinations. Abdominal vasculature: The abdominal aorta is normal in course and caliber noting advanced atherosclerotic calcification. Bowel: There is advanced colonic diverticulosis without CT evidence of acute diverticulitis. No bowel obstruction is seen. The appendix is not identified and reported surgically absent. Peritoneum: There is a small volume of abdominopelvic ascites. No intraperitoneal free air is seen. Lymphadenopathy: None. Pelvic viscera: The prostate gland is mildly enlarged and heterogeneous. The bladder wall appears mildly thickened and trabeculated suggesting chronic outlet obstruction. There is a small fat-containing left inguinal hernia. Skeletal structures: The skeletal structures are osteopenic. No lytic or blastic lesions are seen. Soft tissues: There is body wall edema. IMPRESSION: 1. Suboptimal examination without oral and IV contrast. The examination is also significantly degraded by streak and motion artifact. 2. There are no acute infectious or inflammatory findings in the abdomen or pelvis. 3. There are small to moderate pleural effusions with associated atelectasis. These have increased in size from 05/31/2017. 4. There is body wall edema as well as a small volume of abdominopelvic ascites. This is new from previous. 5. Cholelithiasis without CT evidence of acute cholecystitis. If there is clinical concern for cholecystitis ultrasound should be considered. 6. Marked cardiomegaly. 7. Advanced colonic diverticulosis without CT evidence of acute diverticulosis. 8. Additional findings as above. EKG Reviewed EKG and agree with interpretation as follows: 96 bpm, a-fib, V4-V6 T wave inversions Impression Assessment and Plan 86 y/o male with a history of CAD, h/o WI, CABG x 4 (2012), a-fib, s/p pacemaker , HTN, HLD, mixed CHF, COPD, CKD stage IV, DM II, hypothyroidism, and depression who presented to the ED on 06/20 with generalized weakness, shortness of breath and altered mental status. Pt hypoxic on room air at 88%, up to 95% on 2L. Vital signs otherwise stable. Head CT shows no acute disease, CXR grossly unremarkable. Abdomen/pelvis CT shows small to moderate bilateral pleural effusions which appear increased from prior study (05/31/17), as well as interval development of body wall edema and small amount of ascites. EKG shows lateral TWI, pt denies chest pain and troponin negative. Generalized weakness, altered mental status--pt confused yesterday per family -Admit to med/surg -Check VBG, B12, folate, ammonia level due to lethargy/confusion -Check ESR, CRP and rapid flu. UA clean, no other obvious source of infection to cause possible metabolic encephalopathy -PT/OT evaluate and treat Possible melena, h/o duodenal ulcer around [id number]--daughter reports some dark blood on toilet seat, no actual bloody stools/confirmed melena seen -No endoscopy since last duodenal ulcer -Convert Protonix to Prevacid Solutab 15 mg PO qd as pt not tolerating Protonix well -Continue to monitor for further signs of GI bleed. Does not appear to be hemorrhaging, Hgb stable SHOAIB on CKD stage IV--baseline creatinine around 1.7-1.9 -Creatinine 2.19, BUN 56 on admission -Received maintenance fluids in ED, will hold off on further fluids for now given worsening pleural effusions and EF 35-40% -Hold Lasix for now, continue to monitor CAD, h/o CABG, HTN, HLD, a-fib--stable, rate controlled -Continue Plavix, Eliquis 2.5 mg PO BID, Coreg 12.5 mg PO BID, digoxin 125 mcg PO q2d Possible mild exacerbation of mixed systolic/diastolic CHF--pleural effusions mildly increased on CT, hypoxic -Lasix on hold due to SHOAIB. Stop IVF -Monitor I's & O's, daily weights. If having positive fluid balance, consider resuming Lasix COPD--no exacerbation, no wheezing on exam -O2 by protocol -Continue Advair BID, albuterol prn DM II--last HgbA1c checked 04/07/17 was 6.0 -Diet controlled, pt hypoglycemic on arrival -Monitor BSG qd for now, unlikely will need ISS Hypothyroidism -Continue Synthroid 150 mcg PO qd -TSH WNL on admission Depression -Continue Zoloft 100 mg PO qd DVT prophylaxis -Eliquis -JOSIE amne and SCDs Code Status -Level V, DO NOT RESUSCITATE Level of Care Med/Surg Resuscitation Status DO NOT RESUSCITATE VTE Prophylaxis VTE Risk Assessment Done? Y/N: Yes Risk Level: Moderate Given or contraindicated: Other Anticoagulation (Eliquis), T.E.D. Stockings, SCD's Note Attending Admission Note & Attestation: Pt seen/examined, chart reviewed, care plan d/w TATI Freeman. I agree w/ the gilliam components of her admission documentation except - JVD and wheezes were present on my exam. 86yo male with h/o chronic systolic/diastolic CHF, a. fib on anticoagulation, CKD stage 4, COPD, T2DM and recent [facility] rehab stay due to falls & ambulatory dysfunction who presented with cough, dyspnea, lethargy/mental status change, and simply not doing well. Pt was just released by [facility] yesterday am and returned home with family. He did poorly upon arrival home with the above issues. Son, who was at bedside during my assessment, reports his father's lasix had been held for several weeks due to rise in creatinine. ER physician reported that while awaiting admission the patient's o2 sats dropped to <88% in room air and O2 was applied. PMH, PSH, allergies, meds, sochx, famhx, ros - reviewed vitals - afebrile, O2 requirement (mild), VSS otherwise gen - thin, sleepy but arouses, NAD neck - JVD to the jaw mouth - MM slightly dry, thrush plaques on buccal mucosa chest - barrel in appearance; pacer device left upper chest heart - irregular, s1, s2 lungs - wheezes b/l, decreased BS both bases, no increased WOB abd - soft, NT, no HSM ext - no edema, pulses 1+ b/l at best labs - ammonia 52 pH 7.33 pCO2 55 glucose 60s creatinine 2.1 total bili 1.1 cxr - pulmonary edema CT abd/pelvis - ascites, body wall edema A/P: 1. acute hypoxic/hypercarbic resp failure likely 2nd to worsening CHF & COPD 2. metabolic encephalopathy - likely multifactorial - 2nd to elevated ammonia levels +/- hypoglycemia + hypercarbia 3. acute/chronic systolic/diastolic CHF 4. hypoglycemia likely due to poor oral intake 5. failure to thrive 6. hepatic encephalopathy - suspect due to hepatic congestion from CHF BIPAP for #1 lactulose for #6 glucose for #4 lasix IV for #3 repeat labs in am nystatin for nichol son updated will need PT, OT once again when able to participate Dino Reyna MD Additional Copies To Dillan Acevedo M.D.
[2017-06-20 10:42] VITALS: BP 108/65; PULSE 103; TEMP 36.5; O2SAT 90; BMI 20.5
[2017-06-20] MEDS ORDERED: LACTULOSE SYRUP 30 GM/45 ML UDP PO STA (11:14)
[2017-06-20] MEDS ORDERED: LANSOPRAZOLE SOLUTAB 15 MG PO ONE (11:14)
[2017-06-20] MEDS ORDERED: GLUCAGON FOR INJ 1 MG VIAL SQ PRN (11:15)
[2017-06-20] MEDS ORDERED: DEXTROSE 50% 50 ML SYR IV PRN (11:15)
[2017-06-20] MEDS ORDERED: GLUCOSE 10 TABS/TUBE PO PRN (11:15)
[2017-06-20] MEDS ORDERED: GLUCOSE 40% GEL 15 GM TUBE PO PRN (11:15)
--- NOTE | 2017-06-20 11:26 | DIAGNOSTIC IMAGING REPORT ---
SINGLE VIEW CHEST CLINICAL HISTORY: Generalized weakness. FINDINGS: An AP, portable, upright chest radiograph is compared to study dated 05/31/2017. The examination is degraded by portable technique and patient rotation. A 2-lead cardiac AICD is unchanged in position and partially obscures the left upper chest. The patient is status post midline sternotomy. The heart is enlarged and there is atherosclerotic calcification of the thoracic ureter. There is evidence of congestive failure with mild interstitial edema. Small pleural effusions are identified and there is bibasilar atelectasis. No pneumothorax is seen. The skeletal structures are osteopenic. The bony thorax is grossly intact. IMPRESSION: 1. Cardiomegaly and AICD. There is evidence of congestive failure and mild interstitial edema. 2. Small pleural effusions are noted. Electronically signed by: Daniel Mitchell M.D. 06/20/2017 11:24 AM Dictated Date/Time: 06/20/2017 11:23 AM
[2017-06-20 12:13] VITALS: PULSE 76; O2SAT 90
[2017-06-20] MEDS ORDERED: LACTULOSE SYRUP 30 GM/45 ML UDP PO SCH (14:00)
[2017-06-20 15:19] VITALS: BP 108/66; PULSE 107; TEMP 36.6; O2SAT 91
[2017-06-20] MEDS ORDERED: FUROSEMIDE INJ 20 MG in SYRINGE 0 ML IV ONE (16:15)
[2017-06-20] MEDS: NYSTATIN SUSP 500,000 U/5 ML UDC PO SCH ×2 (16:48→21:30)
[2017-06-20] MEDS: DIGOXIN 0.125 MG TAB PO SCH (16:48)
[2017-06-20] MEDS: DEXTROSE 5% 500ML 500 ML IV SCH (18:51)
[2017-06-20] MEDS: CARVEDILOL 12.5 MG TAB PO SCH (21:29)
[2017-06-20] MEDS: FLUTICASONE/SALMETEROL 250/50 (ADVAIR) 14 PUFF/1 INHALER INH SCH (21:29)
[2017-06-20] MEDS: APIXABAN 2.5 MG TAB PO SCH (21:30)
[2017-06-20 21:55] VITALS: PULSE 109; O2SAT 97
[2017-06-20 23:28] VITALS: BP 102/57; PULSE 90; TEMP 36.3; O2SAT 93
[2017-06-21] VITALS (8 sets, daily range): BP systolic 93–105; BP diastolic 50–64; PULSE 60–111; TEMP 36.5–36.9; O2SAT 93–96; Ht 185.4 cm; Wt 69.2 kg
[2017-06-21] MEDS: LEVOTHYROXINE 150 MCG TAB PO SCH (06:08)
[2017-06-21 06:51] LABS: INFLUENZA B ANTIGEN Neg for Influ B (NEG)
[2017-06-21 07:15] LABS: INR 1.4 (0.9-1.1)
[2017-06-21 07:25] LABS: HEMOGLOBIN 10.3 g/dL (14.0-18.0); MEAN CELL VOLUME 109.4 fL (80-100); MEAN CORPUSCULAR HEMOGLOBIN 32.2 pg (25-34); MEAN CORPUSCULAR HGB CONC 29.4 g/dl (32-36); MEAN PLATELET VOLUME 10.3 fL (7.4-10.4); PLATELET COUNT 247 K/uL (130-400); RED CELL DISTRIBUTION WIDTH CV 16.3 % (11.5-14.5); RED CELL DISTRIBUTION WIDTH SD 64.2 fL (36.4-46.3); WHITE BLOOD COUNT 7.02 K/uL (4.8-10.8)
[2017-06-21 07:34] LABS: CALCIUM 8.3 mg/dl (8.5-10.1); CREATININE 2.35 mg/dl (0.60-1.40); POTASSIUM 4.4 mmol/L (3.5-5.1)
[2017-06-21] MEDS: CLOPIDOGREL BISULFATE 75 MG TAB PO SCH (07:54)
[2017-06-21] MEDS: NYSTATIN SUSP 500,000 U/5 ML UDC PO SCH ×4 (07:54→21:30)
[2017-06-21] MEDS: LANSOPRAZOLE SOLUTAB 15 MG PO SCH (07:54)
[2017-06-21] MEDS: APIXABAN 2.5 MG TAB PO SCH ×2 (07:54→21:30)
[2017-06-21] MEDS: CEROVITE ADV FORMULA TAB PO SCH (07:54)
[2017-06-21] MEDS: CARVEDILOL 12.5 MG TAB PO SCH ×2 (07:54→21:30)
[2017-06-21] MEDS: SERTRALINE HCL 100 MG TAB PO SCH (07:54)
[2017-06-21] MEDS: FLUTICASONE/SALMETEROL 250/50 (ADVAIR) 14 PUFF/1 INHALER INH SCH ×2 (07:57→21:30)
[2017-06-21] MEDS: LACTULOSE SYRUP 10 GM/15 ML BTL 473 ML PO SCH (08:00)
[2017-06-21] MEDS ORDERED: PANTOprazole SOD 40 MG TAB PO SCH (08:00)
[2017-06-21 08:16] LABS: INFLUENZA A PCR Neg for Influ A (NEG); INFLUENZA B PCR Neg for Influ B (NEG)
--- NOTE | 2017-06-21 09:34 | Hospitalist Progress Note ---
Hospitalist Progress Note Date of Service Jun 21, 2017. (Leigh Woodruff PA-C) Subjective Pt evaluation today including: conversation w/ patient, conversation w/ family , physical exam, chart review, lab review, review of studies Pain: Abdominal PO Intake: Poor Voiding: no voiding problems The patient was seen and examined this morning. His daughter Carley is present with him at bedside and provides the majority of history and ROS for her dad as he has become so hoarse and has lost his voice. The patient was initially on Bipap when I entered the room, but trial of 4L O2 proved to have to adequate sats of 92-94% during my visit with him. The patient appeared to be anxious with multiple personelle in the room, but calmer when it was only myself and daughter. Carley notes the patient was discharged from [facility] after 2 weeks on Tuesday and her dad at that time did not want to go home. He was also asking strange questions like "where is your mother" to her, and his Jul 2016. After that Carley brought him back to the ER after being home for only 3 hours. Today he has a very wet cough, although nonproductive, denies acute SOB. He denies fever, sweats or chills. He has a dry mouth and is nodding his yes when asked for a sip of water. Per nursing pt tolerated crushed oral meds with applesauce without difficulty. Pt seems to have pain with light palpation of his stomach, it is unknown when his last BM was. His diet has been poor overall and glucoses have been low due to this. He denies any chest pain or heaviness. ROS: 6 point ROS reviewed as above, otherwise negative. (Leigh Woodruff PA-C) Objective Vital Signs Date Time Temp Pulse Resp B/P (MAP) Pulse Ox O2 Delivery O2 Flow Rate FiO2 06/21/17 07:19 36.5 60 18 99/50 (66) 96 BiPAP 06/21/17 00:00 BiPAP 06/20/17 23:28 36.3 90 18 102/57 (72) 93 BiPAP 06/20/17 21:55 109 97 4.0 06/20/17 16:48 112 06/20/17 16:00 BiPAP 06/20/17 15:19 36.6 107 24 108/66 (80) 91 Mask 06/20/17 12:13 76 90 4.0 06/20/17 10:42 36.5 103 18 108/65 90 Nasal Cannula 2.0 06/20/17 10:11 105 22 116/81 96 (Leigh Woodruff PA-C) Physical Exam General Appearance: WD/WN, + mild distress, + thin Eyes: PERRL, EOMI ENT: hearing grossly normal, + pertinent finding (MM dry, pharynx without erythema or plaques, poor dentition.) Neck: supple, + JVD (mild) Respiratory/Chest: + pertinent finding (initially on bipap and transitioned to 4L via NC with sats = 92-94%, wet cough, nonproductive, diminished breath sounds bilateral bases, no adventitious breath sounds.) Cardiovascular: regular rate, rhythm, + systolic murmur (grade III/), + pertinent finding (pacemaker defibrillator in left chest wall. ) Abdomen: + pertinent finding (NABS x 4 q, nondistended, + facial grimacing and guarding with light palpation in all quadrants. ) Extremities: non-tender, + pertinent finding (1+ pitting edema at ankles bilaterally) Neurologic/Psychiatric: alert, + pertinent finding (follows commands, not oriented to time, place or year.) Skin: normal color, warm/dry (Leigh Woodruff PA-C) Laboratory Results Last 24 Hours Test 06/20/17 09:54 06/20/17 10:01 06/20/17 10:28 06/20/17 10:58 Erythrocyte Sedimentation Rate 30 mm/hr C-Reactive Protein 13.40 mg/dl Vitamin B12 Level 1156 pg/mL Folate 13.30 ng/mL Venous Blood pH 7.33 Venous Blood Partial Pressure CO2 55 mmHg Venous Blood Partial Pressure O2 52 mmHg Venous Blood HCO3 28 mmol/L Venous Blood Oxygen Saturation 81.9 % Venous Blood Base Excess 1.6 mEq/L Ammonia 52.7 umol/L Bedside Glucose 65 mg/dl 76 mg/dl Test 06/20/17 16:15 06/20/17 17:20 06/20/17 19:46 06/21/17 05:40 Bedside Glucose 74 mg/dl 76 mg/dl 80 mg/dl Influenza Type A (RT-PCR) Neg for Influ A Influenza Type A Antigen Neg for Influ A Influenza Type B Antigen Neg for Influ B Influenza Type B (RT-PCR) Neg for Influ B Test 06/21/17 06:50 06/21/17 08:02 06/21/17 08:13 06/21/17 08:19 White Blood Count 7.02 K/uL Red Blood Count 3.20 M/uL Hemoglobin 10.3 g/dL Hematocrit 35.0 % Mean Corpuscular Volume 109.4 fL Mean Corpuscular Hemoglobin 32.2 pg Mean Corpuscular Hemoglobin Concent 29.4 g/dl RDW Standard Deviation 64.2 fL RDW Coefficient of Variation 16.3 % Platelet Count 247 K/uL Mean Platelet Volume 10.3 fL Prothrombin Time 14.1 SECONDS Prothromb Time International Ratio 1.4 Sodium Level 144 mmol/L Potassium Level 4.4 mmol/L Chloride Level 109 mmol/L Carbon Dioxide Level 31 mmol/L Anion Gap 4.0 mmol/L Blood Urea Nitrogen 52 mg/dl Creatinine 2.35 mg/dl Est Creatinine Clear Calc Drug Dose 23.5 ml/min Estimated GFR () 28.4 Estimated GFR (Non- 24.5 BUN/Creatinine Ratio 22.0 Random Glucose 47 mg/dl Calcium Level 8.3 mg/dl Ammonia 22.8 umol/L Bedside Glucose 60 mg/dl 82 mg/dl Random Cortisol 22.57 mcg/dl (Leigh Woodruff, PADelisa) Assessment and Plan 86 y/o M w/ PMHx of CAD, h/o NM, CABG x 4 (2012), a-fib, s/p pacemaker, HTN, HLD , mixed CHF, COPD, CKD stage IV, DM II, hypothyroidism, and depression who presented to the ED on 06/20 with generalized weakness, shortness of breath and altered mental status. Generalized weakness, altered mental status--pt w confusion on Tuesday and still present - Pt is from [facility], was there for 2 weeks and was discharged routinely from their facility to home - on the day of discharge pt actually wanted to stay and had increased confusion per the daughter - Ammonia wnl, B12 fine - rapid flu negative - ESR, CRP and rapid flu. - UA clean - CT abdomen without acute findings, but may consider repeat abd kub if abd pain does not improve. Last BM was yesterday with administration of lactulose for the concern of metabolic encephalopathy due to elevated ammonia. - PT/OT consulted - Pt transitioned off bipap - continue on O2 at 4 L and wean as tolerated. Abdominal Pain Possible melena, h/o duodenal ulcer around [id number]--daughter reports some dark blood on toilet seat, no actual bloody stools/confirmed melena seen -No endoscopy since last duodenal ulcer -Convert Protonix to Prevacid Solutab 15 mg PO qd as pt not tolerating Protonix well -Hgb is stable SHOAIB on CKD stage IV--baseline creatinine around 1.7-1.9 -Creatinine 2.35 today, slightly increased from yesterday - Got IVF in the ER upon admission, hold further fluids for now given worsening pleural effusions and EF 35-40%, pt with mild JVD and 1+ pitting in ankles. - Hold Lasix - possibly resume tomorrow pending PRP Hx of combined chronic systolic/diastolic CHF--pleural effusions mildly increased on CT, hypoxic S/p dual chamber defibrillator placement. - Lasix on hold due to SHOAIB. hold IVF. - Last echo from December 2016 Atrial fibrillation s/p dual chamber pacemaker insertion 2012 - rate controlled - Continue Plavix, Eliquis 2.5 mg PO BID, Coreg 12.5 mg PO BID, digoxin 0.125 mcg PO q2d - check dig level CAD s/p CABG history of ischemic cardiomyopathy HTN HLD - Plavix - Anticoagulation with Eliquis 2.5 mg BID - Coreg 25 mg twice a day, diltiazem 120 mg daily, Digoxin 0.125 g daily - dig therapeutic level on presentation COPD--no exacerbation, no wheezing on exam - Continue Advair BID, albuterol prn DM II--last HgbA1c checked 04/07/17 was 6.0 - Diet controlled, pt initially was hypoglycemic and had lows overnight into the 60s due to poor PO intake. - Follow accuchecks achs, no need for insulin. Hypothyroidism -Continue Synthroid 150 mcg PO qd -TSH WNL on admission Depression -Continue Zoloft 100 mg PO qd DVT prophylaxis: Eliquis, plavix, teds, scds Code Status: DNR Disposition: From [facility] but was routinely discharged, likely needs rehab again, discharge unknown but likely > 2 days. (Filipowicz,Leigh G., PA-C) Attending Attestation: Pt seen/examined, chart reviewed, care plan d/w TATI Woodruff. I agree w/ the gilliam components of her documentation. BIPAP d/c during my visit; transitioned to NC O2 and tolerated this. Has very hoarse voice. Cough is "wet" and bronchial. Still mildly confused but daughter, at bedside, reports he is better than previous. Still acting like he has pain. When asked where his pain is he cannot tell me. BPs low-nl, no fever o2 sats acceptable gen - thin, cachetic, listless neck - JVD to the jaw mouth - MM dry heart - tachy, irregular lungs - course BS b/l with wheeze abd - question of tenderness but difficult to localize the pain, BS+, ND, no HSM ext - no edema Cr 2.3 continued hypoglycemia despite dextrose infusion A/P: 1. acute hypoxic/hypercarbic resp failure - 2nd to acute/chronic CHF, +/- COPD. CXR w/ ongoing pulm edema - diurese. 2. acute renal failure - he may be total body volume overloaded but intravascularly dry - may be challenging to diurese. BMP in am. 3. met encephalopathy - slightly improved today with Rx of hypercarbia and hyperammonemia. 4. hypoglycemia - cortisol wnl. Due to poor hepatic gluconeogenesis & poor PO intake? Increase D5W to 30cc/hr. 5. acute/chronic systolic/diastolic CHF - lasix again today. 6. hepatic encephalopathy - likely due to hepatic congestion from CHF - improved. 7. abd pain - CT abd/pelvis w/ gallstones only. KUB ordered and bowel gas pattern wnl. U/a not suggestive of UTI. low threshold for biliary w/u (ultrasound, etc) as cause of pain if it continues. could he have ischemia from poor cardiac output? repeat LFTs/lipase AM patient DNR and remains quite ill/complicated daughter updated 2x's today Leonel JONES MD (Dino Jones MD)
--- NOTE | 2017-06-21 13:49 | DIAGNOSTIC IMAGING REPORT ---
CHEST 2 VIEWS ROUTINE CLINICAL HISTORY: Weakness. Hypoxia. COMPARISON STUDY: 06/20/2017 FINDINGS: The heart remains enlarged. There is a left subclavian pacer/defibrillator present. There are postsurgical changes of midline sternotomy. There is radiographic evidence of interstitial edema. There are small bilateral pleural effusions. There is no lobar consolidation.[ IMPRESSION: 1. Radiographic evidence of congestive failure with mild interstitial edema and bilateral pleural effusions Electronically signed by: Cosmo Diaz M.D. 06/21/2017 1:48 PM Dictated Date/Time: 06/21/2017 1:47 PM
[2017-06-21] MEDS ORDERED: FUROSEMIDE INJ 20 MG in SYRINGE 0 ML IV ONE (15:30)
[2017-06-21] MEDS: DEXTROSE 5% 500ML 500 ML IV SCH (16:26)
--- NOTE | 2017-06-21 17:56 | DIAGNOSTIC IMAGING REPORT ---
KUB HISTORY: Acute generalized abdominal pain with weakness assess abd pain COMPARISON: Chest radiographs of same day, CT abdomen and pelvis 06/20/2017 FINDINGS: The bowel gas pattern is non-obstructive. There is no organomegaly. Calcifications of the spleen are again seen. Calcifications of the right upper abdomen suggest cholelithiasis. No renal calculi. No ureteral calculi. No pneumoperitoneum or pneumatosis. No fracture. Multilevel degenerative changes of the spine with degenerative changes of the hips and pelvis also noted. Cardiomegaly with bilateral pleural effusions. Prior median sternotomy with pacer leads overlying the right atrium and right ventricle. Vascular calcifications are noted. IMPRESSION: 1. Nonobstructive bowel gas pattern. 2. Cardiomegaly with small bilateral pleural effusions redemonstrated. 3. Cholelithiasis. Electronically signed by: Nicholas Liz M.D. 06/21/2017 5:55 PM Dictated Date/Time: 06/21/2017 5:52 PM
[2017-06-22] VITALS (7 sets, daily range): BP systolic 94–108; BP diastolic 43–56; PULSE 66–92; TEMP 36.3–36.4; O2SAT 90–96
[2017-06-22] MEDS ORDERED: FUROSEMIDE INJ 20 MG in SYRINGE 0 ML IV ONE (01:45)
[2017-06-22] MEDS ORDERED: FUROSEMIDE 40 MG/4 ML VIAL IV ONE (02:00)
[2017-06-22] MEDS ORDERED: ACETAMINOPHEN IV 100 ML IV PRN (03:15)
[2017-06-22] MEDS: LEVOTHYROXINE 150 MCG TAB PO SCH (05:49)
[2017-06-22 06:58] LABS: HEMATOCRIT 32.7 % (42-52); HEMOGLOBIN 9.6 g/dL (14.0-18.0); MEAN CELL VOLUME 109.4 fL (80-100); MEAN CORPUSCULAR HEMOGLOBIN 32.1 pg (25-34); MEAN CORPUSCULAR HGB CONC 29.4 g/dl (32-36); MEAN PLATELET VOLUME 9.8 fL (7.4-10.4); PLATELET COUNT 214 K/uL (130-400); RED CELL DISTRIBUTION WIDTH SD 63.9 fL (36.4-46.3); WHITE BLOOD COUNT 6.24 K/uL (4.8-10.8)
--- NOTE | 2017-06-22 07:11 | DIAGNOSTIC IMAGING REPORT ---
CHEST ONE VIEW PORTABLE CLINICAL HISTORY: Worsening shortness of breath dyspnea COMPARISON STUDY: 06/21/2014 FINDINGS: Stable cardiomegaly. Prior median sternotomy. Good position of the patient's implantable cardiac pacemaker/defibrillator. Small left pleural effusion and or consolidative change left base similar. Prominence of pulmonary vasculature. IMPRESSION: Stable radiographic findings of congestive failure and/or pulmonary edema The above report was generated using voice recognition software. It may contain grammatical, syntax or spelling errors. Electronically signed by: Miles Lowe M.D. 06/22/2017 7:10 AM Dictated Date/Time: 06/22/2017 7:09 AM
[2017-06-22 07:33] LABS: ALBUMIN 2.4 gm/dl (3.4-5.0); CREATININE 2.66 mg/dl (0.60-1.40); POTASSIUM 4.5 mmol/L (3.5-5.1); TOTAL PROTEIN 5.6 gm/dl (6.4-8.2)
--- NOTE | 2017-06-22 08:20 | Hospitalist Progress Note ---
Hospitalist Progress Note Date of Service Jun 22, 2017. (Leigh Woodruff, ERIN) Subjective Pt evaluation today including: conversation w/ patient, conversation w/ family , physical exam, chart review, lab review, review of studies The patient was seen and examined this morning. Pt is very somnolent this morning. He only wakes up after repetitive verbal stimuli and rubbing his shoulder to tell me "no pain". He then falls back asleep. ROS: Not obtainable today due to lethargy. (Leigh Woodruff, ERIN) Objective Vital Signs Date Time Temp Pulse Resp B/P (MAP) Pulse Ox O2 Delivery O2 Flow Rate FiO2 06/22/17 07:45 36.3 87 24 100/51 (67) 92 BiPAP 06/22/17 00:00 BiPAP 4.0 06/21/17 23:50 36.9 85 20 104/53 (70) 94 CPAP 06/21/17 22:15 111 94 4.0 06/21/17 21:28 87 105/64 (78) 95 06/21/17 16:36 36.6 100 20 93/52 (66) 93 Nasal Cannula 5.0 06/21/17 16:35 36.5 60 18 99/50 (66) 96 BiPAP 4.0 107 06/21/17 16:00 95 Nasal Cannula 4.0 (Leigh Woodruff, ERIN) Physical Exam General Appearance: WD/WN, no apparent distress, + thin, + pertinent finding ( on 6 L via NC) Eyes: PERRL, EOMI ENT: pharynx normal, + pertinent finding (MMM) Neck: supple, no JVD Respiratory/Chest: + pertinent finding (on 6 L via NC, sats =93%, coarse breath sounds throughout, diminished at R base) Cardiovascular: + systolic murmur (grade III/ L 5th ICS) Abdomen: non tender, soft, + pertinent finding (+ scaling of skin over abdomen) Extremities: non-tender, no calf tenderness, + pertinent finding (LLE 1+ pitting edema up to knees, RLE without edema.) Neurologic/Psychiatric: + pertinent finding (lethargic, minimally responding to verbal stimuli) Skin: normal color, warm/dry (Leigh Woodruff PA-C) Laboratory Results Last 24 Hours Test 06/21/17 08:19 06/21/17 09:24 06/21/17 11:42 06/21/17 16:56 Bedside Glucose 82 mg/dl 108 mg/dl 99 mg/dl 82 mg/dl Test 06/21/17 21:18 06/22/17 06:46 Bedside Glucose 89 mg/dl White Blood Count 6.24 K/uL Red Blood Count 2.99 M/uL Hemoglobin 9.6 g/dL Hematocrit 32.7 % Mean Corpuscular Volume 109.4 fL Mean Corpuscular Hemoglobin 32.1 pg Mean Corpuscular Hemoglobin Concent 29.4 g/dl RDW Standard Deviation 63.9 fL RDW Coefficient of Variation 16.0 % Platelet Count 214 K/uL Mean Platelet Volume 9.8 fL Sodium Level 141 mmol/L Potassium Level 4.5 mmol/L Chloride Level 106 mmol/L Carbon Dioxide Level 29 mmol/L Anion Gap 6.0 mmol/L Blood Urea Nitrogen 55 mg/dl Creatinine 2.66 mg/dl Est Creatinine Clear Calc Drug Dose 20.2 ml/min Estimated GFR () 24.4 Estimated GFR (Non- 21.1 BUN/Creatinine Ratio 20.8 Random Glucose 97 mg/dl Calcium Level 8.0 mg/dl Total Bilirubin 0.9 mg/dl Direct Bilirubin 0.6 mg/dl Aspartate Amino Transf (AST/SGOT) 11 U/L Alanine Aminotransferase (ALT/SGPT) 14 U/L Alkaline Phosphatase 134 U/L Total Protein 5.6 gm/dl Albumin 2.4 gm/dl Lipase 69 U/L Digoxin Level 1.4 ng/ml (Leigh Woodruff PA-C) Assessment and Plan 86 y/o M w/ PMHx of CAD, h/o [place], CABG x 4 (2012), a-fib, s/p pacemaker, HTN, HLD , mixed CHF, COPD, CKD stage IV, DM II, hypothyroidism, and depression who presented to the ED on 06/20 with generalized weakness, shortness of breath and altered mental status. Generalized weakness Metabolic Encephalopathy ? Worsening cardiorenal function - Pt is from [facility], was there for 2 weeks and was discharged routinely from their facility to home - on the day of discharge pt actually wanted to stay and had increased confusion per the daughter - Ammonia wnl initially - repeated today = 46 with increased lethargy so will order lactulose enema - Also check CRP which is slightly elevated - Repeat VBG showing increased CO2 - will place the patient back on bipap this afternoon, had required it overnight due to low sats too. - B12 fine, rapid flu negative, UA clean - CT abdomen without acute findings, repeat KUB was ok on 06/21 Abdominal Pain Possible melena, h/o duodenal ulcer around [id number]- - KUB 06/21 showing cholelithiasis and a nonobstructive bowel pattern - pt complaining of abdominal pain - No endoscopy since last duodenal ulcer - Convert Protonix to Prevacid Solutab 15 mg PO qd as pt not tolerating Protonix well - Hgb is stable SHOAIB on CKD stage IV--baseline creatinine around 1.7-1.9 - Creatinine 2.66 today, slightly increased from yesterday likely because of small dose of lasix given yesterday afternoon for worsening pulmonary edema. May be worsened due to cardiorenal syndrome - Got IVF in the ER upon admission, hold further fluids for now given worsening pleural effusions and EF 35-40%, pt still with some JVD and 1+ pitting in the LLE after lasix yesterday. - Considering other means of diuresis Hx of combined chronic systolic/diastolic CHF--pleural effusions mildly increased on CT, hypoxic S/p dual chamber defibrillator placement. - Consult cardiology for fluid status and needs for possible dobutamine for diuresis/ if worsening EF? repeat ECHO? - Last echo from Mar 17 2017 with EF of 35-40% with mild-mod mitral regurg and tricuspid regurg. - Has gotten lasix x 2 doses of 20 mg on 06/20 and 06/21. Atrial fibrillation s/p dual chamber pacemaker insertion 2012 - rate controlled - Continue Plavix, Eliquis 2.5 mg PO BID, Coreg 12.5 mg PO BID, digoxin 0.125 mcg PO q2d - check dig level - nontoxic at 1.4 CAD s/p CABG history of ischemic cardiomyopathy HTN HLD - Plavix - Anticoagulation with Eliquis 2.5 mg BID - Coreg 25 mg twice a day, diltiazem 120 mg daily, Digoxin 0.125 g daily - dig therapeutic level on presentation COPD--no exacerbation, no wheezing on exam - Continue Advair BID, albuterol prn DM II--last HgbA1c checked 04/07/17 was 6.0 - Diet controlled, pt initially was hypoglycemic and had lows overnight into the 60s due to poor PO intake. - Pt had been placed on D5 at 30 mL/hr to prevent hypoglycemia due to poor oral intake. - Follow accuchecks achs, no need for insulin. Hypothyroidism -Continue Synthroid 150 mcg PO qd -TSH WNL on admission Depression -Continue Zoloft 100 mg PO qd DVT prophylaxis: Eliquis, plavix, teds, scds Code Status: DNR Disposition: From [facility] but was routinely discharged, likely needs rehab again, discharge unknown but likely > 2 days. Discussion held with daughter Carley over the phone and updated. At this time family wants to ask cardiology to see and continue to attempt to balance fluid status along with treating other medical conditions. All her questions and concerns were addressed. (Leigh Woodruff, ERIN) Attending Attestation: Pt seen/examined, chart reviewed, care plan d/w TATI Woodruff. I agree w/ the gilliam components of her documentation. Pt quite somnolent during my visit. He slept for all of the visit except one time he awoke enough to tell me he was "in the hospital." Very low, hoarse voice. BPs low-nl, no fever o2 sats wnl gen - thin, cachetic, continues to be listless neck - JVD to the jaw still mouth - MM dry heart - rate <100 today, irregular lungs - course BS b/l with wheeze and rhonchi, decreased BS bases abd - soft, NT today, BS+ ext - trace edema b/l A/P: 1. acute hypoxic/hypercarbic resp failure - worse today despite attempts at diuresis. I suspect he has a combination of COPD exacerbation with acute/chronic CHF. Repeat cxr today still with edema but no obvious pneumonia and procalcitonin wnl. Will start IV steroids for COPD and ask cardiology to see. Candidate for inotropic support to help with diuresis? Consult cardiology for their opinion. Consider antibiotics for COPD exacerbation if he fails to improve or worsens. 2. acute renal failure - he may be total body volume overloaded but intravascularly dry - may be challenging to diurese. Cr today mildly worse. This appears to be a cardio-renal syndrome. BMP in am. 3. met encephalopathy - worse, due to worsening hypercarbia and ammonia level rising again. 4. hypoglycemia - this should completely resolve with use of IV steroids for COPD. Can likely d/c dextrose infusion once steroids have begun. 5. acute/chronic systolic/diastolic CHF - lasix again today; see discussion above. 6. hepatic encephalopathy - likely due to hepatic congestion from CHF - ongoing. lactulose enema today due to altered mental status. 7. abd pain - none today; LFTs and lipase wnl. Follow. I am concerned by his worsening status Ms. Woodruff spoke with daughter who is his POA - she wishes for us to continue care and would not be opposed to inotropic support if needed, at least for now. With that said he is DNR. If he worsens any further may need to consider palliative care. Leonel JONES MD (Dino Jones MD)
[2017-06-22] MEDS: DEXTROSE 5% 500ML 500 ML IV SCH (08:26)
[2017-06-22] MEDS: LACTULOSE SYRUP 10 GM/15 ML BTL 473 ML PO SCH (08:26)
[2017-06-22] MEDS: CARVEDILOL 12.5 MG TAB PO SCH ×2 (08:27→21:02)
[2017-06-22] MEDS: CLOPIDOGREL BISULFATE 75 MG TAB PO SCH (08:27)
[2017-06-22] MEDS: APIXABAN 2.5 MG TAB PO SCH ×2 (08:27→21:02)
[2017-06-22] MEDS: NYSTATIN SUSP 500,000 U/5 ML UDC PO SCH ×4 (08:27→21:02)
[2017-06-22] MEDS: CEROVITE ADV FORMULA TAB PO SCH (08:27)
[2017-06-22] MEDS: FLUTICASONE/SALMETEROL 250/50 (ADVAIR) 14 PUFF/1 INHALER INH SCH ×2 (08:27→21:02)
[2017-06-22] MEDS: LANSOPRAZOLE SOLUTAB 15 MG PO SCH (08:27)
[2017-06-22] MEDS: SERTRALINE HCL 100 MG TAB PO SCH (08:27)
[2017-06-22] MEDS ORDERED: LACTULOSE 200GM/700ML WTR ENEMA PR SCH (14:45)
[2017-06-22] MEDS ORDERED: UNIT DOSE COMPOUND PO SCH (15:30)
[2017-06-22] MEDS ORDERED: LACTULOSE SYRUP 200 GM, WATER, STERILE IRRIG 700 ML, BARCODE IDENTIFIER 1 EA PR SCH ×2 (15:30)
[2017-06-22] MEDS: METHYLPREDNISOLONE IV 40 MG in SYRINGE 0 ML IV SCH (15:41)
[2017-06-22] MEDS: DIGOXIN 0.125 MG TAB PO SCH (15:48)
[2017-06-22] MEDS ORDERED: FUROSEMIDE INJ 40 MG in SYRINGE 0 ML IV ONE (16:30)
--- NOTE | 2017-06-22 16:42 | Cardiology Consultation ---
Cardiology Consultation Date of Consultation: Jun 22, 2017. Requesting Physician: Maribell Reason for Consultation: CHF Pt evaluation today including: conversation w/ family, physical exam, chart review, lab review, review of studies, review of inpatient medication list, conversation w/ attending History of Present Illness Patient is an 86-year-old gentleman with a history of coronary disease and ischemic cardiomyopathy who was recently discharged from [facility] after suffering a fall. According to the patient's daughter he was doing quite well to the point that he was felt to be stable for discharge. Couple of days prior to discharge the patient started to feel poorly. At the time of discharge she was quite tired and developed some minor upper respiratory symptoms. Patient later had worsening shortness of breath and lethargy. This was associated with an element of confusion. He was brought to [facility] after sustaining a minor injury at home. Since admission the patient has been mildly hypercapnic. He was also noted to be hypoxic and have waxing and waning mental acuity. At the time of this interview the patient is quite somnolent and not responsive to verbal stimuli. The history was obtained from the primary service as well as the patient's daughter. He does not appear to have other complaints prior to admission. No complaints of chest pain or palpitation. No dizziness or lightheadedness. He has not suffered syncope. He has suffered multiple falls recently but this is believed to be due to a gait disturbance. The patient has previously been prescribed her walker but commonly carries the walker instead of uses it for support. He generally has an element of lower extremity edema that his daughter feels is improved currently. Past Medical/Surgical History Coronary artery disease status post coronary bypass grafting in 2012 Ischemic cardiomyopathy Hypertension Hypercholesterolemia Cerebral vascular disease Permanent atrial fibrillation Chronic renal insufficiency Obstructive sleep apnea Carotid artery stenosis COPD Diabetes mellitus type 2 Past surgical history Coronary artery bypass grafting x4 September 2012 Placement dual-chamber [place] ICD September 2012 Carotid endarterectomy Bilateral knee replacement Cataract surgery Family History Patient reports no known family medical history. Noncontributory given his advanced age Social History Smoking Status: Unknown if Ever Smoked History of Alcohol Use: No (once per year) Prior to his recent fall he lived independently. 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 Allergies Coded Allergies: Warfarin (Verified Allergy, Intermediate, PT CAN TAKE BRAND COUMADIN, ) GOT HIVES AND SWELLING WITH WARFARIN (GENERIC BRAND) Zolpidem (Verified Adverse Reaction, Severe, altered mental status, 06/22/17 ) Simvastatin (Verified Adverse Reaction, Mild, GI UPSET, 06/20/17) Statins (Verified Adverse Reaction, Unknown, FALLS, 06/20/17) Medications Current Inpatient Medications Medications (Trade) Dose Ordered Sig/Kojo Route Start Time Stop Time Status Last Admin Dose Admin Acetaminophen (Tylenol Tab) 650 mg Q4H PRN PO 06/20/17 09:15 07/20/17 09:14 Al Hydrox/Mg Hydrox/Simethicone (Maalox Max Susp) 15 ml Q4H PRN PO 06/20/17 09:15 07/20/17 09:14 Magnesium Hydroxide (Milk Of Magnesia Susp) 30 ml Q6H PRN PO 06/20/17 09:15 07/20/17 09:14 Polyethylene (Miralax Powder Packet) 17 gm DAILY PRN PO 06/20/17 09:15 07/20/17 09:14 Ondansetron HCl (Zofran Inj) 4 mg Q6H PRN IV 06/20/17 09:15 07/20/17 09:14 06/20/17 14:08 4 MG Albuterol (Ventolin Hfa Inhaler) 2 puffs Q4 PRN INH 06/20/17 09:15 07/20/17 09:14 Apixaban (Eliquis Tab) 2.5 mg BID PO 06/20/17 20:00 07/20/17 20:59 06/22/17 08:27 2.5 MG Carvedilol (Coreg Tab) 12.5 mg BID PO 06/20/17 20:00 07/20/17 20:59 06/22/17 08:27 12.5 MG Clopidogrel Bisulfate (plAVix TAB) 75 mg QAM PO 06/21/17 08:00 07/21/17 08:59 06/22/17 08:27 75 MG Digoxin (Lanoxin Tab) 0.125 mg Q2D@1600 PO 06/20/17 16:00 07/20/17 15:59 06/22/17 15:48 0.125 MG Salmeterol Xinafoate/ Fluticasone (Advair Diskus 250/50 Inh) 1 puff Q12 INH 06/20/17 21:00 07/20/17 20:59 06/22/17 08:27 1 PUFF Levothyroxine Sodium (Synthroid Tab) 150 mcg DAILYBB PO 06/21/17 06:30 07/21/17 06:29 06/21/17 06:08 150 MCG Multivitamins/ Minerals (Multivitamin W/ Minerals Tab) 1 tab DAILY PO 06/21/17 08:00 07/21/17 07:59 06/22/17 08:27 1 TAB Sertraline HCl (Zoloft Tab) 100 mg DAILY PO 06/21/17 08:00 07/21/17 08:59 06/22/17 08:27 100 MG Lansoprazole (Prevacid Solutab) 15 mg QAM PO 06/21/17 08:00 07/21/17 07:59 06/22/17 08:27 15 MG Glucose (Glucose 40% Gel) 15-30 GRAMS 15 GRAMS... UD PRN PO 06/20/17 11:15 07/20/17 11:14 06/21/17 08:40 30 GM Glucose (Glucose Chew Tab) 4-8 Tablets 4 Tabl... UD PRN PO 06/20/17 11:15 07/20/17 11:14 Dextrose (Dextrose 50% 50ML Syringe) 25-50ML OF 50% DW IV FOR... UD PRN IV 06/20/17 11:15 07/20/17 11:14 Glucagon (Glucagon Inj) 1 mg UD PRN SQ 06/20/17 11:15 07/20/17 11:14 Nystatin (Mycostatin Susp) 5 ml QID PO 06/20/17 17:00 06/30/17 16:59 06/22/17 12:00 5 ML Dextrose 500 ml @ 30 mls/hr [id number] IV 06/20/17 17:30 07/20/17 17:29 06/22/17 08:26 30 MLS/HR Lactulose (Chronulac Syrup) 15 gm QAM PO 06/21/17 08:00 07/20/17 13:59 06/22/17 08:26 15 GM Acetaminophen 100 ml @ 400 mls/hr Q8H PRN IV 06/22/17 03:15 07/22/17 03:14 Methylprednisolone Sodium Succinate 40 mg/Syringe 0.64 ml @ 1.5 mls/min Q12H IV 06/22/17 15:00 07/22/17 14:59 06/22/17 15:41 1.5 MLS/MIN Lactulose/Sterile Water/Barcode TODAY@1530 GA 06/22/17 15:30 06/22/17 18:00 06/22/17 15:44 200 GM Miscellaneous (Unit Dose Compound) 1 ea TODAY@1530 PO 06/22/17 15:30 06/22/17 18:00 06/22/17 15:44 1 EA Furosemide 40 mg/ Syringe 4 ml @ 4 mls/min ONE ONCE IV 06/22/17 16:30 06/22/17 16:31 Physical Exam Vital Signs Past 12 Hours Date Time Temp Pulse Resp B/P (MAP) Pulse Ox O2 Delivery O2 Flow Rate FiO2 06/22/17 15:48 90 06/22/17 15:11 36.4 66 22 94/55 (68) 90 BiPAP 06/22/17 08:01 96 BiPAP 4.0 06/22/17 07:45 36.3 87 24 100/51 (67) 92 BiPAP The patient was somnolent had abnormal breathing pattern. He did not respond to verbal stimuli Neuro: Cranial nerves cannot be assessed Neck: Patient's neck is supple. He has palpable carotid pulses bilaterally without bruits on auscultation. Patient is flattened has an element of jugular venous distention The thyroid is not enlarged. Lungs: Clear to auscultation bilaterally. He has good air movement without use of accessory muscles. No rales wheezes or rhonchi. Chest: Well-healed sternotomy scar. ICD implant in left upper pectoral area Cardiac: Heart demonstrates an irregular rate and rhythm. Normal S1 and S2. No murmurs on examination. Pulses: The patient has palpable radial pulses bilaterally that are equal in intensity Extremities: There was no evidence of hypoperfusion. There is no cyanosis or clubbing. There is no edema but he is wearing Darvin hose. Skin: He does have a fungal type rash along the lateral portions of his abdomen Data Laboratory Results: Last 24 Hours Test 06/21/17 16:56 06/21/17 21:18 1/3/18 06:46 06/22/17 12:02 Bedside Glucose 82 mg/dl 89 mg/dl White Blood Count 6.24 K/uL Red Blood Count 2.99 M/uL Hemoglobin 9.6 g/dL Hematocrit 32.7 % Mean Corpuscular Volume 109.4 fL Mean Corpuscular Hemoglobin 32.1 pg Mean Corpuscular Hemoglobin Concent 29.4 g/dl RDW Standard Deviation 63.9 fL RDW Coefficient of Variation 16.0 % Platelet Count 214 K/uL Mean Platelet Volume 9.8 fL Sodium Level 141 mmol/L Potassium Level 4.5 mmol/L Chloride Level 106 mmol/L Carbon Dioxide Level 29 mmol/L Anion Gap 6.0 mmol/L Blood Urea Nitrogen 55 mg/dl Creatinine 2.66 mg/dl Est Creatinine Clear Calc Drug Dose 20.2 ml/min Estimated GFR () 24.4 Estimated GFR (Non- 21.1 BUN/Creatinine Ratio 20.8 Random Glucose 97 mg/dl Calcium Level 8.0 mg/dl Total Bilirubin 0.9 mg/dl Direct Bilirubin 0.6 mg/dl Aspartate Amino Transf (AST/SGOT) 11 U/L Alanine Aminotransferase (ALT/SGPT) 14 U/L Alkaline Phosphatase 134 U/L Total Protein 5.6 gm/dl Albumin 2.4 gm/dl Lipase 69 U/L Digoxin Level 1.4 ng/ml Venous Blood pH 7.21 Venous Blood Partial Pressure CO2 74 mmHg Venous Blood Partial Pressure O2 37 mmHg Venous Blood HCO3 29 mmol/L Venous Blood Oxygen Saturation 63.1 % Venous Blood Base Excess -0.1 mEq/L Ammonia 46.0 umol/L C-Reactive Protein 15.90 mg/dl Test 06/22/17 12:03 Procalcitonin 0.34 ng/ml Imaging: Chest x-ray and CT scan both demonstrate cardiomegaly. Chest x-ray demonstrates an element of pulmonary vascular congestion and CT scan demonstrated bilateral pleural effusions. EKG: Atrial fibrillation with left bundle branch block Echocardiogram obtained in February 2017: Ejection fraction 35-40%. Moderate mitral regurgitation. Moderate tricuspid regurgitation Assessment & Plan 1. Acute decompensated systolic heart failure: Patient does appear to have an element of pulmonary vascular congestion. He had previously been maintained on a daily dose of diuretic which has been held now for several weeks due to concerns over his renal function. He had an element of hypoxia at the time of admission. I doubt that this is entirely responsible for his decompensation is certainly not his hypercapnic respiratory failure. Patient was administered 1 dose of 20 mg of Lasix without significant response. There was some concern that he could not affect a good diuresis without I inotropic support. I think we have the option of attempting higher doses of diuretic prior to initiating any hypertrophic support. He likely does have an element of cardiorenal syndrome. He would likely affect a more robust diuresis with inotropes. If he fails higher dose diuretic therapy placement of a PICC line and inotrope infusion certainly seem reasonable. He is relatively hypotensive and starting with dopamine would likely be most appropriate. Unfortunately, it is unclear whether this would result in significant improvement in his overall medical condition. Certainly cannot be on inotropes indefinitely. 2. Atrial fibrillation: Permanent. At the time of his last device interrogation he was in atrial fibrillation 92% of the time. Overall rate control appears adequate. He is anticoagulated, but but his renal function is somewhat tenuous. While technically he is on appropriate dosing of Eliquis for his comorbidities, I think a more suitable alternative given his declining renal function would be warfarin. 3. Coronary artery disease: There is not appear to have been any acute coronary syndrome or obvious ischemia. He did not report a history consistent with ischemia in his biomarkers but normal in the hospital. Continue aggressive secondary prevention. 4. Ischemic cardiomyopathy: Patient generally has been maintained on beta- blockade without an Jayant inhibitor due to his declining renal function.
[2017-06-22] MEDS: ALBUT/IPRATROP 3MG/0.5MG NEB 3 ML VIAL INH SCH ×2 (20:00→21:29)
[2017-06-23] VITALS (8 sets, daily range): BP systolic 100; BP diastolic 55; PULSE 70–96; TEMP 36.3; O2SAT 88–94
[2017-06-23] MEDS: ALBUT/IPRATROP 3MG/0.5MG NEB 3 ML VIAL INH SCH ×4 (00:25→15:12)
[2017-06-23] MEDS ORDERED: LORAZEPAM INJ 0.25 MG in SYRINGE 0.25 ML IV PRN (01:00)
[2017-06-23] MEDS ORDERED: OLANZAPINE ZYDIS 5 MG ORALLY DIS. TAB PO SCH (01:10)
[2017-06-23] MEDS ORDERED: OLANZAPINE ZYDIS 5 MG ORALLY DIS. TAB PO PRN (01:10)
[2017-06-23] MEDS: DEXTROSE 5% 500ML 500 ML IV SCH (02:16)
[2017-06-23] MEDS: METHYLPREDNISOLONE IV 40 MG in SYRINGE 0 ML IV SCH ×2 (02:19→14:19)
[2017-06-23] MEDS ORDERED: LORAZEPAM INJ 0.25 MG in SYRINGE 0.25 ML IV STA (06:22)
[2017-06-23] MEDS: LEVOTHYROXINE 150 MCG TAB PO SCH (06:30)
[2017-06-23] MEDS: LANSOPRAZOLE SOLUTAB 15 MG PO SCH (08:00)
[2017-06-23] MEDS: LACTULOSE SYRUP 10 GM/15 ML BTL 473 ML PO SCH (08:50)
[2017-06-23] MEDS: CEROVITE ADV FORMULA TAB PO SCH (08:51)
[2017-06-23] MEDS: NYSTATIN SUSP 500,000 U/5 ML UDC PO SCH ×2 (08:51→10:45)
[2017-06-23] MEDS: FLUTICASONE/SALMETEROL 250/50 (ADVAIR) 14 PUFF/1 INHALER INH SCH (08:51)
[2017-06-23 09:39] LABS: HEMOGLOBIN 10.3 g/dL (14.0-18.0); MEAN CELL VOLUME 108.4 fL (80-100); MEAN CORPUSCULAR HEMOGLOBIN 31.9 pg (25-34); MEAN CORPUSCULAR HGB CONC 29.4 g/dl (32-36); MEAN PLATELET VOLUME 10.5 fL (7.4-10.4); PLATELET COUNT 210 K/uL (130-400); RED CELL DISTRIBUTION WIDTH SD 63.1 fL (36.4-46.3); WHITE BLOOD COUNT 3.67 K/uL (4.8-10.8)
--- NOTE | 2017-06-23 09:43 | CARDIOLOGY PROGRESS NOTE ---
DATE: 06/23/2017 SUBJECTIVE: Mr. Carr is obtunded following a dose of intravenous Ativan. The sitter is at the bedside. OBJECTIVE: VITAL SIGNS: Blood pressure is 100/55 with an irregular pulse of 70. Respiratory rate is 18 and the patient is afebrile at 36.3 degrees Celsius. Saturation 92% on 4 liters nasal cannula. NECK: Supple with full carotid upstrokes. No obvious bruits. Jugular venous pressure is difficult to assess. CARDIOVASCULAR: Reveals a regular rhythm with distant heart sounds. No obvious murmurs. LUNGS: Clear anteriorly. ABDOMEN: Soft. EXTREMITIES: Reveal no peripheral edema. LABORATORY DATA: CBC and PRP are pending at the time of this dictation. IMPRESSION AND PLAN: 1. Mental status changes, etiology not clearly apparent at this time. Does have a picture of acute on chronic renal failure and his ammonia level was elevated. 2. Chronic systolic congestive heart failure -- received 1 dose of intravenous Lasix yesterday. Urine output appears to be minimal. He does not appear to be in overt acute congestive failure. 3. Coronary artery disease -- status post coronary artery bypass graft x4 in September 2012. 4. Ischemic cardiomyopathy -- ejection fraction of 35-40% on echocardiogram performed in February 2017. 5. Permanent atrial fibrillation. 6. Status post dual chamber ICD -- September 2012. 7. Moderate mitral regurgitation. 8. Prognosis -- poor.
[2017-06-23 10:13] LABS: CALCIUM 8.4 mg/dl (8.5-10.1); CREATININE 3.3 mg/dl (0.60-1.40)
[2017-06-23] MEDS: CARVEDILOL 12.5 MG TAB PO SCH (10:44)
[2017-06-23] MEDS: CLOPIDOGREL BISULFATE 75 MG TAB PO SCH (10:44)
[2017-06-23] MEDS: SERTRALINE HCL 100 MG TAB PO SCH (10:44)
[2017-06-23] MEDS ORDERED: LORAZEPAM INJ 0.5 MG in SYRINGE 0.25 ML IV PRN (12:15)
--- NOTE | 2017-06-23 13:19 | Hospitalist Progress Note ---
Hospitalist Progress Note Date of Service Jun 23, 2017. (Leigh Woodruff PA-C) Subjective Pt evaluation today including: conversation w/ family, physical exam, chart review, lab review, review of studies, conversation w/ knowledge management consultant The patient was seen and examined this morning. Overnight events included severe aggitation with pulling off bipap on two occasions, and was yelling "I want to " repetitively. He required 2 doses of IV ativan 0.25 mg to help agitation. He is sound asleep during exam around 11:30 am. His son is present at bedside and long discussion was held regarding patient status, updates and goals of care. Son would like the patient to be comfortable at this time, but would like to discuss this with his sister Carley, who is POA and is not in town today until this evening. He notes his father has had significant decline in the past 2 months. His living will also states he would not want aggressive measures, and son does not think his father wants to live this way. Son is agreeable to palliative medicine consult today. ROS: not obtainable due to sedation. (Leigh Woodruff PA-C) Objective Vital Signs Date Time Temp Pulse Resp B/P (MAP) Pulse Ox O2 Delivery O2 Flow Rate FiO2 06/23/17 11:10 81 24 91 BiPAP/CPAP 4.0 06/23/17 11:08 81 91 4.0 06/23/17 08:00 BiPAP 06/23/17 07:44 71 92 4.0 06/23/17 07:43 71 18 92 BiPAP/CPAP 4.0 06/23/17 07:24 36.3 70 22 100/55 (70) 94 BiPAP 06/23/17 01:41 96 18 88 BiPAP/CPAP 4.0 06/22/17 23:56 36.4 76 18 108/43 (64) 94 BiPAP 4.0 06/22/17 23:56 92 94 4.0 06/22/17 23:00 BiPAP 06/22/17 21:30 88 18 91 BiPAP/CPAP 4.0 06/22/17 21:30 89 95 4.0 06/22/17 20:58 78 103/56 (72) 95 BiPAP 4.0 06/22/17 16:00 95 BiPAP 4.0 06/22/17 15:48 90 06/22/17 15:11 36.4 66 22 94/55 (68) 90 BiPAP (Leigh Woodruff PA-C) Physical Exam General Appearance: + pertinent finding (On bipap, sedated, not responding to verbal stimuli, appears comfortable.) Neck: + JVD Respiratory/Chest: + pertinent finding (on Bipap, coarse breath sounds throughout.) Cardiovascular: regular rate, rhythm, + systolic murmur (grade III/ L 5th ICS ) Abdomen: soft, + pertinent finding (hypoactive bowel sounds, pt wakes with palpation of abdomen slightly but does not appear to grimace.) Extremities: non-tender, no calf tenderness, + pertinent finding (LLE with 1+ pitting edema, RLE no edema.) Neurologic/Psychiatric: + pertinent finding (sedated, orientation unable to be assessed) Skin: normal color, warm/dry (Leigh Woodruff PA-C) Laboratory Results Last 24 Hours Test 06/22/17 17:02 06/22/17 18:22 06/22/17 21:29 06/23/17 09:15 Bedside Glucose 174 mg/dl 202 mg/dl Venous Blood pH 7.24 Venous Blood Partial Pressure CO2 66 mmHg Venous Blood Partial Pressure O2 36 mmHg Venous Blood HCO3 28 mmol/L Venous Blood Oxygen Saturation 63.0 % Venous Blood Base Excess -0.7 mEq/L Ammonia 23.0 umol/L Test 06/23/17 09:16 White Blood Count 3.67 K/uL Red Blood Count 3.23 M/uL Hemoglobin 10.3 g/dL Hematocrit 35.0 % Mean Corpuscular Volume 108.4 fL Mean Corpuscular Hemoglobin 31.9 pg Mean Corpuscular Hemoglobin Concent 29.4 g/dl RDW Standard Deviation 63.1 fL RDW Coefficient of Variation 16.0 % Platelet Count 210 K/uL Mean Platelet Volume 10.5 fL Sodium Level 140 mmol/L Potassium Level 5.0 mmol/L Chloride Level 104 mmol/L Carbon Dioxide Level 30 mmol/L Anion Gap 6.0 mmol/L Blood Urea Nitrogen 61 mg/dl Creatinine 3.30 mg/dl Est Creatinine Clear Calc Drug Dose 16.3 ml/min Estimated GFR () 18.8 Estimated GFR (Non- 16.2 BUN/Creatinine Ratio 18.4 Random Glucose 172 mg/dl Calcium Level 8.4 mg/dl Magnesium Level 2.6 mg/dl (Leigh Woodruff, ERIN) Assessment and Plan 86 y/o M w/ PMHx of CAD, h/o AL, CABG x 4 (2012), a-fib, s/p pacemaker, HTN, HLD , mixed CHF, COPD, CKD stage IV, DM II, hypothyroidism, and depression who presented to the ED on 06/20 with generalized weakness, shortness of breath and altered mental status. Generalized weakness Metabolic Encephalopathy ? Worsening cardiorenal function - Status is worsening- long discussion held with son at bedside as per HPI. Will await him to discuss with siblings. Pt not tolerating PO meds or intake at this point. - Palliative care consulted - appreciate recs - Cardiology on board - appreciate recs, agrees with palliative consult - Ammonia seems to be fluctuating - repeated today = 23 after lactulose enema given yesterday - VBG showing increased CO2 on 06/22 - patient back on bipap currently, overnight events included pt trying to remove bipap twice and was severely aggitated requiring ativan IV. - Will add ativan 0.5 mg IV Q6H prn aggitation - B12 fine, rapid flu negative, UA clean - CT abdomen without acute findings, repeat KUB was ok on 06/21 Abdominal Pain - resolving Possible melena, h/o duodenal ulcer around [id number]- - KUB 06/21 showing cholelithiasis and a nonobstructive bowel pattern - pt complaining of abdominal pain - No endoscopy since last duodenal ulcer - Convert Protonix to Prevacid Solutab 15 mg PO qd as pt not tolerating Protonix well - Hgb is stable SHOAIB on CKD stage IV--baseline creatinine around 1.7-1.9 - Cr continues to increase, now 3.3- has been given lasix for worsening pulmonary edema x 3 days, none today. May be worsened due to cardiorenal syndrome - Got IVF in the ER upon admission, hold further fluids for now given worsening pleural effusions and EF 35-40% - Diuresis on daily prn basis. Hx of combined chronic systolic/diastolic CHF--pleural effusions mildly increased on CT, hypoxic S/p dual chamber defibrillator placement. - Consult cardiology - appreciate recs. Discussion with Dr. Chaparro today and he is also recommending palliative medicine consultation and goals toward comfort care at this time. No need for repeat echo. Pt got lasix yesterday, dobutamine unlikely to improve status. - Last echo from Mar 17 2017 with EF of 35-40% with mild-mod mitral regurg and tricuspid regurg. Atrial fibrillation s/p dual chamber pacemaker insertion 2012 - rate controlled - Continue Plavix, Eliquis 2.5 mg PO BID, Coreg 12.5 mg PO BID, digoxin 0.125 mcg PO q2d - check dig level - nontoxic at 1.4 CAD s/p CABG history of ischemic cardiomyopathy HTN HLD - Plavix - Anticoagulation with Eliquis 2.5 mg BID - Coreg 25 mg twice a day, diltiazem 120 mg daily, Digoxin 0.125 g QOD - dig therapeutic level on presentation - Pt has not been able to take PO meds today, 06/23. COPD--no exacerbation, no wheezing on exam - Continue Advair BID, albuterol prn DM II--last HgbA1c checked 04/07/17 was 6.0 - Diet controlled, pt initially was hypoglycemic and had lows overnight into the 60s initially, was placed on D5 @30 ml/hr, now hyperglycemic with glucose in the 200s. Will allow high glucoses for now with likely transition to comfort care. - Stop accuchecks Hypothyroidism -Continue Synthroid 150 mcg PO qd -TSH WNL on admission Depression -Continue Zoloft 100 mg PO qd DVT prophylaxis: Eliquis, plavix, teds, scds Code Status: DNR Disposition: discharge date unknown, unfortunately poor prognosis Discussion held with son at bedside recommending that his dad be made comfortable. He would like to discuss with his siblings first, and understands and is agreeable to palliative medicine consult today. UPDATE: Plan to transition to Comfort Care Only at this time. Family met with palliative care - discussion held with two sons at bedside and daughter over the phone. Remain on bipap until daughter can get here this evening. After that can remove bipap for comfort and use nasal cannula prn. Stop all PO meds, fluids, aggressive measures. IV ativan for agitation, morphine for air hunger, will add scopolamine patch for secretions. (Filipowicz,Leigh G., PA-C) PA Physician Supervision Note: I interviewed and examined the patient. Discussed with Leigh Woodruff PAC and agree with findings and plan as documented in the note. Any exceptions or clarifications are listed here: None Patient is here feeling from likely cardiorenal syndrome. He has a known history of ischemic cardiomyopathy is markedly hypoxic and does not sustain oxygenation off of BiPAP of which is becoming more and more intolerant. Despite attempts at diuresis for improving oxygenation this has not gotten better and his renal function is significantly worsened. I discussion with his family was had with the presence of palliative care and the direction was decided to pursue comfort care measures and likely remove BiPAP support the evening of 06/23/17. The patient's daughter who is the POA is en route to the hospital I've had the opportunity to speak to the son's and family friends on 2 occasions but have not met the daughter yet the daughter was involved with discussion with palliative care and my PA earlier in the day The patient is slightly obtunded appears to be comfortable with BiPAP does move with stimulation has very coarse bilateral breath sounds and at times is tachycardic. Palliative care measures for patient who is likely cardiorenal syndrome and is not able to sustain respiration oxygenation without BiPAP. We will pursue pain control and I will refer you to the note above regarding his multiple medical issues this previous hospital stay Documented By: Emigdio Lunsford (Emigdio Lunsford M.D.)
[2017-06-23] MEDS ORDERED: SCOPOLAMINE 1.5 MG TDSY TD SCH (15:30)
[2017-06-23] MEDS: CHECK SCOPOLAMINE PATCH PLACEMENT SCH (16:18)
--- NOTE | 2017-06-23 16:24 | Palliative Care Consultation ---
Consultation Date of Consultation: Jun 23, 2017. Requesting Physician: Jailyn Woodruff PA-C Attending Physician: Jailyn Woodruff PA-C; Dr. Lunsford Reason for Consultation: Goals of care History of Present Illness This 86 year old male patient with PMH CAD, OR, CABG, CHF with EF 35-40%, afib s /p pacer/defibrillator, COPD, CKD stave IV and others listed below, presented to the hospital a few days ago with c/o weakness, melena, SOB, and cough since returning home from [facility]. Patient was in [facility] for a couple weeks after he had several falls at home. Per record, patient was not feeling well the day he left [facility], and continued to decline once he got home, so he came to the hospital. Head CT shows no acute disease, CXR grossly unremarkable. Abdomen/pelvis CT shows small to moderate bilateral pleural effusions which appear increased from prior study (05/31/17), as well as interval development of body wall edema and small amount of ascites. EKG shows lateral TWI, pt denies chest pain and troponin negative. Patient has been hypoxic and requiring Bipap mask. He is quite confused and agitated. Ammonia and CO2 levels both elevated. Patient not tolerating treatment well. Given his advanced age and multiple advanced comorbidities, palliative care is consulted to discuss goals of care. I met with the patient, his two sons, [id number], and granddaughter in room 456-2. Patient is mostly obtunded at this time as he just received IV Ativan because he was restless, agitated, and pulling tubes/wires including pulling bipap mask off. Patient appears chronically ill and frail. Patient's sons state that they are ready to focus on comfort and not pursue any further treatment for patient's illnesses. Patient's daughter, Carley, is POA and was called on the phone while I was in room. The patient's son confirmed with Carley over the phone that the plan is for comfort measures only. She did request that we continue Bipap until she is able to get here this evening. They have some other family members who they'd like to get here as well. Past Medical/Surgical History Medical History: CAD OR AFIB s/p pacer/ICD Htn Chronic diastolic/systolic heart failure Ischemic cardiomyopathy EF 35-40% COPD CKD stage IV Hypothyroidism DM type 2 Depression Anemia Surgical History: Total knee replacement CABG Lumbar surgery Pacemaker/ICD Social History Smoking Status: Unknown if Ever Smoked History of Alcohol Use: No (once per year) Drug Use: none Marital Status: Housing Status: lives with family (with son) Occupation Status: retired Review of Systems unable to obtain ROS due to obtundation Allergies Coded Allergies: Warfarin (Verified Allergy, Intermediate, PT CAN TAKE BRAND COUMADIN, ) GOT HIVES AND SWELLING WITH WARFARIN (GENERIC BRAND) Zolpidem (Verified Adverse Reaction, Severe, altered mental status, 06/22/17 ) Simvastatin (Verified Adverse Reaction, Mild, GI UPSET, 06/20/17) Statins (Verified Adverse Reaction, Unknown, FALLS, 06/20/17) Medications Current Inpatient Medications Medications (Trade) Dose Ordered Sig/Kojo Route Start Time Stop Time Status Last Admin Dose Admin Glucose (Glucose 40% Gel) 15-30 GRAMS 15 GRAMS... UD PRN PO 06/20/17 11:15 07/20/17 11:14 06/21/17 08:40 30 GM Glucose (Glucose Chew Tab) 4-8 Tablets 4 Tabl... UD PRN PO 06/20/17 11:15 07/20/17 11:14 Dextrose (Dextrose 50% 50ML Syringe) 25-50ML OF 50% DW IV FOR... UD PRN IV 06/20/17 11:15 07/20/17 11:14 Glucagon (Glucagon Inj) 1 mg UD PRN SQ 06/20/17 11:15 07/20/17 11:14 Acetaminophen 100 ml @ 400 mls/hr Q8H PRN IV 06/22/17 03:15 07/22/17 03:14 Lorazepam 0.25 mg/ Syringe 0.375 ml @ 0.5 mls/min HS PRN IV 06/23/17 01:00 07/23/17 00:59 06/23/17 01:39 0.5 MLS/MIN Scopolamine (Transderm-Scop Patch) 1.5 mg Q72H TD 06/23/17 15:30 07/23/17 15:29 Miscellaneous (Remove Transderm-Scop Patch) 1 ea Q72H N/A 06/26/17 15:29 07/26/17 15:28 Miscellaneous Information (Check Scopolamine Patch Placement) 1 ea QS N/A 06/23/17 16:00 07/23/17 15:59 Morphine Sulfate (MoRPHine SULFATE INJ) 1 mg Q2H PRN IV 06/23/17 15:15 07/07/17 15:14 Lorazepam 0.5 mg/ Syringe 0.5 ml @ 0.5 mls/min Q2H PRN IV 06/23/17 15:45 07/23/17 12:14 Physical Exam Date Time Temp Pulse Resp B/P (MAP) Pulse Ox O2 Delivery O2 Flow Rate FiO2 06/23/17 15:13 81 24 91 BiPAP/CPAP 4.0 06/23/17 11:10 81 24 91 BiPAP/CPAP 4.0 06/23/17 11:08 81 91 4.0 06/23/17 08:00 BiPAP 06/23/17 07:44 71 92 4.0 06/23/17 07:43 71 18 92 BiPAP/CPAP 4.0 06/23/17 07:24 36.3 70 22 100/55 (70) 94 BiPAP 06/23/17 01:41 96 18 88 BiPAP/CPAP 4.0 06/22/17 23:56 36.4 76 18 108/43 (64) 94 BiPAP 4.0 06/22/17 23:56 92 94 4.0 06/22/17 23:00 BiPAP 06/22/17 21:30 88 18 91 BiPAP/CPAP 4.0 06/22/17 21:30 89 95 4.0 06/22/17 20:58 78 103/56 (72) 95 BiPAP 4.0 06/22/17 16:00 95 BiPAP 4.0 General Appearance: no apparent distress, + thin, + pertinent finding (frail) Neck: no JVD Respiratory: no respiratory distress, + decreased breath sounds (bilateral bases), + accessory muscle use (agonal breathing on bipap), + rhonchi (coarse throughout) Cardiovascular: regular rate, rhythm, no edema, + normal peripheral pulses Abdomen: normal bowel sounds, soft Neurologic/Psychiatric: + pertinent finding (obtunded) Laboratory Results Last 24 Hours Test 06/22/17 17:02 06/22/17 18:22 06/22/17 21:29 06/23/17 09:15 Bedside Glucose 174 mg/dl 202 mg/dl Venous Blood pH 7.24 Venous Blood Partial Pressure CO2 66 mmHg Venous Blood Partial Pressure O2 36 mmHg Venous Blood HCO3 28 mmol/L Venous Blood Oxygen Saturation 63.0 % Venous Blood Base Excess -0.7 mEq/L Ammonia 23.0 umol/L Test 06/23/17 09:16 White Blood Count 3.67 K/uL Red Blood Count 3.23 M/uL Hemoglobin 10.3 g/dL Hematocrit 35.0 % Mean Corpuscular Volume 108.4 fL Mean Corpuscular Hemoglobin 31.9 pg Mean Corpuscular Hemoglobin Concent 29.4 g/dl RDW Standard Deviation 63.1 fL RDW Coefficient of Variation 16.0 % Platelet Count 210 K/uL Mean Platelet Volume 10.5 fL Sodium Level 140 mmol/L Potassium Level 5.0 mmol/L Chloride Level 104 mmol/L Carbon Dioxide Level 30 mmol/L Anion Gap 6.0 mmol/L Blood Urea Nitrogen 61 mg/dl Creatinine 3.30 mg/dl Est Creatinine Clear Calc Drug Dose 16.3 ml/min Estimated GFR () 18.8 Estimated GFR (Non- 16.2 BUN/Creatinine Ratio 18.4 Random Glucose 172 mg/dl Calcium Level 8.4 mg/dl Magnesium Level 2.6 mg/dl Assessment & Plan Palliative Performance Scale: 10 % Problem list: SOB Weakness Altered mental status/encephalopathy Acute on chronic respiratory failure CHF exacerbation Ischemic cardiomyopathy, EF 35-40% SHOAIB on CKD- creatinine 3.30 today, worse from 2.66 yesterday Hx COPD, CAD, afib Pulmonary vascular congestion Elevated CO2 Elevated ammonia Hypoalbuminemia Goals of care (Z51.5) Palliative care recs: discussed with family, Nataly Woodruff PA-C and Dr Lunsford. -Per patient's living will and family's wishes, patient will be comfort measures only. -Continue Bipap for now until all family is able to arrive. -Would order morphine 2mg IV Q1h PRN pain or SOB. -Ativan 0.5mg IV Q2h PRN anxiety/agitation. -Call [employer] and have defibrillator turned off. Continue pacing function. -Scopolamine patch 1.5mg TD Q72h. -Atropine 1% oph soln 4 drops SL Q1h PRN if secretions worsen. -Prognosis is quite poor. Family is all aware. Thank you kindly for this consult. I will follow as needed.
[2017-06-23] MEDS: MoRPHine SULFATE 2 MG/ML CARP IV PRN ×2 (19:43→21:50)
[2017-06-23] MEDS: LORAZEPAM INJ 0.5 MG in SYRINGE 0.25 ML IV PRN (20:09)
[2017-06-24] MEDS: MoRPHine SULFATE 2 MG/ML CARP IV PRN ×2 (00:17→05:29)
[2017-06-24] MEDS: CHECK SCOPOLAMINE PATCH PLACEMENT SCH ×3 (00:21→16:00)
[2017-06-24] MEDS: LORAZEPAM INJ 0.5 MG in SYRINGE 0.25 ML IV PRN (01:49)
[2017-06-24] MEDS ORDERED: BOOST VANILLA PO SCH (09:15)
--- NOTE | 2017-06-24 10:16 | Hospitalist Progress Note ---
Hospitalist Progress Note Date of Service Jun 24, 2017. Subjective Pt evaluation today including: conversation w/ family The patient was visited this morning, his daughter Carley is present at bedside and has been here through the night. P appears very comfortable on room air, with nonlabored breathing. Carley reports he has had a few period where he stopped breathing but then started back up again. Many family members were present here last evening and have all gotten to see the patient. ROS: not obtainable. Objective Vital Signs Date Time Temp Pulse Resp B/P (MAP) Pulse Ox O2 Delivery O2 Flow Rate FiO2 06/24/17 08:00 Room Air 06/24/17 00:15 Room Air 06/23/17 19:26 81 91 4.0 06/23/17 16:00 BiPAP 4.0 06/23/17 15:13 81 24 91 BiPAP/CPAP 4.0 06/23/17 11:10 81 24 91 BiPAP/CPAP 4.0 06/23/17 11:08 81 91 4.0 Physical Exam Notes: Appears comfortable, on room air with breaths around 18 per min. Minimal oral secretions. Rest of exam deferred as on comfort care. Assessment and Plan 86 y/o M w/ PMHx of CAD, h/o DC, CABG x 4 (2012), a-fib, s/p pacemaker, HTN, HLD , mixed CHF, COPD, CKD stage IV, DM II, hypothyroidism, and depression who presented to the ED on 06/20 with generalized weakness, shortness of breath and altered mental status. Comfort Measures Only - Continue ativan 0.5 mg Q2H prn, morphine IV 2 mg Q1H for air hunger, scopalamine patch. Can use atropine drops but at this time oral secretions appear well controlled. - Family update, all questions and concerns addressed - Prognosis is very poor, likely to shortly. - Palliative care on board Generalized weakness Metabolic Encephalopathy Worsening cardiorenal function - Cardiology on board - appreciate recs, agrees with palliative care and comfort measures only - Ammonia fluctuated throughout stay, initially pt drank lactulose but due to worsening state recieved one lactulose enema. - VBG showing increased CO2 on 06/22 - required bipap but now off. - CT abdomen without acute findings, repeat KUB was ok on 06/21 Abdominal Pain - resolved Possible melena, h/o duodenal ulcer around [id number]- - KUB 06/21 showing cholelithiasis and a nonobstructive bowel pattern - Pt did not tolerate protonix per family, no po meds at this time - Hgb stable as per last draw SHOAIB on CKD stage IV--baseline creatinine around 1.7-1.9 - Cr elevated to 3.3 on 06/23 with worsening cardiorenal function despite diuresis with lasix for worsening pulmonary edema x 3 days through 06/22 - no further intervention Hx of combined chronic systolic/diastolic CHF--pleural effusions mildly increased on CT, hypoxic S/p dual chamber defibrillator placement. - Cars on board -appreciate recs. - Last echo from Mar 17 2017 with EF of 35-40% with mild-mod mitral regurg and tricuspid regurg. - Got IVF in the ER upon admission, hold further fluids for now given worsening pleural effusions and EF 35-40% Atrial fibrillation s/p dual chamber pacemaker insertion 2012 - rate controlled - Continue Plavix, Eliquis 2.5 mg PO BID, Coreg 12.5 mg PO BID, digoxin 0.125 mcg PO q2d - dig level - nontoxic at 1.4 CAD s/p CABG history of ischemic cardiomyopathy HTN HLD - Plavix, Eliquis 2.5 mg BID, Coreg 25 mg twice a day, diltiazem 120 mg daily, Digoxin 0.125 g QOD - dig therapeutic level on presentation - Pt has not been able to take PO meds x multiple days COPD--no exacerbation, no wheezing on exam - Continue Advair BID, albuterol prn DM II--last HgbA1c checked 04/07/17 was 6.0 - Diet controlled, pt initially was hypoglycemic and had lows overnight into the 60s initially, was placed on D5 @30 ml/hr, now hyperglycemic with glucose in the 200s. Will allow high glucoses for now with likely transition to comfort care. - Stop accuchecks Hypothyroidism -Continue Synthroid 150 mcg PO qd -TSH WNL on admission Depression -No po meds, was on Zoloft 100 mg PO qd DVT prophylaxis: Eliquis, plavix, teds, scds Code Status: DNR Disposition: unfortunately poor prognosis, likely to in the hospital. Comfort measures only
--- NOTE | 2017-06-24 16:27 | Death Summary ---
Summary of Admission Date Jun 20, 2017 at 09:25 Date & Time of Jun 24, 2017. 1544 Cause of ischemic cardiomyopathy Secondary Diagnoses was was examined and was unresponsive with no audible heart tones or respiratory effort Hospital Course 86 y/o M w/ PMHx of CAD, h/o ND, CABG x 4 (2012), a-fib, s/p pacemaker, HTN, HLD , mixed CHF, COPD, CKD stage IV, DM II, hypothyroidism, and depression who presented to the ED on 06/20 with generalized weakness, shortness of breath and altered mental status. Comfort Measures Only - Prognosis was very poor,was kept comfortable thru day, family approved to turn [employer] defibrillator off, was accomplished this afternoon and pt continued to decline and at 1544 hours from complications of ischemic cardiomyopathy Previously during this hospital stay: Metabolic Encephalopathy Worsening cardiorenal functio Abdominal Pain - h/o duodenal ulcer around [id number]- - KUB 06/21 showing cholelithiasis and a nonobstructive bowel pattern SHOAIB on CKD stage IV- Hx of combined chronic systolic/diastolic CHF-progressed hypoxia and respiratory failure unless supported with Bipap, this was discontinued as support 06/23 S/p dual chamber defibrillator placement. Atrial fibrillation s/p dual chamber pacemaker insertion 2012 COPD-has only worsened respiratory failure but this underlying chronic respiratory failure status DM II- Hypothyroidism
== END 2017-06-24 17:21 | disposition expired | DRG 291 ==
LOC: EDBD 04:16 → C.EDB 04:17 → C.MS4W 09:25 → ENRESERV 09:44
PROVIDERS: ADMIT Internal Medicine; ATTEND Internal Medicine
DX: I13.0 Hypertensive heart and chronic kidney disease with heart failure and stage 1 through stage 4 chronic kidney disease, or unspecified chronic kidney disease (principal); I50.43 Acute on chronic combined systolic (congestive) and diastolic (congestive) heart failure; G93.41 Metabolic encephalopathy; J96.22 Acute and chronic respiratory failure with hypercapnia; J96.21 Acute and chronic respiratory failure with hypoxia; N17.9 Acute kidney failure, unspecified; N18.4 Chronic kidney disease, stage 4 (severe); B37.0 Candidal stomatitis; Z51.5 Encounter for palliative care; I25.5 Ischemic cardiomyopathy; E11.649 Type 2 diabetes mellitus with hypoglycemia without coma; K72.90 Hepatic failure, unspecified without coma; R10.32 Left lower quadrant pain; R62.7 Adult failure to thrive; K80.20 Calculus of gallbladder without cholecystitis without obstruction; I25.10 Atherosclerotic heart disease of native coronary artery without angina pectoris; I25.2 Old myocardial infarction; I48.91 Unspecified atrial fibrillation; J44.9 Chronic obstructive pulmonary disease, unspecified; E11.22 Type 2 diabetes mellitus with diabetic chronic kidney disease; E03.9 Hypothyroidism, unspecified; F32.9 Major depressive disorder, single episode, unspecified; Z79.899 Other long term (current) drug therapy; Z79.01 Long term (current) use of anticoagulants; Z79.02 Long term (current) use of antithrombotics/antiplatelets; Z66 Do not resuscitate; Z95.1 Presence of aortocoronary bypass graft; Z95.0 Presence of cardiac pacemaker; Z87.11 Personal history of peptic ulcer disease; Z91.81 History of falling; Z87.891 Personal history of nicotine dependence